=== PATIENT | female | born 1935 | race Caucasian/White ===

== ENCOUNTER 2016-07-24 17:36 | Inpatient (IN) | payer MEDICARE, BC, OTHER ==
[2016-07-24] MEDS ORDERED: ALBUTEROL HFA 8 GM INHALER INH PRN (17:59)
[2016-07-24] MEDS ORDERED: ACETAMINOPHEN/CODEINE TABLET PO PRN (17:59)
[2016-07-24 19:12] LABS: ABO GROUP AB; ANTIBODY SCREEN NEGATIVE (NEGATIVE); RH TYPE NEGATIVE
[2016-07-24 19:13] LABS: IMMED. SPIN CROSSMATCH COMPATIBLE
[2016-07-24] MEDS ORDERED: DIPHENHYDRAMINE HCL 25 MG CAPSULE PO PRN (21:58)
[2016-07-24] MEDS: ROPINIROLE HCL 1 MG TABLET PO SCH (23:43)
[2016-07-25 03:04] LABS: HEMATOCRIT 28.5 % (35.0-47.0); HEMOGLOBIN 8.2 gm/dl (11.6-16.0)
[2016-07-25] MEDS ORDERED: LEVOTHYROXINE SODIUM 25 MCG TABLET PO SCH (06:00)
[2016-07-25 06:18] LABS: HEMATOCRIT 28.3 % (35.0-47.0); HEMOGLOBIN 8.1 gm/dl (11.6-16.0); MEAN CELL VOLUME 76.5 fl (81-97); MEAN CORPUSCULAR HGB CONC 28.6 g/dl (32-36); MEAN PLATELET VOLUME 9.8 fl (7.4-10.4); PLATELET COUNT 200 K/uL (130-400); RED CELL DISTRIBUTION WIDTH 17.1 % (11.5-14.5)
[2016-07-25 06:22] LABS: MEAN CORPUSCULAR HEMOGLOBIN 21.8 pg (27-33)
[2016-07-25 06:23] LABS: ANION GAP 15.3 (7-16); BLOOD UREA NITROGEN 20 mg/dL (7-17); CARBON DIOXIDE 21.7 mmol/L (22-30); CREATININE 0.9 mg/dL (0.52-1.04); EST GLOMERULAR FILTRATION RATE > 60 ml/min; GLUCOSE,RANDOM 102 mg/dL (70-110)
[2016-07-25 06:42] LABS: HYPOCHROMIA 2+; PLATELET ESTIMATE NORMAL (NORMAL)
--- NOTE | 2016-07-25 07:27 | CT SCAN REPORT ---
EXAM: CT OF THE BRAIN WITH IV CONTRAST HISTORY: HYPERSOMNOLENT, DIZZINESS FOR THREE MONTHS. TECHNIQUE: Contiguous axial images from the cerebral convexities to the foramen magnum were obtained after the uneventful intravenous administration of 100 ml of Omnipaque 300. Comparison: Head CT 06/30/15. FINDINGS: The brain volume is normal. Normal enhancement of the dural venous sinuses with no thrombosis. Expected vascular enhancement involving the cerebral arteries. No pathologic enhancement within the brain. Mild decreased attenuation in the periventricular white matter of the cerebral hemispheres. The ventricles, basal cisterns, and sulci are within normal limits. Severe calcification of the cavernous segments of the internal carotid arteries. The osseous structures are unremarkable. IMPRESSION: 1. NO PATHOLOGIC CONTRAST ENHANCEMENT WITHIN THE BRAIN. EXPECTED VASCULAR ENHANCEMENT NOTED. 2. MILD CHRONIC SMALL VESSEL ISCHEMIC CHANGE. 3. SEVERE CALCIFICATION OF THE CAVERNOUS SEGMENTS OF THE INTERNAL CAROTID ARTERIES. JOB NUMBER: [id number] MTDD
--- NOTE | 2016-07-25 09:34 | History & Physical ---
<HALEIGH GUNDERSON - Last Filed: 07/25/16 14:20> History of Present Illness - Date of Service Date of Service for History & Physical: 07/25/16 - History of Present Illness Admitting Diagnosis: Anemia; Shortness of breath History of Present Illness: Deysi Venegas is an 81 y/o female with history of chronic anemia with lesions to lung and thyroid presenting with 3 month history of dizziness, fatigue and weakness with report of mental status changes per daughter's report. Seen at in Family Practice with stat CBC showing hgb 7.2. Does have previous history of the same 1 year ago in which she received 1 unit PRBC with successful increase of HGB and was discharged home. Consult at that time with Dr Lyons with no confirmation regarding cause of anemia. Denies epistaxis, easy bruising, hemotysis, blood in stool or black tarry stools. Travel Screening - Travel/Exposure Within Last 30 Days Have you traveled within the last 30 days?: No - Travel/Exposure Within Last Year Have you traveled outside the [place] in the last year?: No - Additonal Travel Details Have you been exposed to anyone with a communicable illness?: No - Travel Symptoms Symptom Screening: None Review of Systems Reviewed: No additional complaints except as noted below Constitutional: Reports: As per HPI. Denies: Chills, Fever, Malaise, Night sweats, Weakness, Weight change Eyes: Reports: As per HPI. Denies: Eye discharge, Eye pain, Photophobia, Vision change ENT: Reports: As per HPI. Denies: Congestion, Dental pain, Ear pain, Epistaxis , Hearing loss, Throat pain Respiratory: Reports: As per HPI. Denies: Cough, Dyspnea, Hemoptysis, Stridor, Wheezes Cardiovascular: Reports: As per HPI. Denies: Arrhythmia, Chest pain, Dyspnea on exertion, Edema, Murmurs, Orthopnea, Palpitations, Paroxysmal nocturnal dyspnea, Rheumatic Fever, Syncope Endocrine: Reports: As per HPI. Denies: Fatigue, Heat or cold intolerance, Polydipsia, Polyuria Gastrointestinal: Reports: As per HPI. Denies: Abdominal pain, Constipation, Diarrhea, Hematemesis, Hematochezia, Melena, Nausea, Vomiting Genitourinary: Reports: As per HPI. Denies: Abnormal menses, Discharge, Dyspareunia, Dysuria, Frequency, Hematuria, Incontinence, Retention, Urgency Musculoskeletal: Reports: As per HPI. Denies: Arthralgia, Back pain, Gout, Joint swelling, Myalgia, Neck pain Skin: Reports: As per HPI. Denies: Bruising, Change in color, Change in hair/ nails, Lesions, Pruritus, Rash Neurological: Reports: As per HPI. Denies: Abnormal gait, Confusion, Headache, Numbness, Paresthesias, Seizure, Tingling, Tremors, Vertigo, Weakness Psychiatric: Reports: As per HPI. Denies: Anxiety, Auditory hallucinations, Depression, Homicidal thoughts, Suicidal thoughts, Visual hallucinations Hematological/Lymphatic: Reports: As per HPI. Denies: Anemia, Blood Clots, Easy bleeding, Easy bruising, Swollen glands Past Medical History - SOCIAL HISTORY Smoking Status: Former smoker Alcohol Use: None Drug Use: None - RESPIRATORY Hx Respiratory Disorders: Yes Hx Bronchitis: Yes Hx Pneumonia: Yes - CARDIOVASCULAR Hx Cardio Disorders: Yes Hx Hypertension: Yes (No longer takes medication) Comment:: Pt states many years ago she was told that she had a murmur - NEURO Hx Neuro Disorders: Yes - GI Hx GI Disorders: Yes Hx Reflux: Yes (Takes Prevacid) Hx Hiatal Hernia: Yes Hx Irritable Bowel: Yes - Hx Genitourinary Disorders: Yes Hx Kidney Stones: Yes Hx UTI: Yes - ENDOCRINE Hx Endocrine Disorders: Yes Hx Diabetes: Yes (takes metformin) Hx Thyroid Disease: Yes (partial thyroidectmoy) - MUSCULOSKELETAL Hx Musculoskeletal Disorders: Yes Hx Back Injury: Yes - PSYCH Hx Psych Problems: Yes Hx Anxiety: Yes Hx Depression: Yes - HEMATOLOGY/ONCOLOGY Hx Hematology/Oncology Disorders: Yes Hx Cancer: Yes (breast cancer, skin cancer) Hx Blood Transfusions: Yes (1 yr ago) Family Medical History Any Significant Family History?: Yes Hx Alcohol Use: Brother/Sister Hx Anxiety: Brother/Sister Hx Dementia: Father Hx Depression: Mother Hx Heart Disease: Mother Hx Stroke: Father, Mother H&P Meds/Allergies - Allergies Allergies: Allergies Allergy/AdvReac Type Severity Reaction Status Date / Time fentanyl Allergy Severe FATIGUE Verified 07/25/16 12:55 amoxicillin [Amoxicillin] AdvReac Intermediate DIARRHEA Verified 07/25/16 12:55 morphine AdvReac Intermediate DIZZINESS Verified 07/25/16 12:55 nitrofurantoin AdvReac Intermediate DIZZINESS Verified 07/25/16 12:55 [From Macrobid] nitrofurantoin AdvReac Intermediate DIZZINESS Verified 07/25/16 12:55 macrocrystalline [From Macrobid] oxycodone HCl [From Percocet] AdvReac Intermediate DIZZINESS Verified 07/25/16 12:55 - Home Medications Home Medications Medication Instructions Recorded Confirmed Last Taken Meridian-3 Fatty Acids [Meridian-3] 1,000 mg PO QHS 06/28/15 07/24/16 03/09/16 Cholecalciferol (Vitamin D3) 5,000 unit PO WEEKLY 07/24/16 07/24/16 Unknown [Vitamin D3] Diphenhydramine HCl [Benadryl] 25 mg PO QHS 07/24/16 07/24/16 Unknown Multivitamin/Iron/Folic Acid 1 tab PO DAILY 07/24/16 07/24/16 Unknown [Centrum] - Active Medications Active Medications: Current Medications Acetaminophen/Codeine Phosphate (Tylenol #3) 1 udtab PO Q6H PRN PRN Reason: Pain - Moderate (5-7) Albuterol Sulfate (Ventolin Hfa) 2 puff INH RESP.Q4H PRN PRN Reason: Wheezing Diphenhydramine HCl (Benadryl Capsule) 50 mg PO QHS PRN PRN Reason: SLEEP Last Admin: 07/24/16 23:28 Dose: 50 mg Escitalopram Oxalate (Lexapro) 10 mg PO DAILY [facility] Levothyroxine Sodium (Synthroid) 25 mcg PO Q48H [facility] Metformin HCl (Glucophage Ir) 500 mg PO BIDWM [facility] Patient Own Med: (Rosuvastatin 20 Mg) 1 each PO QHS [facility] Ropinirole HCl (Requip) 0.25 mg PO QHS [facility] Last Admin: 07/24/16 23:43 Dose: Not Given Physical Exam - Vital Signs Vital Signs: Vital Signs - Last 24 Hrs Temp Pulse Resp BP Pulse Ox 07/25/16 09:00 80 18 07/25/16 06:00 98.3 F 81 18 149/68 97 07/24/16 20:00 98.0 F 83 20 127/60 97 07/24/16 19:16 90 12 07/24/16 17:51 90 12 135/61 95 - General General Appearance: Alert, Oriented x3, Cooperative, No acute distress Limitations: No limitations - Head Head exam: Normal inspection Head exam detail: negative: Abrasion, Contusion - Eye Eye exam: Normal appearance, PERRL Pupils: Normal accommodation - ENT ENT exam: Normal exam, Mucous membranes moist, Normal external ear exam, Normal orophraynx, TM's normal bilaterally Ear exam: Normal external inspection. negative: External canal tenderness Nasal Exam: Normal inspection. negative: Discharge, Sinus tenderness Mouth exam: Normal external inspection, Tongue normal Teeth exam: Normal inspection. negative: Dental caries Throat exam: Normal inspection. negative: Tonsillar erythema, Tonsillar exudate - Neck Neck exam: Normal inspection, Full ROM. negative: Tenderness - Respiratory Respiratory exam: Normal lung sounds bilaterally. negative: Respiratory distress - Cardiovascular Cardiovascular Exam: Regular rate, Normal rhythm, Normal heart sounds, Systolic murmur (holosystolic, does have previous history of) Peripheral Pulses: 3+: Dorsalis Pedis (R), Dorsalis Pedis (L) - GI/Abdominal GI/Abdominal exam: Soft, Normal bowel sounds. negative: Tenderness - Rectal Rectal exam: Deferred. negative: Black stool, Bloody stool - exam: Deferred - Extremities Extremities exam: Normal inspection, Full ROM, Normal capillary refill. negative: Tenderness - Back Back exam: Reports: Normal inspection, Full ROM. Denies: Muscle spasm, Rash noted, Tenderness - Neurological Neurological exam: Alert, Normal gait, Oriented X3, Reflexes normal - Psychiatric Psychiatric exam: Normal affect, Normal mood - Skin Skin exam: Dry, Intact, Normal color, Warm Results - Labs Result Diagrams: 07/25/16 02:50 07/25/16 02:50 Labs Last 24 Hours: Laboratory Results - last 24 hr 07/24/16 07/25/16 07/25/16 16:56 02:50 02:50 WBC 8.0 RBC 3.70 L Hgb 8.2 L 8.1 L Hct 28.5 L 28.3 L MCV 76.5 L MCH 21.8 L MCHC 28.6 L RDW 17.1 H Plt Count 200 MPV 9.8 Neutrophils % 61.0 Lymphocytes % 30.0 Monocytes % 8.0 Eosinophils % 1.0 Basophils % Not Reportable Platelet Estimate Normal Hypochromasia 2+ Sodium Potassium Chloride Carbon Dioxide Anion Gap BUN Creatinine Estimated GFR Random Glucose Calcium ABO Group Ab Rh Factor Negative Antibody Screen Negative 07/25/16 02:50 WBC RBC Hgb Hct MCV MCH MCHC RDW Plt Count MPV Neutrophils % Lymphocytes % Monocytes % Eosinophils % Basophils % Platelet Estimate Hypochromasia Sodium 138 Potassium 4.6 Chloride 101 Carbon Dioxide 21.7 L Anion Gap 15.3 BUN 20 H Creatinine 0.9 Estimated GFR > 60 Random Glucose 102 Calcium 9.5 ABO Group Rh Factor Antibody Screen - Imaging and Cardiology CT scan - head Status: Report reviewed (1- mild chronic small vessel ischemic changes, 2- severe calcification to cavernous sections of internal carotid arteries) Plan - Inpatient Certification Inpatient Certification: Admit to inpatient care: Based on my medical assessment, after consideration of patient's risk factors (age, co-morbidities and patient presenting symptoms and acuity), I expect that this patient will remain in the hospital greater than or equal to two midnights and that the services needed warrant inpatient care because: Patient Risk Factors: [Age, comorbidities] Estimated length of stay: [48-72 hrs] The patient may reasonably be expected to be discharged or transferred to a hospital within 96 hours after admission to [facility]. Services needed: [GI consult, Heme/Onc] Post hospital care (if known): [] I certify that my determination is in accordance with my understanding of Medicare requirements for reasonable and necessary inpatient services. 07/25/16 14:20 - Detailed Diagnosis and Plan (1) Anemia Current Visit: No Status: Acute Qualifiers: Anemia type: other cause Other causes of anemia: chronic disease, other Qualified Code(s): D63.8 - Anemia in other chronic diseases classified elsewhere Base Code: D64.9 - ANEMIA, UNSPECIFIED Comment: 07/25/16- Idiopathic chronic microcytic-hypochromoic anemia with hgb 7.2, up to 8.2 after 1 U PRBC. Concern regarding lung and thyroid lesion with recent changes in mental status. Consult with Dr. Lyons today and plan for GI consult. May need PET scan due to changes mental status, anemia chronic disease, body lesions. Await haptoglobin results and will be checking retic count. Previous studies: 1- 04/24/15- small internal hemorrhoids, 4mm polyp removal 2- 06/22/15 thyroid ultrasound- multiple subcentimeter nodules right lobe likely colloid/adenomas 3- 12/07/15- EGD w/ biopsy for antral gastritis to rule out occult celiac spuue, no new finding noted during scope. (2) Mental status change Current Visit: Yes Status: Acute Qualifiers: Altered mental status type: disorientation Qualified Code(s): R41.0 - Disorientation, unspecified Base Code: R41.82 - ALTERED MENTAL STATUS, UNSPECIFIED Comment: 07/25/16- mental status changes per daughter's report prior to visit in Family Practice 07/24/16. Head CT with contrast 07/24/16 with no acute intracranial process, + mild chronic small vessel ischemic changes, + severe calcification of cavernous secions of internal carotid arteries. Is A&O X3 and appropriate today (3) T2DM (type 2 diabetes mellitus) Current Visit: Yes Status: Chronic Qualifiers: Diabetes mellitus complication status: without complication Diabetes mellitus chcf insulin use: without exterminator use Qualified Code(s): E11.9 - Type 2 diabetes mellitus without complications Base Code: E11.9 - TYPE 2 DIABETES MELLITUS WITHOUT COMPLICATIONS Comment: 07/25/16- chronic history DM-2, does not regulary check blood sugars at home and reports well controlled with Metformin (4) Heart murmur Current Visit: Yes Status: Acute Base Code: R01.1 - CARDIAC MURMUR, UNSPECIFIED Comment: 07/25/16- holosystolic, chronic. 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) - Cardiolyte stress test completed 08/21/2015 and negative <MIRZA LR - Last Filed: 07/26/16 12:15> History of Present Illness - Date of Service Date of Service for History & Physical: 07/26/16 H&P Meds/Allergies - Active Medications Active Medications: Current Medications Acetaminophen/Codeine Phosphate (Tylenol #3) 1 udtab PO Q6H PRN PRN Reason: Pain - Moderate (5-7) Albuterol Sulfate (Ventolin Hfa) 2 puff INH RESP.Q4H PRN PRN Reason: Wheezing Diphenhydramine HCl (Benadryl Capsule) 50 mg PO QHS PRN PRN Reason: SLEEP Last Admin: 07/24/16 23:28 Dose: 50 mg Escitalopram Oxalate (Lexapro) 10 mg PO DAILY [facility] Last Admin: 07/26/16 10:56 Dose: 10 mg Levothyroxine Sodium (Synthroid) 25 mcg PO Q48H [facility] Last Admin: 07/25/16 09:58 Dose: 25 mcg Metformin HCl (Glucophage Ir) 500 mg PO BIDWM [facility] Patient Own Med: (Rosuvastatin 20 Mg) 1 each PO QHS [facility] Last Admin: 07/25/16 23:29 Dose: 1 each Ropinirole HCl (Requip) 0.25 mg PO QHS [facility] Last Admin: 07/25/16 23:29 Dose: 0.25 mg Physical Exam - Vital Signs Vital Signs: Vital Signs - Last 24 Hrs Temp Pulse Resp BP Pulse Ox 07/26/16 11:54 98.9 F 85 18 144/68 96 07/26/16 09:00 18 07/26/16 06:16 99.0 F 90 18 128/58 95 07/26/16 06:10 95 07/25/16 23:18 100.0 F H 88 16 141/63 93 L 07/25/16 12:21 98.3 F 81 18 124/56 95 Results - Labs Result Diagrams: 07/26/16 06:15 07/25/16 02:50 Labs Last 24 Hours: Laboratory Results - last 24 hr 07/25/16 07/26/16 07/26/16 14:30 06:15 06:15 WBC 7.7 RBC 4.10 Hgb 8.9 L Hct 31.3 L MCV 76.3 L MCH 21.7 L MCHC 28.4 L RDW 17.4 H Plt Count 217 MPV 9.4 Gran % 58.1 Lymphocytes % 32.1 Monocytes % 7.5 Eosinophils % 1.8 Basophils % 0.5 Retic Count 1.7 1.7 Iron 17 L TIBC 468 % Saturation 3 L Ferritin 7.28 L VTE H&P Assessment - Risk for VTE Risk for VTE: Yes Risk Level: Moderate Risk Assessment Date: 07/25/16 Risk Assessment Time: 12:14 VTE Orders Placed or Will Be Placed: No VTE Reason for No Prophylaxis: Contraindicated (anemic ) Plan - Inpatient Certification Inpatient Certification: Admit to inpatient care: Based on my medical assessment, after consideration of patient's risk factors (age, co-morbidities and patient presenting symptoms and acuity), I expect that this patient will remain in the hospital greater than or equal to two midnights and that the services needed warrant inpatient care because: Patient Risk Factors: [] Estimated length of stay: [] The patient may reasonably be expected to be discharged or transferred to a hospital within 96 hours after admission to [facility]. Services needed: [] Post hospital care (if known): [] I certify that my determination is in accordance with my understanding of Medicare requirements for reasonable and necessary inpatient services.
[2016-07-25] MEDS: PATIENT OWN MED: ROSUVASTATIN 20 MG PO SCH ×2 (09:57→23:29)
[2016-07-25] MEDS: ESCITALOPRAM 10 MG TABLET PO SCH (09:58)
[2016-07-25] MEDS ORDERED: ROPINIROLE HCL 0.25 MG PO SCH (12:15)
[2016-07-25] MEDS ORDERED: ESCITALOPRAM OXALATE 20 MG PO SCH (12:15)
[2016-07-25] MEDS ORDERED: DIPHENHYDRAMINE HCL 25 MG CAPSULE PO SCH (22:00)
[2016-07-25] MEDS ORDERED: FATTY ACIDS PO SCH (22:00)
[2016-07-25] MEDS ORDERED: OMEGA PO SCH (22:00)
[2016-07-25] MEDS: ROPINIROLE HCL 1 MG TABLET PO SCH (23:29)
[2016-07-26 06:38] LABS: BASO % 0.5 % (0-6); EOS % 1.8 % (0-6); GRAN % 58.1 % (47-80); HEMATOCRIT 31.3 % (35.0-47.0); HEMOGLOBIN 8.9 gm/dl (11.6-16.0); LYMPH % 32.1 % (16-45); MEAN CELL VOLUME 76.3 fl (81-97); MEAN CORPUSCULAR HEMOGLOBIN 21.7 pg (27-33); MEAN CORPUSCULAR HGB CONC 28.4 g/dl (32-36); MEAN PLATELET VOLUME 9.4 fl (7.4-10.4); MONO % 7.5 % (0-9); PLATELET COUNT 217 K/uL (130-400); RED CELL DISTRIBUTION WIDTH 17.4 % (11.5-14.5); RETICULOCYTE COUNT 1.7 % (0.0-2.0); WHITE BLOOD COUNT W/O DIFF 7.7 K/uL (4.2-12.2)
[2016-07-26 07:31] LABS: FERRITIN 7.28 ng/mL (11.1-264)
[2016-07-26] MEDS ORDERED: MULTIVITAMINS/MINERALS TABLET PO SCH (10:00)
[2016-07-26] MEDS ORDERED: METFORMIN 500 MG TABLET PO SCH ×2 (10:00→17:00)
[2016-07-26] MEDS: ESCITALOPRAM 10 MG TABLET PO SCH (10:56)
--- NOTE | 2016-07-26 12:19 | Discharge Summary ---
Providers Discharge Summary Date: 07/26/16 Date of admission: 07/24/16 17:36 Expected Date of Discharge: 07/26/16 Attending physician: MIRZA LR Primary care physician: MIRZA LR Consults: Consult Orders 07/24/16 17:57 Consult NOW Consulting Provider: Maira Lyons Physician Instructions: Reason For Exam: microcytic anemia Physical Exam - Vital Signs Vital Signs: Vital Signs - Last 24 Hrs Temp Pulse Resp BP Pulse Ox 07/26/16 11:54 98.9 F 85 18 144/68 96 07/26/16 09:00 18 07/26/16 06:16 99.0 F 90 18 128/58 95 07/26/16 06:10 95 07/25/16 23:18 100.0 F H 88 16 141/63 93 L 07/25/16 12:21 98.3 F 81 18 124/56 95 - General General Appearance: Alert, Oriented x3, Cooperative, No acute distress Limitations: No limitations - Head Head exam: Normal inspection Head exam detail: negative: Abrasion, Contusion - Eye Eye exam: Normal appearance, PERRL Pupils: Normal accommodation - ENT ENT exam: Normal exam, Mucous membranes moist, Normal external ear exam, Normal orophraynx, TM's normal bilaterally Ear exam: Normal external inspection. negative: External canal tenderness Nasal Exam: Normal inspection. negative: Discharge, Sinus tenderness Mouth exam: Normal external inspection, Tongue normal Teeth exam: Normal inspection. negative: Dental caries Throat exam: Normal inspection. negative: Tonsillar erythema, Tonsillar exudate - Neck Neck exam: Normal inspection, Full ROM. negative: Tenderness - Respiratory Respiratory exam: Normal lung sounds bilaterally. negative: Respiratory distress - Cardiovascular Cardiovascular Exam: Regular rate, Normal rhythm, Normal heart sounds, Systolic murmur (holosystolic, does have previous history of) Peripheral Pulses: 3+: Dorsalis Pedis (R), Dorsalis Pedis (L) - GI/Abdominal GI/Abdominal exam: Soft, Normal bowel sounds. negative: Tenderness - Rectal Rectal exam: Deferred. negative: Black stool, Bloody stool - exam: Deferred - Extremities Extremities exam: Normal inspection, Full ROM, Normal capillary refill. negative: Tenderness - Back Back exam: Reports: Normal inspection, Full ROM. Denies: Muscle spasm, Rash noted, Tenderness - Neurological Neurological exam: Alert, Normal gait, Oriented X3, Reflexes normal - Psychiatric Psychiatric exam: Normal affect, Normal mood - Skin Skin exam: Dry, Intact, Normal color, Warm Hospitalization - Hospitalization Admission Diagnosis: Anemia; Shortness of breath - Problem List/Discharge Diagnosis (1) Anemia Current Visit: No Status: Acute Discharge Diagnosis: Anemia type: other cause Other causes of anemia: chronic disease, other Qualified Code(s): D63.8 - Anemia in other chronic diseases classified elsewhere Base Code: D64.9 - ANEMIA, UNSPECIFIED Comment: 07/26/16- chronic microcytic-hypochromoic anemia with hgb 07/24 7.2, up to 8.2 yesterday and 8.9 yesterday after 1 U PRBC on 07/24. Concern regarding lung and thyroid lesion with recent changes in mental status but CT lung report from [facility] shows non-consolidating minimal opacity of CT not suspicious for mass. Consult with Dr. Lyons on 07/25 and plan to follow up with GI as outpatient. May need PET scan due to changes mental status, anemia chronic disease, body lesions. Retic is 1.7% which is low for someone who has been chronically anemic. Await haptoglobin results . Will discharge home on ferrous sulfate 325mg BID. Previous studies: 1- 04/24/15- small internal hemorrhoids, 4mm polyp removal 2- 06/22/15 thyroid ultrasound- multiple subcentimeter nodules right lobe likely colloid/adenomas 3- 12/07/15- EGD w/ biopsy for antral gastritis to rule out occult celiac spuue, no new finding noted during scope. (2) Heart murmur Current Visit: Yes Status: Acute Base Code: R01.1 - CARDIAC MURMUR, UNSPECIFIED Comment: 07/26/16- holosystolic, chronic. 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) - Cardiolyte stress test completed 08/21/2015 and negative (3) T2DM (type 2 diabetes mellitus) Current Visit: Yes Status: Chronic Discharge Diagnosis: Diabetes mellitus complication status: without complication Diabetes mellitus intermediate manager insulin use: without intermediate manager use Qualified Code(s): E11.9 - Type 2 diabetes mellitus without complications Base Code: E11.9 - TYPE 2 DIABETES MELLITUS WITHOUT COMPLICATIONS Comment: 07/26/16- chronic history DM-2, does not regulary check blood sugars at home and reports well controlled with Metformin - Hospitalization Course Disposition: Home Health Service Procedures: Imaging and X-Rays 07/24/16 17:56 HEAD W CONTRAST [CT] Stat Abnormal Labs: Abnormal Lab Results 07/25/16 07/25/16 07/25/16 Range/Units 02:50 02:50 02:50 RBC 3.70 L (3.80-5.40) M/uL Hgb 8.2 L 8.1 L (11.6-16.0) gm/dl Hct 28.5 L 28.3 L (35.0-47.0) % MCV 76.5 L (81-97) fl MCH 21.8 L (27-33) pg MCHC 28.6 L (32-36) g/dl RDW 17.1 H (11.5-14.5) % Carbon Dioxide 21.7 L (22-30) mmol/L BUN 20 H (7-17) mg/dL Iron (30-170) ug/dL % Saturation (20-50) % Ferritin (11.1-264) ng/mL 07/26/16 07/26/16 Range/Units 06:15 06:15 RBC (3.80-5.40) M/uL Hgb 8.9 L (11.6-16.0) gm/dl Hct 31.3 L (35.0-47.0) % MCV 76.3 L (81-97) fl MCH 21.7 L (27-33) pg MCHC 28.4 L (32-36) g/dl RDW 17.4 H (11.5-14.5) % Carbon Dioxide (22-30) mmol/L BUN (7-17) mg/dL Iron 17 L (30-170) ug/dL % Saturation 3 L (20-50) % Ferritin 7.28 L (11.1-264) ng/mL Condition at Discharge: (2) Stable Discharge Medications - Discharge Medications Prescriptions: Ferrous Sulfate 325 mg PO BID #60 tab Home Medications: Ambulatory Orders Horner-3 Fatty Acids [Horner-3] 1,000 mg PO QHS 06/28/15 [Last Taken 03/09/16] Cholecalciferol (Vitamin D3) [Vitamin D3] 5,000 unit PO WEEKLY 07/24/16 [Last Taken Unknown] Diphenhydramine HCl [Benadryl] 25 mg PO QHS 07/24/16 [Last Taken Unknown] Multivitamin/Iron/Folic Acid [Centrum] 1 tab PO DAILY 07/24/16 [Last Taken Unknown] Acetaminophen with Codeine [Tylenol with Codeine #3] 1 udtab PO Q6H PRN #0 tablet 07/26/16 [Last Taken Unknown] Albuterol Sulfate [Ventolin Hfa] 2 puff INH RESP.Q4H PRN #0 inhaler 07/26/16 [ Last Taken Unknown] Escitalopram Oxalate [Lexapro] 10 mg PO DAILY tab 07/26/16 [Last Taken Unknown] Ferrous Sulfate 325 mg PO BID #60 tab 07/26/16 [Last Taken Unknown] Levothyroxine Sodium [Synthroid] 25 mcg PO Q48H tab 07/26/16 [Last Taken Unknown] Discharge Plan - Discharge Instructions Activity at Discharge: Increase Activity as Tolerated Diet at Discharge: Other (high iron diet) Instructions: Iron Rich Diet (DC)
[2016-08-01] MEDS ORDERED: CHOLECALCIFEROL 5000 UNIT PO SCH (10:00)
== END 2016-07-26 14:02 | disposition home or self-care (01) | DRG 812 ==
LOC: MEDSURG 17:36
PROVIDERS: ADMIT Family Medicine; ATTEND Family Medicine
PROC: 30253N1 (ICD-10-PCS; principal; 2016-07-24)
DX: D50.8 Other iron deficiency anemias (principal); R53.83 Other fatigue; R01.1 Cardiac murmur, unspecified; R41.0 Disorientation, unspecified; E11.9 Type 2 diabetes mellitus without complications; Z79.84 Long term (current) use of oral hypoglycemic drugs; E03.9 Hypothyroidism, unspecified
CPT/HCPCS: 70460; 80048; 82728; 83010; 83550; 85014; 85018; 85025; 85027; 85044; 86850; 86900; 86901; 94620; 94760; 99223

== ENCOUNTER 2017-08-12 16:10 | Emergency (ER) | payer MEDICARE, BC ==
--- NOTE | 2017-08-12 16:21 | Emergency Department Record ---
History of Present Illness - General Chief Complaint: Back Pain/Injury Stated Complaint: BACK PAIN Time Seen by Provider: 08/12/17 16:11 Source: Patient Mode of Arrival: Ambulatory Limitations: No limitations - History of Present Illness Initial Comments: 82 yo female presents with return of her chronic left sided back pain. She has been experiencing this pain on an off for many years. She has been seen by Dr Crespo of a pain specialty clinic in [place]. She had injections this summer in the back that gave her a long period of relief. The pain returned 3 days ago. No chest pain, no cough, no shortness of breath, no abdominal pain. No radiation to the arms or legs. No falls or injuries. MD Complaint: Back pain -: Year(s) - Related Data Allergies Allergy/AdvReac Type Severity Reaction Status Date / Time fentanyl Allergy Severe FATIGUE Unverified 06/24/17 14:59 amoxicillin [Amoxicillin] AdvReac Intermediate DIARRHEA Unverified 06/24/17 14: 59 morphine AdvReac Intermediate DIZZINESS Unverified 06/24/17 14:59 nitrofurantoin AdvReac Intermediate DIZZINESS Unverified 06/24/17 14:59 [From Macrobid] nitrofurantoin AdvReac Intermediate DIZZINESS Unverified 06/24/17 14:59 macrocrystalline [From Macrobid] oxycodone HCl [From Percocet] AdvReac Intermediate DIZZINESS Unverified 14:59 Review of Systems Constitutional: Denies: Chills, Fever, Weakness Eyes: Denies: Eye discharge ENT: Denies: Congestion, Throat pain Respiratory: Denies: Cough Cardiovascular: Denies: Chest pain, Syncope Endocrine: Denies: Fatigue Gastrointestinal: Denies: Abdominal pain, Diarrhea, Nausea, Vomiting Genitourinary: Denies: Dysuria, Frequency, Hematuria, Urgency Musculoskeletal: Reports: Back pain. Denies: Arthralgia Skin: Denies: Bruising, Change in color, Rash Neurological: Denies: Headache, Numbness, Weakness Psychiatric: Denies: Anxiety Hematological/Lymphatic: Denies: Blood Clots, Easy bleeding, Easy bruising, Swollen glands Past Medical History - SOCIAL HISTORY Smoking Status: Former smoker Drug Use: None - RESPIRATORY Hx Respiratory Disorders: Yes Hx Bronchitis: Yes Hx Pneumonia: Yes - CARDIOVASCULAR Hx Cardio Disorders: Yes Hx Hypertension: Yes (No longer takes medication) Comment:: Pt states many years ago she was told that she had a murmur - NEURO Hx Neuro Disorders: Yes - GI Hx GI Disorders: Yes Hx Reflux: Yes (Takes Prevacid) Hx Hiatal Hernia: Yes Hx Irritable Bowel: Yes - Hx Genitourinary Disorders: Yes Hx Kidney Stones: Yes Hx UTI: Yes - ENDOCRINE Hx Endocrine Disorders: Yes Hx Diabetes: Yes (takes metformin) Hx Thyroid Disease: Yes (partial thyroidectmoy) - MUSCULOSKELETAL Hx Musculoskeletal Disorders: Yes Hx Back Injury: Yes - PSYCH Hx Psych Problems: Yes Hx Anxiety: Yes Hx Depression: Yes - HEMATOLOGY/ONCOLOGY Hx Hematology/Oncology Disorders: Yes Hx Cancer: Yes (breast cancer, skin cancer) Hx Blood Transfusions: Yes (1 yr ago) Family Medical History Hx Alcohol Use: Brother/Sister Hx Anxiety: Brother/Sister Hx Dementia: Father Hx Depression: Mother Hx Heart Disease: Mother Hx Stroke: Father, Mother Physical Exam - General General Appearance: Alert, Oriented x3, Cooperative, No acute distress Limitations: No limitations - Head Head exam: Atraumatic, Normal inspection - Eye Eye exam: Normal appearance. negative: Conjunctival injection, Scleral icterus - ENT ENT exam: Normal exam, Mucous membranes moist Ear exam: Normal external inspection Nasal Exam: Normal inspection Mouth exam: Normal external inspection Teeth exam: Normal inspection - Neck Neck exam: Normal inspection, Full ROM. negative: Tenderness - Respiratory Respiratory exam: Normal lung sounds bilaterally. negative: Respiratory distress - Cardiovascular Cardiovascular Exam: Regular rate, Normal rhythm, Normal heart sounds, Other ( Hr about 105,) - GI/Abdominal GI/Abdominal exam: Soft. negative: Distended, Rebound, Rigid, Tenderness - Rectal Rectal exam: Deferred - exam: Deferred - Extremities Extremities exam: Normal inspection, Full ROM, Other. negative: Joint swelling , Pedal edema, Tenderness - Back Back exam: Reports: Normal inspection, Full ROM, Paraspinal tenderness (Left mid upper thoracic). Denies: CVA tenderness (R), CVA tenderness (L), Muscle spasm - Neurological Neurological exam: Alert, Normal gait, Oriented X3, Reflexes normal. negative: Motor sensory deficit - Psychiatric Psychiatric exam: Normal affect, Normal mood - Skin Skin exam: Dry, Intact, Normal color, Warm Course - Reevaluation(s) Reevaluation #1: 08/12/17 16:25 EMR reviewed Multiple visits for same in the past with extensive work up with CT, XR, and MRI She has had normal renal function in the past She has been given toradol many times in the past Toradol ordered Disposition Disposition: Discharge Clinical Impression: Thoracic back pain Disposition: Home, Self-Care Condition: (1) Good Instructions: Thoracic Pain (ED) Additional Instructions: Follow up with your pain doctor on as scheduled Return or be seen sooner if worse or any new concerns. Forms: Patient Portal Access Quality - Quality Measures Quality Measures: N/A - Blood Pressure Screening Does Patient Have Any of the Following: Active Dx of HTN Blood Pressure Classification: Pre-Hypertensive BP Reading Systolic Measurement: 107 Diastolic Measurement: 85 Screening for High Blood Pressure: Patient Exclusion, Hx of HTN [G9744]
[2017-08-12] MEDS ORDERED: KETOROLAC 30 MG/ML VIAL IM ONE (16:23)
== END 2017-08-12 16:39 | disposition home or self-care (01) ==
LOC: ER 16:10
DX: G89.29 Other chronic pain (principal); M54.6 Pain in thoracic spine; E11.9 Type 2 diabetes mellitus without complications; I10 Essential (primary) hypertension; Z79.84 Long term (current) use of oral hypoglycemic drugs; Z87.891 Personal history of nicotine dependence
CPT/HCPCS: 99283 ×2; 96372; J1885

== ENCOUNTER 2017-08-13 14:00 | Emergency (ER) | payer MEDICARE, BC ==
--- NOTE | 2017-08-13 17:25 | Emergency Department Record ---
History of Present Illness - General Chief Complaint: Back Pain/Injury Stated Complaint: BACK PAIN Time Seen by Provider: 08/13/17 17:19 Source: Patient, RN notes reviewed - History of Present Illness Initial Comments: 3 days of back pain and she has chonic left sided thoracic back pain under her bra strap area and she is going to pain clinic in [place] and sees Dr. Crespo and getting shot there which help for long periods of time and she returns today for another dilaudid shot it worked yesterday. No chest pain no dyspnea and no abdominal pain. Patient is going to the pain clinic tomorrow. Complaint: Back pain Onset/Timin -: Days(s) Similar Symptoms Previously: Yes Severity: Moderate Severity scale (1-10): 9 Quality: Aching, Sharp Consistency: Constant, Intermittent Improves With: None Worsens With: None - Related Data Allergies Allergy/AdvReac Type Severity Reaction Status Date / Time fentanyl Allergy Severe FATIGUE Verified 08/13/17 15:18 amoxicillin [Amoxicillin] AdvReac Intermediate DIARRHEA Verified 08/13/17 15:18 morphine AdvReac Intermediate DIZZINESS Verified 08/13/17 15:18 nitrofurantoin AdvReac Intermediate DIZZINESS Verified 08/13/17 15:18 [From Macrobid] nitrofurantoin AdvReac Intermediate DIZZINESS Verified 08/13/17 15:18 macrocrystalline [From Macrobid] oxycodone HCl [From Percocet] AdvReac Intermediate DIZZINESS Verified 08/13/17 15:18 Travel Screening - Travel/Exposure Within Last 30 Days Have you traveled within the last 30 days?: No - Travel/Exposure Within Last Year Have you traveled outside the [place] in the last year?: No - Additonal Travel Details Have you been exposed to anyone with a communicable illness?: No - Travel Symptoms Symptom Screening: None Review of Systems Reviewed: No additional complaints except as noted below Constitutional: Reports: As per HPI. Denies: Chills, Fever, Malaise, Night sweats, Weakness, Weight change Eyes: Reports: As per HPI. Denies: Eye discharge, Eye pain, Photophobia, Vision change ENT: Reports: As per HPI. Denies: Congestion, Dental pain, Ear pain, Epistaxis , Hearing loss, Throat pain Respiratory: Reports: As per HPI. Denies: Cough, Dyspnea, Hemoptysis, Stridor, Wheezes Cardiovascular: Reports: As per HPI. Denies: Arrhythmia, Chest pain, Dyspnea on exertion, Edema, Murmurs, Orthopnea, Palpitations, Paroxysmal nocturnal dyspnea, Rheumatic Fever, Syncope Endocrine: Reports: As per HPI. Denies: Fatigue, Heat or cold intolerance, Polydipsia, Polyuria Gastrointestinal: Reports: As per HPI. Denies: Abdominal pain, Constipation, Diarrhea, Hematemesis, Hematochezia, Melena, Nausea, Vomiting Genitourinary: Reports: As per HPI. Denies: Abnormal menses, Discharge, Dyspareunia, Dysuria, Frequency, Hematuria, Incontinence, Retention, Urgency Musculoskeletal: Reports: As per HPI, Back pain. Denies: Arthralgia, Gout, Joint swelling, Myalgia, Neck pain Skin: Reports: As per HPI. Denies: Bruising, Change in color, Change in hair/ nails, Lesions, Pruritus, Rash Neurological: Reports: As per HPI. Denies: Abnormal gait, Confusion, Headache, Numbness, Paresthesias, Seizure, Tingling, Tremors, Vertigo, Weakness Psychiatric: Reports: As per HPI. Denies: Anxiety, Auditory hallucinations, Depression, Homicidal thoughts, Suicidal thoughts, Visual hallucinations Hematological/Lymphatic: Reports: As per HPI. Denies: Anemia, Blood Clots, Easy bleeding, Easy bruising, Swollen glands Past Medical History - SOCIAL HISTORY Smoking Status: Former smoker Alcohol Use: None Drug Use: None - RESPIRATORY Hx Respiratory Disorders: Yes Hx Bronchitis: Yes Hx Pneumonia: Yes - CARDIOVASCULAR Hx Cardio Disorders: Yes Hx Hypertension: Yes (No longer takes medication) Comment:: Pt states many years ago she was told that she had a murmur - NEURO Hx Neuro Disorders: Yes Hx Dizziness: Yes (Per patient) - GI Hx GI Disorders: Yes Hx Reflux: Yes (Takes Prevacid) Hx Hiatal Hernia: Yes Hx Irritable Bowel: Yes - Hx Genitourinary Disorders: Yes Hx Kidney Stones: Yes Hx UTI: Yes - ENDOCRINE Hx Endocrine Disorders: Yes Hx Diabetes: Yes (takes metformin) Hx Thyroid Disease: Yes (partial thyroidectmoy) - MUSCULOSKELETAL Hx Musculoskeletal Disorders: Yes Hx Back Injury: Yes - PSYCH Hx Psych Problems: Yes Hx Anxiety: Yes Hx Depression: Yes - HEMATOLOGY/ONCOLOGY Hx Hematology/Oncology Disorders: Yes Hx Cancer: Yes (breast cancer, skin cancer) Hx Blood Transfusions: Yes (1 yr ago) Family Medical History Any Significant Family History?: Yes Hx Alcohol Use: Brother/Sister Hx Anxiety: Brother/Sister Hx Dementia: Father Hx Depression: Mother Hx Heart Disease: Mother Hx Stroke: Father, Mother Physical Exam - General General Appearance: Alert, Oriented x3, Cooperative, No acute distress - Head Head exam: Normal inspection - Eye Eye exam: Normal appearance, PERRL Pupils: Normal accommodation - ENT ENT exam: Normal exam, Mucous membranes moist, Normal external ear exam, Normal orophraynx, TM's normal bilaterally Ear exam: Normal external inspection. negative: External canal tenderness Nasal Exam: Normal inspection. negative: Discharge, Sinus tenderness Mouth exam: Normal external inspection, Tongue normal Teeth exam: Normal inspection. negative: Dental caries Throat exam: Normal inspection. negative: Tonsillar erythema, Tonsillar exudate - Neck Neck exam: Normal inspection, Full ROM. negative: Tenderness - Respiratory Respiratory exam: Normal lung sounds bilaterally. negative: Respiratory distress - Cardiovascular Cardiovascular Exam: Regular rate, Normal rhythm, Normal heart sounds - GI/Abdominal GI/Abdominal exam: Soft, Normal bowel sounds. negative: Tenderness - Rectal Rectal exam: Deferred - exam: Deferred - Extremities Extremities exam: Normal inspection, Full ROM, Normal capillary refill. negative: Tenderness - Back Back exam: Reports: Normal inspection, Full ROM. Denies: Muscle spasm, Rash noted, Tenderness - Neurological Neurological exam: Alert, Normal gait, Oriented X3, Reflexes normal - Psychiatric Psychiatric exam: Normal affect, Normal mood - Skin Skin exam: Dry, Intact, Normal color, Warm Course Vital Signs 08/13/17 15:10 Temperature 98.7 F Pulse Rate 94 H Respiratory 18 Rate Pulse Ox 100 Disposition Clinical Impression: Chronic back pain greater than 3 months duration Disposition: Home, Self-Care Condition: (1) Good Instructions: Chronic Back Pain (ED) Additional Instructions: follow up with pain clinic tomorrow and your family next week Forms: Patient Portal Access Time of Disposition: 17:43 Quality - Quality Measures Quality Measures: N/A - Blood Pressure Screening Does Patient Have Any of the Following: No Systolic Measurement: ~ Screening for High Blood Pressure: < First Hypertensive BP, F/U Documented > [ G8950] First Hypertensive Follow-up Interventions: Referral to alternative/primary care provider.
[2017-08-13] MEDS ORDERED: KETOROLAC 60 MG/2 ML VIAL IM STA (17:26)
== END 2017-08-13 18:04 | disposition left against medical advice (07) ==
LOC: ER 14:00
DX: G89.29 Other chronic pain (principal); M54.6 Pain in thoracic spine; I10 Essential (primary) hypertension; Z79.84 Long term (current) use of oral hypoglycemic drugs; Z87.891 Personal history of nicotine dependence
CPT/HCPCS: 96372; 99282; 99283; J1885

== ENCOUNTER 2017-08-13 20:25 | Emergency (ER) | payer MEDICARE, BC ==
[2017-08-13] MEDS ORDERED: HYDROCODONE/APAP 7.5/325MG TABLET PO ONE (20:59)
--- NOTE | 2017-08-13 20:59 | Emergency Department Record ---
History of Present Illness - General Chief Complaint: Back Pain/Injury Stated Complaint: BACK PAIN Time Seen by Provider: 08/13/17 20:28 Source: Patient Mode of Arrival: Ambulatory Limitations: No limitations - History of Present Illness Initial Comments: 82 yo female returns to ED following discharge 3 hours ago for continued left sided thoracic back pain symptoms, reports that the Toradol that she was given did not improve her symptoms significantly. Patient reports a long history of similar symptoms intermittently that she has received injections for by her pain specialist (Dr. Crespo), reports that she has a scheduled appointment with him tomorrow. Patient denies extremity weakness or recurrent injury, and denies fevers, chills, or urinary retention symptoms. Patient has undergone numerous previous imaging studies for her symptoms as well (MRI, X-ray). MD Complaint: Back pain Onset/Timin -: Days(s) Similar Symptoms Previously: Yes Severity: Moderate Quality: Sharp, Stabbing Consistency: Constant Improves With: None Worsens With: None Context: Unknown Associated Symptoms: Denies other symptoms Treatments Prior to Arrival: NSAIDS - Related Data Allergies Allergy/AdvReac Type Severity Reaction Status Date / Time fentanyl Allergy Severe FATIGUE Verified 08/13/17 15:18 amoxicillin [Amoxicillin] AdvReac Intermediate DIARRHEA Verified 08/13/17 15:18 morphine AdvReac Intermediate DIZZINESS Verified 08/13/17 15:18 nitrofurantoin AdvReac Intermediate DIZZINESS Verified 08/13/17 15:18 [From Macrobid] nitrofurantoin AdvReac Intermediate DIZZINESS Verified 08/13/17 15:18 macrocrystalline [From Macrobid] oxycodone HCl [From Percocet] AdvReac Intermediate DIZZINESS Verified 08/13/17 15:18 Travel Screening - Travel/Exposure Within Last 30 Days Have you traveled within the last 30 days?: No - Travel/Exposure Within Last Year Have you traveled outside the [place] in the last year?: No - Additonal Travel Details Have you been exposed to anyone with a communicable illness?: No - Travel Symptoms Symptom Screening: None Review of Systems Constitutional: Denies: Chills, Fever, Malaise, Night sweats Eyes: Denies: Eye discharge, Eye pain ENT: Denies: Congestion, Ear pain, Epistaxis Respiratory: Denies: Cough, Dyspnea Cardiovascular: Denies: Chest pain, Dyspnea on exertion Endocrine: Denies: Fatigue, Heat or cold intolerance Gastrointestinal: Denies: Abdominal pain, Nausea, Vomiting Genitourinary: Denies: Incontinence, Retention Musculoskeletal: Reports: Back pain. Denies: Arthralgia, Gout, Joint swelling Skin: Denies: Bruising, Change in color Neurological: Denies: Abnormal gait, Confusion, Headache, Seizure Psychiatric: Denies: Anxiety Hematological/Lymphatic: Denies: Anemia, Blood Clots Past Medical History - SOCIAL HISTORY Smoking Status: Former smoker Alcohol Use: None Drug Use: None - RESPIRATORY Hx Respiratory Disorders: Yes Hx Bronchitis: Yes Hx Pneumonia: Yes - CARDIOVASCULAR Hx Cardio Disorders: Yes Hx Hypertension: Yes (No longer takes medication) Comment:: Pt states many years ago she was told that she had a murmur - NEURO Hx Neuro Disorders: Yes Hx Dizziness: Yes (Per patient) - GI Hx GI Disorders: Yes Hx Reflux: Yes (Takes Prevacid) Hx Hiatal Hernia: Yes Hx Irritable Bowel: Yes - Hx Genitourinary Disorders: Yes Hx Kidney Stones: Yes Hx UTI: Yes - ENDOCRINE Hx Endocrine Disorders: Yes Hx Diabetes: Yes (takes metformin) Hx Thyroid Disease: Yes (partial thyroidectmoy) - MUSCULOSKELETAL Hx Musculoskeletal Disorders: Yes Hx Back Injury: Yes - PSYCH Hx Psych Problems: Yes Hx Anxiety: Yes Hx Depression: Yes - HEMATOLOGY/ONCOLOGY Hx Hematology/Oncology Disorders: Yes Hx Cancer: Yes (breast cancer, skin cancer) Hx Blood Transfusions: Yes (1 yr ago) Family Medical History Any Significant Family History?: No Hx Alcohol Use: Brother/Sister Hx Anxiety: Brother/Sister Hx Dementia: Father Hx Depression: Mother Hx Heart Disease: Mother Hx Stroke: Father, Mother Physical Exam - General General Appearance: Alert, Oriented x3, Cooperative, Anxious Limitations: No limitations - Head Head exam: Atraumatic, Normocephalic, Normal inspection Head exam detail: negative: Abrasion, Contusion, Kapoor's sign, General tenderness, Hematoma, Laceration - Eye Eye exam: Normal appearance. negative: Conjunctival injection, Periorbital swelling, Periorbital tenderness, Scleral icterus - ENT Ear exam: negative: Auricular hematoma, Auricular trauma Nasal Exam: negative: Active bleeding, Discharge, Dried blood, Foreign body Mouth exam: negative: Drooling, Laceration, Muffled voice, Tongue elevation - Neck Neck exam: Normal inspection. negative: Meningismus, Tenderness - Respiratory Respiratory exam: Normal lung sounds bilaterally. negative: Rales, Respiratory distress, Rhonchi, Stridor - Cardiovascular Cardiovascular Exam: Regular rate, Normal rhythm, Normal heart sounds - GI/Abdominal GI/Abdominal exam: Soft. negative: Rebound, Rigid, Tenderness - Rectal Rectal exam: Deferred - exam: Deferred - Extremities Extremities exam: Normal inspection. negative: Pedal edema, Tenderness - Back Back exam: Reports: Paraspinal tenderness (Left paravertebral muscle pain at the mid-thoracic spine region. Symptoms are reproducible on examination.). Denies: CVA tenderness (R), CVA tenderness (L) - Neurological Neurological exam: Alert, Normal gait, Oriented X3 - Psychiatric Psychiatric exam: Anxious - Skin Skin exam: Normal color. negative: Abrasion Type of lesion: negative: abrasion Course Vital Signs 08/13/17 20:37 Temperature 97.9 F Pulse Rate [ 104 H Pulse Ox Probe] Respiratory 22 Rate Blood Pressure 102/51 [Left Arm] Pulse Ox 97 - Reevaluation(s) Reevaluation #1: 08/13/17 21:00 Patient was seen and examined, reports chronic intermittent thoracic back pain left with similar symptoms previously. Patient report that Toradol yesterday and earlier today did not improve her symptoms, and she is scheduled to see her pain specialist tomorrow. Patient declined: Valium, Lyrica, Tramadol, Lidoderm Patch, Morphine (allergy), or [place] for her pain symptoms. I explained to the patient that due that are really not many alternatives left after this list, patient reports that she is willing to take a [place] 7.5 mg upon returning home to get her through to her pain specialist tomorrow. Patient appears stable for discharge at this time. Disposition Disposition: Discharge Clinical Impression: Thoracic back pain Qualifiers: Chronicity: acute Back pain laterality: left Qualified Code(s): M54.6 - Pain in thoracic spine Disposition: Home, Self-Care Condition: (2) Stable Instructions: Chronic Back Pain (ED) Additional Instructions: Return to ED if your symptoms worsen or if you have any concerns. Follow-up with Dr. Crespo tomorrow morning as scheduled. Forms: Patient Portal Access Time of Disposition: 21:00 Quality - Quality Measures Quality Measures: N/A - Blood Pressure Screening Does Patient Have Any of the Following: No Blood Pressure Classification: Normal BP Reading Systolic Measurement: 102 Diastolic Measurement: 51 Screening for High Blood Pressure: < Normal BP, F/U Not Required > [G5122]
== END 2017-08-13 21:07 | disposition home or self-care (01) ==
LOC: ER 20:25
DX: G89.29 Other chronic pain (principal); M54.6 Pain in thoracic spine

== ENCOUNTER 2017-09-30 15:07 | Emergency (ER) | payer MEDICARE, BC ==
--- NOTE | 2017-09-30 15:30 | Emergency Department Record ---
History of Present Illness - General Chief Complaint: Abdominal Pain Stated Complaint: ABD CRAMPS Time Seen by Provider: 09/30/17 15:13 Source: Patient Mode of Arrival: Ambulatory Limitations: No limitations - History of Present Illness Initial Comments: 82 yo female presents with nausea, vomiting, abdominal pain and cramps for one week. The patient was treated with Clindamycin for a tooth infection starting last Friday. She developed nausea, vomiting, cramps and diarrhea with in 1-2 days. The symptoms have continued. She is unaware of prior history of diverticulosis. She has had and appendectomy. No fevers. No blood in the stools. She also suffers from chronic back pain. Diarrhea is improving but not gone. No blood in the stool. Last diarrhea was this morning. MD Complaint: Abdominal pain Onset/Timin -: Week(s) Location: Diffuse Radiation: None Severity: Moderate, Severe Severity scale (1-10): 8 Quality: Sharp Consistency: Constant Improves With: Nothing Worsens With: Nothing Associated Symptoms: Nausea - Related Data Patient : No Allergies Allergy/AdvReac Type Severity Reaction Status Date / Time fentanyl Allergy Severe FATIGUE Verified 08/13/17 15:18 amoxicillin [Amoxicillin] AdvReac Intermediate DIARRHEA Verified 08/13/17 15:18 morphine AdvReac Intermediate DIZZINESS Verified 08/13/17 15:18 nitrofurantoin AdvReac Intermediate DIZZINESS Verified 08/13/17 15:18 [From Macrobid] nitrofurantoin AdvReac Intermediate DIZZINESS Verified 08/13/17 15:18 macrocrystalline [From Macrobid] oxycodone HCl [From Percocet] AdvReac Intermediate DIZZINESS Verified 08/13/17 15:18 Travel Screening - Travel/Exposure Within Last 30 Days Have you traveled within the last 30 days?: No Review of Systems Constitutional: Denies: Chills, Fever, Malaise, Weakness Eyes: Denies: Eye discharge, Eye pain, Photophobia, Vision change ENT: Denies: Congestion, Throat pain Respiratory: Denies: Cough, Dyspnea, Hemoptysis, Stridor, Wheezes Cardiovascular: Denies: Chest pain, Palpitations, Syncope Endocrine: Denies: Fatigue, Polydipsia, Polyuria Gastrointestinal: Reports: Abdominal pain, Diarrhea, Nausea, Vomiting. Denies: Constipation, Hematemesis, Hematochezia, Melena Genitourinary: Denies: Dysuria, Urgency Musculoskeletal: Reports: Back pain. Denies: Arthralgia, Joint swelling, Myalgia Skin: Denies: Bruising, Change in color, Rash Neurological: Denies: Headache, Numbness, Weakness Psychiatric: Denies: Anxiety Hematological/Lymphatic: Denies: Easy bleeding, Easy bruising, Swollen glands Past Medical History - SOCIAL HISTORY Smoking Status: Former smoker Alcohol Use: None Drug Use: None - RESPIRATORY Hx Respiratory Disorders: Yes Hx Bronchitis: Yes Hx Pneumonia: Yes - CARDIOVASCULAR Hx Cardio Disorders: Yes Hx Hypertension: Yes (No longer takes medication) Comment:: Pt states many years ago she was told that she had a murmur - NEURO Hx Neuro Disorders: Yes Hx Dizziness: Yes (Per patient) - GI Hx GI Disorders: Yes Hx Reflux: Yes (Takes Prevacid) Hx Hiatal Hernia: Yes Hx Irritable Bowel: Yes - Hx Genitourinary Disorders: Yes Hx Kidney Stones: Yes Hx UTI: Yes - ENDOCRINE Hx Endocrine Disorders: Yes Hx Diabetes: Yes (takes metformin) Hx Thyroid Disease: Yes (partial thyroidectmoy) - MUSCULOSKELETAL Hx Musculoskeletal Disorders: Yes Hx Back Injury: Yes - PSYCH Hx Psych Problems: Yes Hx Anxiety: Yes Hx Depression: Yes - HEMATOLOGY/ONCOLOGY Hx Hematology/Oncology Disorders: Yes Hx Cancer: Yes (breast cancer, skin cancer) Hx Blood Transfusions: Yes (1 yr ago) Family Medical History Any Significant Family History?: Yes Hx Alcohol Use: Brother/Sister Hx Anxiety: Brother/Sister Hx Dementia: Father Hx Depression: Mother Hx Heart Disease: Mother Hx Stroke: Father, Mother Physical Exam - General General Appearance: Alert, Oriented x3, Cooperative, No acute distress Limitations: No limitations - Head Head exam: Normal inspection - Eye Eye exam: Normal appearance, PERRL. negative: Conjunctival injection, Scleral icterus - ENT ENT exam: Normal exam, Mucous membranes moist Ear exam: Normal external inspection Nasal Exam: Normal inspection Mouth exam: Normal external inspection Teeth exam: Normal inspection Throat exam: Normal inspection - Neck Neck exam: Normal inspection, Full ROM. negative: Tenderness - Respiratory Respiratory exam: Normal lung sounds bilaterally. negative: Accessory muscle use, Decreased breath sounds, Respiratory distress, Rhonchi, Stridor, Wheezes - Cardiovascular Cardiovascular Exam: Regular rate, Normal rhythm, Normal heart sounds - GI/Abdominal GI/Abdominal exam: Soft, Tenderness (diffusely tender to palpation, soft. ). negative: Distended - Rectal Rectal exam: Deferred - exam: Deferred - Extremities Extremities exam: Normal inspection, Full ROM, Normal capillary refill. negative: Tenderness - Back Back exam: Reports: Normal inspection, Full ROM. Denies: CVA tenderness (R), CVA tenderness (L), Muscle spasm, Rash noted, Tenderness - Neurological Neurological exam: Alert, Normal gait, Oriented X3, Reflexes normal - Psychiatric Psychiatric exam: Normal affect, Normal mood - Skin Skin exam: Dry, Intact, Normal color, Warm Course Vital Signs 09/30/17 15:17 Temperature 97.6 F Pulse Rate 87 Respiratory 20 Rate Blood Pressure 110/56 Pulse Ox 98 - Reevaluation(s) Reevaluation #1: The labs were reviewed The CBC was normal with hgb of 13.9 and WBC of 9.7 BMP with K of 3.0 Lactic Acid mildly increased at 2.3 AST 45 and ALT of [address] scan demonstrated diffuse wall thickening of the colon consistent with non specific colitis vs pseudomembranous colitis vs ischemic colitis 09/30/17 18:18 09/30/17 18:36 I SW EMR TRAINER Gunjan For Dr Roy. We discussed the colitis and splenic infarct area with the request for [place] [facility], Surgery, Vascular Surgery if needed 09/30/17 18:41 ekg 1836 nsr rate 83, Qtc 497, St normal, poor R wave, no changes from prior. Medical Decision Making - Lab Data Result diagrams: 09/30/17 15:25 09/30/17 15:25 Disposition Disposition: Transfer Clinical Impression: Vomiting and diarrhea, Hypokalemia, Splenic infarct Disposition: Acute Care Hospital Transfer [place]: [facility] [place] For Transfer: Colitis, Splenic Infarct Accepting Physician: Kirill Time Discussed w/Accepting Physician: 18:38 Condition: (2) Stable Forms: Patient Portal Access Time of Disposition: 18:29 Quality - Quality Measures Quality Measures: N/A - Blood Pressure Screening Does Patient Have Any of the Following: No Blood Pressure Classification: Normal BP Reading Systolic Measurement: 110 Diastolic Measurement: 56 Screening for High Blood Pressure: < Normal BP, F/U Not Required > [G8783]
[2017-09-30] MEDS: 0.9 % SODIUM CHLORIDE 1,000 ML BAG IV ONE (15:46)
[2017-09-30] MEDS: ONDANSETRON HCL IV 4 MG/2 ML VIAL IVP ONE (15:46)
[2017-09-30] MEDS: ACETAMINOPHEN 1,000 MG/100 ML BTL IVPB ONE (15:47)
[2017-09-30 16:15] LABS: HEMATOCRIT 39.5 % (35.0-47.0); HEMOGLOBIN 13.9 gm/dl (11.6-16.0); MEAN CELL VOLUME 90.6 fl (81-97); MEAN CORPUSCULAR HEMOGLOBIN 31.9 pg (27-33); MEAN CORPUSCULAR HGB CONC 35.2 g/dl (32-36); MEAN PLATELET VOLUME 8.8 fl (7.4-10.4); PLATELET COUNT 187 K/uL (130-400); RED BLOOD COUNT 4.36 M/uL (3.80-5.40); RED CELL DISTRIBUTION WIDTH 13.7 % (11.5-14.5); WHITE BLOOD COUNT W/O DIFF 9.7 K/uL (4.2-12.2)
[2017-09-30 16:18] LABS: BLOOD UREA NITROGEN 15 mg/dL (8-23); CREATININE 0.9 mg/dL (0.5-0.9); EST GLOMERULAR FILTRATION RATE > 60 mL/min
[2017-09-30 16:19] LABS: TOTAL PROTEIN 6.4 g/dL (6.6-8.7)
[2017-09-30 16:21] LABS: GLUCOSE,RANDOM 132 mg/dL (74-109)
[2017-09-30 16:24] LABS: ALB/GLOB RATIO 1.1 (1.1-1.8); ALBUMIN 3.3 g/dL (4.0-5.0); ALKALINE PHOSPHATASE 73 U/L (35-104); ALT/SGPT 52 U/L (<33); AST/SGOT 45 U/L (10.0-35.0); LIPASE 20 U/L (13-60)
[2017-09-30] MEDS ORDERED: 0.9 % SODIUM CHLORIDE 1,000 ML BAG IV ONE (16:25)
[2017-09-30] MEDS: SOD CHLOR 0.9% WITH KCL 40MEQ 40 MEQ/1,000 ML IV.SOLN IV ONE (17:05)
--- NOTE | 2017-10-01 09:42 | CT SCAN REPORT ---
EXAM: CT OF THE ABDOMEN AND PELVIS WITH CONTRAST HISTORY: ABDOMINAL PAIN AFTER TAKING CLINDAMYCIN. TECHNIQUE: Sequential axial images were obtained from the diaphragms through the ischiorectal fossa after intravenous administration of 100 ml of Omnipaque 300 contrast material. Sagittal and coronal reformatted images were performed. FINDINGS: The visualized lung bases appear normal. The liver appears homogeneous. The gallbladder has been surgically removed. The pancreas appears normal. There is a wedge shaped area of decreased attenuation in the spleen suspicious for infarction. The adrenal glands and kidneys appear normal. There is severe atheromatous plaque of the abdominal aorta. There is mild wall thickening of the colon with mild adjacent inflammatory change. Nonspecific colitis possibly pseudomembranous colitis cannot be excluded. The small bowel appears normal. The urinary bladder appears normal. There is postop surgical change of the lower lumbar spine. IMPRESSION: 1. MILD WALL THICKENING AND INFLAMMATORY CHANGE OF THE ENTIRE COLON SUSPICIOUS FOR COLITIS. PSEUDOMEMBRANOUS COLITIS CANNOT BE ENTIRELY EXCLUDED. 2. 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 3. WEDGE SHAPED AREA OF DECREASED ATTENUATION IN THE SPLEEN SUSPICIOUS FOR INFARCTION. JOB NUMBER: [id number] [facility]
== END 2017-09-30 19:51 | disposition short-term general hospital (02) ==
LOC: ER 15:07
DX: D73.5 Infarction of spleen (principal); E87.6 Hypokalemia; R11.2 Nausea with vomiting, unspecified; R19.7 Diarrhea, unspecified; I10 Essential (primary) hypertension; E11.9 Type 2 diabetes mellitus without complications; Z87.891 Personal history of nicotine dependence; Z79.84 Long term (current) use of oral hypoglycemic drugs
CPT/HCPCS: 74177; 80053; 83605; 83690; 85027; 93005; 93010; 96361; 96365; 96375; 99285; J2405; J7030

== ENCOUNTER 2017-10-19 11:07 | Inpatient (IN) | payer MEDICARE, BC ==
[2017-10-19] MEDS ORDERED: ONDANSETRON HCL IV 4 MG/2 ML VIAL IVP ONE (11:23)
[2017-10-19] MEDS ORDERED: ACETAMINOPHEN 1,000 MG/100 ML BTL IVPB ONE (11:23)
[2017-10-19] MEDS ORDERED: 0.9 % SODIUM CHLORIDE 1,000 ML BAG IV ONE ×2 (11:23→15:15)
--- NOTE | 2017-10-19 11:29 | Emergency Department Record ---
History of Present Illness - General Chief complaint: Nausea, Vomiting, Diarrhea Stated complaint: DIARRHEA,VOMITING Time Seen by Provider: 10/19/17 11:22 Source: Patient Mode of Arrival: Ambulatory Limitations: No limitations - History of Present Illness Initial comments: 82 yo female presents with a return of diarrhea yesterday. She was recently evaluated at [facility] and subsequently transferred to [facility] [place] due to colitis with a splenic infarct. She reports she did well with a resolution of the diarrhea after a course of Flagyl for a diagnosis of C. diff colitis. She states the diarrhea returned yesterday. She has nausea but no vomiting. She reports only a few loose stools so far. No fever. No significant pain. No vomiting or dysuria. She has follow up tomorrow with Virgie BECK. She took her last flagyl dose on Friday. complaint: Diarrhea, Nausea -: Days(s) (Onset yesterday) Description of Vomiting: Other (NO blood in the stools) Location: Diffuse Consistency: Intermittent Improves with: None Worsens with: Eating Context: Other Associated Symptoms: Loss of appetite - Related Data Allergies Allergy/AdvReac Type Severity Reaction Status Date / Time fentanyl Allergy Severe FATIGUE Verified 10/19/17 11:26 amoxicillin [Amoxicillin] AdvReac Intermediate DIARRHEA Verified 10/19/17 11:26 morphine AdvReac Intermediate DIZZINESS Verified 10/19/17 11:26 nitrofurantoin AdvReac Intermediate DIZZINESS Verified 10/19/17 11:26 [From Macrobid] nitrofurantoin AdvReac Intermediate DIZZINESS Verified 10/19/17 11:26 macrocrystalline [From Macrobid] oxycodone HCl [From Percocet] AdvReac Intermediate DIZZINESS Verified 10/19/17 11:26 Review of Systems Constitutional: Denies: Chills, Fever, Malaise, Weakness Eyes: Denies: Eye discharge ENT: Denies: Congestion, Throat pain Respiratory: Denies: Cough Cardiovascular: Denies: Chest pain, Syncope Endocrine: Denies: Fatigue Gastrointestinal: Reports: Abdominal pain, Diarrhea, Nausea. Denies: Constipation, Hematemesis, Hematochezia, Melena, Vomiting Genitourinary: Denies: Dysuria, Urgency Musculoskeletal: Denies: Arthralgia, Back pain, Neck pain Skin: Denies: Bruising, Change in color, Rash Neurological: Denies: Headache, Numbness, Weakness Psychiatric: Denies: Anxiety Hematological/Lymphatic: Denies: Blood Clots, Easy bleeding, Easy bruising, Swollen glands Past Medical History - SOCIAL HISTORY Smoking Status: Former smoker Drug Use: None - RESPIRATORY Hx Respiratory Disorders: Yes Hx Bronchitis: Yes Hx Pneumonia: Yes - CARDIOVASCULAR Hx Cardio Disorders: Yes Hx Hypertension: Yes (No longer takes medication) Comment:: Pt states many years ago she was told that she had a murmur - NEURO Hx Neuro Disorders: Yes Hx Dizziness: Yes (Per patient) - GI Hx GI Disorders: Yes Hx Reflux: Yes (Takes Prevacid) Hx Hiatal Hernia: Yes Hx Irritable Bowel: Yes - Hx Genitourinary Disorders: Yes Hx Kidney Stones: Yes Hx UTI: Yes - ENDOCRINE Hx Endocrine Disorders: Yes Hx Diabetes: Yes (takes metformin) Hx Thyroid Disease: Yes (partial thyroidectmoy) - MUSCULOSKELETAL Hx Musculoskeletal Disorders: Yes Hx Back Injury: Yes - PSYCH Hx Psych Problems: Yes Hx Anxiety: Yes Hx Depression: Yes - HEMATOLOGY/ONCOLOGY Hx Hematology/Oncology Disorders: Yes Hx Cancer: Yes (breast cancer, skin cancer) Hx Blood Transfusions: Yes (1 yr ago) Family Medical History Hx Alcohol Use: Brother/Sister Hx Anxiety: Brother/Sister Hx Dementia: Father Hx Depression: Mother Hx Heart Disease: Mother Hx Stroke: Father, Mother Physical Exam - General General Appearance: Alert, Oriented x3, Cooperative, No acute distress Limitations: No limitations - Head Head exam: Atraumatic, Normal inspection - Eye Eye exam: Normal appearance, PERRL. negative: Conjunctival injection, Scleral icterus - ENT ENT exam: Normal exam, Mucous membranes moist Ear exam: Normal external inspection Nasal Exam: Normal inspection Mouth exam: Normal external inspection - Neck Neck exam: Normal inspection - Respiratory Respiratory exam: Normal lung sounds bilaterally. negative: Respiratory distress - Cardiovascular Cardiovascular Exam: Regular rate, Normal rhythm, Normal heart sounds - GI/Abdominal GI/Abdominal exam: Soft, Normal bowel sounds. negative: Distended, Guarding, Rebound, Rigid, Tenderness - Rectal Rectal exam: Deferred - exam: Deferred - Extremities Extremities exam: Normal inspection, Full ROM, Normal capillary refill. negative: Tenderness - Back Back exam: Reports: Normal inspection, Full ROM. Denies: Muscle spasm, Rash noted, Tenderness - Neurological Neurological exam: Alert, Normal gait, Oriented X3 - Psychiatric Psychiatric exam: Normal affect, Normal mood - Skin Skin exam: Dry, Intact, Normal color, Warm Course - Reevaluation(s) Reevaluation #1: 10/19/17 11:29 Vitals reviewed. No fever. 10/19/17 12:02 The CBC was reviewed. NO acute changes. 10/19/17 12:59 The labs were reviewed. Mild increase in AG and LA. 10/19/17 13:13 Given the return of diarrhea and dehydration I recommend admission for hydration 10/19/17 13:19 I Discussed the admission with Asiya Mathews of the admission service, plan for resuming antibiotics, liquid diet, IVF's supportive care, GI consult Medical Decision Making - Lab Data Result diagrams: 10/19/17 11:42 10/19/17 11:42 Disposition Disposition: Admit Clinical Impression: Acute diarrhea, C. difficile colitis, Dehydration Disposition: Still a Patient at [facility] Decision to Admit: Admit from ER Decision to Admit Date: 10/19/17 Decision to Admit Time: 13:20 Time Discussed w/Accepting Physician: 13:20 Condition: (2) Stable Forms: Patient Portal Access Time of Disposition: 13:21 Quality - Quality Measures Quality Measures: N/A - Blood Pressure Screening Does Patient Have Any of the Following: No Blood Pressure Classification: Pre-Hypertensive BP Reading Systolic Measurement: 127 Diastolic Measurement: 70 Screening for High Blood Pressure: < Pre-Hypertensive BP, F/U Documented > [ G8950] Pre-Hypertensive Follow-up Interventions: Referral to alternative/primary care provider.
[2017-10-19 11:57] LABS: BASO % 0.4 % (0-6); GRAN % 68.4 % (47-80); HEMATOCRIT 44.1 % (35.0-47.0); HEMOGLOBIN 14.7 gm/dl (11.6-16.0); LYMPH % 18.3 % (16-45); MEAN CELL VOLUME 94.8 fl (81-97); MEAN CORPUSCULAR HEMOGLOBIN 31.6 pg (27-33); MEAN CORPUSCULAR HGB CONC 33.3 g/dl (32-36); MEAN PLATELET VOLUME 9.6 fl (7.4-10.4); MONO % 11.9 % (0-9); PLATELET COUNT 225 K/uL (130-400); RED BLOOD COUNT 4.65 M/uL (3.80-5.40); RED CELL DISTRIBUTION WIDTH 14.1 % (11.5-14.5); WHITE BLOOD COUNT W/O DIFF 7.3 K/uL (4.2-12.2)
[2017-10-19 12:28] LABS: BLOOD UREA NITROGEN 13 mg/dL (8-23); CREATININE 0.8 mg/dL (0.5-0.9); EST GLOMERULAR FILTRATION RATE > 60 mL/min
[2017-10-19 12:29] LABS: TOTAL PROTEIN 7.5 g/dL (6.6-8.7)
[2017-10-19 12:31] LABS: GLUCOSE,RANDOM 151 mg/dL (74-109)
[2017-10-19 12:33] LABS: ALT/SGPT 20 U/L (<33)
[2017-10-19 12:34] LABS: ALB/GLOB RATIO 1.4 (1.1-1.8); ALBUMIN 4.4 g/dL (4.0-5.0); ALKALINE PHOSPHATASE 52 U/L (35-104); AST/SGOT 32 U/L (10.0-35.0); LIPASE 19 U/L (13-60)
[2017-10-19 13:27] LABS: URINE APPEARANCE CLEAR; URINE BILIRUBIN NEGATIVE (NEGATIVE); URINE BLOOD NEGATIVE (NEGATIVE); URINE COLOR YELLOW; URINE GLUCOSE (UA) NEGATIVE (NEGATIVE); URINE KETONE NEGATIVE (NEGATIVE); URINE LEUKOCYTE ESTERASE TRACE (NEGATIVE); URINE NITRITE NEGATIVE (NEGATIVE); URINE PROTEIN NEGATIVE (NEGATIVE); URINE UROBILINOGEN 0.2 E.U./dL (0.20 - 1.00)
[2017-10-19 13:38] LABS: URINE BACTERIA NONE SEEN; URINE MUCUS LIGHT
[2017-10-19] MEDS ORDERED: MORPHINE SULFATE 4MG/ML PREFILLED SYRINGE IVP PRN (15:15)
[2017-10-19] MEDS ORDERED: ONDANSETRON HCL IV 4 MG/2 ML VIAL IVP PRN (15:15)
[2017-10-19] MEDS ORDERED: Non-Formulary MISC (Omeprazole [Prilosec] 20 MG) PO SCH (15:47)
[2017-10-19] MEDS ORDERED: LEVOTHYROXINE SODIUM 25 MCG TABLET PO SCH (15:47)
[2017-10-19] MEDS ORDERED: FLUOXETINE HCL 20 MG CAPSULE PO SCH (15:47)
[2017-10-19] MEDS ORDERED: ASPIRIN 81 MG CHEWABLE TABLET PO SCH (15:47)
[2017-10-19] MEDS: ACETAMINOPHEN 1,000 MG/100 ML BTL IVPB SCH ×2 (16:11→22:21)
[2017-10-19] MEDS: METRONIDAZOLE 250 MG TABLET PO SCH (16:12)
[2017-10-19] MEDS ORDERED: HYDROMORPHONE HCL 2 MG/ML VIAL IVP PRN (16:55)
[2017-10-19] MEDS: POTASSIUM CHLORIDE/D5-0.9%NACL 20 MEQ/1,000 ML BAG IV SCH ×2 (18:46→23:49)
[2017-10-19] MEDS ORDERED: DIPHENHYDRAMINE HCL 25 MG CAPSULE PO ONE (21:30)
[2017-10-19] MEDS: FERROUS SULFATE 325 MG TAB PO SCH (22:21)
[2017-10-20] MEDS: METRONIDAZOLE 250 MG TABLET PO SCH (02:50)
[2017-10-20] MEDS: ACETAMINOPHEN 1,000 MG/100 ML BTL IVPB SCH ×4 (02:51→23:46)
[2017-10-20 06:47] LABS: BLOOD UREA NITROGEN 7 mg/dL (8-23); CREATININE 0.7 mg/dL (0.5-0.9); EST GLOMERULAR FILTRATION RATE > 60 mL/min; GLUCOSE,RANDOM 129 mg/dL (74-109)
[2017-10-20] MEDS: PANTOPRAZOLE SODIUM 40 MG TABLET PO SCH (07:47)
[2017-10-20] MEDS: FLUOXETINE HCL 20 MG CAPSULE PO SCH (10:33)
[2017-10-20] MEDS: FERROUS SULFATE 325 MG TAB PO SCH ×2 (10:33→23:47)
[2017-10-20] MEDS: ATORVASTATIN 20 MG TABLET PO SCH (10:33)
[2017-10-20] MEDS: MULTIVITAMINS/MINERALS TABLET PO SCH (10:33)
[2017-10-20] MEDS: PHENAZOPYRIDINE HCL 95 MG TABLET PO SCH ×3 (11:23→23:47)
--- NOTE | 2017-10-20 11:26 | History & Physical ---
History of Present Illness - Date of Service Date of Service for History & Physical: 10/20/17 - History of Present Illness Admitting Diagnosis: C diff colitis, dehydration History of Present Illness: 82 yo female presents to ER for return of c-diff diarrhea and dehydration. PMH recent admission [facility] for C-diff- did not see GI, was sent to [facility] r/t splenic infarct at that time. Pt reports taking Clindamycin PO for tooth infection in September. Since then has had issues with diarrhea but was recently offically dx with C-Diff. Pt was being treated with Flaygl PO, stools changed from liquid to loose and was d/c'd from [facility] with out known GI consult. pt reports return of liquid stools friday, returned to ER for same. Denies vomiting but c/o chronic bladder spasms. ER Temp 97.7f, HR97, RR 18, BP 127/70. 98% RA. WBC 7.3, Hgb 14.7, Hct 44.1, Plt 225 NA 138, K 4.1, CL 95, CO2 22, anion gap 21, BUN 13, creatinine 0.8, GFR>60, glucose 151, lactic acid 3.2 (repeat 1), Ca9.8, LFTs WNL, lipase 19 UA trace leuk but high epithilial cells- negative 1500 ml NS bolus, 4mg Zofran IVP, Admission for C Diff and dehydration 10/20/17 Pt in mild distress, reports bladder spasms, states she has them at home but they are worse today. Has had liquid incontinence, assisted with transfer to toilet and had med liquid stool. Pt tolerating PO flagyl but has GI consult today [place] [place]. IVF infusing, pt tolerating CLD. POC hydration, electrolyte supplement, repeat labs in AM. UPDATE: pt vomiting after evaluation, medicated with zofran, still awaiting GI consult. PCP Miguel Alcala Travel Screening - Travel/Exposure Within Last 30 Days Have you traveled within the last 30 days?: No - Travel/Exposure Within Last Year Have you traveled outside the [place] in the last year?: No - Additonal Travel Details Have you been exposed to anyone with a communicable illness?: No - Travel Symptoms Symptom Screening: None Review of Systems Constitutional: Denies: Chills, Fever, Malaise, Weakness Eyes: Denies: Eye discharge ENT: Denies: Congestion, Throat pain Respiratory: Denies: Cough Cardiovascular: Denies: Chest pain, Syncope Endocrine: Denies: Fatigue Gastrointestinal: Reports: Abdominal pain, Diarrhea, Nausea. Denies: Constipation, Hematemesis, Hematochezia, Melena, Vomiting Genitourinary: Denies: Dysuria, Urgency Musculoskeletal: Denies: Arthralgia, Back pain, Neck pain Skin: Denies: Bruising, Change in color, Rash Neurological: Denies: Headache, Numbness, Weakness Psychiatric: Denies: Anxiety Hematological/Lymphatic: Denies: Blood Clots, Easy bleeding, Easy bruising, Swollen glands Past Medical History - SOCIAL HISTORY Smoking Status: Former smoker Drug Use: None - RESPIRATORY Hx Respiratory Disorders: Yes Hx Bronchitis: Yes Hx Pneumonia: Yes - CARDIOVASCULAR Hx Cardio Disorders: Yes Hx Hypertension: Yes (No longer takes medication) Comment:: Pt states many years ago she was told that she had a murmur - NEURO Hx Neuro Disorders: Yes Hx Dizziness: Yes (Per patient) - GI Hx GI Disorders: Yes Hx Reflux: Yes (Takes Prevacid) Hx Hiatal Hernia: Yes Hx Irritable Bowel: Yes - Hx Genitourinary Disorders: Yes Hx Kidney Stones: Yes Hx UTI: Yes - ENDOCRINE Hx Endocrine Disorders: Yes Hx Diabetes: Yes (takes metformin) Hx Thyroid Disease: Yes (partial thyroidectmoy) - MUSCULOSKELETAL Hx Musculoskeletal Disorders: Yes Hx Back Injury: Yes - PSYCH Hx Psych Problems: Yes Hx Anxiety: Yes Hx Depression: Yes - HEMATOLOGY/ONCOLOGY Hx Hematology/Oncology Disorders: Yes Hx Cancer: Yes (breast cancer, skin cancer) Hx Blood Transfusions: Yes (1 yr ago) Family Medical History Hx Alcohol Use: Brother/Sister Hx Anxiety: Brother/Sister Hx Dementia: Father Hx Depression: Mother Hx Heart Disease: Mother Hx Stroke: Father, Mother H&P Meds/Allergies - Allergies Allergies: Allergies Allergy/AdvReac Type Severity Reaction Status Date / Time fentanyl Allergy Severe FATIGUE Verified 10/19/17 11:26 amoxicillin [Amoxicillin] AdvReac Intermediate DIARRHEA Verified 10/19/17 11:26 morphine AdvReac Intermediate DIZZINESS Verified 10/19/17 11:26 nitrofurantoin AdvReac Intermediate DIZZINESS Verified 10/19/17 11:26 [From Macrobid] nitrofurantoin AdvReac Intermediate DIZZINESS Verified 10/19/17 11:26 macrocrystalline [From Macrobid] oxycodone HCl [From Percocet] AdvReac Intermediate DIZZINESS Verified 10/19/17 11:26 - Active Medications Active Medications: Current Medications Aspirin (Aspirin Chewable) 81 mg PO QD [facility] Last Admin: 10/19/17 16:14 Dose: Not Given Atorvastatin Calcium (Lipitor) 80 mg PO DAILY [facility] Last Admin: 10/20/17 10:33 Dose: 80 mg Ferrous Sulfate (Iron) 325 mg PO BID [facility] Last Admin: 10/20/17 10:33 Dose: 325 mg Fluoxetine HCl (Prozac) 20 mg PO DAILY [facility] Last Admin: 10/20/17 10:33 Dose: 20 mg Acetaminophen (Ofirmev) 1,000 mg in 100 mls @ 400 mls/hr IVPB Q6H [facility] Last Admin: 10/20/17 10:32 Dose: 400 mls/hr Potassium Chloride/Dextrose/Sod Cl () 20 meq in 1,000 mls @ 125 mls/hr IV Q8H [facility] Last Infusion: 10/20/17 02:53 Dose: 125 mls/hr Levothyroxine Sodium (Synthroid) 25 mcg PO QOD [facility] Metronidazole (Flagyl) 500 mg PO Q12H [facility] Last Admin: 10/20/17 02:50 Dose: 500 mg Multivitamins/Minerals (Centrum) 1 tab PO DAILY [facility] Last Admin: 10/20/17 10:33 Dose: 1 tab Ondansetron HCl (Zofran) 4 mg IVP Q4H PRN PRN Reason: NAUSEA Pantoprazole Sodium (Protonix) 40 mg PO DAILYAC [facility] Last Admin: 10/20/17 07:47 Dose: 40 mg Phenazopyridine HCl (Azo Urinary Pain Relief) 95 mg PO TID [facility] Physical Exam - Vital Signs Vital Signs: Vital Signs - Last 24 Hrs Temp Pulse Pulse Resp BP BP Pulse Ox 10/20/17 08:07 98 H 16 10/20/17 07:00 98.8 F 99 H 18 127/55 91 L 10/19/17 23:15 99.1 F 88 18 143/66 93 L 10/19/17 15:15 98.5 F 90 16 130/76 99 10/19/17 15:13 98.4 F 90 16 136/75 94 L 10/19/17 15:10 16 10/19/17 14:05 86 16 122/57 96 10/19/17 11:18 97.7 F 98 H 18 127/70 98 - General General Appearance: Alert, Oriented x3, Cooperative, Mild distress Limitations: No limitations - Head Head exam: Atraumatic, Normal inspection - Eye Eye exam: Normal appearance, PERRL. negative: Conjunctival injection, Scleral icterus - ENT ENT exam: Normal exam, Mucous membranes moist Ear exam: Normal external inspection Nasal Exam: Normal inspection Mouth exam: Normal external inspection - Neck Neck exam: Normal inspection - Respiratory Respiratory exam: Normal lung sounds bilaterally. negative: Respiratory distress - Cardiovascular Cardiovascular Exam: Regular rate, Normal rhythm, Normal heart sounds Peripheral Pulses: 2+: Radial (R), Radial (L), Dorsalis Pedis (R), Dorsalis Pedis (L) - GI/Abdominal GI/Abdominal exam: Soft, Normal bowel sounds. negative: Distended, Guarding, Rebound, Rigid, Tenderness - Rectal Rectal exam: Deferred - exam: Deferred - Extremities Extremities exam: Normal inspection, Full ROM, Normal capillary refill. negative: Tenderness - Back Back exam: Reports: Normal inspection, Full ROM. Denies: Muscle spasm, Rash noted, Tenderness - Neurological Neurological exam: Alert, Normal gait, Oriented X3 - Psychiatric Psychiatric exam: Normal affect, Normal mood - Skin Skin exam: Dry, Intact, Normal color, Warm Results - Labs Result Diagrams: 10/19/17 11:42 10/20/17 06:20 Labs Last 24 Hours: Laboratory Results - last 24 hr 10/19/17 10/19/17 10/19/17 11:23 11:42 11:42 WBC 7.3 RBC 4.65 Hgb 14.7 Hct 44.1 MCV 94.8 MCH 31.6 MCHC 33.3 RDW 14.1 Plt Count 225 MPV 9.6 Gran % 68.4 Lymphocytes % 18.3 Monocytes % 11.9 H Eosinophils % 1.0 Basophils % 0.4 Sodium 138 Potassium 4.1 Chloride 95 L Carbon Dioxide 22.0 Anion Gap 21.0 H BUN 13 Creatinine 0.8 Estimated GFR > 60 POC Glucose Random Glucose 151 H Lactic Acid Calcium 9.8 Total Bilirubin 0.70 AST 32 ALT 20 Alkaline Phosphatase 52 Total Protein 7.5 Albumin 4.4 Globulin 3.1 Albumin/Globulin Ratio 1.4 Lipase 19 Urine Color Urine Appearance Urine pH Ur Specific D[place] Urine Protein Urine Glucose (UA) Urine Ketones Urine Blood Urine Nitrite Urine Bilirubin Urine Urobilinogen Ur Leukocyte Esterase Urine RBC Urine WBC Ur Epithelial Cells Urine Bacteria Urine Mucus Fluid Lactate Cancelled 10/19/17 10/19/17 10/19/17 11:42 13:15 17:00 WBC RBC Hgb Hct MCV MCH MCHC RDW Plt Count MPV Gran % Lymphocytes % Monocytes % Eosinophils % Basophils % Sodium Potassium Chloride Carbon Dioxide Anion Gap BUN Creatinine Estimated GFR POC Glucose Random Glucose Lactic Acid 3.2 H 1.0 Calcium Total Bilirubin AST ALT Alkaline Phosphatase Total Protein Albumin Globulin Albumin/Globulin Ratio Lipase Urine Color Yellow Urine Appearance Clear Urine pH 6.0 Ur Specific D[place] 1.015 Urine Protein Negative Urine Glucose (UA) Negative Urine Ketones Negative Urine Blood Negative Urine Nitrite Negative Urine Bilirubin Negative Urine Urobilinogen 0.2 Ur Leukocyte Esterase Trace H Urine RBC 3 - 6 Urine WBC 6 - 10 Ur Epithelial Cells 7 - 10 Urine Bacteria None seen Urine Mucus Light Fluid Lactate 10/20/17 10/20/17 06:20 07:30 WBC RBC Hgb Hct MCV MCH MCHC RDW Plt Count MPV Gran % Lymphocytes % Monocytes % Eosinophils % Basophils % Sodium 143 Potassium 4.4 Chloride 104 Carbon Dioxide 25.0 Anion Gap 14.0 BUN 7 L Creatinine 0.7 Estimated GFR > 60 POC Glucose 142 H Random Glucose 129 H Lactic Acid Calcium 9.0 Total Bilirubin AST ALT Alkaline Phosphatase Total Protein Albumin Globulin Albumin/Globulin Ratio Lipase Urine Color Urine Appearance Urine pH Ur Specific [place] Urine Protein Urine Glucose (UA) Urine Ketones Urine Blood Urine Nitrite Urine Bilirubin Urine Urobilinogen Ur Leukocyte Esterase Urine RBC Urine WBC Ur Epithelial Cells Urine Bacteria Urine Mucus Fluid Lactate VTE H&P Assessment - Risk for VTE Risk for VTE: Yes Risk Level: High Risk Assessment Date: 10/20/17 Risk Assessment Time: 11:48 VTE Orders Placed or Will Be Placed: Yes Plan - Inpatient Certification Inpatient Certification: Admit to inpatient care: Based on my medical assessment, after consideration of patient's risk factors (age, co-morbidities and patient presenting symptoms and acuity), I expect that this patient will remain in the hospital greater than or equal to two midnights and that the services needed warrant inpatient care because: Patient Risk Factors: c-diff, dehydration, N/V Estimated length of stay: The patient may reasonably be expected to be discharged or transferred to a hospital within 96 hours after admission to [facility]. Services needed: IVF, IV medication, GI consult, electrolyte monitoring Post hospital care (if known): [] I certify that my determination is in accordance with my understanding of Medicare requirements for reasonable and necessary inpatient services. 10/20/17 11:27 - Detailed Diagnosis and Plan (1) C. difficile colitis Current Visit: Yes Status: Acute Base Code: A04.72 - ENTEROCOLITIS D/T CLOSTRIDIUM DIFFICILE, NOT SPCF RECUR Comment: 10/20/17 -return of liquid stool x 2 days- -continued tx for C Diff with Po flaygl -GI referral today (2) Dehydration Current Visit: Yes Status: Acute Base Code: E86.0 - DEHYDRATION Comment: -IVF@125, changed to D5 NS (K is 4.4, no supp needed) -repeat labs AM (3) Generalized weakness Current Visit: No Status: Acute Base Code: R53.1 - WEAKNESS Comment: -continue CLD and IVF -zofran for n/v -labs in AM (4) DVT prophylaxis Current Visit: No Status: Acute Base Code: [id number] - Comment: 10/20/17 high risk r/t age and decreased act. -no current concerns for bleed -lovenox 40mg SQ daily
[2017-10-20] MEDS: DEXTROSE 5 % AND 0.9 % NACL 1,000 ML IV PRN (12:32)
[2017-10-20] MEDS: VANCOMYCIN HCL 1 GM VIAL PO SCH ×3 (13:45→23:48)
[2017-10-21] MEDS: PANTOPRAZOLE SODIUM 40 MG TABLET PO SCH (06:08)
[2017-10-21] MEDS: ACETAMINOPHEN 1,000 MG/100 ML BTL IVPB SCH ×2 (06:08→14:06)
[2017-10-21] MEDS: VANCOMYCIN HCL 1 GM VIAL PO SCH ×3 (06:09→18:48)
[2017-10-21 07:09] LABS: HEMATOCRIT 35.4 % (35.0-47.0); HEMOGLOBIN 11.5 gm/dl (11.6-16.0); MEAN CELL VOLUME 96.2 fl (81-97); MEAN CORPUSCULAR HGB CONC 32.5 g/dl (32-36); MEAN PLATELET VOLUME 9.3 fl (7.4-10.4); PLATELET COUNT 165 K/uL (130-400); RED BLOOD COUNT 3.68 M/uL (3.80-5.40); RED CELL DISTRIBUTION WIDTH 13.6 % (11.5-14.5); WHITE BLOOD COUNT W/O DIFF 4.3 K/uL (4.2-12.2)
[2017-10-21 07:16] LABS: MEAN CORPUSCULAR HEMOGLOBIN 31.2 pg (27-33)
[2017-10-21 07:23] LABS: BLOOD UREA NITROGEN 4 mg/dL (8-23); CREATININE 0.6 mg/dL (0.5-0.9); EST GLOMERULAR FILTRATION RATE > 60 mL/min; GLUCOSE,RANDOM 114 mg/dL (74-109)
[2017-10-21 07:26] LABS: PLATELET ESTIMATE NORMAL (NORMAL)
[2017-10-21] MEDS ORDERED: ACETAMINOPHEN 500 MG TABLET PO PRN (09:24)
[2017-10-21] MEDS: ASPIRIN 81 MG CHEWABLE TABLET PO SCH (09:39)
[2017-10-21] MEDS: PHENAZOPYRIDINE HCL 95 MG TABLET PO SCH ×3 (09:41→21:43)
[2017-10-21] MEDS: ATORVASTATIN 20 MG TABLET PO SCH (09:41)
[2017-10-21] MEDS: MULTIVITAMINS/MINERALS TABLET PO SCH (09:42)
[2017-10-21] MEDS: ENOXAPARIN 40 MG/0.4 ML SYR SQ SCH (09:42)
[2017-10-21] MEDS: FERROUS SULFATE 325 MG TAB PO SCH ×2 (09:43→21:43)
[2017-10-21] MEDS: FLUOXETINE HCL 20 MG CAPSULE PO SCH (09:43)
[2017-10-21] MEDS ORDERED: LEVOTHYROXINE SODIUM 25 MCG TABLET PO SCH (10:00)
[2017-10-21 13:30] LABS: URINE APPEARANCE CLEAR; URINE BILIRUBIN NEGATIVE (NEGATIVE); URINE BLOOD NEGATIVE (NEGATIVE); URINE COLOR ORANGE; URINE KETONE NEGATIVE (NEGATIVE); URINE LEUKOCYTE ESTERASE NEGATIVE (NEGATIVE); URINE NITRITE POSITIVE (NEGATIVE); URINE PROTEIN TRACE (NEGATIVE)
[2017-10-21 13:42] LABS: URINE BACTERIA FEW; URINE EPITHELIAL CELLS 0 - 2 (FEW); URINE RBC NONE SEEN (NONE SEEN); URINE WBC NONE SEEN (0-2/hpf)
--- NOTE | 2017-10-21 13:45 | Physician Progress Note ---
Subjective - Date Date of Physician Progress Note: 10/21/17 - Subjective Subjective Comment: Pt. had temp of 101.4F last evening around 2330, tylenol was administered and her temp did return to normal. Pt. consistently c/o bladder spasms, pyridium is helping- UA in ED did show trace leuks, potentially contaminated from stool. Plan to repeat UA today. WBC this am was positive for bands at 6.0. Pt. is still not taking in much clear liquids. She denies nausea, but she states that everything she tries seems to make her dairrhea/cramping worse. She is tolerating the PO vanco. Plan to continue to reinforce fluids, will cover UTI if UA indicates infection. 1350- UA pos. for nitrates, with c/o of bladder spasms, fever last night, and bands in WBC, will treat UTI. Will try bentyl to help with symptoms of bladder spasms. Objective - Vital Signs Vital Signs: Vital Signs - Last 24 Hrs Temp Pulse Resp BP Pulse Ox 10/21/17 09:00 96 H 17 10/21/17 07:00 98.1 F 96 H 17 111/82 93 L 10/20/17 23:00 101.4 F H 100 H 18 111/60 93 L 10/20/17 21:00 93 H 18 10/20/17 15:00 98.7 F 93 H 18 141/55 92 L - General General Appearance: Alert, Oriented x3, Cooperative, Mild distress Limitations: No limitations - Head Head exam: Atraumatic, Normal inspection - Eye Eye exam: Normal appearance, PERRL. negative: Conjunctival injection, Scleral icterus - ENT ENT exam: Normal exam, Mucous membranes moist Ear exam: Normal external inspection Nasal Exam: Normal inspection Mouth exam: Normal external inspection - Neck Neck exam: Normal inspection - Respiratory Respiratory exam: Normal lung sounds bilaterally. negative: Respiratory distress - Cardiovascular Cardiovascular Exam: Regular rate, Normal rhythm, Normal heart sounds Peripheral Pulses: 2+: Radial (R), Radial (L), Dorsalis Pedis (R), Dorsalis Pedis (L) - GI/Abdominal GI/Abdominal exam: Soft, Normal bowel sounds. negative: Distended, Guarding, Rebound, Rigid, Tenderness - Rectal Rectal exam: Deferred - exam: Deferred - Extremities Extremities exam: Normal inspection, Full ROM, Normal capillary refill. negative: Tenderness - Back Back exam: Reports: Normal inspection, Full ROM. Denies: Muscle spasm, Rash noted, Tenderness - Neurological Neurological exam: Alert, Normal gait, Oriented X3 - Psychiatric Psychiatric exam: Normal affect, Normal mood - Skin Skin exam: Dry, Intact, Normal color, Warm Assessment and Plan - Assessment and Plan (1) C. difficile colitis Current Visit: Yes Status: Acute Base Code: A04.72 - ENTEROCOLITIS D/T CLOSTRIDIUM DIFFICILE, NOT SPCF RECUR Comment: 10/21/17 -return of liquid stool x 2 days- -Treating with 125mg PO Vanco tid per Dr. Alcala (GI) 10 days total. (2) UTI (urinary tract infection) Current Visit: Yes Status: Acute Base Code: N39.0 - URINARY TRACT INFECTION , SITE NOT SPECIFIED Comment: 10/21/17: Repeat UA today positive for nitrates , protein, and glucose, will treat based on UA and c/o bladder spasms. (3) Dehydration Current Visit: Yes Status: Acute Base Code: E86.0 - DEHYDRATION Comment: -Pt. d/c'd her own IV, in process of restarting IV with D5 NS ordered. -Repeat UA showed trace protein and pos. glucose and nitrates- will treat UTI, likely underlying cause of bladder spasms. -Will repeat am labs (4) DVT prophylaxis Current Visit: No Status: Acute Base Code: [id number] - Comment: 10/21/17 high risk r/t age and decreased act. -no current concerns for bleed -lovenox 40mg SQ daily (5) Full code status Current Visit: Yes Status: Acute Base Code: Z78.9 - OTHER SPECIFIED HEALTH STATUS Comment: 10/21/17: Pt. is full code status Results - Labs Result Diagrams: 10/21/17 06:15 10/21/17 06:15 Labs Last 24 Hours: Laboratory Results - last 24 hr 10/20/17 10/21/17 10/21/17 17:00 06:15 06:15 WBC 4.3 RBC 3.68 L Hgb 11.5 L Hct 35.4 MCV 96.2 MCH 31.2 MCHC 32.5 RDW 13.6 Plt Count 165 MPV 9.3 Neutrophils % 57.0 Band Neutrophils % 6.0 H Eosinophils % Not Reportable Basophils % Not Reportable Lymphocytes 27.0 Monocytes 7.0 Platelet Estimate Normal RBC Morphology Normal Eosinophil Count 3.0 Sodium 135 L Potassium 3.5 Chloride 100 Carbon Dioxide 23.0 Anion Gap 12.0 BUN 4 L Creatinine 0.6 Estimated GFR > 60 POC Glucose 117 H Random Glucose 114 H Calcium 8.5 L 10/21/17 07:30 WBC RBC Hgb Hct MCV MCH MCHC RDW Plt Count MPV Neutrophils % Band Neutrophils % Eosinophils % Basophils % Lymphocytes Monocytes Platelet Estimate RBC Morphology Eosinophil Count Sodium Potassium Chloride Carbon Dioxide Anion Gap BUN Creatinine Estimated GFR POC Glucose 128 H Random Glucose Calcium DVT/PE Assessment - Risk for VTE Risk for VTE: No Risk Level: High Risk Assessment Date: 10/20/17 Risk Assessment Time: 11:48 VTE Orders Placed or Will Be Placed: Yes - Active Medicaitons Current Medications: Current Medications Acetaminophen (Tylenol 500mg Tab) 500 mg PO Q6H PRN PRN Reason: FEVER Last Admin: 10/21/17 13:17 Dose: 500 mg Aspirin (Aspirin Chewable) 81 mg PO DAILY [facility] Last Admin: 10/21/17 09:39 Dose: 81 mg Atorvastatin Calcium (Lipitor) 80 mg PO DAILY [facility] Last Admin: 10/21/17 09:41 Dose: 80 mg Enoxaparin Sodium (Lovenox) 40 mg SQ DAILY [facility] Last Admin: 10/21/17 09:42 Dose: 40 mg Ferrous Sulfate (Iron) 325 mg PO BID [facility] Last Admin: 10/21/17 09:43 Dose: 325 mg Fluoxetine HCl (Prozac) 20 mg PO DAILY [facility] Last Admin: 10/21/17 09:43 Dose: 20 mg Dextrose/Sodium Chloride () 1,000 mls @ 125 mls/hr IV .Q8H PRN PRN Reason: LARGE VOLUME IV Last Admin: 10/20/17 12:32 Dose: 125 mls/hr Levothyroxine Sodium (Synthroid) 25 mcg PO QOD [facility] Last Admin: 10/21/17 09:39 Dose: 25 mcg Multivitamins/Minerals (Centrum) 1 tab PO DAILY [facility] Last Admin: 10/21/17 09:42 Dose: 1 tab Ondansetron HCl (Zofran) 4 mg IVP Q4H PRN PRN Reason: NAUSEA Last Admin: 10/20/17 11:23 Dose: 4 mg Pantoprazole Sodium (Protonix) 40 mg PO DAILYAC [facility] Last Admin: 10/21/17 06:08 Dose: 40 mg Phenazopyridine HCl (Azo Urinary Pain Relief) 190 mg PO TID [facility] Last Admin: 10/21/17 09:41 Dose: 190 mg Vancomycin HCl (Vanco) 125 mg PO Q6HR [facility] Stop: 10/25/17 13:31 Last Admin: 10/21/17 13:17 Dose: 125 mg AMI Plan - Labs Result Diagrams: 10/21/17 06:15 10/21/17 06:15
[2017-10-21] MEDS: POTASSIUM CHLORIDE/D5-0.9%NACL 20 MEQ/1,000 ML BAG IV SCH (14:11)
[2017-10-21] MEDS ORDERED: PATIENT OWN MED: MC PRN (16:46)
[2017-10-21] MEDS: DICYCLOMINE HCL 10 MG CAPSULE PO SCH ×2 (16:59→21:43)
[2017-10-21] MEDS: CEFDINIR 300 MG CAPSULE PO SCH (21:43)
[2017-10-22] MEDS: VANCOMYCIN HCL 1 GM VIAL PO SCH ×3 (00:07→11:38)
[2017-10-22] MEDS: DEXTROSE 5 % AND 0.9 % NACL 1,000 ML IV PRN (00:24)
[2017-10-22] MEDS: PANTOPRAZOLE SODIUM 40 MG TABLET PO SCH (06:09)
[2017-10-22 06:54] LABS: HEMATOCRIT 33.6 % (35.0-47.0); HEMOGLOBIN 10.9 gm/dl (11.6-16.0); MEAN CELL VOLUME 96.3 fl (81-97); MEAN CORPUSCULAR HEMOGLOBIN 31.2 pg (27-33); MEAN CORPUSCULAR HGB CONC 32.4 g/dl (32-36); MEAN PLATELET VOLUME 9.5 fl (7.4-10.4); PLATELET COUNT 156 K/uL (130-400); RED BLOOD COUNT 3.49 M/uL (3.80-5.40); RED CELL DISTRIBUTION WIDTH 13.5 % (11.5-14.5); WHITE BLOOD COUNT W/O DIFF 3.1 K/uL (4.2-12.2)
[2017-10-22 07:16] LABS: ALB/GLOB RATIO 1.3 (1.1-1.8); ALBUMIN 3.1 g/dL (4.0-5.0); ALKALINE PHOSPHATASE 40 U/L (35-104); ALT/SGPT 11 U/L (<33); AST/SGOT 14 U/L (10.0-35.0); BLOOD UREA NITROGEN 3 mg/dL (8-23); CREATININE 0.6 mg/dL (0.5-0.9); EST GLOMERULAR FILTRATION RATE > 60 mL/min; GLUCOSE,RANDOM 137 mg/dL (74-109); TOTAL PROTEIN 5.5 g/dL (6.6-8.7)
[2017-10-22] MEDS: FLUOXETINE HCL 20 MG CAPSULE PO SCH (09:45)
[2017-10-22] MEDS: ASPIRIN 81 MG CHEWABLE TABLET PO SCH (09:45)
[2017-10-22] MEDS: MULTIVITAMINS/MINERALS TABLET PO SCH (09:45)
[2017-10-22] MEDS: CEFDINIR 300 MG CAPSULE PO SCH (09:45)
[2017-10-22] MEDS: ATORVASTATIN 20 MG TABLET PO SCH (09:46)
[2017-10-22] MEDS: DICYCLOMINE HCL 10 MG CAPSULE PO SCH (09:46)
[2017-10-22] MEDS: FERROUS SULFATE 325 MG TAB PO SCH (09:46)
[2017-10-22] MEDS: ENOXAPARIN 40 MG/0.4 ML SYR SQ SCH (09:47)
[2017-10-22] MEDS: PHENAZOPYRIDINE HCL 95 MG TABLET PO SCH (09:47)
[2017-10-22] MEDS ORDERED: BIFIDOBACTERIUM INFANTIS 4 MG CAPSULE PO SCH (10:00)
[2017-10-22] MEDS ORDERED: POTASSIUM CHLORIDE 20 MEQ TABLET PO ONE (10:06)
--- NOTE | 2017-10-22 10:35 | Discharge Summary ---
Providers Discharge Summary Date: 10/22/17 Date of admission: 10/19/17 14:55 Expected Date of Discharge: 10/22/17 Attending physician: MAINE GARCIA Primary care physician: MAINE GARCIA Consults: Consult Orders 10/19/17 15:15 Consult NOW Consulting Provider: JAYCOB GARCIA Physician Instructions: Reason For Exam: recurrent diarrhea with C diff colitis Physical Exam - Vital Signs Vital Signs: Vital Signs - Last 24 Hrs Temp Pulse Resp BP BP Pulse Ox 10/22/17 09:00 16 10/22/17 07:49 99.5 F 92 H 16 128/68 93 L 10/22/17 06:53 98.3 F 85 16 118/73 91 L 10/21/17 23:00 99.9 F H 93 H 16 126/54 92 L 10/21/17 21:00 93 H 16 10/21/17 14:18 97.5 F L 94 H 16 96/54 94 L - General General Appearance: Alert, Oriented x3, Cooperative, No acute distress Limitations: No limitations - Head Head exam: Atraumatic, Normal inspection - Eye Eye exam: Normal appearance, PERRL. negative: Conjunctival injection, Scleral icterus - ENT ENT exam: Normal exam, Mucous membranes moist Ear exam: Normal external inspection Nasal Exam: Normal inspection Mouth exam: Normal external inspection - Neck Neck exam: Normal inspection - Respiratory Respiratory exam: Normal lung sounds bilaterally. negative: Respiratory distress - Cardiovascular Cardiovascular Exam: Regular rate, Normal rhythm, Normal heart sounds Peripheral Pulses: 2+: Radial (R), Radial (L), Dorsalis Pedis (R), Dorsalis Pedis (L) - GI/Abdominal GI/Abdominal exam: Soft, Normal bowel sounds. negative: Distended, Guarding, Rebound, Rigid, Tenderness - Rectal Rectal exam: Deferred - exam: Deferred - Extremities Extremities exam: Normal inspection, Full ROM, Normal capillary refill. negative: Tenderness - Back Back exam: Reports: Normal inspection, Full ROM. Denies: Muscle spasm, Rash noted, Tenderness - Neurological Neurological exam: Alert, Normal gait, Oriented X3 - Psychiatric Psychiatric exam: Normal affect, Normal mood - Skin Skin exam: Dry, Intact, Normal color, Warm Hospitalization - Hospitalization Admission Diagnosis: C diff colitis, dehydration - Problem List/Discharge Diagnosis (1) C. difficile colitis Current Visit: Yes Status: Acute Base Code: A04.72 - ENTEROCOLITIS D/T CLOSTRIDIUM DIFFICILE, NOT SPCF RECUR Comment: 10/22/17 -Denies any further stools overnight, has been tolerating -Treating with 125mg PO Vanco tid per Dr. Garcia (GI) 10 days total. (2) Dehydration Current Visit: Yes Status: Acute Base Code: E86.0 - DEHYDRATION Comment: -Tolerating oral liquids, denies any nausea or vomiting. IV fluids d/c -K+ 3.3 today, likely due to poor PO intake up to this point. Will replaced with 20mEq K+ PO (3) UTI (urinary tract infection) Current Visit: Yes Status: Acute Base Code: N39.0 - URINARY TRACT INFECTION , SITE NOT SPECIFIED Comment: 10/22/17: Repeat UA positive for nitrates, protein, and glucose, will treat based on UA and c/o bladder spasms. -Cefdinir 30mg BID x 5 days -Pyridium prn bladder spasms - Hospitalization Course Disposition: Home Health Service Hospital Course: 82 yo female presents to ER for return of c-diff diarrhea and dehydration. PMH recent admission [facility] for C-diff- did not see GI, was sent to [facility] r/t splenic infarct at that time. Pt reports taking Clindamycin PO for tooth infection in September. Since then has had issues with diarrhea but was recently offically dx with C-Diff. Pt was being treated with Flaygl PO, stools changed from liquid to loose and was d/c'd from [facility] with out known GI consult. pt reports return of liquid stools friday, returned to ER for same. Denies vomiting but c/o chronic bladder spasms. ER Temp 97.7f, HR97, RR 18, BP 127/70. 98% RA. WBC 7.3, Hgb 14.7, Hct 44.1, Plt 225 NA 138, K 4.1, CL 95, CO2 22, anion gap 21, BUN 13, creatinine 0.8, GFR>60, glucose 151, lactic acid 3.2 (repeat 1), Ca9.8, LFTs WNL, lipase 19 UA trace leuk but high epithilial cells- negative 1500 ml NS bolus, 4mg Zofran IVP, Admission for C Diff and dehydration 10/20/17 Pt in mild distress, reports bladder spasms, states she has them at home but they are worse today. Has had liquid incontinence, assisted with transfer to toilet and had med liquid stool. Pt tolerating PO flagyl but has GI consult today with Dr Garcia ([facility] [place]) for further evaluation. IVF infusing, pt tolerating CLD. POC hydration, electrolyte supplement, repeat labs in AM. UPDATE: pt vomiting after evaluation, medicated with zofran, still awaiting GI consult. PCP Miguel Garcia 10/22/17: Patient sitting on edge of bed this morning, states she is ready to go home. Patient is tolerating clear liquid diet, no nausea or vomiting, will plan to slowly advance to bland diet. Patient has not had any more stools throughout the night. States bladder spasms and abdominal pain have improved. Patient will follow-up with Dr. Garcia (GI) outpatient and urology outpatient for bladder spasms and repeated UTIs. Patient to have visiting nurse set-up upon discharge. Procedures: Cardiology Procedures 10/19/17 16:55 Subassembly Assembler .Continuous Abnormal Labs: Abnormal Lab Results 10/19/17 10/19/17 10/19/17 Range/Units 11:42 11:42 11:42 WBC (4.2-12.2) K/uL RBC (3.80-5.40) M/uL Hgb (11.6-16.0) gm/dl Hct (35.0-47.0) % Neutrophils % (47-80) % Band Neutrophils % (0-5) % Monocytes % 11.9 H (0-9) % Monocytes (0-9) % Sodium (136-145) mmol/L Potassium (3.4-4.5) mmol/L Chloride 95 L (98-107) mmol/L Carbon Dioxide (22-29) mmol/L Anion Gap 21.0 H (7-16) BUN (8-23) mg/dL POC Glucose (70-110) mg/dL Random Glucose 151 H (74-109) mg/dL Lactic Acid 3.2 H (0.5-2.2) mmol/L Calcium (8.8-10.2) mg/dL Total Protein (6.6-8.7) g/dL Albumin (4.0-5.0) g/dL Urine Color Urine Protein (NEGATIVE) Urine Glucose (UA) (NEGATIVE) Urine Nitrite (NEGATIVE) Ur Leukocyte Esterase (NEGATIVE) 10/19/17 10/20/17 10/20/17 Range/Units 13:15 06:20 07:30 WBC (4.2-12.2) K/uL RBC (3.80-5.40) M/uL Hgb (11.6-16.0) gm/dl Hct (35.0-47.0) % Neutrophils % (47-80) % Band Neutrophils % (0-5) % Monocytes % (0-9) % Monocytes (0-9) % Sodium (136-145) mmol/L Potassium (3.4-4.5) mmol/L Chloride (98-107) mmol/L Carbon Dioxide (22-29) mmol/L Anion Gap (7-16) BUN 7 L (8-23) mg/dL POC Glucose 142 H (70-110) mg/dL Random Glucose 129 H (74-109) mg/dL Lactic Acid (0.5-2.2) mmol/L Calcium (8.8-10.2) mg/dL Total Protein (6.6-8.7) g/dL Albumin (4.0-5.0) g/dL Urine Color Urine Protein (NEGATIVE) Urine Glucose (UA) (NEGATIVE) Urine Nitrite (NEGATIVE) Ur Leukocyte Esterase Trace H (NEGATIVE) 10/20/17 10/20/17 10/21/17 Range/Units 11:51 17:00 06:15 WBC (4.2-12.2) K/uL RBC 3.68 L (3.80-5.40) M/uL Hgb 11.5 L (11.6-16.0) gm/dl Hct (35.0-47.0) % Neutrophils % (47-80) % Band Neutrophils % 6.0 H (0-5) % Monocytes % (0-9) % Monocytes (0-9) % Sodium (136-145) mmol/L Potassium (3.4-4.5) mmol/L Chloride (98-107) mmol/L Carbon Dioxide (22-29) mmol/L Anion Gap (7-16) BUN (8-23) mg/dL POC Glucose 137 H 117 H (70-110) mg/dL Random Glucose (74-109) mg/dL Lactic Acid (0.5-2.2) mmol/L Calcium (8.8-10.2) mg/dL Total Protein (6.6-8.7) g/dL Albumin (4.0-5.0) g/dL Urine Color Urine Protein (NEGATIVE) Urine Glucose (UA) (NEGATIVE) Urine Nitrite (NEGATIVE) Ur Leukocyte Esterase (NEGATIVE) 10/21/17 10/21/17 10/21/17 Range/Units 06:15 07:30 13:20 WBC (4.2-12.2) K/uL RBC (3.80-5.40) M/uL Hgb (11.6-16.0) gm/dl Hct (35.0-47.0) % Neutrophils % (47-80) % Band Neutrophils % (0-5) % Monocytes % (0-9) % Monocytes (0-9) % Sodium 135 L (136-145) mmol/L Potassium (3.4-4.5) mmol/L Chloride (98-107) mmol/L Carbon Dioxide (22-29) mmol/L Anion Gap (7-16) BUN 4 L (8-23) mg/dL POC Glucose 128 H (70-110) mg/dL Random Glucose 114 H (74-109) mg/dL Lactic Acid (0.5-2.2) mmol/L Calcium 8.5 L (8.8-10.2) mg/dL Total Protein (6.6-8.7) g/dL Albumin (4.0-5.0) g/dL Urine Color Burleigh H Urine Protein Trace H (NEGATIVE) Urine Glucose (UA) 100 mg/dl H (NEGATIVE) Urine Nitrite Positive H (NEGATIVE) Ur Leukocyte Esterase (NEGATIVE) 10/22/17 10/22/17 Range/Units 06:15 06:15 WBC 3.1 L (4.2-12.2) K/uL RBC 3.49 L (3.80-5.40) M/uL Hgb 10.9 L (11.6-16.0) gm/dl Hct 33.6 L (35.0-47.0) % Neutrophils % 43.0 L (47-80) % Band Neutrophils % (0-5) % Monocytes % (0-9) % Monocytes 18.0 H (0-9) % Sodium (136-145) mmol/L Potassium 3.3 L (3.4-4.5) mmol/L Chloride (98-107) mmol/L Carbon Dioxide 21.0 L (22-29) mmol/L Anion Gap (7-16) BUN 3 L (8-23) mg/dL POC Glucose (70-110) mg/dL Random Glucose 137 H (74-109) mg/dL Lactic Acid (0.5-2.2) mmol/L Calcium 8.4 L (8.8-10.2) mg/dL Total Protein 5.5 L (6.6-8.7) g/dL Albumin 3.1 L (4.0-5.0) g/dL Urine Color Urine Protein (NEGATIVE) Urine Glucose (UA) (NEGATIVE) Urine Nitrite (NEGATIVE) Ur Leukocyte Esterase (NEGATIVE) Condition at Discharge: (2) Stable VTE Discharge VTE Reason For No Overlap Therapy: Not Indicated Discharge Medications - Discharge Medications Prescriptions: Bifidobacterium Infantis [Align] 4 mg PO DAILY #30 capsule Cefdinir 300 mg PO BID #8 capsule Dicyclomine HCl [Bentyl] 10 mg PO TID PRN #30 cap PRN Reason: Abdominal Pain Phenazopyridine HCl [Azo Urinary Pain Relief] 190 mg PO TID PRN #15 tablet PRN Reason: bladder spasms Vancomycin HCl [Vancomycin] 125 mg PO Q6H #29 capsule Home Medications: Ambulatory Orders Diphenhydramine HCl [Benadryl] 25 mg PO QHS 07/24/16 [Last Taken 1 Day Ago ~11/24] Multivitamin/Iron/Folic Acid [Centrum] 1 tab PO DAILY 07/24/16 [Last Taken 10/18] Bifidobacterium Infantis [Align] 4 mg PO DAILY #30 capsule 10/22/17 [Last Taken Unknown] Cefdinir 300 mg PO BID #8 capsule 10/22/17 [Last Taken Unknown] Dicyclomine HCl [Bentyl] 10 mg PO TID PRN #30 cap 10/22/17 [Last Taken Unknown] Phenazopyridine HCl [Azo Urinary Pain Relief] 190 mg PO TID PRN #15 tablet 10/22 [Last Taken Unknown] Vancomycin HCl [Vancomycin] 125 mg PO Q6H #29 capsule 10/22/17 [Last Taken Unknown] Discharge Plan - Discharge Instructions Activity at Discharge: Increase Activity as Tolerated Diet at Discharge: Other (bland diet) Additional Instructions: Take 1 dose of Cefdinir tonight, then continue taking it twice a day until medication is gone. Your last dose of Vancomycin was at 12:00 today, you will need 2 more doses today, 6 hours apart. Then continue taking as ordered until medication is gone. Follow-up with Dr. Garcia for GI Follow-up with urologist for bladder spasms and recurrent UTIs. Follow-up with PCP next week. Return to ER for vomiting, weakness, or inability to keep fluids down. Quality Measures - Quality Measures Quality Measures: Advance Directives, Documentation of Current Medications in Medical Record, Elder Maltreatment Screen and Follow-Up Plan, Screening for High Blood Pressure and F/U Documented - Current Medications Quality Measure: Measure #130: Documentation of Current Medications Documentation of Current Medications: <Current Medications Documented/Reviewed> [G8427] - Blood Pressure Screening Quality Measure: Screening for High Blood Pressure and Follow-Up Documented Does Patient Have Any of the Following: Active Dx of HTN Blood Pressure Classification: Pre-Hypertensive BP Reading Systolic Measurement: 127 Diastolic Measurement: 55 Screening for High Blood Pressure: Patient Exclusion, Hx of HTN [G9744] - Advance Directives Quality Measure: Measure #47: Care Plan Advance Directives Established: Yes Advance Directives Information Provided To Patient: No Advance Directives on File: No Living Will: Yes Power of Dry Starch Supervisor: Yes Power of Dry Starch Supervisor Name: EVELIN CUNNINGHAM Advance Care Planning: <Care Plan/Decision Maker Not Decided; Discussed & Documented> [112F] - Elder Abuse Suspicion Index Screening: Elder Abuse Suspicion Index Screening Rely on people for bathing, dressing, shopping, banking, etc: No Prevented from getting food, clothes, medication, etc: No Made to feel shamed or threatened by someone: No Forced to sign papers or use money against will: No Feel afraid, touched in ways not wanted or hurt physically: No Poor eye contact, withdrawn, malnourished, cuts or bruises: No Screening Result: Negative result EASI Reference Information: Rubio STEPHENS, Real C, Janice Washington, Mariam Newby.Development and validation of a tool to assist physicians identification of elder abuse: The Elder Abuse Suspicion Index (EASI ). Journal of Elder Abuse and Neglect, 2008; 20 (3): 276-300. - Elder Maltreatment Screen Quality Measures: Elder Maltreatment Screen and Follow-Up Plan Elder Maltreatment Screen: <Negative, No Follow-Up Plan Required> [G6716]
== END 2017-10-22 15:15 | disposition home health service (06) | DRG 372 ==
LOC: ER 11:07 → MEDSURG 14:55
PROVIDERS: ADMIT Internal Medicine; ATTEND Internal Medicine
DX: A04.72 Enterocolitis due to Clostridium difficile, not specified as recurrent (principal); N39.0 Urinary tract infection, site not specified; E86.0 Dehydration; R53.1 Weakness; E11.9 Type 2 diabetes mellitus without complications; K21.9 Gastro-esophageal reflux disease without esophagitis; K44.9 Diaphragmatic hernia without obstruction or gangrene; E03.9 Hypothyroidism, unspecified; Z85.828 Personal history of other malignant neoplasm of skin; Z85.3 Personal history of malignant neoplasm of breast; Z87.891 Personal history of nicotine dependence
CPT/HCPCS: 83605; 83690; 85025; 80053; 81001; J2405; 36416; 80048; 82310; 82948; 85027; 96365; 96374; 99223; 99233; 99239; 99285; J1650; J3480; J7030; J7042

== ENCOUNTER 2017-11-09 15:03 | Emergency (ER) | payer MEDICARE, BC ==
[2017-11-09 16:24] LABS: BASO % 0.3 % (0-6); EOS % 1.3 % (0-6); GRAN % 65.3 % (47-80); HEMATOCRIT 35.8 % (35.0-47.0); HEMOGLOBIN 11.7 gm/dl (11.6-16.0); LYMPH % 17.9 % (16-45); MEAN CORPUSCULAR HGB CONC 32.7 g/dl (32-36); MEAN PLATELET VOLUME 8.8 fl (7.4-10.4); MONO % 15.2 % (0-9); PLATELET COUNT 178 K/uL (130-400); RED BLOOD COUNT 3.77 M/uL (3.80-5.40); RED CELL DISTRIBUTION WIDTH 14.1 % (11.5-14.5); WHITE BLOOD COUNT W/O DIFF 6.3 K/uL (4.2-12.2)
[2017-11-09 16:38] LABS: BLOOD UREA NITROGEN 10 mg/dL (8-23); CREATININE 0.7 mg/dL (0.5-0.9); EST GLOMERULAR FILTRATION RATE > 60 mL/min
[2017-11-09 16:39] LABS: TOTAL PROTEIN 7.1 g/dL (6.6-8.7)
[2017-11-09 16:41] LABS: GLUCOSE,RANDOM 121 mg/dL (74-109)
[2017-11-09 16:43] LABS: ALT/SGPT 64 U/L (<33); AST/SGOT 57 U/L (10.0-35.0)
[2017-11-09 16:44] LABS: ALB/GLOB RATIO 1.4 (1.1-1.8); ALBUMIN 4.2 g/dL (4.0-5.0); ALKALINE PHOSPHATASE 57 U/L (35-104)
[2017-11-09 16:49] LABS: ROTOVIRUS NOT DETECTED (NOT DETECT)
[2017-11-09 16:57] LABS: CRYPTOSPORIDIUM PARVUM ANTIGEN DETECTED (NOT DETECT); GIARDIA LAMBLIA ANTIGEN NOT DETECTED (NOT DETECT)
[2017-11-09 17:28] LABS: MOLECULAR C DIFF TOXIN SCREEN DETECTED (NOT DETECT)
--- NOTE | 2017-11-09 17:59 | Emergency Department Record ---
History of Present Illness - General Chief Complaint: Abdominal Pain Stated Complaint: ABDOMINAL PAIN,DIARRHEA Time Seen by Provider: 11/09/17 15:26 Source: Patient Mode of Arrival: Ambulatory Limitations: No limitations - History of Present Illness Initial Comments: pt has a hx of c-diff requiring 2 hospitalizations. she recently had run out of her vancomycin and now her diarrhea has returned. she has ap also. MD Complaint: Abdominal pain Onset/Timin -: Days(s) Location: Suprapubic Radiation: None Migration to: No migration Severity: Mild Severity scale (1-10): 7 Quality: Aching, Cramping Consistency: Constant Improves With: Nothing Worsens With: Nothing Associated Symptoms: Diarrhea - Related Data Patient : No Previous Rx's Medication Instructions Recorded Bifidobacterium Infantis [Align] 4 mg PO DAILY #30 capsule 10/22/17 Cefdinir 300 mg PO BID #8 capsule 10/22/17 Phenazopyridine HCl [Azo Urinary 190 mg PO TID PRN #15 tablet 10/22/17 Pain Relief] Nitazoxanide [Alinia] 500 mg PO BID #6 tablet 11/09/17 Vancomycin HCl [Vancomycin] 125 mg PO Q6H #76 capsule 11/09/17 Allergies Allergy/AdvReac Type Severity Reaction Status Date / Time fentanyl Allergy Severe FATIGUE Verified 10/19/17 11:26 amoxicillin [Amoxicillin] AdvReac Intermediate DIARRHEA Verified 10/19/17 11:26 morphine AdvReac Intermediate DIZZINESS Verified 10/19/17 11:26 nitrofurantoin AdvReac Intermediate DIZZINESS Verified 10/19/17 11:26 [From Macrobid] nitrofurantoin AdvReac Intermediate DIZZINESS Verified 10/19/17 11:26 macrocrystalline [From Macrobid] oxycodone HCl [From Percocet] AdvReac Intermediate DIZZINESS Verified 10/19/17 11:26 Travel Screening - Travel/Exposure Within Last 30 Days Have you traveled within the last 30 days?: No - Travel/Exposure Within Last Year Have you traveled outside the [place] in the last year?: No - Additonal Travel Details Have you been exposed to anyone with a communicable illness?: No - Travel Symptoms Symptom Screening: None Review of Systems Reviewed: No additional complaints except as noted below Constitutional: Reports: As per HPI. Denies: Chills, Fever, Malaise, Night sweats, Weakness, Weight change Eyes: Reports: As per HPI. Denies: Eye discharge, Eye pain, Photophobia, Vision change ENT: Reports: As per HPI. Denies: Congestion, Dental pain, Ear pain, Epistaxis , Hearing loss, Throat pain Respiratory: Reports: As per HPI. Denies: Cough, Dyspnea, Hemoptysis, Stridor, Wheezes Cardiovascular: Reports: As per HPI. Denies: Arrhythmia, Chest pain, Dyspnea on exertion, Edema, Murmurs, Orthopnea, Palpitations, Paroxysmal nocturnal dyspnea, Rheumatic Fever, Syncope Endocrine: Reports: As per HPI. Denies: Fatigue, Heat or cold intolerance, Polydipsia, Polyuria Gastrointestinal: Reports: As per HPI, Abdominal pain, Diarrhea, Nausea. Denies : Constipation, Hematemesis, Hematochezia, Melena, Vomiting Genitourinary: Reports: As per HPI. Denies: Abnormal menses, Discharge, Dyspareunia, Dysuria, Frequency, Hematuria, Incontinence, Retention, Urgency Musculoskeletal: Reports: As per HPI. Denies: Arthralgia, Back pain, Gout, Joint swelling, Myalgia, Neck pain Skin: Reports: As per HPI. Denies: Bruising, Change in color, Change in hair/ nails, Lesions, Pruritus, Rash Neurological: Reports: As per HPI. Denies: Abnormal gait, Confusion, Headache, Numbness, Paresthesias, Seizure, Tingling, Tremors, Vertigo, Weakness Psychiatric: Reports: As per HPI. Denies: Anxiety, Auditory hallucinations, Depression, Homicidal thoughts, Suicidal thoughts, Visual hallucinations Hematological/Lymphatic: Reports: As per HPI. Denies: Anemia, Blood Clots, Easy bleeding, Easy bruising, Swollen glands Past Medical History - SOCIAL HISTORY Smoking Status: Former smoker Alcohol Use: None Drug Use: None - RESPIRATORY Hx Respiratory Disorders: Yes Hx Bronchitis: Yes Hx Pneumonia: Yes - CARDIOVASCULAR Hx Cardio Disorders: Yes Hx Hypertension: Yes (No longer takes medication) Comment:: Pt states many years ago she was told that she had a murmur - NEURO Hx Neuro Disorders: Yes Hx Dizziness: Yes (Per patient) - GI Hx GI Disorders: Yes Hx Reflux: Yes (Takes Prevacid) Hx Hiatal Hernia: Yes Hx Irritable Bowel: Yes - Hx Genitourinary Disorders: Yes Hx Kidney Stones: Yes Hx UTI: Yes - ENDOCRINE Hx Endocrine Disorders: Yes Hx Diabetes: Yes (takes metformin) Hx Thyroid Disease: Yes (partial thyroidectmoy) - MUSCULOSKELETAL Hx Musculoskeletal Disorders: Yes Hx Back Injury: Yes - PSYCH Hx Psych Problems: Yes Hx Anxiety: Yes Hx Depression: Yes - HEMATOLOGY/ONCOLOGY Hx Hematology/Oncology Disorders: Yes Hx Cancer: Yes (breast cancer, skin cancer) Hx Blood Transfusions: Yes (1 yr ago) Family Medical History Any Significant Family History?: No Hx Alcohol Use: Brother/Sister Hx Anxiety: Brother/Sister Hx Dementia: Father Hx Depression: Mother Hx Heart Disease: Mother Hx Stroke: Father, Mother Physical Exam - General General Appearance: Alert, Oriented x3, Cooperative, Mild distress - Head Head exam: Normal inspection - Eye Eye exam: Normal appearance, PERRL, EOMI Pupils: Normal accommodation - ENT ENT exam: Normal exam, Mucous membranes moist, Normal external ear exam, Normal orophraynx Ear exam: Normal external inspection. negative: External canal tenderness Nasal Exam: Normal inspection. negative: Discharge, Sinus tenderness Mouth exam: Normal external inspection, Tongue normal Teeth exam: Normal inspection. negative: Dental caries Throat exam: Normal inspection. negative: Tonsillar erythema, Tonsillar exudate - Neck Neck exam: Normal inspection, Full ROM. negative: Tenderness - Respiratory Respiratory exam: Normal lung sounds bilaterally. negative: Respiratory distress - Cardiovascular Cardiovascular Exam: Regular rate, Normal rhythm, Normal heart sounds - GI/Abdominal GI/Abdominal exam: Soft, Normal bowel sounds, Tenderness (llq) - Rectal Rectal exam: Deferred - exam: Deferred - Extremities Extremities exam: Normal inspection, Full ROM, Normal capillary refill. negative: Tenderness - Back Back exam: Reports: Normal inspection, Full ROM. Denies: Muscle spasm, Rash noted, Tenderness - Neurological Neurological exam: Alert, CN II-XII intact, Normal gait, Oriented X3 - Psychiatric Psychiatric exam: Normal affect, Normal mood - Skin Skin exam: Dry, Intact, Normal color, Warm Course Vital Signs 11/09/17 11/09/17 15:06 17:04 Temperature 98.2 F Pulse Rate 74 Pulse Rate [ 69 Pulse Ox Probe] Respiratory 16 16 Rate Blood Pressure 135/57 Blood Pressure 190/83 [Left Arm] Pulse Ox 98 96 - Reevaluation(s) Reevaluation #1: 11/09/17 18:20 pt is refusing to be admitted Reevaluation #2: 11/09/17 18:57 d/w dr martinez who will f/u with pt Medical Decision Making - Lab Data Result diagrams: 11/09/17 16:15 11/09/17 16:15 Lab Results 11/09/17 11/09/17 11/09/17 Range/Units 16:15 16:15 16:15 WBC 6.3 (4.2-12.2) K/uL RBC 3.77 L (3.80-5.40) M/uL Hgb 11.7 (11.6-16.0) gm/dl Hct 35.8 (35.0-47.0) % MCV 95.0 (81-97) fl MCH 31.0 (27-33) pg MCHC 32.7 (32-36) g/dl RDW 14.1 (11.5-14.5) % Plt Count 178 (130-400) K/uL MPV 8.8 (7.4-10.4) fl Gran % 65.3 (47-80) % Lymphocytes % 17.9 (16-45) % Monocytes % 15.2 H (0-9) % Eosinophils % 1.3 (0-6) % Basophils % 0.3 (0-6) % Sodium 140 (136-145) mmol/L Potassium 3.5 (3.4-4.5) mmol/L Chloride 97 L (98-107) mmol/L Carbon Dioxide 23.0 (22-29) mmol/L Anion Gap 20.0 H (7-16) BUN 10 (8-23) mg/dL Creatinine 0.7 (0.5-0.9) mg/dL Estimated GFR > 60 mL/min Random Glucose 121 H (74-109) mg/dL Lactic Acid 1.1 (0.5-2.2) mmol/L Calcium 9.5 (8.8-10.2) mg/dL Total Bilirubin 0.70 (0.2-1.0) mg/dL AST 57 H (10.0-35.0) U/L ALT 64 H (<33) U/L Alkaline Phosphatase 57 (35-104) U/L Total Protein 7.1 (6.6-8.7) g/dL Albumin 4.2 (4.0-5.0) g/dL Globulin 2.9 (1.4-4.8) gm/dL Albumin/Globulin Ratio 1.4 (1.1-1.8) Stool Occult Blood (NEGATIVE) Stool for White Cells (NO WBC'S) Rotavirus Antigen (NOT DETECT) C. difficile Ag & Toxin (NOT DETECT) Cryptosporid parvum Ag (NOT DETECT) Giardia lamblia Ag (NOT DETECT) 11/09/17 11/09/17 11/09/17 Range/Units 16:22 16:22 16:22 WBC (4.2-12.2) K/uL RBC (3.80-5.40) M/uL Hgb (11.6-16.0) gm/dl Hct (35.0-47.0) % MCV (81-97) fl MCH (27-33) pg MCHC (32-36) g/dl RDW (11.5-14.5) % Plt Count (130-400) K/uL MPV (7.4-10.4) fl Gran % (47-80) % Lymphocytes % (16-45) % Monocytes % (0-9) % Eosinophils % (0-6) % Basophils % (0-6) % Sodium (136-145) mmol/L Potassium (3.4-4.5) mmol/L Chloride (98-107) mmol/L Carbon Dioxide (22-29) mmol/L Anion Gap (7-16) BUN (8-23) mg/dL Creatinine (0.5-0.9) mg/dL Estimated GFR mL/min Random Glucose (74-109) mg/dL Lactic Acid (0.5-2.2) mmol/L Calcium (8.8-10.2) mg/dL Total Bilirubin (0.2-1.0) mg/dL AST (10.0-35.0) U/L ALT (<33) U/L Alkaline Phosphatase (35-104) U/L Total Protein (6.6-8.7) g/dL Albumin (4.0-5.0) g/dL Globulin (1.4-4.8) gm/dL Albumin/Globulin Ratio (1.1-1.8) Stool Occult Blood Negative (NEGATIVE) Stool for White Cells No wbc's observed (NO WBC'S) Rotavirus Antigen Not detected (NOT DETECT) C. difficile Ag & Toxin Detected H (NOT DETECT) Cryptosporid parvum Ag Detected H (NOT DETECT) Giardia lamblia Ag Not detected (NOT DETECT) Disposition Disposition: Other Clinical Impression: C. difficile colitis, Diarrhea due to cryptosporidium Disposition: Against Medical Advice Condition: (1) Good Instructions: Clostridium Difficile Infection (ED), Traveler's Diarrhea (ED) Additional Instructions: follow up with family doctor tomorrow . push fluids. may return at any time Prescriptions: Nitazoxanide [Alinia] 500 mg PO BID #6 tablet Vancomycin HCl [Vancomycin] 125 mg PO Q6H #76 capsule Forms: Patient Portal Access Quality - Quality Measures Quality Measures: N/A - Blood Pressure Screening Does Patient Have Any of the Following: No Blood Pressure Classification: Pre-Hypertensive BP Reading Systolic Measurement: 135 Diastolic Measurement: 57 Screening for High Blood Pressure: < Pre-Hypertensive BP, F/U Documented > [ G8950] Pre-Hypertensive Follow-up Interventions: Follow-up with rescreen every year.
[2017-11-09] MEDS ORDERED: 0.9 % SODIUM CHLORIDE 1,000 ML BAG IV ONE (18:08)
[2017-11-09] MEDS ORDERED: VANCOMYCIN HCL 1 GM VIAL PO SCH (19:00)
--- NOTE | 2017-11-10 10:07 | CT SCAN REPORT ---
EXAM: CT SCAN OF THE ABDOMEN AND PELVIS WITH CONTRAST HISTORY: ABDOMINAL PAIN. RECENTLY HOSPITALIZED FOR COLITIS. FINISHED ANTIBIOTICS LAST WEEK. HISTORY OF CLOSTRIDIUM DIFFICILE. TECHNIQUE: Standard CT imaging of the abdomen and pelvis was performed with oral and intravenous contrast. 100 ml of Omnipaque 300 were administered. Comparison: 09/30/17. FINDINGS: There is minor atelectasis or scarring at the lung bases. Mitral annular calcifications are present. Coronary artery calcifications are also noted. There is a small hiatal hernia. The liver parenchyma is normal. The gallbladder is surgically absent. There is no biliary ductal dilatation. The pancreas is normal. The previously noted wedge shaped area of decreased attenuation within the spleen is no longer identified. The spleen appears normal on today's study. The adrenal glands are unremarkable. There is a 3 mm nonobstructing stone within the left kidney. Tiny hypodensities within both kidneys are too small to characterize, but suggestive of cysts. There is no hydronephrosis. There are extensive atherosclerotic calcifications within the aorta which appear stable. There is no aneurysm. There is no retroperitoneal lymphadenopathy. There is equivocal wall thickening of the gastric antrum which is likely artifactual due to incomplete distention. There are no surrounding inflammatory changes. There is abnormal wall thickening of the colon. This involves the entire colon, but is greatest within the rectosigmoid regions and cecum. The majority of the colonic inflammatory changes appear less than the previous study. Wall thickening within the rectum appears slightly greater. The appearance is consistent with colitis which may be on the basis of Clostridium Difficile. Correlate with the clinical and laboratory findings. There are scattered diverticula within the sigmoid region with no evidence for acute diverticulitis. The small bowel loops are normal. There is no pneumoperitoneum or ascites. The urinary bladder is incompletely distended. The wall is thickened which is likely artifactual due to the incomplete distention. The uterus is surgically absent. The abdominal wall appears normal. Degenerative changes are present within the spine. Post surgical changes are present at the L4 through the S1 levels. There are no acute osseous abnormalities. IMPRESSION: 1. ABNORMAL WALL THICKENING OF THE COLON CONSISTENT WITH COLITIS. THE WALL THICKENING WITHIN THE RECTAL REGION APPEARS SLIGHTLY GREATER THAN THE PREVIOUS EXAMINATION. THE WALL THICKENING THROUGHOUT THE REMAINDER OF THE COLON APPEARS SLIGHTLY LESS THAN THE PRIOR STUDY. 2. SIGMOID DIVERTICULOSIS WITH NO EVIDENCE FOR ACUTE DIVERTICULITIS. 3. 3 MM NONOBSTRUCTING STONE WITHIN THE LEFT KIDNEY. 4. SMALL HIATAL HERNIA. 5. ADDITIONAL STABLE CHRONIC FINDINGS ABOVE. JOB NUMBER: [id number] MTDD
== END 2017-11-09 19:25 | disposition left against medical advice (07) ==
LOC: ER 15:03
DX: A04.71 Enterocolitis due to Clostridium difficile, recurrent (principal); E11.9 Type 2 diabetes mellitus without complications; I10 Essential (primary) hypertension; Z87.891 Personal history of nicotine dependence; Z79.84 Long term (current) use of oral hypoglycemic drugs
CPT/HCPCS: 74177; 80053; 82272; 83605; 85025; 87329; 87425; 87427; 87493; 89055

== ENCOUNTER 2017-11-09 20:25 | Inpatient (IN) | payer MEDICARE, BC ==
--- NOTE | 2017-11-09 20:50 | Emergency Department Record ---
History of Present Illness - General Chief Complaint: Recheck - Other Stated Complaint: RECHECK Time Seen by Provider: 11/09/17 20:38 Source: Patient Mode of arrival: Ambulatory Limitations: No limitations - History of Present Illness Initial Comments: 82 yo female returns to the ED with abdominal cramps and diarrhea. She has known C. diff and Cryptosporidium with colitis that was diagnosed today in the ED. She was diagnosed with colitis due to c. diff in September. Her diarrhea returned last and Friday. She has about 4-5 stools a day. The pain is cramping in waves. She has nausea. Eating makes the symptoms worse. She had improved after the original antibiotic treatment of the C. diff. She states she had about a week of controlled symptoms. MD Complaint: Wound re-check -: Days(s) Returns Today for: Other Symptoms Since Prior Visit: No new symptoms Associated Symptoms: Abdominal pain Treatments Prior to Arrival: Other - Related Data Previous Rx's Medication Instructions Recorded Bifidobacterium Infantis [Align] 4 mg PO DAILY #30 capsule 10/22/17 Cefdinir 300 mg PO BID #8 capsule 10/22/17 Phenazopyridine HCl [Azo Urinary 190 mg PO TID PRN #15 tablet 10/22/17 Pain Relief] Nitazoxanide [Alinia] 500 mg PO BID #6 tablet 11/09/17 Vancomycin HCl [Vancomycin] 125 mg PO Q6H #76 capsule 11/09/17 Allergies Allergy/AdvReac Type Severity Reaction Status Date / Time fentanyl Allergy Severe FATIGUE Verified 10/19/17 11:26 amoxicillin [Amoxicillin] AdvReac Intermediate DIARRHEA Verified 10/19/17 11:26 morphine AdvReac Intermediate DIZZINESS Verified 10/19/17 11:26 nitrofurantoin AdvReac Intermediate DIZZINESS Verified 10/19/17 11:26 [From Macrobid] nitrofurantoin AdvReac Intermediate DIZZINESS Verified 10/19/17 11:26 macrocrystalline [From Macrobid] oxycodone HCl [From Percocet] AdvReac Intermediate DIZZINESS Verified 10/19/17 11:26 Review of Systems Constitutional: Reports: Malaise, Weakness. Denies: Chills, Fever Eyes: Denies: Eye discharge, Eye pain ENT: Denies: Congestion, Throat pain Respiratory: Denies: Cough, Dyspnea Cardiovascular: Denies: Chest pain, Syncope Endocrine: Reports: Fatigue. Denies: Polydipsia, Polyuria Gastrointestinal: Reports: As per HPI, Abdominal pain, Diarrhea, Nausea Genitourinary: Denies: Dysuria, Urgency Musculoskeletal: Denies: Arthralgia, Back pain, Myalgia Skin: Denies: Bruising, Change in color, Rash Neurological: Denies: Numbness, Weakness Psychiatric: Denies: Anxiety Hematological/Lymphatic: Denies: Easy bleeding, Easy bruising Past Medical History - SOCIAL HISTORY Smoking Status: Former smoker Drug Use: None - RESPIRATORY Hx Respiratory Disorders: Yes Hx Bronchitis: Yes Hx Pneumonia: Yes - CARDIOVASCULAR Hx Cardio Disorders: Yes Hx Hypertension: Yes (No longer takes medication) Comment:: Pt states many years ago she was told that she had a murmur - NEURO Hx Neuro Disorders: Yes Hx Dizziness: Yes (Per patient) - GI Hx GI Disorders: Yes Hx Reflux: Yes (Takes Prevacid) Hx Hiatal Hernia: Yes Hx Irritable Bowel: Yes - Hx Genitourinary Disorders: Yes Hx Kidney Stones: Yes Hx UTI: Yes - ENDOCRINE Hx Endocrine Disorders: Yes Hx Diabetes: Yes (takes metformin) Hx Thyroid Disease: Yes (partial thyroidectmoy) - MUSCULOSKELETAL Hx Musculoskeletal Disorders: Yes Hx Back Injury: Yes - PSYCH Hx Psych Problems: Yes Hx Anxiety: Yes Hx Depression: Yes - HEMATOLOGY/ONCOLOGY Hx Hematology/Oncology Disorders: Yes Hx Cancer: Yes (breast cancer, skin cancer) Hx Blood Transfusions: Yes (1 yr ago) Family Medical History Hx Alcohol Use: Brother/Sister Hx Anxiety: Brother/Sister Hx Dementia: Father Hx Depression: Mother Hx Heart Disease: Mother Hx Stroke: Father, Mother Physical Exam - General General Appearance: Alert, Oriented x3, Cooperative, No acute distress Limitations: No limitations - Head Head exam: Atraumatic, Normal inspection - Eye Eye exam: Normal appearance, PERRL. negative: Conjunctival injection, Scleral icterus - ENT ENT exam: Normal exam, Mucous membranes moist Ear exam: Normal external inspection Nasal Exam: Normal inspection Mouth exam: Normal external inspection Throat exam: Normal inspection - Neck Neck exam: Normal inspection, Full ROM. negative: Tenderness - Respiratory Respiratory exam: Normal lung sounds bilaterally. negative: Respiratory distress - Cardiovascular Cardiovascular Exam: Regular rate, Normal rhythm, Normal heart sounds - GI/Abdominal GI/Abdominal exam: Soft, Tenderness (tender but soft in the LLQ, abdomen is otherwise very soft). negative: Distended, Guarding, Hypoactive bowel sounds, Rebound - Rectal Rectal exam: Deferred - exam: Deferred - Extremities Extremities exam: Normal inspection - Back Back exam: Reports: Normal inspection, Full ROM. Denies: CVA tenderness (R), CVA tenderness (L), Muscle spasm, Rash noted, Tenderness - Neurological Neurological exam: Alert, Normal gait, Oriented X3, Reflexes normal - Psychiatric Psychiatric exam: Normal affect, Normal mood - Skin Skin exam: Dry, Intact, Normal color, Warm Course Vital Signs 11/09/17 20:35 Temperature 99 F Pulse Rate [ 84 Pulse Ox Probe] Respiratory 24 Rate Blood Pressure 142/69 [Left Arm] Pulse Ox 95 - Reevaluation(s) Reevaluation #1: CT demonstrated colitis, increased from prior study in 11/09/17 20:53 Dr Rivera was informed of the patients return to the ED He will admit for treatment of the colitis, c. diff, cryptosporium 11/09/17 21:18 Disposition Disposition: Admit Clinical Impression: C. difficile colitis, Dehydration, Acute diarrhea, Diarrhea due to cryptosporidium Disposition: Still a Patient at [facility] Decision to Admit: Admit from ER Decision to Admit Date: 11/09/17 Decision to Admit Time: 20:51 Condition: (2) Stable Time of Disposition: 20:51 Quality - Quality Measures Quality Measures: N/A - Blood Pressure Screening Does Patient Have Any of the Following: No Blood Pressure Classification: Pre-Hypertensive BP Reading Systolic Measurement: 121 Diastolic Measurement: 83 Screening for High Blood Pressure: < Pre-Hypertensive BP, F/U Documented > [ [id number]] Pre-Hypertensive Follow-up Interventions: Referral to alternative/primary care provider.
[2017-11-09] MEDS ORDERED: 0.9 % SODIUM CHLORIDE 1,000 ML BAG IV ONE (20:51)
[2017-11-09] MEDS ORDERED: HYDROMORPHONE HCL 2 MG/ML VIAL IVP ONE (21:13)
[2017-11-09] MEDS ORDERED: POTASSIUM CHLORIDE/D5-0.9%NACL 20 MEQ/1,000 ML BAG IV ONE (22:16)
[2017-11-09] MEDS ORDERED: ONDANSETRON HCL IV 4 MG/2 ML VIAL IVP PRN (22:16)
[2017-11-09] MEDS: VANCOMYCIN HCL 1 GM VIAL PO SCH (23:27)
[2017-11-09] MEDS ORDERED: CALCIUM CARBONATE 500 MG TAB.CHEW PO PRN (23:45)
[2017-11-09] MEDS: DIPHENHYDRAMINE HCL 25 MG CAPSULE PO SCH (23:49)
[2017-11-09] MEDS: ACETAMINOPHEN 500 MG TABLET PO PRN (23:54)
[2017-11-10] MEDS: VANCOMYCIN HCL 1 GM VIAL PO SCH ×4 (03:37→22:21)
[2017-11-10 06:36] LABS: HEMATOCRIT 35.1 % (35.0-47.0); HEMOGLOBIN 11.5 gm/dl (11.6-16.0); MEAN CELL VOLUME 95.4 fl (81-97); MEAN CORPUSCULAR HGB CONC 32.8 g/dl (32-36); PLATELET COUNT 151 K/uL (130-400); RED BLOOD COUNT 3.68 M/uL (3.80-5.40); RED CELL DISTRIBUTION WIDTH 14.1 % (11.5-14.5); WHITE BLOOD COUNT W/O DIFF 4.1 K/uL (4.2-12.2)
[2017-11-10 06:42] LABS: MEAN CORPUSCULAR HEMOGLOBIN 31.2 pg (27-33)
[2017-11-10 07:08] LABS: BLOOD UREA NITROGEN 6 mg/dL (8-23); CREATININE 0.6 mg/dL (0.5-0.9); EST GLOMERULAR FILTRATION RATE > 60 mL/min; GLUCOSE,RANDOM 137 mg/dL (74-109)
--- NOTE | 2017-11-10 08:29 | History & Physical ---
History of Present Illness - Date of Service Date of Service for History & Physical: 11/10/17 - History of Present Illness Admitting Diagnosis: C.diff, Cryptosporidium, diarrhea, dehydration,colitis History of Present Illness: Mrs. Venegas is 82 y/o female with recent history of c dificile colitis on extended vancomycin treatment presents with persistent diarrhea. The patient has continued to have loose watery bowel movements despite being on therapy and notes not having an appetite for the past several days. She denies any abdominal pain nausea or vomiting. The patient is seen in the health clinic here at [facility] and has had home visiting nurse since discharge in October. She reports compliance with medications and has not had any changes to medications. On this adsmission the patient still tests positive for clostridium dificile and additionally cryptosporidium was found in fecal samples. The patient has been resumed on Vancomycin orally and iv fluids. The patient will be admitted for further work up and evaluation. Travel Screening - Travel/Exposure Within Last 30 Days Have you traveled within the last 30 days?: No - Travel/Exposure Within Last Year Have you traveled outside the [place] in the last year?: No - Additonal Travel Details Have you been exposed to anyone with a communicable illness?: No - Travel Symptoms Symptom Screening: Diarrhea, Stomach Pain, Lack of Appetite Review of Systems Constitutional: Reports: Malaise, Weakness. Denies: Chills, Fever Eyes: Denies: Eye discharge, Eye pain ENT: Denies: Congestion, Throat pain Respiratory: Denies: Cough, Dyspnea Cardiovascular: Denies: Chest pain, Syncope Endocrine: Reports: Fatigue. Denies: Polydipsia, Polyuria Gastrointestinal: Reports: As per HPI, Abdominal pain, Diarrhea, Nausea Genitourinary: Denies: Dysuria, Urgency Musculoskeletal: Denies: Arthralgia, Back pain, Myalgia Skin: Denies: Bruising, Change in color, Rash Neurological: Denies: Numbness, Weakness Psychiatric: Denies: Anxiety Hematological/Lymphatic: Denies: Easy bleeding, Easy bruising Past Medical History - SOCIAL HISTORY Smoking Status: Former smoker Alcohol Use: None, Occasional Drug Use: None - RESPIRATORY Hx Respiratory Disorders: Yes Hx Asthma: No Hx Bronchitis: No Hx COPD: No Hx Dyspnea: Yes Hx Pneumonia: No Hx Pulmonary Embolism: No Hx Sleep Apnea: Yes Hx Tuberculosis: No Hx of CPAP: Yes (doesn't use it) - CARDIOVASCULAR Hx Cardio Disorders: No Hx Hypertension: Yes (No longer takes medication) Comment:: Pt states many years ago she was told that she had a murmur - NEURO Hx Neuro Disorders: Yes Hx Brain Tumor: No Hx CVA: No Hx Dementia: No Hx Dizziness: Yes (Per patient) Hx Headaches: No Hx Neuropathy: No Hx Parkinson's Disease: No Hx Seizures: No Hx Speech Problem: No Hx TIA: No - GI Hx GI Disorders: Yes Hx Abdominal Pain: No Hx Celiac Disease: No Hx Crohn's Disease: No Hx Diverticulitis: No Hx GI Bleed: No Hx Reflux: Yes (Takes Prevacid) Hx Hepatitis/Jaundice: No Hx Hiatal Hernia: Yes Hx Irritable Bowel: Yes Hx Liver Disease: No Hx Nausea/Vomiting: No Hx Obstructive Bowel: Yes Hx Pancreatitis: No Hx Rectal Bleeding: No Hx Ulcer: No Hx Wt Loss/Wt Gain: No Hx of Polyps: No - Hx Genitourinary Disorders: Yes Hx Bladder Problem: Yes Hx Dialysis: No Hx Kidney Stones: Yes Hx Renal Disease: No Hx UTI: Yes - ENDOCRINE Hx Endocrine Disorders: Yes Hx Diabetes: Yes (takes metformin) Hx Thyroid Disease: Yes (partial thyroidectmoy) - MUSCULOSKELETAL Hx Musculoskeletal Disorders: Yes Hx Arthritis: Yes Hx Back Injury: Yes Hx Fibromyalgia: No Hx Gout: No Hx Musculoskeletal Disease: No Hx Osteoporosis: (unsure) - PSYCH Hx Psych Problems: Yes Hx Anxiety: No Hx Behavior Problems: No Hx Depression: Yes Hx Emotional Abuse: No Hx Sexual Abuse: No Hx Suicide Attempt: No Major Depressive Episode: No Feelings of Hopelessness: No - HEMATOLOGY/ONCOLOGY Hx Hematology/Oncology Disorders: Yes Hx Anemia: Yes Hx Blood Disorders: No Hx Bruising: No Hx Cancer: Yes (breast cancer, skin cancer) Hx Chemotherapy: No Hx Radiation Therapy: No Hx Clotting Problems: No Hx Sickle Cell Disease: No Hx Unexplained Bleeding: No Hx Blood Transfusions: Yes (1 yr ago) Hx Blood Transfusion Reaction: No Family Medical History Any Significant Family History?: Yes Hx Anxiety: Mother Hx Dementia: Father Hx Depression: Mother Hx Stroke: Mother H&P Meds/Allergies - Allergies Allergies: Allergies Allergy/AdvReac Type Severity Reaction Status Date / Time fentanyl Allergy Severe FATIGUE Verified 10/19/17 11:26 amoxicillin [Amoxicillin] AdvReac Intermediate DIARRHEA Verified 10/19/17 11:26 morphine AdvReac Intermediate DIZZINESS Verified 10/19/17 11:26 nitrofurantoin AdvReac Intermediate DIZZINESS Verified 10/19/17 11:26 [From Macrobid] nitrofurantoin AdvReac Intermediate DIZZINESS Verified 10/19/17 11:26 macrocrystalline [From Macrobid] oxycodone HCl [From Percocet] AdvReac Intermediate DIZZINESS Verified 10/19/17 11:26 - Home Medications Previous Rx's Medication Instructions Recorded Bifidobacterium Infantis [Align] 4 mg PO DAILY #30 capsule 10/22/17 Cefdinir 300 mg PO BID #8 capsule 10/22/17 Phenazopyridine HCl [Azo Urinary 190 mg PO TID PRN #15 tablet 10/22/17 Pain Relief] Nitazoxanide [Alinia] 500 mg PO BID #6 tablet 11/09/17 Vancomycin HCl [Vancomycin] 125 mg PO Q6H #76 capsule 11/09/17 - Active Medications Active Medications: Current Medications Acetaminophen (Tylenol 500mg Tab) 1,000 mg PO Q6H PRN PRN Reason: PAIN/TEMP Last Admin: 11/09/17 23:54 Dose: 1,000 mg Calcium Carbonate/Glycine (Tums) 1,000 mg PO Q4H PRN PRN Reason: Heartburn Last Admin: 11/09/17 23:50 Dose: 1,000 mg Diphenhydramine HCl (Benadryl Capsule) 50 mg PO QHS KANDY Last Admin: 11/09/17 23:49 Dose: 50 mg Hydromorphone HCl (Dilaudid) 0.5 mg IV Q6H PRN PRN Reason: Pain - General Ondansetron HCl (Zofran) 4 mg IVP Q4H PRN PRN Reason: NAUSEA Pantoprazole Sodium (Protonix Iv) 40 mg IV DAILY KANDY Vancomycin HCl (Vanco) 125 mg PO Q6H KANDY Stop: 11/14/17 22:17 Last Admin: 11/10/17 03:37 Dose: 125 mg Physical Exam - Vital Signs Vital Signs: Vital Signs - Last 24 Hrs Temp Pulse Resp BP BP Pulse Ox 11/10/17 06:00 98.5 F 80 18 140/68 95 11/09/17 22:16 98.1 F 74 20 132/68 94 L 11/09/17 21:51 72 24 121/83 93 L 11/09/17 20:35 99 F 84 24 142/69 95 - General General Appearance: Alert, Oriented x3, Cooperative, No acute distress Limitations: No limitations - Head Head exam: Atraumatic, Normal inspection - Eye Eye exam: Normal appearance, PERRL. negative: Conjunctival injection, Scleral icterus - ENT ENT exam: Normal exam, Mucous membranes moist Ear exam: Normal external inspection Nasal Exam: Normal inspection Mouth exam: Normal external inspection Throat exam: Normal inspection - Neck Neck exam: Normal inspection, Full ROM. negative: Tenderness - Respiratory Respiratory exam: Normal lung sounds bilaterally. negative: Respiratory distress - Cardiovascular Cardiovascular Exam: Regular rate, Normal rhythm, Normal heart sounds - GI/Abdominal GI/Abdominal exam: Soft, Tenderness (tender but soft in the LLQ, abdomen is otherwise very soft). negative: Distended, Guarding, Hypoactive bowel sounds, Rebound - Rectal Rectal exam: Deferred - exam: Deferred - Extremities Extremities exam: Normal inspection - Back Back exam: Reports: Normal inspection, Full ROM. Denies: CVA tenderness (R), CVA tenderness (L), Muscle spasm, Rash noted, Tenderness - Neurological Neurological exam: Alert, Normal gait, Oriented X3, Reflexes normal - Psychiatric Psychiatric exam: Normal affect, Normal mood - Skin Skin exam: Dry, Intact, Normal color, Warm Results - Labs Result Diagrams: 11/10/17 06:18 11/10/17 06:18 Labs Last 24 Hours: Laboratory Results - last 24 hr 11/10/17 11/10/17 06:18 06:18 WBC 4.1 L RBC 3.68 L Hgb 11.5 L Hct 35.1 MCV 95.4 MCH 31.2 MCHC 32.8 RDW 14.1 Plt Count 151 MPV 9.0 Neutrophils % 63.0 Band Neutrophils % 0.0 Eosinophils % Not Reportable Basophils % Not Reportable Lymphocytes 20.0 Monocytes 16.0 H Basophils 0.0 Eosinophil Count 1.0 Sodium 139 Potassium 3.6 Chloride 99 Carbon Dioxide 21.0 L Anion Gap 19.0 H BUN 6 L Creatinine 0.6 Estimated GFR > 60 Random Glucose 137 H Calcium 9.2 VTE H&P Assessment - Risk for VTE Risk for VTE: Yes Risk Level: Moderate Risk Assessment Date: 11/10/17 Risk Assessment Time: 10:01 VTE Orders Placed or Will Be Placed: Yes Plan - Inpatient Certification Inpatient Certification: Admit to inpatient care: Based on my medical assessment, after consideration of patient's risk factors (age, co-morbidities and patient presenting symptoms and acuity), I expect that this patient will remain in the hospital greater than or equal to two midnights and that the services needed warrant inpatient care because: Patient Risk Factors: c diff colitis, Estimated length of stay: 72 hours The patient may reasonably be expected to be discharged or transferred to a hospital within 96 hours after admission to [facility]. I certify that my determination is in accordance with my understanding of Medicare requirements for reasonable and necessary inpatient services. 11/10/17 08:36 - Detailed Diagnosis and Plan (1) C. difficile colitis Current Visit: Yes Status: Acute Base Code: A04.72 - ENTEROCOLITIS D/T CLOSTRIDIUM DIFFICILE, NOT SPCF RECUR Comment: 11/10/17 - pt continues to have loose bowel movements since admission. This morning also had nausea and vomiting. - resuming Vnacomycin 25gm Q8H and hydration with IVF at 80 mL/hr - Fidoxamicin 200mg Q12H would would be secondary but this drug is not on formulary at [facility]. May consider fecal transplant at [facility] if no improvement. - contact precaution on entering the room. (2) Dehydration Current Visit: Yes Status: Acute Base Code: E86.0 - DEHYDRATION Comment: 11/10/17 - IVF Nacl 0.9% @ 80mL/hr, clear liquids as tolerated. - K+ 3.6, repletion via IVF. - recheck labs in the morningand replete as needed. (3) Diarrhea due to cryptosporidium Current Visit: Yes Status: Acute Base Code: A07.2 - CRYPTOSPORIDIOSIS Comment: - stool studies positive for cryptosporidium Ag - continue IVF hydration - contact precuations. (4) DVT prophylaxis Current Visit: No Status: Acute Base Code: [id number] - Comment: 11/10/17 -lovenox 40mg SQ daily (5) T2DM (type 2 diabetes mellitus) Current Visit: No Status: Chronic Qualifiers: Diabetes mellitus senior care insulin use: without or director use Diabetes mellitus complication status: without complication Qualified Code(s): E11.9 - Type 2 diabetes mellitus without complications Base Code: E11.9 - TYPE 2 DIABETES MELLITUS WITHOUT COMPLICATIONS Comment: 11/10/17 - serum glucose 137 - pt has not been taking Metformin since she had diarrhea from c. diff. - ordering ADA diet if tolerated. - Disposition Will need to be monitored for a few days until she improves. Considering transfer if we cannot get medication in or if she requires fecal transplant.
[2017-11-10] MEDS: 0.9 % SODIUM CHLORIDE 1000ML 1,000 ML IV PRN ×2 (09:06→22:24)
[2017-11-10] MEDS: PANTOPRAZOLE SODIUM IV 40 MG VIAL IV SCH (09:06)
[2017-11-10] MEDS: ENOXAPARIN 40 MG/0.4 ML SYR SQ SCH (12:25)
[2017-11-10] MEDS: ACETAMINOPHEN 500 MG TABLET PO PRN (12:26)
[2017-11-10] MEDS: HYDROMORPHONE HCL 2 MG/ML VIAL IV PRN (14:33)
[2017-11-10] MEDS: DIPHENHYDRAMINE HCL 25 MG CAPSULE PO SCH ×2 (22:22→22:33)
[2017-11-11] MEDS: VANCOMYCIN HCL 1 GM VIAL PO SCH ×4 (04:34→22:43)
[2017-11-11 06:59] LABS: BLOOD UREA NITROGEN 5 mg/dL (8-23); CREATININE 0.6 mg/dL (0.5-0.9); EST GLOMERULAR FILTRATION RATE > 60 mL/min; GLUCOSE,RANDOM 98 mg/dL (74-109)
[2017-11-11] MEDS ORDERED: POTASSIUM CHL 20MEQ IN 1L NS 20 MEQ in 0.9 % SODIUM CHLORIDE 1000ML 1 BAG IV SCH ×2 (08:45)
[2017-11-11] MEDS: ENOXAPARIN 40 MG/0.4 ML SYR SQ SCH (10:28)
[2017-11-11] MEDS: PANTOPRAZOLE SODIUM IV 40 MG VIAL IV SCH (10:28)
[2017-11-11] MEDS: POTASSIUM CHL 20MEQ IN 1L NS 20 MEQ/1,000 ML BAG IV SCH ×2 (10:29→18:24)
[2017-11-11] MEDS: HYDROMORPHONE HCL 2 MG/ML VIAL IV PRN (13:27)
--- NOTE | 2017-11-11 15:55 | Physician Progress Note ---
Subjective - Date Date of Physician Progress Note: 11/11/17 - Subjective Subjective Comment: The patient is still having several episodes of diarrhea. Objective - Vital Signs Vital Signs: Vital Signs - Last 24 Hrs Temp Pulse Resp BP Pulse Ox 11/11/17 06:00 97.8 F 81 18 148/79 95 11/10/17 20:00 99.9 F H 86 18 128/66 94 L - General General Appearance: Alert, Oriented x3, Cooperative, No acute distress Limitations: No limitations - Head Head exam: Atraumatic, Normal inspection - Eye Eye exam: Normal appearance, PERRL. negative: Conjunctival injection, Scleral icterus - ENT ENT exam: Normal exam, Mucous membranes moist Ear exam: Normal external inspection Nasal Exam: Normal inspection Mouth exam: Normal external inspection Throat exam: Normal inspection - Neck Neck exam: Normal inspection, Full ROM. negative: Tenderness - Respiratory Respiratory exam: Normal lung sounds bilaterally. negative: Respiratory distress - Cardiovascular Cardiovascular Exam: Regular rate, Normal rhythm, Normal heart sounds - GI/Abdominal GI/Abdominal exam: Soft, Tenderness (tender but soft in the LLQ, abdomen is otherwise very soft). negative: Distended, Guarding, Hypoactive bowel sounds, Rebound - Rectal Rectal exam: Deferred - exam: Deferred - Extremities Extremities exam: Normal inspection - Back Back exam: Reports: Normal inspection, Full ROM. Denies: CVA tenderness (R), CVA tenderness (L), Muscle spasm, Rash noted, Tenderness - Neurological Neurological exam: Alert, Normal gait, Oriented X3, Reflexes normal - Psychiatric Psychiatric exam: Normal affect, Normal mood - Skin Skin exam: Dry, Intact, Normal color, Warm Assessment and Plan - Assessment and Plan (1) C. difficile colitis Current Visit: Yes Status: Acute Base Code: A04.72 - ENTEROCOLITIS D/T CLOSTRIDIUM DIFFICILE, NOT SPCF RECUR Comment: 11/11/17 - pt continues to have loose bowel movements since admission. This morning also had nausea and vomiting. - resuming Vnacomycin 25gm Q8H and hydration with IVF at 80 mL/hr - Fidoxamicin 200mg Q12H would would be secondary but this drug is not on formulary at [facility]. May consider fecal transplant at [facility] if no improvement. - contact precaution on entering the room. (2) Dehydration Current Visit: Yes Status: Acute Base Code: E86.0 - DEHYDRATION Comment: 11/11/17 - IVF Nacl 0.9% @ 80mL/hr, clear liquids as tolerated. - K+ 3.6 --> 3.1 repletion via IVF. - recheck labs in the morning and replete as needed. (3) Diarrhea due to cryptosporidium Current Visit: Yes Status: Acute Base Code: A07.2 - CRYPTOSPORIDIOSIS Comment: - stool studies positive for cryptosporidium Ag - continue IVF hydration - contact precuations. (4) T2DM (type 2 diabetes mellitus) Current Visit: No Status: Chronic Qualifiers: Diabetes mellitus group home insulin use: without terminal gauger supervisor use Diabetes mellitus complication status: without complication Qualified Code(s): E11.9 - Type 2 diabetes mellitus without complications Base Code: E11.9 - TYPE 2 DIABETES MELLITUS WITHOUT COMPLICATIONS Comment: 11/11/17 - pt has not been taking Metformin since she had diarrhea from c. diff. - ordering ADA diet if tolerated. (5) DVT prophylaxis Current Visit: No Status: Acute Base Code: [id number] - Comment: 11/11/17 -lovenox 40mg SQ daily (6) Full code status Current Visit: No Status: Acute Base Code: Z78.9 - OTHER SPECIFIED HEALTH STATUS Comment: 10/21/17: Pt. is full code status - Disposition Disposition: Considering transfer if we cannot get medication in or if she requires fecal transplant. Results - Labs Result Diagrams: 11/10/17 06:18 11/11/17 06:29 Labs Last 24 Hours: Laboratory Results - last 24 hr 11/11/17 06:29 Sodium 140 Potassium 3.1 L Chloride 104 Carbon Dioxide 24.0 Anion Gap 12.0 BUN 5 L Creatinine 0.6 Estimated GFR > 60 Random Glucose 98 Calcium 8.6 L DVT/PE Assessment - Risk for VTE Risk for VTE: No Risk Level: Moderate Risk Assessment Date: 11/10/17 Risk Assessment Time: 10:01 VTE Orders Placed or Will Be Placed: Yes - Active Medicaitons Current Medications: Current Medications Acetaminophen (Tylenol 500mg Tab) 1,000 mg PO Q6H PRN PRN Reason: PAIN/TEMP Last Admin: 11/10/17 12:26 Dose: 1,000 mg Calcium Carbonate/Glycine (Tums) 1,000 mg PO Q4H PRN PRN Reason: Heartburn Last Admin: 11/09/17 23:50 Dose: 1,000 mg Diphenhydramine HCl (Benadryl Capsule) 50 mg PO QHS [facility] Last Admin: 11/10/17 22:33 Dose: 50 mg Enoxaparin Sodium (Lovenox) 40 mg SQ DAILY [facility] Last Admin: 11/11/17 10:28 Dose: 40 mg Hydromorphone HCl (Dilaudid) 0.5 mg IV Q6H PRN PRN Reason: Pain - General Last Admin: 11/11/17 13:27 Dose: 0.5 mg Sodium Chloride () 1,000 mls @ 83 mls/hr IV .Q12H3M PRN PRN Reason: LARGE VOLUME IV Last Infusion: 11/11/17 11:32 Dose: Infused Potassium Chloride/Sodium Chloride ( Potassium Chl 20meq/) 20 meq in 1,000 mls @ 125 mls/hr IV Q8H [facility] Last Admin: 11/11/17 10:29 Dose: 125 mls/hr Ondansetron HCl (Zofran) 4 mg IVP Q4H PRN PRN Reason: NAUSEA Pantoprazole Sodium (Protonix Iv) 40 mg IV DAILY [facility] Last Admin: 11/11/17 10:28 Dose: 40 mg Vancomycin HCl (Vanco) 125 mg PO Q6H KANDY Stop: 11/14/17 22:17 Last Admin: 11/11/17 10:42 Dose: 125 mg AMI Plan - Labs Result Diagrams: 11/10/17 06:18 11/11/17 06:29
[2017-11-11] MEDS ORDERED: POTASSIUM CHLORIDE 20 MEQ/15ML CUP PO ONE (19:08)
[2017-11-11] MEDS: DIPHENHYDRAMINE HCL 25 MG CAPSULE PO SCH (22:42)
[2017-11-11] MEDS ORDERED: POTASSIUM CHLORIDE 20 MEQ TABLET PO SCH (23:00)
[2017-11-12] MEDS: POTASSIUM CHL 20MEQ IN 1L NS 20 MEQ/1,000 ML BAG IV SCH (02:31)
[2017-11-12] MEDS: VANCOMYCIN HCL 1 GM VIAL PO SCH ×2 (04:30→11:49)
[2017-11-12 06:52] LABS: HEMATOCRIT 34.1 % (35.0-47.0); HEMOGLOBIN 10.8 gm/dl (11.6-16.0); MEAN CELL VOLUME 96.9 fl (81-97); MEAN CORPUSCULAR HGB CONC 31.7 g/dl (32-36); MEAN PLATELET VOLUME 8.9 fl (7.4-10.4); PLATELET COUNT 161 K/uL (130-400); RED BLOOD COUNT 3.52 M/uL (3.80-5.40); RED CELL DISTRIBUTION WIDTH 14.6 % (11.5-14.5); WHITE BLOOD COUNT W/O DIFF 3.9 K/uL (4.2-12.2)
[2017-11-12 06:53] LABS: MEAN CORPUSCULAR HEMOGLOBIN 30.6 pg (27-33)
[2017-11-12 09:51] LABS: BLOOD UREA NITROGEN 5 mg/dL (8-23); CREATININE 0.6 mg/dL (0.5-0.9); EST GLOMERULAR FILTRATION RATE > 60 mL/min; GLUCOSE,RANDOM 99 mg/dL (74-109)
[2017-11-12] MEDS: PANTOPRAZOLE SODIUM IV 40 MG VIAL IV SCH (10:14)
[2017-11-12] MEDS: ENOXAPARIN 40 MG/0.4 ML SYR SQ SCH (10:14)
[2017-11-12] MEDS: HYDROMORPHONE HCL 2 MG/ML VIAL IV PRN (11:43)
--- NOTE | 2017-11-12 14:10 | Discharge Summary ---
Providers Discharge Summary Date: 11/12/17 Date of admission: 11/09/17 21:52 Attending physician: MAINE GARCIA Physical Exam - Vital Signs Vital Signs: Vital Signs - Last 24 Hrs Temp Pulse Resp BP Pulse Ox 11/12/17 08:00 98.1 F 80 16 137/72 94 L 11/11/17 20:00 98.6 F 79 18 117/62 99 11/11/17 16:47 98.2 F 75 18 114/71 91 L - General General Appearance: Alert, Oriented x3, Cooperative, No acute distress Limitations: No limitations - Head Head exam: Atraumatic, Normal inspection - Eye Eye exam: Normal appearance, PERRL. negative: Conjunctival injection, Scleral icterus - ENT ENT exam: Normal exam, Mucous membranes moist Ear exam: Normal external inspection Nasal Exam: Normal inspection Mouth exam: Normal external inspection Throat exam: Normal inspection - Neck Neck exam: Normal inspection, Full ROM. negative: Tenderness - Respiratory Respiratory exam: Normal lung sounds bilaterally. negative: Respiratory distress - Cardiovascular Cardiovascular Exam: Regular rate, Normal rhythm, Normal heart sounds Peripheral Pulses: 3+: Radial (R), Radial (L), Dorsalis Pedis (R), Dorsalis Pedis (L) - GI/Abdominal GI/Abdominal exam: Soft, Tenderness (tender but soft in the LLQ, abdomen is otherwise very soft). negative: Distended, Guarding, Hypoactive bowel sounds, Rebound - Rectal Rectal exam: Deferred - exam: Deferred - Extremities Extremities exam: Normal inspection - Back Back exam: Reports: Normal inspection, Full ROM. Denies: CVA tenderness (R), CVA tenderness (L), Muscle spasm, Rash noted, Tenderness - Neurological Neurological exam: Alert, Normal gait, Oriented X3, Reflexes normal - Psychiatric Psychiatric exam: Normal affect, Normal mood - Skin Skin exam: Dry, Intact, Normal color, Warm Hospitalization - Hospitalization Admission Diagnosis: C.diff, Cryptosporidium, diarrhea, dehydration,colitis - Problem List/Discharge Diagnosis (1) C. difficile colitis Current Visit: Yes Status: Acute Base Code: A04.72 - ENTEROCOLITIS D/T CLOSTRIDIUM DIFFICILE, NOT SPCF RECUR Comment: 11/11/17 - pt continues to have loose bowel movements since admission. This morning also had nausea and vomiting. - resuming Vnacomycin 25gm Q8H and hydration with IVF at 80 mL/hr - Fidoxamicin 200mg Q12H would would be secondary but this drug is not on formulary at [facility]. May consider fecal transplant at [facility] if no improvement. - contact precaution on entering the room. (2) Dehydration Current Visit: Yes Status: Acute Base Code: E86.0 - DEHYDRATION Comment: 11/11/17 - IVF Nacl 0.9% @ 80mL/hr, clear liquids as tolerated. - K+ 3.6 --> 3.1 repletion via IVF. - recheck labs in the morning and replete as needed. (3) Diarrhea due to cryptosporidium Current Visit: Yes Status: Acute Base Code: A07.2 - CRYPTOSPORIDIOSIS Comment: 11/11/17 - stool studies positive for cryptosporidium Ag - continue IVF hydration - contact precuations. (4) T2DM (type 2 diabetes mellitus) Current Visit: No Status: Chronic Discharge Diagnosis: Diabetes mellitus fci insulin use: without fci use Diabetes mellitus complication status: without complication Qualified Code(s): E11.9 - Type 2 diabetes mellitus without complications Base Code: E11.9 - TYPE 2 DIABETES MELLITUS WITHOUT COMPLICATIONS Comment: 11/11/17 - pt has not been taking Metformin since she had diarrhea from c. diff. - ordering ADA diet if tolerated. (5) DVT prophylaxis Current Visit: No Status: Acute Base Code: [id number] - Comment: 11/11/17 -lovenox 40mg SQ daily (6) Full code status Current Visit: No Status: Acute Base Code: Z78.9 - OTHER SPECIFIED HEALTH STATUS Comment: 11/11/16 - FULL CODE - Disposition Considering transfer if we cannot get medication in or if she requires fecal transplant. - Hospitalization Course Hospital Course: Mrs. Venegas is 82 y/o female with recent history of c dificile colitis on extended vancomycin treatment presents with persistent diarrhea. The patient has continued to have loose watery bowel movements despite being on therapy and notes not having an appetite for the past several days. She denies any abdominal pain nausea or vomiting. The patient is seen in the health clinic here at [facility] and has had home visiting nurse since discharge in October. She reports compliance with medications and has not had any changes to medications. On this adsmission the patient still tests positive for clostridium dificile and additionally cryptosporidium was found in fecal samples. The patient has been resumed on Vancomycin orally and iv fluids. The patient will be admitted for further work up and evaluation. 11/11-11/12: The patient initially showed no signs of improvement and was not able to tolerate any diet. She was maintained on Vancomycin 125mg Q6H and diet advanced to clear liquids. She continued to have loose bowel movements over the first 24 hours and there was consideration to transfer to [facility] for Fidoxamicin or fecal transplant if there was no resolution. The patient did show improvement after 48 hours and was able to advance diet and there has been a slowing down of her diarrhea. Abnormal Labs: Abnormal Lab Results 11/10/17 11/10/17 11/11/17 Range/Units 06:18 06:18 06:29 WBC 4.1 L (4.2-12.2) K/uL RBC 3.68 L (3.80-5.40) M/uL Hgb 11.5 L (11.6-16.0) gm/dl Hct (35.0-47.0) % MCHC (32-36) g/dl RDW (11.5-14.5) % Neutrophils % (47-80) % Monocytes 16.0 H (0-9) % Potassium 3.1 L (3.4-4.5) mmol/L Chloride (98-107) mmol/L Carbon Dioxide 21.0 L (22-29) mmol/L Anion Gap 19.0 H (7-16) BUN 6 L 5 L (8-23) mg/dL Random Glucose 137 H (74-109) mg/dL Calcium 8.6 L (8.8-10.2) mg/dL 11/12/17 11/12/17 Range/Units 06:20 06:20 WBC 3.9 L (4.2-12.2) K/uL RBC 3.52 L (3.80-5.40) M/uL Hgb 10.8 L (11.6-16.0) gm/dl Hct 34.1 L (35.0-47.0) % MCHC 31.7 L (32-36) g/dl RDW 14.6 H (11.5-14.5) % Neutrophils % 43.0 L (47-80) % Monocytes 16.0 H (0-9) % Potassium 4.8 H (3.4-4.5) mmol/L Chloride 109 H (98-107) mmol/L Carbon Dioxide 21.0 L (22-29) mmol/L Anion Gap (7-16) BUN 5 L (8-23) mg/dL Random Glucose (74-109) mg/dL Calcium 8.5 L (8.8-10.2) mg/dL Condition at Discharge: (2) Stable VTE Discharge VTE Reason For No Overlap Therapy: Not Indicated AMI Discharge Plan AMI Reason For No ASA at DC: Not Indicated Discharge Medications - Discharge Medications Prescriptions: Hydrocodone/Acetaminophen [L[place]roft 5-325 Tablet] 1 each PO Q8H PRN #14 tablet PRN Reason: Abdominal Pain Vancomycin HCl [Vancomycin] 125 mg PO Q6H 8 Days #32 capsule Home Medications: Ambulatory Orders Multivitamin/Iron/Folic Acid [Centrum] 1 tab PO DAILY 07/24/16 [Last Taken 11/08] Bifidobacterium Infantis [Align] 4 mg PO DAILY #30 capsule 10/22/17 [Last Taken 11/08/17] Hydrocodone/Acetaminophen [L[place]roft 5-325 Tablet] 1 each PO Q8H PRN #14 tablet 11/24 [Last Taken Unknown] Vancomycin HCl [Vancomycin] 125 mg PO Q6H 8 Days #32 capsule 11/12/17 [Last Taken Unknown] Discharge Plan - Discharge Instructions Activity at Discharge: Increase Activity as Tolerated Diet at Discharge: Advance to Usual Diet Additional Instructions: Continue Vancomycin every 6 hours for 8 more days. Follow up with Zaria Canas NP at [facility] within 1 week. Hand washing and sanitation encouraged. Return to ED if symptoms worsen. Quality Measures - Quality Measures Quality Measures: Advance Directives, Documentation of Current Medications in Medical Record, Elder Maltreatment Screen and Follow-Up Plan, Screening for High Blood Pressure and F/U Documented - Current Medications Quality Measure: Measure #130: Documentation of Current Medications Documentation of Current Medications: <Current Medications Documented/Reviewed> [G6071] - Blood Pressure Screening Quality Measure: Screening for High Blood Pressure and Follow-Up Documented Does Patient Have Any of the Following: No Blood Pressure Classification: Pre-Hypertensive BP Reading Systolic Measurement: 149 Diastolic Measurement: 83 Screening for High Blood Pressure: < Pre-Hypertensive BP, F/U Documented > [ G8950] Pre-Hypertensive Follow-up Interventions: Follow-up with rescreen every year., Lifestyle modifications. Lifestyle Modification: Weight Reduction, Dietary Approaches to Stop Hypertension (DASH) Eating Plan - Advance Directives Quality Measure: Measure #47: Care Plan Advance Directives Established: Yes Advance Directives Information Provided To Patient: No Advance Directives on File: No (States at home and pt. daughter Cathie Cunningham has Advance Directive.) Living Will: Yes Power of Candy Feeder: Yes Power of Candy Feeder Name: CATHIE CUNNINGHAM Advance Care Planning: <Care Plan/Decision Maker Not Decided; Discussed & Documented> [1124F] - Elder Abuse Suspicion Index Screening: Elder Abuse Suspicion Index Screening Rely on people for bathing, dressing, shopping, banking, etc: No Prevented from getting food, clothes, medication, etc: No Made to feel shamed or threatened by someone: No Forced to sign papers or use money against will: No Feel afraid, touched in ways not wanted or hurt physically: No Poor eye contact, withdrawn, malnourished, cuts or bruises: No Screening Result: Negative result EASI Reference Information: Rubio STEPHENS, Real C, Janice D, Mariam Newby.Development and validation of a tool to assist physicians identification of elder abuse: The Elder Abuse Suspicion Index (EASI ). Journal of Elder Abuse and Neglect, 2008; 20 (3): 276-300. - Elder Maltreatment Screen Quality Measures: Elder Maltreatment Screen and Follow-Up Plan Elder Maltreatment Screen: <Negative, No Follow-Up Plan Required> [G5850]
== END 2017-11-12 15:30 | disposition home or self-care (01) | DRG 373 ==
LOC: ER 20:25 → MEDSURG 21:52
PROVIDERS: ADMIT Internal Medicine; ATTEND Internal Medicine
DX: A04.72 Enterocolitis due to Clostridium difficile, not specified as recurrent (principal); A07.2 Cryptosporidiosis; E86.0 Dehydration; I10 Essential (primary) hypertension; K21.9 Gastro-esophageal reflux disease without esophagitis; K44.9 Diaphragmatic hernia without obstruction or gangrene; E11.9 Type 2 diabetes mellitus without complications; Z79.84 Long term (current) use of oral hypoglycemic drugs; K58.9 Irritable bowel syndrome, unspecified; Z87.442 Personal history of urinary calculi; Z85.3 Personal history of malignant neoplasm of breast; Z85.828 Personal history of other malignant neoplasm of skin; Z87.891 Personal history of nicotine dependence
CPT/HCPCS: 74177; 80048; 80053; 82272; 83605; 85025; 85027; 87329; 87425; 87427; 87493; 89055; 96374; 99223; 99233; 99239; 99284; 99285; C9113; J1650; J3480; J7030

== ENCOUNTER 2017-12-13 17:58 | Inpatient (IN) | payer MEDICARE, BC ==
[2017-12-13] MEDS ORDERED: HYOSCYAMINE SULFATE ODT 0.125 MG TAB.SUBL SL ONE (18:21)
[2017-12-13] MEDS ORDERED: ONDANSETRON HCL IV 4 MG/2 ML VIAL IVP ONE (18:21)
--- NOTE | 2017-12-13 18:28 | Emergency Department Record ---
History of Present Illness - General Chief complaint: Nausea, Vomiting, Diarrhea Stated complaint: C DIF Time Seen by Provider: 12/13/17 18:14 Source: Patient Mode of Arrival: Wheelchair Limitations: No limitations - History of Present Illness Initial comments: 82 yo female presents to ED for evaluation of nausea, loose stools, and abdominal cramping for the past 3 days. Patient denies fevers/chills, but reports recent treatment for c. diff in late October/early November with similar symptoms. Patient denies nay recent antibiotics since finishing her antibiotics for her c. diff. Patient denies urinary symptoms. MD complaint: Abdominal pain, Diarrhea Onset/Timin -: Days(s) Description of Vomiting: Foul-smelling, Watery Description of Diarrhea: Mucous, Water Location: LLQ Severity: Moderate Quality: Cramping Consistency: Constant Improves with: None Worsens with: None - Related Data Previous Rx's Medication Instructions Recorded Bifidobacterium Infantis [Align] 4 mg PO DAILY #30 capsule 10/22/17 Hydrocodone/Acetaminophen [Nokomis 1 each PO Q8H PRN #14 tablet 11/12/17 5-325 Tablet] Allergies Allergy/AdvReac Type Severity Reaction Status Date / Time fentanyl Allergy Severe FATIGUE Unverified 11/20/17 09:46 amoxicillin [Amoxicillin] AdvReac Intermediate DIARRHEA Unverified 11/20/17 09: 46 morphine AdvReac Intermediate DIZZINESS Unverified 11/20/17 09:46 nitrofurantoin AdvReac Intermediate DIZZINESS Unverified 11/20/17 09:46 [From Macrobid] nitrofurantoin AdvReac Intermediate DIZZINESS Unverified 11/20/17 09:46 macrocrystalline [From Macrobid] oxycodone HCl [From Percocet] AdvReac Intermediate DIZZINESS Unverified 09:46 Travel Screening - Travel/Exposure Within Last 30 Days Have you traveled within the last 30 days?: Yes Location Detail:: [place] - Travel/Exposure Within Last Year Have you traveled outside the [place] in the last year?: No - Additonal Travel Details Have you been exposed to anyone with a communicable illness?: No - Travel Symptoms Symptom Screening: Weakness, Diarrhea, Chills Review of Systems Constitutional: Denies: Chills, Fever, Malaise, Night sweats Eyes: Denies: Eye discharge, Eye pain ENT: Denies: Congestion, Ear pain, Epistaxis Respiratory: Denies: Cough, Dyspnea Cardiovascular: Denies: Chest pain, Dyspnea on exertion Endocrine: Denies: Fatigue, Heat or cold intolerance Gastrointestinal: Reports: Abdominal pain, Diarrhea. Denies: Nausea, Vomiting Genitourinary: Denies: Incontinence, Retention Musculoskeletal: Denies: Arthralgia, Back pain Skin: Denies: Bruising, Change in color Neurological: Denies: Abnormal gait, Confusion, Headache Psychiatric: Denies: Anxiety Hematological/Lymphatic: Denies: Anemia, Blood Clots Past Medical History - SOCIAL HISTORY Smoking Status: Current every day smoker Alcohol Use: None Drug Use: None - RESPIRATORY Hx Respiratory Disorders: Yes Hx Asthma: No Hx Bronchitis: No Hx COPD: No Hx Dyspnea: Yes Hx Pneumonia: No Hx Pulmonary Embolism: No Hx Sleep Apnea: Yes Hx Tuberculosis: No Hx of CPAP: Yes (doesn't use it) - CARDIOVASCULAR Hx Cardio Disorders: No Hx Hypertension: Yes (No longer takes medication) Comment:: Pt states many years ago she was told that she had a murmur - NEURO Hx Neuro Disorders: Yes Hx Brain Tumor: No Hx CVA: No Hx Dementia: No Hx Dizziness: Yes (Per patient) Hx Headaches: No Hx Neuropathy: No Hx Parkinson's Disease: No Hx Seizures: No Hx Speech Problem: No Hx TIA: No - GI Hx GI Disorders: Yes Hx Abdominal Pain: No Hx Celiac Disease: No Hx Crohn's Disease: No Hx Diverticulitis: No Hx GI Bleed: No Hx Reflux: Yes (Takes Prevacid) Hx Hepatitis/Jaundice: No Hx Hiatal Hernia: Yes Hx Irritable Bowel: Yes Hx Liver Disease: No Hx Nausea/Vomiting: No Hx Obstructive Bowel: Yes Hx Pancreatitis: No Hx Rectal Bleeding: No Hx Ulcer: No Hx Wt Loss/Wt Gain: No Hx of Polyps: No - Hx Genitourinary Disorders: Yes Hx Bladder Problem: Yes Hx Dialysis: No Hx Kidney Stones: Yes Hx Renal Disease: No Hx UTI: Yes - ENDOCRINE Hx Endocrine Disorders: Yes Hx Diabetes: Yes (takes metformin) Hx Thyroid Disease: Yes (partial thyroidectmoy) - MUSCULOSKELETAL Hx Musculoskeletal Disorders: Yes Hx Arthritis: Yes Hx Back Injury: Yes Hx Fibromyalgia: No Hx Gout: No Hx Musculoskeletal Disease: No Hx Osteoporosis: (unsure) - PSYCH Hx Psych Problems: Yes Hx Anxiety: No Hx Behavior Problems: No Hx Depression: Yes Hx Emotional Abuse: No Hx Sexual Abuse: No Hx Suicide Attempt: No - HEMATOLOGY/ONCOLOGY Hx Hematology/Oncology Disorders: Yes Hx Anemia: Yes Hx Blood Disorders: No Hx Bruising: No Hx Cancer: Yes (breast cancer, skin cancer) Hx Chemotherapy: No Hx Radiation Therapy: No Hx Clotting Problems: No Hx Sickle Cell Disease: No Hx Unexplained Bleeding: No Hx Blood Transfusions: Yes (1 yr ago) Hx Blood Transfusion Reaction: No Family Medical History Any Significant Family History?: Yes Hx Anxiety: Mother Hx Dementia: Father Hx Depression: Mother Hx Stroke: Mother Physical Exam - General General Appearance: Alert, Oriented x3, Cooperative, Moderate distress Limitations: No limitations - Head Head exam: Atraumatic, Normocephalic, Normal inspection Head exam detail: negative: Abrasion, Contusion, Kapoor's sign, General tenderness, Hematoma, Laceration - Eye Eye exam: Normal appearance. negative: Conjunctival injection, Periorbital swelling, Periorbital tenderness, Scleral icterus - ENT Ear exam: negative: Auricular hematoma, Auricular trauma Nasal Exam: negative: Active bleeding, Discharge, Dried blood Mouth exam: negative: Drooling, Laceration, Tongue elevation - Neck Neck exam: Normal inspection. negative: Meningismus, Tenderness - Respiratory Respiratory exam: Normal lung sounds bilaterally. negative: Respiratory distress, Rhonchi, Stridor, Wheezes - Cardiovascular Cardiovascular Exam: Regular rate, Normal rhythm, Normal heart sounds - GI/Abdominal GI/Abdominal exam: Soft, Tenderness (Diffuse TTP on examination, no rebound or guareding present). negative: Rebound, Rigid - Rectal Rectal exam: Deferred - exam: Deferred - Extremities Extremities exam: Normal inspection. negative: Pedal edema, Tenderness - Back Back exam: Denies: CVA tenderness (R), CVA tenderness (L) - Neurological Neurological exam: Alert, Normal gait, Oriented X3 - Psychiatric Psychiatric exam: Normal affect, Normal mood - Skin Skin exam: Normal color. negative: Abrasion Type of lesion: negative: abrasion Course Vital Signs 12/13/17 18:11 Temperature 97.7 F Pulse Rate 105 H Respiratory 17 Rate Blood Pressure 125/69 Pulse Ox 97 - Reevaluation(s) Reevaluation #1: 12/13/17 20:03 CT imaging of the abdomen and pelvis 11/09/17: Abnormal wall thickening of the colon c/w colitis. Sigmoid diverticulosis without evidence for diverticulitis. Previous records were reviewed (discharge summary 11/12/17) Patient was discharged home following 3-day admission on oral Vancomycin and Nokomis for her symptoms. Laboratory studies were reviewed: Cl 91 CO2 21 AG 20 AST 52, ALT 55. Labs are otherwise grossly unremarkable for an acute process. Patient has been unable to provide stool sample as of yet to confirm C. Diff toxin. Stonetent was updated on all results, and appears to be resting comfortably. Will await stool sample for disposition. 12/13/17 21:13 Reevaluation #2: 12/13/17 21:48 Stool sample obtained and sent to lab for c. diff toxin. Reevaluation #3: 12/13/17 23:24 C. Diff is positive, will initiate treatment with Vancomycin and admit for further evaluation. Reevaluation #4: 12/13/17 23:29 C. Diff has resulted as positive. Will admit for dehydration and initiate treatment with Vancomycin orally. Patient and her family are in agreement with the plan of care as discussed. Medical Decision Making - Lab Data Result diagrams: 12/13/17 18:55 12/13/17 18:55 Disposition Disposition: Admit Clinical Impression: C. difficile colitis, Vomiting and diarrhea Disposition: Still a Patient at [facility] Decision to Admit: Admit from ER Decision to Admit Date: 12/13/17 Decision to Admit Time: 23:25 Condition: (2) Stable Forms: Patient Portal Access Time of Disposition: 23:25 Quality - Quality Measures Quality Measures: N/A - Blood Pressure Screening Does Patient Have Any of the Following: No Blood Pressure Classification: Pre-Hypertensive BP Reading Systolic Measurement: 125 Diastolic Measurement: 69 Screening for High Blood Pressure: < Pre-Hypertensive BP, F/U Documented > [ G8950] Pre-Hypertensive Follow-up Interventions: Referral to alternative/primary care provider.
[2017-12-13] MEDS ORDERED: 0.9 % SODIUM CHLORIDE 1000ML 1,000 ML IV SCH ×2 (18:30→21:15)
[2017-12-13 19:39] LABS: BASO % 0.1 % (0-6); EOS % 0.1 % (0-6); GRAN % 75.4 % (47-80); HEMATOCRIT 38.6 % (35.0-47.0); LYMPH % 10.5 % (16-45); MEAN CELL VOLUME 93.2 fl (81-97); MEAN CORPUSCULAR HEMOGLOBIN 31.4 pg (27-33); MEAN CORPUSCULAR HGB CONC 33.7 g/dl (32-36); MEAN PLATELET VOLUME 9.8 fl (7.4-10.4); MONO % 13.9 % (0-9); PLATELET COUNT 169 K/uL (130-400); RED BLOOD COUNT 4.14 M/uL (3.80-5.40); RED CELL DISTRIBUTION WIDTH 14.9 % (11.5-14.5); WHITE BLOOD COUNT W/O DIFF 8.1 K/uL (4.2-12.2)
[2017-12-13 19:51] LABS: BILIRUBIN,TOTAL 0.8 mg/dL (0.2-1.0)
[2017-12-13 19:52] LABS: TOTAL PROTEIN 7.5 g/dL (6.6-8.7)
[2017-12-13 19:57] LABS: ALB/GLOB RATIO 1.4 (1.1-1.8); ALBUMIN 4.4 g/dL (4.0-5.0)
[2017-12-13] MEDS ORDERED: VANCOMYCIN HCL 1 GM VIAL PO SCH (23:30)
[2017-12-13] MEDS ORDERED: VANCOMYCIN HCL 1 GM VIAL PO ONE (23:55)
[2017-12-14] MEDS ORDERED: ONDANSETRON HCL IV 4 MG/2 ML VIAL IVP PRN (00:28)
[2017-12-14] MEDS ORDERED: 0.9 % SODIUM CHLORIDE 1000ML 1,000 ML IV PRN (00:28)
[2017-12-14] MEDS ORDERED: ASPIRIN 81 MG CHEWABLE TABLET PO SCH (00:28)
[2017-12-14] MEDS ORDERED: CITALOPRAM 20 MG TABLET PO SCH (00:28)
[2017-12-14] MEDS ORDERED: HYOSCYAMINE SULFATE ODT 0.125 MG TAB.SUBL SL ONE (00:28)
[2017-12-14] MEDS ORDERED: VANCOMYCIN HCL 1 GM VIAL PO SCH (00:28)
[2017-12-14] MEDS: PANTOPRAZOLE SODIUM 40 MG TABLET PO SCH ×2 (01:19→06:17)
[2017-12-14] MEDS: LEVOTHYROXINE SODIUM 25 MCG TABLET PO SCH (06:17)
[2017-12-14] MEDS: VANCOMYCIN HCL 1 GM VIAL PO SCH ×3 (06:17→18:22)
[2017-12-14 08:42] LABS: HEMOGLOBIN 10.1 gm/dl (11.6-16.0); MEAN CORPUSCULAR HEMOGLOBIN 30.6 pg (27-33); MEAN CORPUSCULAR HGB CONC 31.6 g/dl (32-36); MEAN PLATELET VOLUME 8.7 fl (7.4-10.4); PLATELET COUNT 146 K/uL (130-400); RED CELL DISTRIBUTION WIDTH 14.7 % (11.5-14.5); WHITE BLOOD COUNT W/O DIFF 4.4 K/uL (4.2-12.2)
[2017-12-14 09:01] LABS: BLOOD UREA NITROGEN 14 mg/dL (8-23); CREATININE 0.7 mg/dL (0.5-0.9); EST GLOMERULAR FILTRATION RATE > 60 mL/min; GLUCOSE,RANDOM 99 mg/dL (74-109)
[2017-12-14] MEDS ORDERED: HYOSCYAMINE SULFATE ODT 0.125 MG TAB.SUBL SL PRN (09:30)
--- NOTE | 2017-12-14 11:35 | History & Physical ---
History of Present Illness - Date of Service Date of Service for History & Physical: 12/14/17 - History of Present Illness Admitting Diagnosis: C. Diff colitis. Dehydration History of Present Illness: 82 year old female presented to ED for evaluation of nausea, loose stools, and abdominal cramping for the past 3 days. Patient denied fever or chills or any urinary symptoms. She has had recent treatments for c diff in October 2017 and November 2017. She has been treated with PO flagyl and extended vancomycin treatment for recent c-diff infections. She has had home visiting nurse intermittently since this began in October. On this adsmission the patient still tests positive for clostridium dificile. The patient has been resumed on Vancomycin orally and iv fluids. The patient will be admitted for further work up and evaluation. H recent admission [facility] for C-diff- did not see GI, was sent to [facility] r/ t splenic infarct at that time. ED Course: VS: temp 97.7, HR 105, RR 17, BP 125/69, pulse ox 97% CT reviewed from 11/09/17: Abnormal wall thickening of colon c/w colitis, sigmoid diverticulosis without evidence for diverticulitis. Labs: Cl 91, CO2 21, AG 20, AST 52, ALT 55, WBC 8.1, Hgb 13 Stool sample positive for c-diff IV hydration initiated 12/14/17: Pt in mild distress, reports abdominal and bladder spasms, states she has them at home but they are worse today. Has had frequent liquid stools since admission. Pt tolerating PO vanco. IVF infusing, PO potassium replacement, pt tolerating CLD. POC hydration, electrolyte supplement, repeat labs in AM. PCP Miguel Alcala Travel Screening - Travel/Exposure Within Last 30 Days Have you traveled within the last 30 days?: Yes Location Detail:: [place] - Travel/Exposure Within Last Year Have you traveled outside the [place] in the last year?: No Location Detail:: [place] - Additonal Travel Details Have you been exposed to anyone with a communicable illness?: No - Travel Symptoms Symptom Screening: Weakness, Diarrhea, Chills Review of Systems Constitutional: Denies: Chills, Fever, Malaise, Night sweats Eyes: Denies: Eye discharge, Eye pain ENT: Denies: Congestion, Ear pain, Epistaxis Respiratory: Denies: Cough, Dyspnea Cardiovascular: Denies: Chest pain, Dyspnea on exertion Endocrine: Denies: Fatigue, Heat or cold intolerance Gastrointestinal: Reports: Abdominal pain, Diarrhea. Denies: Nausea, Vomiting Genitourinary: Denies: Incontinence, Retention Musculoskeletal: Denies: Arthralgia, Back pain Skin: Denies: Bruising, Change in color Neurological: Denies: Abnormal gait, Confusion, Headache Psychiatric: Denies: Anxiety Hematological/Lymphatic: Denies: Anemia, Blood Clots Past Medical History - SOCIAL HISTORY Smoking Status: Current every day smoker Alcohol Use: None Drug Use: None - RESPIRATORY Hx Respiratory Disorders: Yes Hx Asthma: No Hx Bronchitis: No Hx COPD: No Hx Dyspnea: Yes Hx Pneumonia: No Hx Pulmonary Embolism: No Hx Sleep Apnea: Yes Hx Tuberculosis: No Hx of CPAP: Yes (doesn't use it) - CARDIOVASCULAR Hx Cardio Disorders: No Hx Hypertension: Yes (No longer takes medication) Comment:: Pt states many years ago she was told that she had a murmur - NEURO Hx Neuro Disorders: Yes Hx Brain Tumor: No Hx CVA: No Hx Dementia: No Hx Dizziness: Yes (Per patient) Hx Headaches: No Hx Neuropathy: No Hx Parkinson's Disease: No Hx Seizures: No Hx Speech Problem: No Hx TIA: No - GI Hx GI Disorders: Yes Hx Abdominal Pain: No Hx Celiac Disease: No Hx Crohn's Disease: No Hx Diverticulitis: No Hx GI Bleed: No Hx Reflux: Yes (Takes Prevacid) Hx Hepatitis/Jaundice: No Hx Hiatal Hernia: Yes Hx Irritable Bowel: Yes Hx Liver Disease: No Hx Nausea/Vomiting: No Hx Obstructive Bowel: Yes Hx Pancreatitis: No Hx Rectal Bleeding: No Hx Ulcer: No Hx Wt Loss/Wt Gain: No Hx of Polyps: No - Hx Genitourinary Disorders: Yes Hx Bladder Problem: Yes Hx Dialysis: No Hx Kidney Stones: Yes Hx Renal Disease: No Hx UTI: Yes - ENDOCRINE Hx Endocrine Disorders: Yes Hx Diabetes: Yes (takes metformin) Hx Thyroid Disease: Yes (partial thyroidectmoy) - MUSCULOSKELETAL Hx Musculoskeletal Disorders: Yes Hx Arthritis: Yes Hx Back Injury: Yes Hx Fibromyalgia: No Hx Gout: No Hx Musculoskeletal Disease: No Hx Osteoporosis: (unsure) - PSYCH Hx Psych Problems: Yes Hx Anxiety: No Hx Behavior Problems: No Hx Depression: Yes Hx Emotional Abuse: No Hx Sexual Abuse: No Hx Suicide Attempt: No - HEMATOLOGY/ONCOLOGY Hx Hematology/Oncology Disorders: Yes Hx Anemia: Yes Hx Blood Disorders: No Hx Bruising: No Hx Cancer: Yes (breast cancer, skin cancer) Hx Chemotherapy: No Hx Radiation Therapy: No Hx Clotting Problems: No Hx Sickle Cell Disease: No Hx Unexplained Bleeding: No Hx Blood Transfusions: Yes (1 yr ago) Hx Blood Transfusion Reaction: No Family Medical History Any Significant Family History?: Yes Hx Anxiety: Mother Hx Dementia: Father Hx Depression: Mother Hx Stroke: Mother H&P Meds/Allergies - Allergies Allergies: Allergies Allergy/AdvReac Type Severity Reaction Status Date / Time fentanyl Allergy Severe FATIGUE Verified 12/14/17 00:58 amoxicillin [Amoxicillin] AdvReac Intermediate DIARRHEA Verified 12/14/17 00:58 morphine AdvReac Intermediate DIZZINESS Verified 12/14/17 00:58 nitrofurantoin AdvReac Intermediate DIZZINESS Verified 12/14/17 00:58 [From Macrobid] nitrofurantoin AdvReac Intermediate DIZZINESS Verified 12/14/17 00:58 macrocrystalline [From Macrobid] oxycodone HCl [From Percocet] AdvReac Intermediate DIZZINESS Verified 12/14/17 00:58 - Home Medications Previous Rx's Medication Instructions Recorded Bifidobacterium Infantis [Align] 4 mg PO DAILY #30 capsule 10/22/17 Hydrocodone/Acetaminophen [[place] 1 each PO Q8H PRN #14 tablet 11/12/17 5-325 Tablet] - Active Medications Active Medications: Current Medications Aspirin (Aspirin Chewable) 81 mg PO DAILY [facility] Atorvastatin Calcium (Lipitor) 80 mg PO QHS [facility] Citalopram Hydrobromide (Celexa) 20 mg PO DAILY [facility] Enoxaparin Sodium (Lovenox) 40 mg SQ DAILY [facility] Ferrous Sulfate (Iron) 325 mg PO BID [facility] Hyoscyamine (Levsin Odt) 0.25 mg SL Q4H PRN PRN Reason: ABDOMINAL PAIN Sodium Chloride () 1,000 mls @ 100 mls/hr IV .Q10H PRN PRN Reason: LARGE VOLUME IV Last Admin: 12/14/17 06:15 Dose: 100 mls/hr Levothyroxine Sodium (Synthroid) 25 mcg PO Q48H [facility] Last Admin: 12/14/17 06:17 Dose: 25 mcg Ondansetron HCl (Zofran) 4 mg IVP Q4H PRN PRN Reason: NAUSEA Pantoprazole Sodium (Protonix) 40 mg PO DAILYAC [facility] Last Admin: 12/14/17 06:17 Dose: 40 mg Potassium Chloride (Klor-Con) 20 meq PO BID [facility] Vancomycin HCl (Vanco) 125 mg PO Q6H [facility] Stop: 12/19/17 06:01 Last Admin: 12/14/17 06:17 Dose: 125 mg Physical Exam - Vital Signs Vital Signs: Vital Signs - Last 24 Hrs Temp Pulse Pulse Resp BP BP BP 12/14/17 08:00 97.2 F L 84 18 94/36 12/14/17 00:25 99.2 F 93 H 17 120/57 12/14/17 00:18 96 H 20 12/13/17 23:50 96 H 22 108/55 12/13/17 20:50 114 H 20 103/47 12/13/17 18:11 97.7 F 105 H 17 125/69 Pulse Ox 12/14/17 08:00 94 L 12/14/17 00:25 96 12/14/17 00:18 99 12/13/17 23:50 86 L 12/13/17 20:50 88 L 12/13/17 18:11 97 - General General Appearance: Alert, Oriented x3, Cooperative, Mild distress Limitations: No limitations - Head Head exam: Atraumatic, Normocephalic, Normal inspection Head exam detail: negative: Abrasion, Contusion, Kapoor's sign, General tenderness, Hematoma, Laceration - Eye Eye exam: Normal appearance. negative: Conjunctival injection, Periorbital swelling, Periorbital tenderness, Scleral icterus - ENT Ear exam: negative: Auricular hematoma, Auricular trauma Nasal Exam: negative: Active bleeding, Discharge, Dried blood Mouth exam: negative: Drooling, Laceration, Tongue elevation - Neck Neck exam: Normal inspection. negative: Meningismus, Tenderness - Respiratory Respiratory exam: Normal lung sounds bilaterally. negative: Respiratory distress, Rhonchi, Stridor, Wheezes - Cardiovascular Cardiovascular Exam: Regular rate, Normal rhythm, Normal heart sounds - GI/Abdominal GI/Abdominal exam: Soft, Guarding, Hyperactive bowel sounds, Tenderness ( Diffuse TTP on examination, no rebound or guareding present). negative: Rebound , Rigid - Rectal Rectal exam: Deferred - exam: Deferred - Extremities Extremities exam: Normal inspection. negative: Pedal edema, Tenderness - Back Back exam: Denies: CVA tenderness (R), CVA tenderness (L) - Neurological Neurological exam: Alert, Normal gait, Oriented X3 - Psychiatric Psychiatric exam: Normal affect, Normal mood - Skin Skin exam: Normal color. negative: Abrasion Type of lesion: negative: abrasion Results - Labs Result Diagrams: 12/14/17 08:38 12/14/17 08:38 Labs Last 24 Hours: Laboratory Results - last 24 hr 12/13/17 12/13/17 12/13/17 18:55 18:55 21:41 WBC 8.1 RBC 4.14 Hgb 13.0 Hct 38.6 MCV 93.2 MCH 31.4 MCHC 33.7 RDW 14.9 H Plt Count 169 MPV 9.8 Gran % 75.4 Neutrophils % Band Neutrophils % Lymphocytes % 10.5 L Monocytes % 13.9 H Eosinophils % 0.1 Basophils % 0.1 Lymphocytes Monocytes Eosinophil Count Sodium 132 L Potassium 3.5 Chloride 91 L Carbon Dioxide 21.0 L Anion Gap 20.0 H BUN 20 Creatinine 1.0 H Estimated GFR 57 Random Glucose 141 H Calcium 9.6 Total Bilirubin 0.80 AST 52 H ALT 55 H Alkaline Phosphatase 62 Total Protein 7.5 Albumin 4.4 Globulin 3.1 Albumin/Globulin Ratio 1.4 Lipase 11 L C. difficile Ag & Toxin Detected H 12/14/17 12/14/17 08:38 08:38 WBC 4.4 RBC 3.30 L Hgb 10.1 L Hct 32.0 L MCV 97.0 MCH 30.6 MCHC 31.6 L RDW 14.7 H Plt Count 146 MPV 8.7 Gran % Neutrophils % 50.0 Band Neutrophils % 8.0 H Lymphocytes % Monocytes % Eosinophils % Not Reportable Basophils % Not Reportable Lymphocytes 24.0 Monocytes 17.0 H Eosinophil Count 1.0 Sodium 138 Potassium 3.1 L Chloride 104 Carbon Dioxide 21.0 L Anion Gap 13.0 BUN 14 Creatinine 0.7 Estimated GFR > 60 Random Glucose 99 Calcium 8.4 L Total Bilirubin AST ALT Alkaline Phosphatase Total Protein Albumin Globulin Albumin/Globulin Ratio Lipase C. difficile Ag & Toxin VTE H&P Assessment - Risk for VTE Risk for VTE: Yes Risk Level: Moderate Risk Assessment Date: 12/14/17 Risk Assessment Time: 11:45 VTE Orders Placed or Will Be Placed: Yes Plan - Detailed Diagnosis and Plan (1) C. difficile colitis Current Visit: Yes Status: Acute Base Code: A04.72 - ENTEROCOLITIS D/T CLOSTRIDIUM DIFFICILE, NOT SPCF RECUR Comment: 12/14/17- stool sample positive for c-diff. 3rd recurrence, has been treated with PO flagyl and PO vanco in the past. - pt continues to have loose bowel movements since admission with intermittent nausea - resuming Vnacomycin 25gm Q8H and hydration with IVF at 80 mL/hr - May consider fecal transplant at [facility] if no improvement. - contact precaution on entering the room. (2) DVT prophylaxis Current Visit: No Status: Acute Base Code: [id number] - Comment: 12/14/17: moderate risk due to age, hospilatization, and decreased mobility -lovenox 40mg SQ daily (3) Hypokalemia Current Visit: No Status: Acute Base Code: E87.6 - HYPOKALEMIA Comment: 12/14/17: K+ 3.1 -PO K+ replacement ordered with BID dosing (4) Dehydration Current Visit: No Status: Acute Base Code: E86.0 - DEHYDRATION Comment: 12/14/17 - IVF Nacl 0.9% @ 80mL/hr, clear liquids as tolerated. - K+ 3.1, K+ replacement ordered. - recheck labs in the morning and replete as needed. (5) Full code status Current Visit: No Status: Acute Base Code: Z78.9 - OTHER SPECIFIED HEALTH STATUS Comment: 12/14/17 - FULL CODE
--- NOTE | 2017-12-14 11:51 | Inpatient Certification ---
Inpatient Certification Admit to inpatient care: Based on my medical assessment, after consideration of patient's risk factors (age, co-morbidities and patient presenting symptoms and acuity), I expect that this patient will remain in the hospital greater than or equal to two midnights and that the services needed warrant inpatient care because: Patient Risk Factors: [age, dehydration, recurrent c-diff infections, electrolyte imbalance] Estimated length of stay: [72-96 hours] The patient may reasonably be expected to be discharged or transferred to a hospital within 96 hours after admission to [facility]. Services needed: [IV hydration, electrolyte replacement, antibiotic therapy] Post hospital care (if known): [] I certify that my determination is in accordance with my understanding of Medicare requirements for reasonable and necessary inpatient services. 12/14/17 11:50
[2017-12-14] MEDS: POTASSIUM CHLORIDE 20 MEQ TABLET PO SCH ×2 (11:57→21:35)
[2017-12-14] MEDS: ENOXAPARIN 40 MG/0.4 ML SYR SQ SCH (11:57)
[2017-12-14] MEDS: ASPIRIN 81 MG CHEWABLE TABLET PO SCH (11:58)
[2017-12-14] MEDS: BIFIDOBACTERIUM INFANTIS 4 MG CAPSULE PO SCH (11:58)
[2017-12-14] MEDS: FERROUS SULFATE 325 MG TAB PO SCH ×2 (11:58→21:35)
[2017-12-14] MEDS: CITALOPRAM 20 MG TABLET PO SCH (11:59)
[2017-12-14] MEDS: 0.9 % SODIUM CHLORIDE 1000ML 1,000 ML IV PRN (18:06)
[2017-12-14] MEDS: ATORVASTATIN 20 MG TABLET PO SCH (21:35)
[2017-12-14] MEDS: TEMAZEPAM 15 MG CAPSULE PO PRN (21:35)
[2017-12-14] MEDS: NICOTINE14 MG/24 HOUR PATCH TD SCH (21:35)
[2017-12-15] MEDS: VANCOMYCIN HCL 1 GM VIAL PO SCH ×3 (00:16→11:59)
[2017-12-15] MEDS: 0.9 % SODIUM CHLORIDE 1000ML 1,000 ML IV PRN (05:38)
[2017-12-15] MEDS: PANTOPRAZOLE SODIUM 40 MG TABLET PO SCH (06:00)
[2017-12-15 06:35] LABS: HEMATOCRIT 32.4 % (35.0-47.0); MEAN CELL VOLUME 98.5 fl (81-97); MEAN CORPUSCULAR HGB CONC 30.9 g/dl (32-36); MEAN PLATELET VOLUME 8.9 fl (7.4-10.4); PLATELET COUNT 130 K/uL (130-400); RED BLOOD COUNT 3.29 M/uL (3.80-5.40); RED CELL DISTRIBUTION WIDTH 14.6 % (11.5-14.5); WHITE BLOOD COUNT W/O DIFF 3.8 K/uL (4.2-12.2)
[2017-12-15 06:54] LABS: MEAN CORPUSCULAR HEMOGLOBIN 30.3 pg (27-33)
[2017-12-15 07:05] LABS: BLOOD UREA NITROGEN 12 mg/dL (8-23); CREATININE 0.6 mg/dL (0.5-0.9); EST GLOMERULAR FILTRATION RATE > 60 mL/min; GLUCOSE,RANDOM 103 mg/dL (74-109)
[2017-12-15 07:14] LABS: PLATELET ESTIMATE NORMAL (NORMAL)
[2017-12-15] MEDS: ENOXAPARIN 40 MG/0.4 ML SYR SQ SCH (09:04)
[2017-12-15] MEDS: BIFIDOBACTERIUM INFANTIS 4 MG CAPSULE PO SCH (09:04)
[2017-12-15] MEDS: POTASSIUM CHLORIDE 20 MEQ TABLET PO SCH (09:05)
[2017-12-15] MEDS: CITALOPRAM 20 MG TABLET PO SCH (09:05)
[2017-12-15] MEDS: FERROUS SULFATE 325 MG TAB PO SCH ×2 (09:05→21:56)
[2017-12-15] MEDS: ASPIRIN 81 MG CHEWABLE TABLET PO SCH (09:05)
[2017-12-15] MEDS ORDERED: IPRATROPIUM/ALBUTEROL (0.5MG/3MG) NEB INH ONE (10:59)
[2017-12-15] MEDS ORDERED: IPRATROPIUM/ALBUTEROL (0.5MG/3MG) NEB INH PRN (11:08)
--- NOTE | 2017-12-15 11:59 | Physician Progress Note ---
Subjective - Date Date of Physician Progress Note: 12/15/17 - Subjective Subjective Comment: 12/15/17: Patient resting comfortably in bed, tolerating full liquid diet well, will advance to soft diet. Patient started on Vanco 125mg PO q6h, IV fluids @ 80ml/hr and PO potassium. Patient reports having only 1 stool throughout the night. GI was consulted, Dr. Alcala saw patient this morning. Would like patient to start Dificid 200mg PO BID x 10 days, [facility] will be getting this medication from [facility] later today. Will continue Vanco until then. If Dificid ineffective, patient should be considered for fecal transplant. Patient began having episodes of shortness of breath and low pulse ox after minimal exertion today. Patient given albuterol nmt for upper respiratory wheezes, mild improvement in symptoms. Fluids stopped as patient is taking in adequate PO intake, d-dimer ordered, results pending. If elevated will consider CTA to rule out PE due to tachypnea, tachycardia, and recent hospitalizations. Patient has had visiting nursing come to the home twice per week since last admission. Have contacted their agency, states they have identified patient as "high risk" and they are calling the patient to check in with her on days they are not out to the house. Their last visit to the home was last Friday. Patient also reports weakness and a shuffling gait for the past several months. PT/OT eval ordered. Objective - Vital Signs Vital Signs: Vital Signs - Last 24 Hrs Temp Pulse Pulse Pulse Resp BP BP 12/15/17 10:48 110 H 28 H 12/15/17 10:41 99.0 F 103/57 12/15/17 08:25 85 91 H 20 12/15/17 07:15 91 H 24 12/14/17 20:00 99.0 F 87 16 105/50 12/14/17 16:00 98 F 86 18 83/39 12/14/17 12:00 98 F 85 16 84/53 BP Pulse Ox 12/15/17 10:48 91 L 12/15/17 10:41 12/15/17 08:25 12/15/17 07:15 103/57 97 12/14/17 20:00 92 L 12/14/17 16:00 91 L 12/14/17 12:00 90 L - General General Appearance: Alert, Oriented x3, Cooperative, Mild distress Limitations: No limitations - Head Head exam: Atraumatic, Normocephalic, Normal inspection Head exam detail: negative: Abrasion, Contusion, Kapoor's sign, General tenderness, Hematoma, Laceration - Eye Eye exam: Normal appearance. negative: Conjunctival injection, Periorbital swelling, Periorbital tenderness, Scleral icterus - ENT Ear exam: negative: Auricular hematoma, Auricular trauma Nasal Exam: negative: Active bleeding, Discharge, Dried blood Mouth exam: negative: Drooling, Laceration, Tongue elevation - Neck Neck exam: Normal inspection. negative: Meningismus, Tenderness - Respiratory Respiratory exam: Wheezes (upper airway expiratory wheezes). negative: Respiratory distress, Rhonchi, Stridor - Cardiovascular Cardiovascular Exam: Regular rate, Normal rhythm, Normal heart sounds - GI/Abdominal GI/Abdominal exam: Soft, Diminished bowel sounds. negative: Rebound, Rigid - Rectal Rectal exam: Deferred - exam: Deferred - Extremities Extremities exam: Normal inspection. negative: Pedal edema, Tenderness - Back Back exam: Denies: CVA tenderness (R), CVA tenderness (L) - Neurological Neurological exam: Alert, Normal gait, Oriented X3 - Psychiatric Psychiatric exam: Anxious, Normal mood - Skin Skin exam: Normal color. negative: Abrasion Type of lesion: negative: abrasion Assessment and Plan - Assessment and Plan (1) C. difficile colitis Current Visit: Yes Status: Acute Base Code: A04.72 - ENTEROCOLITIS D/T CLOSTRIDIUM DIFFICILE, NOT SPCF RECUR Comment: 12/15/17- stool sample positive for c-diff. 3rd recurrence, has been treated with PO flagyl and PO vanco in the past. - pt has had 1 bowel movement in the past 24 hours, denies nausea or abdominal pain - resuming Vnacomycin 125mg PO Q8H, will switch to Dificid 200mg PO BID when available -Tolerating PO fluid intake -GI consult, Dr. Alcala - [facility] if no improvement. - contact precaution on entering the room. (2) DVT prophylaxis Current Visit: No Status: Acute Base Code: [id number] - Comment: 12/15/17: moderate risk due to age, hospilatization, and decreased mobility -lovenox 40mg SQ daily (3) Hypokalemia Current Visit: No Status: Acute Base Code: E87.6 - HYPOKALEMIA Comment: 12/14/17: K+ 3.5 today -PO K+ replacement ordered daily (4) Dehydration Current Visit: No Status: Acute Base Code: E86.0 - DEHYDRATION Comment: 12/15/17 - IVF Nacl 0.9% @ 80mL/hr stopped, tolerating PO liquids well - recheck labs in the morning and replace electrolytes as needed. (5) Full code status Current Visit: No Status: Acute Base Code: Z78.9 - OTHER SPECIFIED HEALTH STATUS Comment: 12/15/17 - FULL CODE Results - Labs Result Diagrams: 12/15/17 06:28 12/15/17 06:28 Labs Last 24 Hours: Laboratory Results - last 24 hr 12/15/17 12/15/17 06:28 06:28 WBC 3.8 L RBC 3.29 L Hgb 10.0 L Hct 32.4 L MCV 98.5 H MCH 30.3 MCHC 30.9 L RDW 14.6 H Plt Count 130 MPV 8.9 Neutrophils % 58.0 Band Neutrophils % 1.0 Eosinophils % Not Reportable Basophils % Not Reportable Lymphocytes 30.0 Monocytes 10.0 H Platelet Estimate Normal RBC Morphology Normal Eosinophil Count 1.0 Sodium 139 Potassium 3.5 Chloride 106 Carbon Dioxide 21.0 L Anion Gap 12.0 BUN 12 Creatinine 0.6 Estimated GFR > 60 Random Glucose 103 Calcium 8.1 L DVT/PE Assessment - Risk for VTE Risk for VTE: No Risk Level: Moderate Risk Assessment Date: 12/14/17 Risk Assessment Time: 11:45 VTE Orders Placed or Will Be Placed: Yes - Active Medicaitons Current Medications: Current Medications Albuterol/Ipratropium (Duoneb) 3 ml INH RESP.Q4H PRN PRN Reason: WHEEZING Aspirin (Aspirin Chewable) 81 mg PO DAILY [facility] Last Admin: 12/15/17 09:05 Dose: 81 mg Atorvastatin Calcium (Lipitor) 80 mg PO QHS [facility] Last Admin: 12/14/17 21:35 Dose: 80 mg Citalopram Hydrobromide (Celexa) 20 mg PO DAILY [facility] Last Admin: 12/15/17 09:05 Dose: 20 mg Enoxaparin Sodium (Lovenox) 40 mg SQ DAILY [facility] Last Admin: 07/09/18 09:04 Dose: 40 mg Ferrous Sulfate (Iron) 325 mg PO BID [facility] Last Admin: 12/15/17 09:05 Dose: 325 mg Levothyroxine Sodium (Synthroid) 25 mcg PO Q48H [facility] Last Admin: 12/14/17 06:17 Dose: 25 mcg Miscellaneous (Remove Patch) 1 each TD Q24H [facility] Nicotine (Nicotine 14mg) 1 patch TD Q24H [facility] Last Admin: 12/14/17 21:35 Dose: 1 patch Ondansetron HCl (Zofran) 4 mg IVP Q4H PRN PRN Reason: NAUSEA Pantoprazole Sodium (Protonix) 40 mg PO DAILYAC [facility] Last Admin: 12/15/17 06:00 Dose: 40 mg Potassium Chloride (Klor-Con) 20 meq PO BID [facility] Last Admin: 12/15/17 09:05 Dose: 20 meq Temazepam (Restoril) 15 mg PO QHS PRN PRN Reason: INSOMNIA Last Admin: 12/14/17 21:35 Dose: 15 mg Vancomycin HCl (Vanco) 125 mg PO Q6H [facility] Stop: 12/19/17 06:01 Last Admin: 12/15/17 05:38 Dose: 125 mg AMI Plan - Labs Result Diagrams: 12/15/17 06:28 12/15/17 06:28
--- NOTE | 2017-12-15 12:40 | Medical Records Consult ---
DATE OF CONSULTATION: 12/15/2017 REASON FOR CONSULTATION: Clostridium difficile colitis. HISTORY OF PRESENT ILLNESS: The patient is a pleasant 82-year-old female seen in consultation at this time for evaluation of C difficile colitis. She first developed C difficile colitis after receiving antibiotic following a dental issue in September and was initially treated with Flagyl and subsequently with vancomycin and a vancomycin taper. She has frequent scant stools with some urgency with her last stool analysis yesterday demonstrating C difficile remains. She has, as mentioned, been treated with extended vancomycin treatment with taper. She has generalized abdominal pain and some mild distention which is somewhat improved today. She had a previous colonoscopy in 2014 demonstrating a small adenoma. No other changes were noted at that time. Additional medical problems include sleep apnea, hypertension, and hypothyroidism. She has been known in the past also to have a hiatal hernia. FAMILY HISTORY: Significant for depression and anxiety disorder in patient's mother. Mother also had a stroke. Additional medical issues include diabetes which is [id number]. ALLERGIES: AMOXICILLIN, MORPHINE which causes dizziness, NITROFURANTOIN, OXYCODONE also causes dizziness. HOME MEDICATIONS: 1. [place] as needed. 2. Align. 3. Vancomycin. 4. Iron supplement. 5. Hyoscyamine as needed. 6. Thyroid supplement. 7. Zofran as needed. 8. Protonix 40 mg daily. 9. Potassium chloride. 10. The above-mentioned vancomycin 125 mg 4 times daily. REVIEW OF SYSTEMS: Noted on the medical record and reviewed. She does admit to a history of kidney stones and previous urinary tract infections. She also has a history of irritable bowel syndrome and acid reflux. The remainder of the review of systems is fairly unremarkable. PHYSICAL EXAMINATION: VITAL SIGNS: The patient is afebrile. Vital signs are stable. NECK: Supple. HEART: Regular. LUNGS: Clear. ABDOMEN: Slightly distended and tender to palpation diffusely. There is no rebound, rigidity, or guarding. EXTREMITIES: Free from edema. NEUROMUSCULAR: Examination seems to be grossly unremarkable. LABORATORY DATA: Upon admission on 12/13/2017 revealed a white blood cell count 8.1, hemoglobin 13, hematocrit 38.6, platelet count 169,000. Sodium 132, potassium 3.5, BUN 20, creatinine 1. Recheck CBC today reveals white blood cell count 4.4, hemoglobin 10.1, hematocrit 32.0, platelet count 146,000. Stool for C difficile was positive yesterday. IMPRESSION: The patient has suffered with Clostridium difficile infection which despite treatment with Flagyl, vancomycin, and vancomycin taper has failed to eradicate the infection. This all started following an antibiotic being used for dental issue in September. RECOMMENDATIONS: At this point, the patient would be a candidate for fecal transplant which can be arranged in [place] or in [place]. As this may take some time to be arranged, I will start the patient on Dificid 200 mg twice daily for the next 10 days to see if this eradicates the infection. If not, fecal transplant can be arranged. Thank you for allowing me to participate in the care of this patient. CC: MD KALPANA Peters
[2017-12-15] MEDS: FIDAXOMICIN 200MG TABLET PO SCH ×2 (12:55→21:56)
[2017-12-15] MEDS ORDERED: FUROSEMIDE IV 20MG/2ML VIAL IVP ONE (13:45)
--- NOTE | 2017-12-15 13:52 | Occupational Therapy Tx Note ---
Occupational Therapy Tx Note - Treatment Note Occupational Therapy Treatment Note: Detail (OT order received, eval on hold until further testing completed later today. Thank you.)
[2017-12-15] MEDS ORDERED: ACETAMINOPHEN 325 MG TAB PO PRN (14:40)
[2017-12-15] MEDS: NICOTINE14 MG/24 HOUR PATCH TD SCH ×2 (14:55→22:45)
[2017-12-15] MEDS: REMOVE PATCH 1 EACH MISC TD SCH ×2 (14:56→22:45)
--- NOTE | 2017-12-15 15:52 | Physical Therapy Tx Note ---
Physical Therapy Tx Note - Treatment Note Physical Therapy Tx Note: Detail (Unable to complete PT eval today secondary to patient was in radiology for testing. Will complete evaluation tomorrow.)
[2017-12-15] MEDS: ATORVASTATIN 20 MG TABLET PO SCH (21:54)
[2017-12-15] MEDS: TEMAZEPAM 15 MG CAPSULE PO PRN (22:01)
[2017-12-16] MEDS: LEVOTHYROXINE SODIUM 25 MCG TABLET PO SCH (06:28)
[2017-12-16] MEDS: PANTOPRAZOLE SODIUM 40 MG TABLET PO SCH (06:28)
[2017-12-16 06:32] LABS: BASO % 0.5 % (0-6); EOS % 2.1 % (0-6); GRAN % 55.8 % (47-80); HEMATOCRIT 32.4 % (35.0-47.0); HEMOGLOBIN 10.3 gm/dl (11.6-16.0); LYMPH % 27.9 % (16-45); MEAN CELL VOLUME 95.9 fl (81-97); MEAN CORPUSCULAR HGB CONC 31.8 g/dl (32-36); MEAN PLATELET VOLUME 8.7 fl (7.4-10.4); MONO % 13.7 % (0-9); PLATELET COUNT 152 K/uL (130-400); RED BLOOD COUNT 3.38 M/uL (3.80-5.40); WHITE BLOOD COUNT W/O DIFF 4.2 K/uL (4.2-12.2)
[2017-12-16 06:33] LABS: MEAN CORPUSCULAR HEMOGLOBIN 30.4 pg (27-33)
[2017-12-16 06:47] LABS: BLOOD UREA NITROGEN 7 mg/dL (8-23); CREATININE 0.7 mg/dL (0.5-0.9); EST GLOMERULAR FILTRATION RATE > 60 mL/min; GLUCOSE,RANDOM 107 mg/dL (74-109)
--- NOTE | 2017-12-16 07:56 | CT ANGIOGRAM REPORT ---
EXAM: CT ANGIOGRAM OF THE CHEST HISTORY: DECREASED OXYGEN SATURATIONS. ELEVATED D-DIMER. QUESTION PULMONARY EMBOLISM. TECHNIQUE: Standard CT angiogram technique with administration of intravenous contrast was obtained. Coronal and sagittal post processed multiplanar reconstructions were obtained. The amount and type of intravenous contrast is listed in the medical record. Encounter: Initial. FINDINGS: The mediastinum displays adenopathy. This has increased compared with the previous study. There is a precarinal lymph node measuring upwards of 2.1 x 1.3 cm in size. There is an increased subcarinal lymph node measuring upwards of 2.1 x 1.6 cm in size. Hilar adenopathy is seen. There is a left hilar lymph node measuring upwards of 2.1 x 1.4 cm in size. There is a right hilar lymph node measuring upwards of 2.7 x 1.8 cm in size. The aorta is without evidence of aneurysm. No evidence of thoracic aortic dissection. 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 This is in the region of the infrarenal abdominal aorta. There is atherosclerotic disease of the visualized portions of the renal arteries. The pulmonary arteries display a subtle area of poor contrast within the right middle lobe on image 244. Subtle pulmonary embolism is not excluded. The remaining pulmonary arteries appear grossly clear. There is a small amount of pericardial thickening or minimal effusion. The lungs are abnormal. Bilateral effusions with underlying areas of compressive atelectasis or infiltrates are identified. Prominent interstitial thickening is seen. There is bronchial thickening identified. This may represent CHF and edema. Underlying bronchial inflammation/infectious process is not completely excluded. The left upper lobe nodular density is not as well seen on today's study. No suspicious lung nodules or lung mass lesions are identified. The upper abdomen is without significant interval change. Mild thickening of the left adrenal gland is again noted. The axillary regions, chest wall, and visualized portions of the thyroid gland appear intact. The spinal column displays degenerative disease without compression fractures. IMPRESSION: 1. SUBTLE AREA OF POSSIBLE FILLING DEFECT WITHIN ONE OF THE RIGHT MIDDLE LOBE PULMONARY ARTERIES. THIS COULD REPRESENT ARTIFACT. A SMALL NONOCCLUSIVE PULMONARY EMBOLISM IS NOT COMPLETELY EXCLUDED. NO OTHER PULMONARY EMBOLISM IS IDENTIFIED. 2. NO EVIDENCE OF AORTIC ANEURYSM OR DISSECTION WITHIN THE THORACIC SPINE. 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 THERE IS A STABLE DISSECTION IN THE VISUALIZED PORTION OF THE PROXIMAL ABDOMINAL AORTA. 3. PROMINENT INTERSTITIAL THICKENING OF THE LUNGS WITH BILATERAL EFFUSIONS WITH BRONCHIAL THICKENING. THIS COULD REPRESENT CHF WITH EDEMA. PLEASE CORRELATE CLINICALLY. UNDERLYING BRONCHIAL INFLAMMATION OR INFECTION IS NOT EXCLUDED. 4. AREAS OF PLAQUE FORMATION ARE SEEN THROUGHOUT THE AORTA. THESE APPEAR SOMEWHAT SIMILAR COMPARED WITH THE 2016 STUDY PROXIMALLY. IN THE MORE DISTAL DESCENDING THORACIC AORTA THERE IS INCREASED PLAQUE. POSSIBLE SMALL PLAQUE ULCERATIONS ARE LIKELY PRESENT. 5. THERE IS INCREASING MEDIASTINAL LYMPHADENOPATHY. I SUSPECT THIS IS DUE TO THE UNDERLYING LUNG INFLAMMATION. MEDIASTINAL ADENOPATHY SECONDARY TO MALIGNANCY IS NOT COMPLETELY EXCLUDED. 6. OTHER CHRONIC CHANGES ABOVE. NO OTHER ACUTE PROCESS IDENTIFIED. 7. CANNOT EXCLUDE SMALL PULMONARY EMBOLISM IN THE RIGHT MIDDLE LOBE, THIS IS SUBTLE AND COULD REPRESENT ARTIFACT, HOWEVER. THE REMAINING PULMONARY ARTERIES ARE CLEAR. PROMINENT EFFUSIONS. PROMINENT INTERSTITIAL MARKINGS MAY REPRESENT PULMONARY EDEMA. BRONCHIAL THICKENING ALSO SEEN COULD REPRESENT INFLAMMATORY OR INFECTIOUS PROCESS. NO EVIDENCE OF THORACIC AORTIC ANEURYSM. SEVERE ATHEROSCLEROTIC DISEASE. SEVERE CORONARY ARTERY DISEASE. INCREASING MEDIASTINAL AND HILAR ADENOPATHY. PLEASE SEE COMPLETE REPORT FOR FURTHER DETAILS. JOB NUMBER: [id number] [facility]
[2017-12-16] MEDS ORDERED: POTASSIUM CHLORIDE 20 MEQ TABLET PO SCH (10:00)
[2017-12-16] MEDS: ENOXAPARIN 40 MG/0.4 ML SYR SQ SCH (10:23)
[2017-12-16] MEDS: ASPIRIN 81 MG CHEWABLE TABLET PO SCH (10:24)
[2017-12-16] MEDS: CITALOPRAM 20 MG TABLET PO SCH (10:24)
[2017-12-16] MEDS: FERROUS SULFATE 325 MG TAB PO SCH (10:24)
[2017-12-16] MEDS: FIDAXOMICIN 200MG TABLET PO SCH (10:24)
[2017-12-16] MEDS: BIFIDOBACTERIUM INFANTIS 4 MG CAPSULE PO SCH (10:24)
--- NOTE | 2017-12-16 10:29 | Rehab Evaluation ---
Patient Information - Patient Information Diagnosis: dehydration, c-diff Ordered Treatment: PT Evaluate and Treat Status: Initial Evaluation Past Medical/Surgical Hx: PAST MEDICAL/SURGICAL HISTORY Past Surgical History back surgery, ovarian cyst, hyst, adhesions and bowel obstruction, appy, breast lumpectomy x 2, csection x2, left thyroidectomy t&A, bilat cataract, gallbladder, radical mastectomy, abdominal adhesions and tubal ligation, hysterectomy, right ankle sx PMH - Respiratory Hx Respiratory Disorders Yes Hx Asthma No Hx Bronchitis No Hx Chronic Obstructive No Pulmonary Disease (COPD) Hx Dyspnea Yes Hx Pneumonia No Hx Pulmonary Embolism No Hx Sleep Apnea Yes Hx Tuberculosis No Hx of CPAP Yes: doesn't use it PMH - Cardiovascular Hx Cardiovascular Disorders No Hx Hypertension Yes: No longer takes medication Hx Transient Ischemic Attacks No (TIA) Comment: Pt states many years ago she was told that she had a murmur PMH - Neuro Hx Neurological Disorders Yes Hx Brain Tumor No Hx Cerebrovascular Accident No Hx Dementia No Hx Dizziness Yes: Per patient Hx Headaches No Hx Neuropathy No Hx Parkinson's Disease No Hx Seizures No Hx Speech Problem No Hx Syncope No Hx Transient Ischemic Attacks No (TIA) PMH - GI Hx Gastrointestinal Disorders Yes Hx Abdominal Pain No Hx Celiac Disease No Hx Crohn's Disease No Hx Diverticulitis No Hx Gastrointestinal Bleed No Hx Gastroesophageal Reflux Yes: Takes Prevacid Hx Hepatitis/Jaundice No Hx Hiatal Hernia Yes Hx Irritable Bowel Yes Hx Liver Disease No Hx Nausea/Vomiting No Hx Obstructive Bowel Yes Hx Pancreatitis No Hx Rectal Bleeding No Hx Ulcer No Hx Weight Loss/Weight Gain No PMH - Hx Genitourinary Disorders Yes Hx Bladder Problem Yes Hx Dialysis No Hx Kidney Stones Yes Hx Renal Disease No Hx Urinary Tract Infection Yes Comment: hyst PMH - Endocrine Hx Endocrine Disorders Yes Hx Diabetes Yes: takes metformin Hx Thyroid Disease Yes: partial thyroidectmoy PMH - Musculoskeletal Hx Musculoskeletal Disorders Yes Hx Arthritis Yes Hx Back Injury Yes Hx Fibromyalgia No Hx Gout No Hx Musculoskeletal Disease No Hx Osteoporosis unsure Comment: Patient has chronic back pain problems PMH - Psych Hx Psychiatric Problems Yes Hx Anxiety No Hx Behavior Problems No Hx Depression Yes Hx Emotional Abuse No Hx Sexual Abuse No Hx Suicide Attempt No PMH - Hematology/Oncology Hx Hematology/Oncology Yes Disorders Hx Anemia Yes Hx Blood Disorders No Hx Bruising No Hx Cancer Yes: breast cancer, skin cancer Hx Chemotherapy No Hx Radiation Therapy No Hx Clotting Problems No Hx Sickle Cell Disease No Hx Unexplained Bleeding No Hx Blood Transfusion Reaction No Comment: iron infussion-11/24/2015 x1 Premorbid Status: Detail (The patient prior to hospitalization was independent with ambulation without device and independent with all welcome wagon hostess and ADL 's.) Social History: Detail (The patient lives alone in a one story house with 3 steps at the enteramce and one handrail. The patient's bathroom is equipped with a tub/shower combination with a seat and a hand held shower head. The patient's bathroom also has a standard toilet with no grab bars. The patient does not have any other equipment besides a tub seat. The patient was receiving home PT about a month ago.) Precautions: Gaffney, Fall, Other (contact isolation due to c-diff.) - Time With Patient Total Time Spent With Patient (Min): 30 Treatment Procedures: Detail (Initial Evaluation) Subjective Information - Subjective Information Per Patient (The patient reports she feels good today and has no complaints of pain.) Objective Data - Mental Status Patient Orientation: Oriented x3 - Visual Perception Appears within normal limits for therapeutic activities - ROM Within normal limits (The patient's LE AROM is WNL.) - Strength/Tone Within normal limits (The patient's LE strength is generally 4+to 5/5 except for R hip flexors 4/5 and L toe and ankle dorsiflexors 4/5/) - Bed Mobility Independent (The patient was independent with supine to and from sit transfer.) - Transfers Independent (Independent sit to and from stand transfer.) - Balance Balance Sitting: Good Balance Standing: Good (The patient is in the low risk for fall category which is 25/28 using the Tinetti assessment tool.) - Sensation Deficit (The patient has diminished sensation to both feet to pressure from toes to ankles both anterior and posterior surface.) - Gait Detail (The patient ambulated independently 22 feet without assistive device with a normal steady gait pattern.) Therapy Assessment - Therapy Assessment Detail (The patient was independent with all bed mobility, transfers and ambulation. The patient's balance was currently in the low risk for fall category and she presented with minimal LE weakness. Feel the patient does not require ongoing PT services at this time.) Problem List - Problem List Physical Therapy Problem List: Detail (No PT problems at this time. The patient is independent with all mobility and ambulation.) Goals - Goals Physical Therapy Goals: No PT goals at this time. Prognosis - Prognosis Good Plan - Plan Physical Therapy Plan: Patient has no PT needs at this time. Patient is discharged for PT.
--- NOTE | 2017-12-16 10:33 | Rehab Evaluation ---
Patient Information - Patient Information Diagnosis: Cdiff colitis & dehydration Ordered Treatment: OT Evaluate and Treat Status: Initial Evaluation Surgery: No Past Medical/Surgical Hx: PAST MEDICAL/SURGICAL HISTORY Past Surgical History back surgery, ovarian cyst, hyst, adhesions and bowel obstruction, appy, breast lumpectomy x 2, csection x2, left thyroidectomy t&A, bilat cataract, gallbladder, radical mastectomy, abdominal adhesions and tubal ligation, hysterectomy, right ankle sx PMH - Respiratory Hx Respiratory Disorders Yes Hx Asthma No Hx Bronchitis No Hx Chronic Obstructive No Pulmonary Disease (COPD) Hx Dyspnea Yes Hx Pneumonia No Hx Pulmonary Embolism No Hx Sleep Apnea Yes Hx Tuberculosis No Hx of CPAP Yes: doesn't use it PMH - Cardiovascular Hx Cardiovascular Disorders No Hx Hypertension Yes: No longer takes medication Hx Transient Ischemic Attacks No (TIA) Comment: Pt states many years ago she was told that she had a murmur PMH - Neuro Hx Neurological Disorders Yes Hx Brain Tumor No Hx Cerebrovascular Accident No Hx Dementia No Hx Dizziness Yes: Per patient Hx Headaches No Hx Neuropathy No Hx Parkinson's Disease No Hx Seizures No Hx Speech Problem No Hx Syncope No Hx Transient Ischemic Attacks No (TIA) PMH - GI Hx Gastrointestinal Disorders Yes Hx Abdominal Pain No Hx Celiac Disease No Hx Crohn's Disease No Hx Diverticulitis No Hx Gastrointestinal Bleed No Hx Gastroesophageal Reflux Yes: Takes Prevacid Hx Hepatitis/Jaundice No Hx Hiatal Hernia Yes Hx Irritable Bowel Yes Hx Liver Disease No Hx Nausea/Vomiting No Hx Obstructive Bowel Yes Hx Pancreatitis No Hx Rectal Bleeding No Hx Ulcer No Hx Weight Loss/Weight Gain No PMH - Hx Genitourinary Disorders Yes Hx Bladder Problem Yes Hx Dialysis No Hx Kidney Stones Yes Hx Renal Disease No Hx Urinary Tract Infection Yes Comment: hyst PMH - Endocrine Hx Endocrine Disorders Yes Hx Diabetes Yes: takes metformin Hx Thyroid Disease Yes: partial thyroidectmoy PMH - Musculoskeletal Hx Musculoskeletal Disorders Yes Hx Arthritis Yes Hx Back Injury Yes Hx Fibromyalgia No Hx Gout No Hx Musculoskeletal Disease No Hx Osteoporosis unsure Comment: Patient has chronic back pain problems PMH - Psych Hx Psychiatric Problems Yes Hx Anxiety No Hx Behavior Problems No Hx Depression Yes Hx Emotional Abuse No Hx Sexual Abuse No Hx Suicide Attempt No PMH - Hematology/Oncology Hx Hematology/Oncology Yes Disorders Hx Anemia Yes Hx Blood Disorders No Hx Bruising No Hx Cancer Yes: breast cancer, skin cancer Hx Chemotherapy No Hx Radiation Therapy No Hx Clotting Problems No Hx Sickle Cell Disease No Hx Unexplained Bleeding No Hx Blood Transfusion Reaction No Comment: iron infussion-11/24/2015 x1 Premorbid Status: Detail (Pt. reported Ind. with all I/ADL's, including mobility , self-care, driving, and grocery shopping.) Social History: Detail (Pt. lives alone in a single story house with 3 steps to enter (1 railing). Bathroom has a tub/shower combo with shower chair and HH shower head; standard toilet seat; no grab bars present. Pt. stated toilet seat is low but doesn't have any difficulty with t/f.) Precautions: Other (contact precautions for cdiff.) - Time With Patient Total Time Spent With Patient (Min): 20 Treatment Procedures: Detail (OT Eval Low. Session was concluded with pt. seated EOB and call light within reach. Cardiac staff arrived to perform echo testing.) Subjective Information - Subjective Information Per Patient (R hand dominant. Reported she has not fallen at home.) Objective Data - Mental Status Patient Orientation: Oriented x3 - Visual Perception Appears within normal limits for therapeutic activities - ROM Within normal limits (BUE shd WNL. Lacking slight motion in wrist ext & supination but WFL.) - Strength/Tone Within normal limits (RUE shd flex, abd, biceps 5/5. LUE shd flex, abd, biceps 4 +/5. BUE triceps 4/5. BUE forearm sup/pro & wrist flex, ext 4-/5.) - Coordination Appears within normal limits for therapeutic activities - Bed Mobility Independent - Transfers Independent (sit<>stand from seated EOB with no assistive device.) - Balance Balance Sitting: Good Balance Standing: Good - Sensation Intact (BUE light touch intact fingertips. Pt. reported numbness in BLE.) - ADL's/IADL's Detail (Pt. demo. ability to don/doff sock Ind. Pt. is mobile and has good balance. Pt. reported no concerns about returning to daily activities "after getting strength back up".) Therapy Assessment - Therapy Assessment Detail (In-pt. OT services not required at this time. Pt. may benefit from in- home OT eval to assess environmental needs for maximized safety and Ind., but demo. functional strength and Ind. with LB dressing at this time.) Prognosis - Prognosis Good Plan - Plan Occupational Therapy Plan: D/C from in-pt. OT. Pt. plans to d/c home today.
--- NOTE | 2017-12-16 10:57 | Discharge Summary ---
Providers Discharge Summary Date: 12/16/17 Date of admission: 12/14/17 11:49 Attending physician: MAINE RIVERA Primary care physician: MAINE RIVERA Consults: Consult Orders 12/14/17 16:54 Consult NOW Consulting Provider: JAYCOB GARCIA Physician Instructions: Reason For Exam: 3rd recurrance of c-diff Physical Exam - Vital Signs Vital Signs: Vital Signs - Last 24 Hrs Temp Pulse Pulse Pulse Resp BP Pulse Ox 12/16/17 09:16 88 16 92 L 12/16/17 07:52 96 H 96 H 18 12/16/17 07:41 98.4 F 96 H 18 98/46 95 12/15/17 21:00 83 24 12/15/17 20:00 99.1 F 82 16 137/70 96 12/15/17 18:34 24 99 12/15/17 16:00 99.5 F 83 18 90/53 97 12/15/17 12:00 100.5 F H 97 H 18 115/46 98 - General General Appearance: Alert, Oriented x3, Cooperative, Mild distress Limitations: No limitations - Head Head exam: Atraumatic, Normocephalic, Normal inspection Head exam detail: negative: Abrasion, Contusion, Kapoor's sign, General tenderness, Hematoma, Laceration - Eye Eye exam: Normal appearance. negative: Conjunctival injection, Periorbital swelling, Periorbital tenderness, Scleral icterus - ENT Ear exam: negative: Auricular hematoma, Auricular trauma Nasal Exam: negative: Active bleeding, Discharge, Dried blood Mouth exam: negative: Drooling, Laceration, Tongue elevation - Neck Neck exam: Normal inspection. negative: Meningismus, Tenderness - Respiratory Respiratory exam: Wheezes (upper airway expiratory wheezes). negative: Respiratory distress, Rhonchi, Stridor - Cardiovascular Cardiovascular Exam: Regular rate, Normal rhythm, Normal heart sounds Peripheral Pulses: 3+: Radial (R), Radial (L), Dorsalis Pedis (R), Dorsalis Pedis (L) - GI/Abdominal GI/Abdominal exam: Soft, Diminished bowel sounds. negative: Rebound, Rigid - Rectal Rectal exam: Deferred - exam: Deferred - Extremities Extremities exam: Normal inspection. negative: Pedal edema, Tenderness - Back Back exam: Denies: CVA tenderness (R), CVA tenderness (L) - Neurological Neurological exam: Alert, Normal gait, Oriented X3 - Psychiatric Psychiatric exam: Anxious, Normal mood - Skin Skin exam: Normal color. negative: Abrasion Type of lesion: negative: abrasion Hospitalization - Hospitalization Admission Diagnosis: C. Diff colitis. Dehydration - Hospitalization Course Hospital Course: 82 year old female presented to ED for evaluation of nausea, loose stools, and abdominal cramping for the past 3 days. Patient denied fever or chills or any urinary symptoms. She has had recent treatments for c diff in October 2017 and November 2017. She has been treated with PO flagyl and extended vancomycin treatment for recent c-diff infections. She has had home visiting nurse intermittently since this began in October. On this adsmission the patient still tests positive for clostridium dificile. The patient has been resumed on Vancomycin orally and iv fluids. The patient will be admitted for further work up and evaluation. PMH recent admission [facility] for C-diff- did not see GI, was sent to [facility] r/ t splenic infarct at that time. ED Course: VS: temp 97.7, HR 105, RR 17, BP 125/69, pulse ox 97% CT reviewed from 11/09/17: Abnormal wall thickening of colon c/w colitis, sigmoid diverticulosis without evidence for diverticulitis. Labs: Cl 91, CO2 21, AG 20, AST 52, ALT 55, WBC 8.1, Hgb 13 Stool sample positive for c-diff IV hydration initiated 12/14/17: Pt in mild distress, reports abdominal and bladder spasms, states she has them at home but they are worse today. Has had frequent liquid stools since admission. Pt tolerating PO vanco. IVF infusing, PO potassium replacement, pt tolerating CLD. POC hydration, electrolyte supplement, repeat labs in AM. 12/16/17: The patient is doing well on examination this morning. She says that she had one loose bowel movement last night but she says that she feels much better. She is eager to go home and wants to know when she will be discharged. Labs reviewed and are within normal limits and vitals are stable. PCP Miguel Garcia Procedures: Imaging and X-Rays 12/15/17 12:49 CHEST CTA w contrast [CTA] Stat Cardiology Procedures 12/15/17 13:07 Editor Book .Continuous 07/09/18 13:45 Echo W/CF & Cardiac Doppler NOW Abnormal Labs: Abnormal Lab Results 12/13/17 12/13/17 12/13/17 Range/Units 18:55 18:55 21:41 WBC (4.2-12.2) K/uL RBC (3.80-5.40) M/uL Hgb (11.6-16.0) gm/dl Hct (35.0-47.0) % MCV (81-97) fl MCHC (32-36) g/dl RDW 14.9 H (11.5-14.5) % Band Neutrophils % (0-5) % Lymphocytes % 10.5 L (16-45) % Monocytes % 13.9 H (0-9) % Monocytes (0-9) % D-Dimer (0-0.59) mg/L FEU Sodium 132 L (136-145) mmol/L Potassium (3.4-4.5) mmol/L Chloride 91 L (98-107) mmol/L Carbon Dioxide 21.0 L (22-29) mmol/L Anion Gap 20.0 H (7-16) BUN (8-23) mg/dL Creatinine 1.0 H (0.5-0.9) mg/dL Random Glucose 141 H (74-109) mg/dL Calcium (8.8-10.2) mg/dL AST 52 H (10.0-35.0) U/L ALT 55 H (<33) U/L NT-Pro-B Natriuret Pep (<450) pg/mL Lipase 11 L (13-60) U/L C. difficile Ag & Toxin Detected H (NOT DETECT) 12/14/17 12/14/17 12/15/17 Range/Units 08:38 08:38 06:28 WBC 3.8 L (4.2-12.2) K/uL RBC 3.30 L 3.29 L (3.80-5.40) M/uL Hgb 10.1 L 10.0 L (11.6-16.0) gm/dl Hct 32.0 L 32.4 L (35.0-47.0) % MCV 98.5 H (81-97) fl MCHC 31.6 L 30.9 L (32-36) g/dl RDW 14.7 H 14.6 H (11.5-14.5) % Band Neutrophils % 8.0 H (0-5) % Lymphocytes % (16-45) % Monocytes % (0-9) % Monocytes 17.0 H 10.0 H (0-9) % D-Dimer (0-0.59) mg/L FEU Sodium (136-145) mmol/L Potassium 3.1 L (3.4-4.5) mmol/L Chloride (98-107) mmol/L Carbon Dioxide 21.0 L (22-29) mmol/L Anion Gap (7-16) BUN (8-23) mg/dL Creatinine (0.5-0.9) mg/dL Random Glucose (74-109) mg/dL Calcium 8.4 L (8.8-10.2) mg/dL AST (10.0-35.0) U/L ALT (<33) U/L NT-Pro-B Natriuret Pep (<450) pg/mL Lipase (13-60) U/L C. difficile Ag & Toxin (NOT DETECT) 12/15/17 12/15/17 12/15/17 Range/Units 06:28 12:07 12:07 WBC (4.2-12.2) K/uL RBC (3.80-5.40) M/uL Hgb (11.6-16.0) gm/dl Hct (35.0-47.0) % MCV (81-97) fl MCHC (32-36) g/dl RDW (11.5-14.5) % Band Neutrophils % (0-5) % Lymphocytes % (16-45) % Monocytes % (0-9) % Monocytes (0-9) % D-Dimer 0.84 H (0-0.59) mg/L FEU Sodium (136-145) mmol/L Potassium (3.4-4.5) mmol/L Chloride (98-107) mmol/L Carbon Dioxide 21.0 L (22-29) mmol/L Anion Gap (7-16) BUN (8-23) mg/dL Creatinine (0.5-0.9) mg/dL Random Glucose (74-109) mg/dL Calcium 8.1 L (8.8-10.2) mg/dL AST (10.0-35.0) U/L ALT (<33) U/L NT-Pro-B Natriuret Pep 4829.00 H (<450) pg/mL Lipase (13-60) U/L C. difficile Ag & Toxin (NOT DETECT) 12/16/17 12/16/17 Range/Units 06:24 06:24 WBC (4.2-12.2) K/uL RBC 3.38 L (3.80-5.40) M/uL Hgb 10.3 L (11.6-16.0) gm/dl Hct 32.4 L (35.0-47.0) % MCV (81-97) fl MCHC 31.8 L (32-36) g/dl RDW (11.5-14.5) % Band Neutrophils % (0-5) % Lymphocytes % (16-45) % Monocytes % 13.7 H (0-9) % Monocytes (0-9) % D-Dimer (0-0.59) mg/L FEU Sodium (136-145) mmol/L Potassium (3.4-4.5) mmol/L Chloride (98-107) mmol/L Carbon Dioxide (22-29) mmol/L Anion Gap (7-16) BUN 7 L (8-23) mg/dL Creatinine (0.5-0.9) mg/dL Random Glucose (74-109) mg/dL Calcium 8.5 L (8.8-10.2) mg/dL AST (10.0-35.0) U/L ALT (<33) U/L NT-Pro-B Natriuret Pep (<450) pg/mL Lipase (13-60) U/L C. difficile Ag & Toxin (NOT DETECT) Condition at Discharge: (2) Stable Discharge Medications - Discharge Medications Prescriptions: Fidaxomicin 200Mg Tablet [Dificid] 200 mg PO BID 9 Days #18 tablet Home Medications: Ambulatory Orders Multivitamin/Iron/Folic Acid [Centrum] 1 tab PO DAILY 07/24/16 [Last Taken 12/11] Bifidobacterium Infantis [Align] 4 mg PO DAILY #30 capsule 10/22/17 [Last Taken 11/08/17] Hydrocodone/Acetaminophen [[place] 5-325 Tablet] 1 each PO Q8H PRN #14 tablet 06/ 06/18 [Last Taken Unknown] Fidaxomicin 200Mg Tablet [Dificid] 200 mg PO BID 9 Days #18 tablet 12/16/17 [ Last Taken Unknown] Discharge Plan - Discharge Instructions Diet at Discharge: Advance to Usual Diet Additional Instructions: Please advance your diet as tolerated. Completed the antibiotics that have been ordered for an additional 9 days. Dificid 200mg twice daily. Appointment with Dr. Rivera 12/26 at 9:20AM Quality Measures - Quality Measures Quality Measures: Advance Directives, Documentation of Current Medications in Medical Record, Elder Maltreatment Screen and Follow-Up Plan, Screening for High Blood Pressure and F/U Documented - Current Medications Quality Measure: Measure #130: Documentation of Current Medications Documentation of Current Medications: <Current Medications Documented/Reviewed> [G8465] - Blood Pressure Screening Quality Measure: Screening for High Blood Pressure and Follow-Up Documented Does Patient Have Any of the Following: No Blood Pressure Classification: Normal BP Reading Systolic Measurement: 103 Diastolic Measurement: 57 Screening for High Blood Pressure: < Normal BP, F/U Not Required > [G8758] - Advance Directives Quality Measure: Measure #47: Care Plan Advance Directives Established: Yes Advance Directives Information Provided To Patient: No Advance Directives on File: No Living Will: Yes Power of Crop Farm Helper: Yes Power of Crop Farm Helper Name: EVELIN CUNNINGHAM Advance Care Planning: <Care Plan/Decision Maker Not Decided; Discussed & Documented> [2945F] - Elder Abuse Suspicion Index Screening: Elder Abuse Suspicion Index Screening Rely on people for bathing, dressing, shopping, banking, etc: No Prevented from getting food, clothes, medication, etc: No Made to feel shamed or threatened by someone: No Forced to sign papers or use money against will: No Feel afraid, touched in ways not wanted or hurt physically: No Poor eye contact, withdrawn, malnourished, cuts or bruises: No Screening Result: Negative result EASI Reference Information: Rubio STEPHENS, Real C, Janice D, Mariam Newby.Development and validation of a tool to assist physicians identification of elder abuse: The Elder Abuse Suspicion Index (EASI ). Journal of Elder Abuse and Neglect, 2008; 20 (3): 276-300. - Elder Maltreatment Screen Quality Measures: Elder Maltreatment Screen and Follow-Up Plan Elder Maltreatment Screen: <Negative, No Follow-Up Plan Required> [G8734]
== END 2017-12-16 14:52 | disposition home or self-care (01) | DRG 373 ==
LOC: ER 17:58 → MEDSURG 12-14 00:01 → OBSVTOIN 12-14 11:49
PROVIDERS: ADMIT Internal Medicine; ATTEND Internal Medicine
DX: A04.71 Enterocolitis due to Clostridium difficile, recurrent (principal); E86.0 Dehydration; R06.00 Dyspnea, unspecified; E87.6 Hypokalemia; E11.9 Type 2 diabetes mellitus without complications; Z79.84 Long term (current) use of oral hypoglycemic drugs; E03.9 Hypothyroidism, unspecified; D64.9 Anemia, unspecified; M19.90 Unspecified osteoarthritis, unspecified site; K21.9 Gastro-esophageal reflux disease without esophagitis; K44.9 Diaphragmatic hernia without obstruction or gangrene; F17.210 Nicotine dependence, cigarettes, uncomplicated; Z85.820 Personal history of malignant melanoma of skin; Z85.3 Personal history of malignant neoplasm of breast; Z87.442 Personal history of urinary calculi
CPT/HCPCS: 83690; 85025; 80048; 80053; 87493; 85027; J1980; J2405; J3370 ×2; 71275; 83880; 85379; 93306; 94640; 94760; 96360; 96361; 96374; 99223; 99233; 99239; 99285; J1650; J1940; J7030

== ENCOUNTER 2018-01-05 16:07 | Emergency (ER) | payer MEDICARE, BC ==
--- NOTE | 2018-01-05 16:46 | Emergency Department Record ---
History of Present Illness - General Chief Complaint: Abdominal Pain Stated Complaint: ABD PAIN/DIARRHEA Time Seen by Provider: 01/05/18 16:38 Source: Patient, RN notes reviewed Mode of Arrival: Ambulatory - History of Present Illness Initial Comments: diarrhea started yesterday and times two yesterday and thee bouts today and she recently was in the hospital for C diff and still taking antibiotics for c diff twice a day. It was difficult getting her antibiotic for c diff and she recently got it started 2 days ago. Onset/Timin -: Days(s) Radiation: None Migration to: No migration Severity scale (1-10): 10 Quality: Aching Consistency: Constant Improves With: Nothing Worsens With: Nothing - Related Data Previous Rx's Medication Instructions Recorded Bifidobacterium Infantis [Align] 4 mg PO DAILY #30 capsule 10/22/17 Fidaxomicin 200Mg Tablet [Dificid] 200 mg PO BID #14 tablet 01/05/18 Allergies Allergy/AdvReac Type Severity Reaction Status Date / Time fentanyl Allergy Severe FATIGUE Verified 12/14/17 00:58 amoxicillin [Amoxicillin] AdvReac Intermediate DIARRHEA Verified 12/14/17 00:58 morphine AdvReac Intermediate DIZZINESS Verified 12/14/17 00:58 nitrofurantoin AdvReac Intermediate DIZZINESS Verified 12/14/17 00:58 [From Macrobid] nitrofurantoin AdvReac Intermediate DIZZINESS Verified 12/14/17 00:58 macrocrystalline [From Macrobid] oxycodone HCl [From Percocet] AdvReac Intermediate DIZZINESS Verified 12/14/17 00:58 Travel Screening - Travel/Exposure Within Last 30 Days Have you traveled within the last 30 days?: No - Travel/Exposure Within Last Year Have you traveled outside the [place] in the last year?: No - Additonal Travel Details Have you been exposed to anyone with a communicable illness?: No - Travel Symptoms Symptom Screening: None Review of Systems Reviewed: No additional complaints except as noted below Constitutional: Reports: As per HPI. Denies: Chills, Fever, Malaise, Night sweats, Weakness, Weight change Eyes: Reports: As per HPI. Denies: Eye discharge, Eye pain, Photophobia, Vision change ENT: Reports: As per HPI. Denies: Congestion, Dental pain, Ear pain, Epistaxis , Hearing loss, Throat pain Respiratory: Reports: As per HPI. Denies: Cough, Dyspnea, Hemoptysis, Stridor, Wheezes Cardiovascular: Reports: As per HPI. Denies: Arrhythmia, Chest pain, Dyspnea on exertion, Edema, Murmurs, Orthopnea, Palpitations, Paroxysmal nocturnal dyspnea, Rheumatic Fever, Syncope Endocrine: Reports: As per HPI. Denies: Fatigue, Heat or cold intolerance, Polydipsia, Polyuria Gastrointestinal: Reports: As per HPI, Diarrhea. Denies: Abdominal pain, Constipation, Hematemesis, Hematochezia, Melena, Nausea, Vomiting Genitourinary: Reports: As per HPI. Denies: Abnormal menses, Discharge, Dyspareunia, Dysuria, Frequency, Hematuria, Incontinence, Retention, Urgency Musculoskeletal: Reports: As per HPI, Back pain. Denies: Arthralgia, Gout, Joint swelling, Myalgia, Neck pain Skin: Reports: As per HPI. Denies: Bruising, Change in color, Change in hair/ nails, Lesions, Pruritus, Rash Neurological: Reports: As per HPI. Denies: Abnormal gait, Confusion, Headache, Numbness, Paresthesias, Seizure, Tingling, Tremors, Vertigo, Weakness Psychiatric: Reports: As per HPI. Denies: Anxiety, Auditory hallucinations, Depression, Homicidal thoughts, Suicidal thoughts, Visual hallucinations Hematological/Lymphatic: Reports: As per HPI. Denies: Anemia, Blood Clots, Easy bleeding, Easy bruising, Swollen glands Past Medical History - SOCIAL HISTORY Smoking Status: Current every day smoker Alcohol Use: None Drug Use: None - RESPIRATORY Hx Respiratory Disorders: Yes Hx Asthma: No Hx Bronchitis: No Hx COPD: No Hx Dyspnea: Yes Hx Pneumonia: No Hx Pulmonary Embolism: No Hx Sleep Apnea: Yes Hx Tuberculosis: No - CARDIOVASCULAR Hx Cardio Disorders: No Hx Hypertension: Yes (No longer takes medication) Comment:: Pt states many years ago she was told that she had a murmur - NEURO Hx Neuro Disorders: Yes Hx Brain Tumor: No Hx CVA: No Hx Dementia: No Hx Dizziness: Yes (Per patient) Hx Headaches: No Hx Neuropathy: No Hx Parkinson's Disease: No Hx Seizures: No Hx Speech Problem: No Hx TIA: No - GI Hx GI Disorders: Yes Hx Abdominal Pain: No Hx Celiac Disease: No Hx Crohn's Disease: No Hx Diverticulitis: No Hx GI Bleed: No Hx Reflux: Yes (Takes Prevacid) Hx Hepatitis/Jaundice: No Hx Hiatal Hernia: Yes Hx Irritable Bowel: Yes Hx Liver Disease: No Hx Nausea/Vomiting: No Hx Obstructive Bowel: Yes Hx Pancreatitis: No Hx Rectal Bleeding: No Hx Ulcer: No Hx Wt Loss/Wt Gain: No - Hx Genitourinary Disorders: Yes Hx Bladder Problem: Yes Hx Dialysis: No Hx Kidney Stones: Yes Hx Renal Disease: No Hx UTI: Yes - ENDOCRINE Hx Endocrine Disorders: Yes Hx Diabetes: Yes (takes metformin) Hx Thyroid Disease: Yes (partial thyroidectmoy) - MUSCULOSKELETAL Hx Musculoskeletal Disorders: Yes Hx Arthritis: Yes Hx Back Injury: Yes Hx Fibromyalgia: No Hx Gout: No Hx Musculoskeletal Disease: No Hx Osteoporosis: (unsure) - PSYCH Hx Psych Problems: Yes Hx Anxiety: No Hx Behavior Problems: No Hx Depression: Yes Hx Emotional Abuse: No Hx Sexual Abuse: No Hx Suicide Attempt: No - HEMATOLOGY/ONCOLOGY Hx Hematology/Oncology Disorders: Yes Hx Anemia: Yes Hx Blood Disorders: No Hx Bruising: No Hx Cancer: Yes (breast cancer, skin cancer) Hx Chemotherapy: No Hx Radiation Therapy: No Hx Clotting Problems: No Hx Sickle Cell Disease: No Hx Unexplained Bleeding: No Hx Blood Transfusions: Yes (1 yr ago) Hx Blood Transfusion Reaction: No Family Medical History Any Significant Family History?: No Hx Anxiety: Mother Hx Dementia: Father Hx Depression: Mother Hx Stroke: Mother Physical Exam - General General Appearance: Alert, Oriented x3, Cooperative, No acute distress - Head Head exam: Normal inspection - Eye Eye exam: Normal appearance, PERRL Pupils: Normal accommodation - ENT ENT exam: Normal exam, Mucous membranes moist, Normal external ear exam, Normal orophraynx, TM's normal bilaterally Ear exam: Normal external inspection. negative: External canal tenderness Nasal Exam: Normal inspection. negative: Discharge, Sinus tenderness Mouth exam: Normal external inspection, Tongue normal Teeth exam: Normal inspection. negative: Dental caries Throat exam: Normal inspection. negative: Tonsillar erythema, Tonsillar exudate - Neck Neck exam: Normal inspection, Full ROM. negative: Tenderness - Respiratory Respiratory exam: Normal lung sounds bilaterally. negative: Respiratory distress - Cardiovascular Cardiovascular Exam: Regular rate, Normal rhythm, Normal heart sounds - GI/Abdominal GI/Abdominal exam: Soft, Normal bowel sounds. negative: Tenderness - Rectal Rectal exam: Deferred - exam: Deferred - Extremities Extremities exam: Normal inspection, Full ROM, Normal capillary refill. negative: Tenderness - Back Back exam: Reports: Normal inspection, Full ROM, Tenderness (left thoracic back pain T8). Denies: Muscle spasm, Rash noted - Neurological Neurological exam: Alert, Normal gait, Oriented X3, Reflexes normal - Psychiatric Psychiatric exam: Normal affect, Normal mood - Skin Skin exam: Dry, Intact, Normal color, Warm Course Vital Signs 01/05/18 16:28 Temperature 97.6 F Pulse Rate 89 Respiratory 20 Rate Blood Pressure 91/45 Pulse Ox 96 - Reevaluation(s) Reevaluation #1: patient demanded something for her left thoracic back pain. When offerred norco she refused it .Dilaudid ordered 01/05/18 16:56 Reevaluation #2: c dif positive 01/05/18 18:08 Medical Decision Making - Lab Data Result diagrams: 01/05/18 17:10 01/05/18 17:10 Disposition Clinical Impression: C. difficile diarrhea Diarrhea Qualifiers: Diarrhea type: unspecified type Qualified Code(s): R19.7 - Diarrhea, unspecified Back pain Qualifiers: Back pain location: thoracic back pain Chronicity: acute Back pain laterality: left Qualified Code(s): M54.6 - Pain in thoracic spine Disposition: Home, Self-Care Condition: (1) Good Instructions: Clostridium Difficile Infection (ED) Additional Instructions: follow up with family Practice clinic in 3 days continue medication for c diff twice a day Prescriptions: Fidaxomicin 200Mg Tablet [Dificid] 200 mg PO BID #14 tablet Forms: Patient Portal Access Time of Disposition: 18:10 Quality - Quality Measures Quality Measures: N/A - Blood Pressure Screening Does Patient Have Any of the Following: No Blood Pressure Classification: Normal BP Reading Systolic Measurement: 91 Diastolic Measurement: 45 Screening for High Blood Pressure: < Normal BP, F/U Not Required > [G8783]
[2018-01-05 17:25] LABS: BASO % 0.3 % (0-6); EOS % 1.3 % (0-6); HEMATOCRIT 40.9 % (35.0-47.0); LYMPH % 20.3 % (16-45); MEAN CELL VOLUME 94.2 fl (81-97); MEAN CORPUSCULAR HGB CONC 31.8 g/dl (32-36); MEAN PLATELET VOLUME 8.7 fl (7.4-10.4); MONO % 11.1 % (0-9); PLATELET COUNT 195 K/uL (130-400); RED BLOOD COUNT 4.34 M/uL (3.80-5.40); RED CELL DISTRIBUTION WIDTH 14.7 % (11.5-14.5); WHITE BLOOD COUNT W/O DIFF 7.6 K/uL (4.2-12.2)
[2018-01-05] MEDS: HYDROCODONE/APAP 7.5/325MG TABLET PO ONE (17:25)
[2018-01-05 17:31] LABS: BLOOD UREA NITROGEN 21 mg/dL (8-23); EST GLOMERULAR FILTRATION RATE 57 mL/min
[2018-01-05 17:32] LABS: TOTAL PROTEIN 7.6 g/dL (6.6-8.7)
[2018-01-05 17:34] LABS: GLUCOSE,RANDOM 129 mg/dL (74-109)
[2018-01-05 17:36] LABS: ALT/SGPT 30 U/L (<33)
[2018-01-05 17:37] LABS: ALBUMIN 4.6 g/dL (4.0-5.0); ALKALINE PHOSPHATASE 51 U/L (35-104); AST/SGOT 44 U/L (10.0-35.0); BILIRUBIN,DIRECT < 0.2 mg/dL (0-0.3); LIPASE 29 U/L (13-60)
[2018-01-05] MEDS: 0.9 % SODIUM CHLORIDE 1000ML 1,000 ML IV PRN (17:39)
[2018-01-05] MEDS: HYDROMORPHONE HCL 2 MG/ML VIAL IM ONE (17:39)
== END 2018-01-05 18:37 | disposition home or self-care (01) ==
LOC: ER 16:07
DX: A04.72 Enterocolitis due to Clostridium difficile, not specified as recurrent (principal); R19.7 Diarrhea, unspecified; M54.6 Pain in thoracic spine; E03.9 Hypothyroidism, unspecified; E11.9 Type 2 diabetes mellitus without complications; Z79.84 Long term (current) use of oral hypoglycemic drugs
CPT/HCPCS: 99283 ×2; 96372; 83690; 85025; 80076; 80048; 87427; 87493; J1170

== ENCOUNTER 2018-01-23 13:26 | Emergency (ER) | payer MEDICARE, BC ==
--- NOTE | 2018-01-23 13:59 | Emergency Department Record ---
History of Present Illness - General Chief Complaint: Abdominal Pain Stated Complaint: C-DIF Time Seen by Provider: 01/23/18 13:28 Source: Patient, RN notes reviewed Mode of Arrival: Wheelchair - History of Present Illness Initial Comments: abdominal and back pain and stopped her dificid about 5 days ago and yesterday she developed diarrhea times three and today she had 8 loose bm's today and vomiting times 5 today and drinking water and nauseated and last episode of vomiting at 12:30 pm today. Daughter states five episodes of c dif. . Patient has chronic thoracic back pain. Treated at [facility] and [facility]. Onset/Timin -: Days(s) Location: Diffuse Radiation: Back Severity scale (1-10): 10 Quality: Cramping Consistency: Constant Improves With: Nothing Worsens With: Nothing - Related Data Previous Rx's Medication Instructions Recorded Fidaxomicin 200Mg Tablet [Dificid] 200 mg PO BID #10 tablet 01/23/18 Allergies Allergy/AdvReac Type Severity Reaction Status Date / Time fentanyl Allergy Severe FATIGUE Verified 01/23/18 13:48 amoxicillin [Amoxicillin] AdvReac Intermediate DIARRHEA Verified 01/23/18 13:48 morphine AdvReac Intermediate DIZZINESS Verified 01/23/18 13:48 nitrofurantoin AdvReac Intermediate DIZZINESS Verified 01/23/18 13:48 [From Macrobid] nitrofurantoin AdvReac Intermediate DIZZINESS Verified 01/23/18 13:48 macrocrystalline [From Macrobid] oxycodone HCl [From Percocet] AdvReac Intermediate DIZZINESS Verified 01/23/18 13:48 Travel Screening - Travel/Exposure Within Last 30 Days Have you traveled within the last 30 days?: No - Travel/Exposure Within Last Year Have you traveled outside the [place] in the last year?: No - Additonal Travel Details Have you been exposed to anyone with a communicable illness?: No Review of Systems Reviewed: No additional complaints except as noted below Constitutional: Reports: As per HPI. Denies: Chills, Fever, Malaise, Night sweats, Weakness, Weight change Eyes: Reports: As per HPI. Denies: Eye discharge, Eye pain, Photophobia, Vision change ENT: Reports: As per HPI. Denies: Congestion, Dental pain, Ear pain, Epistaxis , Hearing loss, Throat pain Respiratory: Reports: As per HPI. Denies: Cough, Dyspnea, Hemoptysis, Stridor, Wheezes Cardiovascular: Reports: As per HPI. Denies: Arrhythmia, Chest pain, Dyspnea on exertion, Edema, Murmurs, Orthopnea, Palpitations, Paroxysmal nocturnal dyspnea, Rheumatic Fever, Syncope Endocrine: Reports: As per HPI. Denies: Fatigue, Heat or cold intolerance, Polydipsia, Polyuria Gastrointestinal: Reports: As per HPI. Denies: Abdominal pain, Constipation, Diarrhea, Hematemesis, Hematochezia, Melena, Nausea, Vomiting Genitourinary: Reports: As per HPI. Denies: Abnormal menses, Discharge, Dyspareunia, Dysuria, Frequency, Hematuria, Incontinence, Retention, Urgency Musculoskeletal: Reports: As per HPI. Denies: Arthralgia, Back pain, Gout, Joint swelling, Myalgia, Neck pain Skin: Reports: As per HPI. Denies: Bruising, Change in color, Change in hair/ nails, Lesions, Pruritus, Rash Neurological: Reports: As per HPI. Denies: Abnormal gait, Confusion, Headache, Numbness, Paresthesias, Seizure, Tingling, Tremors, Vertigo, Weakness Psychiatric: Reports: As per HPI. Denies: Anxiety, Auditory hallucinations, Depression, Homicidal thoughts, Suicidal thoughts, Visual hallucinations Hematological/Lymphatic: Reports: As per HPI. Denies: Anemia, Blood Clots, Easy bleeding, Easy bruising, Swollen glands Past Medical History - SOCIAL HISTORY Smoking Status: Current every day smoker Alcohol Use: None Drug Use: None - RESPIRATORY Hx Respiratory Disorders: Yes Hx Asthma: No Hx Bronchitis: No Hx COPD: No Hx Dyspnea: Yes Hx Pneumonia: No Hx Pulmonary Embolism: No Hx Sleep Apnea: Yes Hx Tuberculosis: No - CARDIOVASCULAR Hx Cardio Disorders: No Hx Hypertension: Yes (No longer takes medication) Comment:: Pt states many years ago she was told that she had a murmur - NEURO Hx Neuro Disorders: Yes Hx Brain Tumor: No Hx CVA: No Hx Dementia: No Hx Dizziness: Yes (Per patient) Hx Headaches: No Hx Neuropathy: No Hx Parkinson's Disease: No Hx Seizures: No Hx Speech Problem: No Hx TIA: No - GI Hx GI Disorders: Yes Hx Abdominal Pain: No Hx Celiac Disease: No Hx Crohn's Disease: No Hx Diverticulitis: No Hx GI Bleed: No Hx Reflux: Yes (Takes Prevacid) Hx Hepatitis/Jaundice: No Hx Hiatal Hernia: Yes Hx Irritable Bowel: Yes Hx Liver Disease: No Hx Nausea/Vomiting: No Hx Obstructive Bowel: Yes Hx Pancreatitis: No Hx Rectal Bleeding: No Hx Ulcer: No Hx Wt Loss/Wt Gain: No - Hx Genitourinary Disorders: Yes Hx Bladder Problem: Yes Hx Dialysis: No Hx Kidney Stones: Yes Hx Renal Disease: No Hx UTI: Yes - ENDOCRINE Hx Endocrine Disorders: Yes Hx Diabetes: Yes (takes metformin) Hx Thyroid Disease: Yes (partial thyroidectmoy) - MUSCULOSKELETAL Hx Musculoskeletal Disorders: Yes Hx Arthritis: Yes Hx Back Injury: Yes Hx Fibromyalgia: No Hx Gout: No Hx Musculoskeletal Disease: No Hx Osteoporosis: (unsure) - PSYCH Hx Psych Problems: Yes Hx Anxiety: No Hx Behavior Problems: No Hx Depression: Yes Hx Emotional Abuse: No Hx Sexual Abuse: No Hx Suicide Attempt: No - HEMATOLOGY/ONCOLOGY Hx Hematology/Oncology Disorders: Yes Hx Anemia: Yes Hx Blood Disorders: No Hx Bruising: No Hx Cancer: Yes (breast cancer, skin cancer) Hx Chemotherapy: No Hx Radiation Therapy: No Hx Clotting Problems: No Hx Sickle Cell Disease: No Hx Unexplained Bleeding: No Hx Blood Transfusions: Yes (1 yr ago) Hx Blood Transfusion Reaction: No Family Medical History Any Significant Family History?: No Hx Anxiety: Mother Hx Dementia: Father Hx Depression: Mother Hx Stroke: Mother Physical Exam - General General Appearance: Alert, Oriented x3, Cooperative, No acute distress - Head Head exam: Normal inspection - Eye Eye exam: Normal appearance, PERRL Pupils: Normal accommodation - ENT ENT exam: Normal exam, Mucous membranes moist, Normal external ear exam, Normal orophraynx, TM's normal bilaterally Ear exam: Normal external inspection. negative: External canal tenderness Nasal Exam: Normal inspection. negative: Discharge, Sinus tenderness Mouth exam: Normal external inspection, Tongue normal Teeth exam: Normal inspection. negative: Dental caries Throat exam: Normal inspection. negative: Tonsillar erythema, Tonsillar exudate - Neck Neck exam: Normal inspection, Full ROM. negative: Tenderness - Respiratory Respiratory exam: Normal lung sounds bilaterally. negative: Respiratory distress - Cardiovascular Cardiovascular Exam: Regular rate, Normal rhythm, Normal heart sounds - GI/Abdominal GI/Abdominal exam: Soft, Normal bowel sounds. negative: Tenderness - Rectal Rectal exam: Deferred - exam: Deferred - Extremities Extremities exam: Normal inspection, Full ROM, Normal capillary refill. negative: Tenderness - Back Back exam: Reports: Normal inspection, Full ROM. Denies: Muscle spasm, Rash noted, Tenderness - Neurological Neurological exam: Alert, Normal gait, Oriented X3, Reflexes normal - Psychiatric Psychiatric exam: Normal affect, Normal mood - Skin Skin exam: Dry, Intact, Normal color, Warm Course Vital Signs 01/23/18 13:37 Temperature 98.5 F Pulse Rate 99 H Respiratory 20 Rate Blood Pressure 168/75 Pulse Ox 99 - Reevaluation(s) Reevaluation #1: discussed case with daughter zbigniew and if not improving with difiicid she needs to go to [facility] to get plugged in with GI where they can do a fecal transplant 01/23/18 15:11 Medical Decision Making - Lab Data Result diagrams: 01/23/18 14:05 01/23/18 14:05 Disposition Clinical Impression: C. difficile diarrhea Diarrhea Qualifiers: Diarrhea type: infectious Qualified Code(s): A09 - Infectious gastroenteritis and colitis, unspecified Back pain Qualifiers: Back pain location: thoracic back pain Chronicity: chronic Back pain laterality : left Qualified Code(s): M54.6 - Pain in thoracic spine Disposition: Home, Self-Care Condition: (2) Stable Instructions: Clostridium Difficile Infection (ED), Acute Diarrhea (ED) Additional Instructions: follow up with Dr. Rivera in 4 days Prescriptions: Fidaxomicin 200Mg Tablet [Dificid] 200 mg PO BID #10 tablet Forms: Patient Portal Access Time of Disposition: 15:23 Quality - Quality Measures Quality Measures: N/A - Blood Pressure Screening Does Patient Have Any of the Following: No Blood Pressure Classification: Hypertensive Reading Systolic Measurement: 168 Diastolic Measurement: 75 Screening for High Blood Pressure: < Pre-Hypertensive BP, F/U Documented > [ [id number]] Pre-Hypertensive Follow-up Interventions: Referral to alternative/primary care provider.
[2018-01-23] MEDS ORDERED: ONDANSETRON HCL IV 4 MG/2 ML VIAL IV ONE (14:08)
[2018-01-23] MEDS ORDERED: 0.9 % SODIUM CHLORIDE 1,000 ML BAG IV ONE (14:08)
[2018-01-23] MEDS ORDERED: ORPHENADRINE CITRATE 60MG/2ML VIAL IM ONE (14:10)
[2018-01-23 14:20] LABS: HEMATOCRIT 43.2 % (35.0-47.0); MEAN CELL VOLUME 92.3 fl (81-97); MEAN CORPUSCULAR HEMOGLOBIN 29.9 pg (27-33); MEAN CORPUSCULAR HGB CONC 32.4 g/dl (32-36); MEAN PLATELET VOLUME 9.4 fl (7.4-10.4); PLATELET COUNT 178 K/uL (130-400); RED BLOOD COUNT 4.68 M/uL (3.80-5.40); RED CELL DISTRIBUTION WIDTH 14.1 % (11.5-14.5); WHITE BLOOD COUNT W/O DIFF 10.4 K/uL (4.2-12.2)
[2018-01-23 14:26] LABS: BLOOD UREA NITROGEN 15 mg/dL (8-23)
[2018-01-23 14:27] LABS: CREATININE 0.6 mg/dL (0.5-0.9); EST GLOMERULAR FILTRATION RATE > 60 mL/min; TOTAL PROTEIN 7.8 g/dL (6.6-8.7)
[2018-01-23 14:29] LABS: GLUCOSE,RANDOM 189 mg/dL (74-109)
[2018-01-23 14:32] LABS: ALBUMIN 4.8 g/dL (4.0-5.0); ALKALINE PHOSPHATASE 67 U/L (35-104); ALT/SGPT 47 U/L (<33); AST/SGOT 45 U/L (10.0-35.0); BILIRUBIN,DIRECT 0.2 mg/dL (0-0.3)
[2018-01-23 14:38] LABS: PLATELET ESTIMATE NORMAL (NORMAL)
== END 2018-01-23 16:11 | disposition home or self-care (01) ==
LOC: ER 13:26
DX: A04.71 Enterocolitis due to Clostridium difficile, recurrent (principal); R11.2 Nausea with vomiting, unspecified; M54.6 Pain in thoracic spine; G89.29 Other chronic pain; E11.9 Type 2 diabetes mellitus without complications; I10 Essential (primary) hypertension; Z79.84 Long term (current) use of oral hypoglycemic drugs; F17.210 Nicotine dependence, cigarettes, uncomplicated
CPT/HCPCS: 99284 ×2; 96374; 96372; 96361; 80076; 80048; 82272; 85027; J2405; J2360; J7030

== ENCOUNTER 2018-03-02 21:06 | Emergency (ER) | payer MEDICARE, BC ==
[2018-03-02] MEDS ORDERED: KETOROLAC 30 MG/ML VIAL IM ONE (21:57)
--- NOTE | 2018-03-02 22:00 | Emergency Department Record ---
History of Present Illness - General Chief Complaint: Back Pain/Injury Stated Complaint: BACK PAIN Time Seen by Provider: 03/02/18 21:55 Source: Patient Mode of Arrival: Ambulatory Limitations: No limitations - History of Present Illness Initial Comments: 82 yo female presents with left sided back pain in the thoracic area. This is a recurrent issue over many years. The current pain has been ongoing for 4 days. No chest pain, abdominal pain, rash, radiation of pain. No current diarrhea. Most recent GFR was normal. MD Complaint: Back pain Onset/Timin -: Week(s) Similar Symptoms Previously: Yes Place: Home Severity: Severe Severity scale (1-10): 10 Quality: Aching Consistency: Constant, Getting worse Improves With: Medication Worsens With: Movement Context: Other Associated Symptoms: Denies other symptoms Treatments Prior to Arrival: Prescription analgesics - Related Data Home Medications Medication Instructions Recorded Confirmed Last Taken Acetaminophen with Codeine 1 each PO Q6H PRN 03/02/18 03/02/18 Unknown [Tylenol with Codeine #3 Tablet] Previous Rx's Medication Instructions Recorded Fidaxomicin 200Mg Tablet [Dificid] 200 mg PO BID #10 tablet 01/23/18 Allergies Allergy/AdvReac Type Severity Reaction Status Date / Time fentanyl Allergy Severe FATIGUE Unverified 01/27/18 11:46 amoxicillin [Amoxicillin] AdvReac Intermediate DIARRHEA Unverified 01/27/18 11: 46 morphine AdvReac Intermediate DIZZINESS Unverified 01/27/18 11:46 nitrofurantoin AdvReac Intermediate DIZZINESS Unverified 01/27/18 11:46 [From Macrobid] nitrofurantoin AdvReac Intermediate DIZZINESS Unverified 01/27/18 11:46 macrocrystalline [From Macrobid] oxycodone HCl [From Percocet] AdvReac Intermediate DIZZINESS Unverified 11:46 Travel Screening - Travel/Exposure Within Last 30 Days Have you traveled within the last 30 days?: No Review of Systems Constitutional: Denies: Chills, Fever, Malaise, Weakness Eyes: Denies: Eye discharge ENT: Denies: Congestion, Throat pain Respiratory: Denies: Cough, Dyspnea Cardiovascular: Denies: Chest pain, Palpitations, Syncope Endocrine: Denies: Fatigue Gastrointestinal: Denies: Abdominal pain, Diarrhea, Nausea, Vomiting Genitourinary: Denies: Dysuria, Urgency Musculoskeletal: Reports: As per HPI, Back pain Skin: Denies: Bruising, Change in color, Rash Neurological: Denies: Headache Psychiatric: Denies: Anxiety Hematological/Lymphatic: Denies: Blood Clots, Easy bleeding, Easy bruising Past Medical History - SOCIAL HISTORY Smoking Status: Current every day smoker - RESPIRATORY Hx Respiratory Disorders: Yes Hx Asthma: No Hx Bronchitis: No Hx COPD: No Hx Dyspnea: Yes Hx Pneumonia: No Hx Pulmonary Embolism: No Hx Sleep Apnea: Yes Hx Tuberculosis: No - CARDIOVASCULAR Hx Cardio Disorders: No Hx Hypertension: Yes (No longer takes medication) Comment:: Pt states many years ago she was told that she had a murmur - NEURO Hx Neuro Disorders: Yes Hx Brain Tumor: No Hx CVA: No Hx Dementia: No Hx Dizziness: Yes (Per patient) Hx Headaches: No Hx Neuropathy: No Hx Parkinson's Disease: No Hx Seizures: No Hx Speech Problem: No Hx TIA: No - GI Hx GI Disorders: Yes Hx Abdominal Pain: No Hx Celiac Disease: No Hx Crohn's Disease: No Hx Diverticulitis: No Hx GI Bleed: No Hx Reflux: Yes (Takes Prevacid) Hx Hepatitis/Jaundice: No Hx Hiatal Hernia: Yes Hx Irritable Bowel: Yes Hx Liver Disease: No Hx Nausea/Vomiting: No Hx Obstructive Bowel: Yes Hx Pancreatitis: No Hx Rectal Bleeding: No Hx Ulcer: No Hx Wt Loss/Wt Gain: No - Hx Genitourinary Disorders: Yes Hx Bladder Problem: Yes Hx Dialysis: No Hx Kidney Stones: Yes Hx Renal Disease: No Hx UTI: Yes - ENDOCRINE Hx Endocrine Disorders: Yes Hx Diabetes: Yes (takes metformin) Hx Thyroid Disease: Yes (partial thyroidectmoy) - MUSCULOSKELETAL Hx Musculoskeletal Disorders: Yes Hx Arthritis: Yes Hx Back Injury: Yes Hx Fibromyalgia: No Hx Gout: No Hx Musculoskeletal Disease: No Hx Osteoporosis: (unsure) - PSYCH Hx Psych Problems: Yes Hx Anxiety: No Hx Behavior Problems: No Hx Depression: Yes Hx Emotional Abuse: No Hx Sexual Abuse: No Hx Suicide Attempt: No - HEMATOLOGY/ONCOLOGY Hx Hematology/Oncology Disorders: Yes Hx Anemia: Yes Hx Blood Disorders: No Hx Bruising: No Hx Cancer: Yes (breast cancer, skin cancer) Hx Chemotherapy: No Hx Radiation Therapy: No Hx Clotting Problems: No Hx Sickle Cell Disease: No Hx Unexplained Bleeding: No Hx Blood Transfusions: Yes (1 yr ago) Hx Blood Transfusion Reaction: No Family Medical History Any Significant Family History?: Yes Hx Anxiety: Mother Hx Dementia: Father Hx Depression: Mother Hx Stroke: Mother Physical Exam - General General Appearance: Alert, Oriented x3, Cooperative, No acute distress Limitations: No limitations - Head Head exam: Normal inspection - Eye Eye exam: Normal appearance. negative: Conjunctival injection - ENT ENT exam: Normal exam Ear exam: Normal external inspection Nasal Exam: Normal inspection Mouth exam: Normal external inspection - Neck Neck exam: Normal inspection - Respiratory Respiratory exam: Normal lung sounds bilaterally. negative: Respiratory distress - Cardiovascular Cardiovascular Exam: Regular rate, Normal rhythm, Normal heart sounds - GI/Abdominal GI/Abdominal exam: Soft. negative: Tenderness - Rectal Rectal exam: Deferred - exam: Deferred - Extremities Extremities exam: Normal inspection - Back Back exam: Reports: Normal inspection, Paraspinal tenderness (left mid thoracic) , Tenderness. Denies: CVA tenderness (R), CVA tenderness (L), Full ROM, Muscle spasm, Rash noted, Vertebral tenderness - Neurological Neurological exam: Alert, Normal gait, Oriented X3. negative: Abnormal gait, Motor sensory deficit - Psychiatric Psychiatric exam: Normal affect, Normal mood - Skin Skin exam: Dry, Intact, Normal color, Warm Course Vital Signs 03/02/18 21:19 Temperature 98.6 F Pulse Rate [ 102 H Pulse Ox Probe] Respiratory 24 Rate Blood Pressure 144/91 [Left Arm] Pulse Ox 96 Disposition Disposition: Discharge Clinical Impression: Thoracic back pain Disposition: Home, Self-Care Condition: (1) Good Instructions: Thoracic Pain (ED) Additional Instructions: Call your doctor tomorrow for close follow up of the recurrent back pain Return if worse, fever, rash or new concerns Forms: Patient Portal Access Time of Disposition: 21:59 Quality - Quality Measures Quality Measures: N/A - Blood Pressure Screening Does Patient Have Any of the Following: Active Dx of HTN Blood Pressure Classification: Hypertensive Reading Systolic Measurement: 144 Diastolic Measurement: 91 Screening for High Blood Pressure: Patient Exclusion, Hx of HTN [G9744]
[2018-03-02] MEDS ORDERED: ORPHENADRINE CITRATE 60MG/2ML VIAL IM ONE (22:02)
== END 2018-03-02 22:10 | disposition home or self-care (01) ==
LOC: ER 21:06
DX: G89.29 Other chronic pain (principal); M54.6 Pain in thoracic spine; I10 Essential (primary) hypertension; F17.210 Nicotine dependence, cigarettes, uncomplicated
CPT/HCPCS: 99283 ×2; 96372; J1885; J2360

== ENCOUNTER 2018-04-14 14:07 | Emergency (ER) | payer MEDICARE, BC ==
[2018-04-14] MEDS ORDERED: KETOROLAC 30 MG/ML VIAL IM ONE (14:42)
--- NOTE | 2018-04-14 14:42 | Emergency Department Record ---
History of Present Illness - General Chief Complaint: Back Pain/Injury Stated Complaint: MIDDLE BACK PAIN Time Seen by Provider: 04/14/18 14:09 Source: Patient Mode of Arrival: Ambulatory Limitations: No limitations - History of Present Illness Initial Comments: Pt with one week of mid back pain without fall, trauma, or injury. No cough or CP. This is chroinic in nature and "nothing is new". "I have been in pain for a week". Pt states she has a family doctor at this facility she sees. Had Xrays last week that were normal per patient. MD Complaint: Back pain Onset/Timin -: Week(s) Radiation: None Severity: Severe Severity scale (1-10): 10 Quality: Sharp Consistency: Constant Improves With: None Worsens With: None Context: Unknown, Other Associated Symptoms: Denies other symptoms - Related Data Previous Rx's Medication Instructions Recorded Fidaxomicin 200Mg Tablet [Dificid] 200 mg PO BID #10 tablet 01/23/18 Allergies Allergy/AdvReac Type Severity Reaction Status Date / Time fentanyl Allergy Severe FATIGUE Unverified 04/02/18 14:10 amoxicillin [Amoxicillin] AdvReac Intermediate DIARRHEA Unverified 04/02/18 14: 10 morphine AdvReac Intermediate DIZZINESS Unverified 04/02/18 14:10 nitrofurantoin AdvReac Intermediate DIZZINESS Unverified 04/02/18 14:10 [From Macrobid] nitrofurantoin AdvReac Intermediate DIZZINESS Unverified 04/02/18 14:10 macrocrystalline [From Macrobid] oxycodone HCl [From Percocet] AdvReac Intermediate DIZZINESS Unverified 14:10 Travel Screening - Travel/Exposure Within Last 30 Days Have you traveled within the last 30 days?: No Review of Systems Constitutional: Denies: Chills, Fever Eyes: Denies: Eye discharge, Photophobia ENT: Denies: Congestion, Epistaxis Respiratory: Denies: Cough, Dyspnea Cardiovascular: Denies: Arrhythmia, Chest pain Endocrine: Denies: Fatigue, Polydipsia Gastrointestinal: Denies: Abdominal pain, Vomiting Musculoskeletal: Reports: As per HPI Skin: Denies: Bruising Neurological: Denies: Abnormal gait, Headache, Numbness, Weakness Psychiatric: Denies: Anxiety, Suicidal thoughts Hematological/Lymphatic: Denies: Anemia Past Medical History - SOCIAL HISTORY Smoking Status: Current every day smoker - RESPIRATORY Hx Respiratory Disorders: Yes Hx Asthma: No Hx Bronchitis: No Hx COPD: No Hx Dyspnea: Yes Hx Pneumonia: No Hx Pulmonary Embolism: No Hx Sleep Apnea: Yes Hx Tuberculosis: No - CARDIOVASCULAR Hx Cardio Disorders: No Hx Hypertension: Yes (No longer takes medication) Comment:: Pt states many years ago she was told that she had a murmur - NEURO Hx Neuro Disorders: Yes Hx Brain Tumor: No Hx CVA: No Hx Dementia: No Hx Dizziness: Yes (Per patient) Hx Headaches: No Hx Neuropathy: No Hx Parkinson's Disease: No Hx Seizures: No Hx Speech Problem: No Hx TIA: No - GI Hx GI Disorders: Yes Hx Abdominal Pain: No Hx Celiac Disease: No Hx Crohn's Disease: No Hx Diverticulitis: No Hx GI Bleed: No Hx Reflux: Yes (Takes Prevacid) Hx Hepatitis/Jaundice: No Hx Hiatal Hernia: Yes Hx Irritable Bowel: Yes Hx Liver Disease: No Hx Nausea/Vomiting: No Hx Obstructive Bowel: Yes Hx Pancreatitis: No Hx Rectal Bleeding: No Hx Ulcer: No Hx Wt Loss/Wt Gain: No - Hx Genitourinary Disorders: Yes Hx Bladder Problem: Yes Hx Dialysis: No Hx Kidney Stones: Yes Hx Renal Disease: No Hx UTI: Yes - ENDOCRINE Hx Endocrine Disorders: Yes Hx Diabetes: Yes (takes metformin) Hx Thyroid Disease: Yes (partial thyroidectmoy) - MUSCULOSKELETAL Hx Musculoskeletal Disorders: Yes Hx Arthritis: Yes Hx Back Injury: Yes Hx Fibromyalgia: No Hx Gout: No Hx Musculoskeletal Disease: No Hx Osteoporosis: (unsure) - PSYCH Hx Psych Problems: Yes Hx Anxiety: No Hx Behavior Problems: No Hx Depression: Yes Hx Emotional Abuse: No Hx Sexual Abuse: No Hx Suicide Attempt: No - HEMATOLOGY/ONCOLOGY Hx Hematology/Oncology Disorders: Yes Hx Anemia: Yes Hx Blood Disorders: No Hx Bruising: No Hx Cancer: Yes (breast cancer, skin cancer) Hx Chemotherapy: No Hx Radiation Therapy: No Hx Clotting Problems: No Hx Sickle Cell Disease: No Hx Unexplained Bleeding: No Hx Blood Transfusions: Yes (1 yr ago) Hx Blood Transfusion Reaction: No Family Medical History Any Significant Family History?: Yes Hx Anxiety: Mother Hx Dementia: Father Hx Depression: Mother Hx Stroke: Mother Physical Exam - General General Appearance: Alert, Oriented x3, Cooperative, No acute distress - Head Head exam: Atraumatic - Eye Eye exam: Normal appearance, PERRL - ENT ENT exam: Normal exam - Neck Neck exam: Normal inspection. negative: Tenderness - Respiratory Respiratory exam: Normal lung sounds bilaterally. negative: Respiratory distress - Cardiovascular Cardiovascular Exam: Regular rate, Normal rhythm - GI/Abdominal GI/Abdominal exam: Soft. negative: Tenderness - Rectal Rectal exam: Deferred - exam: Deferred - Extremities Extremities exam: Normal inspection. negative: Tenderness - Back Back exam: Reports: Normal inspection, Paraspinal tenderness (Thoracic at T6 left. No skin lesions. ) - Neurological Neurological exam: Alert, Normal gait, Oriented X3 - Psychiatric Psychiatric exam: Normal affect - Skin Skin exam: Normal color. negative: Rash Course Vital Signs 04/14/18 14:15 Temperature 98.2 F Pulse Rate [ 55 L Pulse Ox Probe] Respiratory 20 Rate Blood Pressure 89/60 [Right Arm] Pulse Ox 99 - Reevaluation(s) Reevaluation #1: 04/14/18 14:46 Pt case discussed with PMD Dr. Rivera. He is in office and available to see her. Pt states "he never gives me a shot". I had a conversation regarding the chronis, non acutre nature of her back pains. There is no recent injury or fall , no change from prior. Pt looking for a "pain shot". Names several meds by name that she would like. We have discussed the need for her PMD to manage her chronic pain. She agrees with our plan for Toradol IM and outpt follow up. Medical Decision Making - Data Complexity MDM Data: Review and Summary of Old Record Discussed Disposition Disposition: Discharge Clinical Impression: Thoracic back pain Disposition: Home, Self-Care Condition: (1) Good Instructions: Low Back Strain (ED) Additional Instructions: See your family doctor Forms: Patient Portal Access Quality - Quality Measures Quality Measures: N/A - Blood Pressure Screening Does Patient Have Any of the Following: No Blood Pressure Classification: Normal BP Reading Systolic Measurement: 89 Diastolic Measurement: 60 Screening for High Blood Pressure: < Normal BP, F/U Not Required > [G8783]
== END 2018-04-14 15:00 | disposition home or self-care (01) ==
LOC: ER 14:07
DX: G89.29 Other chronic pain (principal); M54.6 Pain in thoracic spine; I10 Essential (primary) hypertension; F17.210 Nicotine dependence, cigarettes, uncomplicated
CPT/HCPCS: 99283 ×2; 96372; J1885

== ENCOUNTER 2019-02-02 11:22 | Emergency (ER) | payer MEDICARE, BC ==
--- NOTE | 2019-02-02 11:47 | Emergency Department Record ---
History of Present Illness - General Chief Complaint: Back Pain/Injury Stated Complaint: BACK PAIN Time Seen by Provider: 02/02/19 11:46 Source: Patient - History of Present Illness Initial Comments: Patient has an acute exacerbation of her chronic thoracic back pain. She denies injury. This is the same pain she has had for years and has been worked up for in the past. She has an appointment with the pain clinic today at 1pm. Complaint: Back pain Onset/Timin -: Days(s) Quality: Aching Consistency: Constant - Related Data Allergies Allergy/AdvReac Type Severity Reaction Status Date / Time fentanyl Allergy Severe FATIGUE Unverified 12/02/18 15:51 amoxicillin [Amoxicillin] AdvReac Intermediate DIARRHEA Unverified 12/02/18 15:51 morphine AdvReac Intermediate DIZZINESS Unverified 12/02/18 15:51 nitrofurantoin AdvReac Intermediate DIZZINESS Unverified 12/02/18 15:51 [From Macrobid] nitrofurantoin AdvReac Intermediate DIZZINESS Unverified 12/02/18 15:51 macrocrystalline [From Macrobid] oxycodone HCl [From Percocet] AdvReac Intermediate DIZZINESS Unverified 12/02/18 15:51 Travel Screening - Travel/Exposure Within Last 30 Days Have you traveled within the last 30 days?: No - Travel/Exposure Within Last Year Have you traveled outside the [place] in the last year?: No - Additonal Travel Details Have you been exposed to anyone with a communicable illness?: No Review of Systems Reviewed: No additional complaints except as noted below Constitutional: Reports: As per HPI. Denies: Chills, Fever, Malaise, Night sweats, Weakness, Weight change Eyes: Reports: As per HPI. Denies: Eye discharge, Eye pain, Photophobia, Vision change ENT: Reports: As per HPI. Denies: Congestion, Dental pain, Ear pain, Epistaxis, Hearing loss, Throat pain Respiratory: Reports: As per HPI. Denies: Cough, Dyspnea, Hemoptysis, Stridor, Wheezes Cardiovascular: Reports: As per HPI. Denies: Arrhythmia, Chest pain, Dyspnea on exertion, Edema, Murmurs, Orthopnea, Palpitations, Paroxysmal nocturnal dyspnea, Rheumatic Fever, Syncope Endocrine: Reports: As per HPI. Denies: Fatigue, Heat or cold intolerance, Polydipsia, Polyuria Gastrointestinal: Reports: As per HPI. Denies: Abdominal pain, Constipation, Diarrhea, Hematemesis, Hematochezia, Melena, Nausea, Vomiting Genitourinary: Reports: As per HPI. Denies: Abnormal menses, Discharge, Dyspareunia, Dysuria, Frequency, Hematuria, Incontinence, Retention, Urgency Musculoskeletal: Reports: As per HPI. Denies: Arthralgia, Back pain, Gout, Joint swelling, Myalgia, Neck pain Skin: Reports: As per HPI. Denies: Bruising, Change in color, Change in hair/nails, Lesions, Pruritus, Rash Neurological: Reports: As per HPI. Denies: Abnormal gait, Confusion, Headache, Numbness, Paresthesias, Seizure, Tingling, Tremors, Vertigo, Weakness Psychiatric: Reports: As per HPI. Denies: Anxiety, Auditory hallucinations, Depression, Homicidal thoughts, Suicidal thoughts, Visual hallucinations Hematological/Lymphatic: Reports: As per HPI. Denies: Anemia, Blood Clots, Easy bleeding, Easy bruising, Swollen glands Past Medical History - SOCIAL HISTORY Smoking Status: Current every day smoker - RESPIRATORY Hx Respiratory Disorders: Yes Hx Asthma: No Hx Bronchitis: No Hx COPD: No Hx Dyspnea: Yes Hx Pneumonia: No Hx Pulmonary Embolism: No Hx Sleep Apnea: Yes Hx Tuberculosis: No - CARDIOVASCULAR Hx Cardio Disorders: No Hx Hypertension: Yes (No longer takes medication) Comment:: Pt states many years ago she was told that she had a murmur - NEURO Hx Neuro Disorders: Yes Hx Brain Tumor: No Hx CVA: No Hx Dementia: No Hx Dizziness: Yes (Per patient) Hx Headaches: No Hx Neuropathy: No Hx Parkinson's Disease: No Hx Seizures: No Hx Speech Problem: No Hx TIA: No - GI Hx GI Disorders: Yes Hx Abdominal Pain: No Hx Celiac Disease: No Hx Crohn's Disease: No Hx Diverticulitis: No Hx GI Bleed: No Hx Reflux: Yes (Takes Prevacid) Hx Hepatitis/Jaundice: No Hx Hiatal Hernia: Yes Hx Irritable Bowel: Yes Hx Liver Disease: No Hx Nausea/Vomiting: No Hx Obstructive Bowel: Yes Hx Pancreatitis: No Hx Rectal Bleeding: No Hx Ulcer: No Hx Wt Loss/Wt Gain: No - Hx Genitourinary Disorders: Yes Hx Bladder Problem: Yes Hx Dialysis: No Hx Kidney Stones: Yes Hx Renal Disease: No Hx UTI: Yes - ENDOCRINE Hx Endocrine Disorders: Yes Hx Diabetes: Yes (takes metformin) Hx Thyroid Disease: Yes (partial thyroidectmoy) - MUSCULOSKELETAL Hx Musculoskeletal Disorders: Yes Hx Arthritis: Yes Hx Back Injury: Yes Hx Fibromyalgia: No Hx Gout: No Hx Musculoskeletal Disease: No Hx Osteoporosis: (unsure) - PSYCH Hx Psych Problems: Yes Hx Anxiety: No Hx Behavior Problems: No Hx Depression: Yes Hx Emotional Abuse: No Hx Sexual Abuse: No Hx Suicide Attempt: No - HEMATOLOGY/ONCOLOGY Hx Hematology/Oncology Disorders: Yes Hx Anemia: Yes Hx Blood Disorders: No Hx Bruising: No Hx Cancer: Yes (breast cancer, skin cancer) Hx Chemotherapy: No Hx Radiation Therapy: No Hx Clotting Problems: No Hx Sickle Cell Disease: No Hx Unexplained Bleeding: No Hx Blood Transfusions: Yes (1 yr ago) Hx Blood Transfusion Reaction: No Family Medical History Any Significant Family History?: No Hx Anxiety: Mother Hx Dementia: Father Hx Depression: Mother Hx Stroke: Mother Physical Exam - General General Appearance: Alert, Oriented x3, Cooperative, Moderate distress - Head Head exam: Normal inspection - Eye Eye exam: Normal appearance, PERRL, EOMI. negative: Conjunctival injection, Nystagmus Pupils: Normal accommodation - ENT ENT exam: Normal exam, Mucous membranes moist, Normal external ear exam, Normal orophraynx Ear exam: Normal external inspection. negative: External canal tenderness Nasal Exam: Normal inspection. negative: Discharge, Sinus tenderness Mouth exam: Normal external inspection, Tongue normal Teeth exam: Normal inspection. negative: Dental caries Throat exam: Normal inspection. negative: Tonsillar erythema, Tonsillar exudate - Neck Neck exam: Normal inspection, Full ROM. negative: Lymphadenopathy, Meningismus, Tenderness - Respiratory Respiratory exam: Normal lung sounds bilaterally. negative: Respiratory distress - Cardiovascular Cardiovascular Exam: Regular rate, Normal rhythm, Normal heart sounds - GI/Abdominal GI/Abdominal exam: Soft, Normal bowel sounds. negative: Tenderness - Rectal Rectal exam: Deferred - exam: Deferred - Extremities Extremities exam: Normal inspection, Full ROM, Normal capillary refill. negative: Tenderness - Back Back exam: Reports: Normal inspection, Full ROM, Paraspinal tenderness (left thoracic tenderness over 9-10- ribs, approximately.). Denies: Muscle spasm, Rash noted, Tenderness - Neurological Neurological exam: Alert, Normal gait, Oriented X3, Reflexes normal - Psychiatric Psychiatric exam: Normal affect, Normal mood - Skin Skin exam: Dry, Intact, Normal color, Warm Course Vital Signs 02/02/19 11:24 Temperature 98.2 F Pulse Rate 96 H Respiratory 16 Rate Blood Pressure 89/47 Pulse Ox 99 Medical Decision Making - Management Options MDM Management: Additional Work-up Planned (e.g. ADM/Transfer/OP Study) (Go to pain clinic apointment from here without fail.) Disposition Disposition: Discharge Clinical Impression: Chronic thoracic back pain Qualifiers: Back pain laterality: left Qualified Code(s): M54.6 - Pain in thoracic spine; G89.29 - Other chronic pain Disposition: Home, Self-Care Condition: (1) Good Instructions: Chronic Back Pain (ED) Additional Instructions: Continue present medications. Go to your Pain Clinic appointment from here as previously arranged. Quality - Quality Measures Quality Measures: N/A - Blood Pressure Screening Does Patient Have Any of the Following: No Blood Pressure Classification: Normal BP Reading Systolic Measurement: 89 Diastolic Measurement: 47 Screening for High Blood Pressure: < Normal BP, F/U Not Required > [G8783]
[2019-02-02] MEDS ORDERED: ORPHENADRINE CITRATE 60MG/2ML VIAL IM ONE (11:58)
[2019-02-02] MEDS ORDERED: KETOROLAC 30 MG/ML VIAL IM ONE (11:58)
== END 2019-02-02 12:21 | disposition home or self-care (01) ==
LOC: ER 11:22
DX: M54.6 Pain in thoracic spine (principal); E11.9 Type 2 diabetes mellitus without complications; G89.29 Other chronic pain; Z87.891 Personal history of nicotine dependence
CPT/HCPCS: 96372; 99282; 99283; 99284; J1885; J2360

== ENCOUNTER 2019-02-02 15:52 | Emergency (ER) | payer MEDICARE, BC ==
--- NOTE | 2019-02-02 16:12 | Emergency Department Record ---
History of Present Illness - General Chief Complaint: Back Pain/Injury Stated Complaint: BACK PAIN Time Seen by Provider: 02/02/19 16:05 Source: Patient - History of Present Illness Initial Comments: Patient is here again stating "You didn't make my pain go away. I want something more for my pain." Onset/Timin -: Days(s) Similar Symptoms Previously: Yes Place: Home Radiation: None Severity: Moderate Severity scale (1-10): 8 Quality: Aching Consistency: Constant, Intermittent Improves With: None Worsens With: Other Context: Unknown - Related Data Allergies Allergy/AdvReac Type Severity Reaction Status Date / Time fentanyl Allergy Severe FATIGUE Verified 02/02/19 16:01 amoxicillin [Amoxicillin] AdvReac Intermediate DIARRHEA Verified 02/02/19 16:01 morphine AdvReac Intermediate DIZZINESS Verified 02/02/19 16:01 nitrofurantoin AdvReac Intermediate DIZZINESS Verified 02/02/19 16:01 [From Macrobid] nitrofurantoin AdvReac Intermediate DIZZINESS Verified 02/02/19 16:01 macrocrystalline [From Macrobid] oxycodone HCl [From Percocet] AdvReac Intermediate DIZZINESS Verified 02/02/19 16:01 Travel Screening - Travel/Exposure Within Last 30 Days Have you traveled within the last 30 days?: No - Travel/Exposure Within Last Year Have you traveled outside the [place] in the last year?: No - Additonal Travel Details Have you been exposed to anyone with a communicable illness?: No - Travel Symptoms Symptom Screening: None Review of Systems Reviewed: No additional complaints except as noted below Constitutional: Reports: As per HPI. Denies: Chills, Fever, Malaise, Night swea ts, Weakness, Weight change Eyes: Reports: As per HPI. Denies: Eye discharge, Eye pain, Photophobia, Vision change ENT: Reports: As per HPI. Denies: Congestion, Dental pain, Ear pain, Epistaxis, Hearing loss, Throat pain Respiratory: Reports: As per HPI. Denies: Cough, Dyspnea, Hemoptysis, Stridor, Wheezes Cardiovascular: Reports: As per HPI. Denies: Arrhythmia, Chest pain, Dyspnea on exertion, Edema, Murmurs, Orthopnea, Palpitations, Paroxysmal nocturnal dyspnea, Rheumatic Fever, Syncope Endocrine: Reports: As per HPI. Denies: Fatigue, Heat or cold intolerance, Polydipsia, Polyuria Gastrointestinal: Reports: As per HPI. Denies: Abdominal pain, Constipation, Diarrhea, Hematemesis, Hematochezia, Melena, Nausea, Vomiting Genitourinary: Reports: As per HPI. Denies: Abnormal menses, Discharge, Dyspareunia, Dysuria, Frequency, Hematuria, Incontinence, Retention, Urgency Musculoskeletal: Reports: As per HPI. Denies: Arthralgia, Back pain, Gout, Joint swelling, Myalgia, Neck pain Skin: Reports: As per HPI. Denies: Bruising, Change in color, Change in hair/nails, Lesions, Pruritus, Rash Neurological: Reports: As per HPI. Denies: Abnormal gait, Confusion, Headache, Numbness, Paresthesias, Seizure, Tingling, Tremors, Vertigo, Weakness Psychiatric: Reports: As per HPI. Denies: Anxiety, Auditory hallucinations, Depression, Homicidal thoughts, Suicidal thoughts, Visual hallucinations Hematological/Lymphatic: Reports: As per HPI. Denies: Anemia, Blood Clots, Easy bleeding, Easy bruising, Swollen glands Past Medical History - SOCIAL HISTORY Smoking Status: Former smoker Alcohol Use: None Drug Use: None - RESPIRATORY Hx Respiratory Disorders: Yes Hx Asthma: No Hx Bronchitis: No Hx COPD: No Hx Dyspnea: Yes Hx Pneumonia: No Hx Pulmonary Embolism: No Hx Sleep Apnea: Yes Hx Tuberculosis: No - CARDIOVASCULAR Hx Cardio Disorders: No Hx Hypertension: Yes (No longer takes medication) Comment:: Pt states many years ago she was told that she had a murmur - NEURO Hx Neuro Disorders: Yes Hx Brain Tumor: No Hx CVA: No Hx Dementia: No Hx Dizziness: Yes (Per patient) Hx Headaches: No Hx Neuropathy: No Hx Parkinson's Disease: No Hx Seizures: No Hx Speech Problem: No Hx TIA: No - GI Hx GI Disorders: Yes Hx Abdominal Pain: No Hx Celiac Disease: No Hx Crohn's Disease: No Hx Diverticulitis: No Hx GI Bleed: No Hx Reflux: Yes (Takes Prevacid) Hx Hepatitis/Jaundice: No Hx Hiatal Hernia: Yes Hx Irritable Bowel: Yes Hx Liver Disease: No Hx Nausea/Vomiting: No Hx Obstructive Bowel: Yes Hx Pancreatitis: No Hx Rectal Bleeding: No Hx Ulcer: No Hx Wt Loss/Wt Gain: No - Hx Genitourinary Disorders: Yes Hx Bladder Problem: Yes Hx Dialysis: No Hx Kidney Stones: Yes Hx Renal Disease: No Hx UTI: Yes - ENDOCRINE Hx Endocrine Disorders: Yes Hx Diabetes: Yes (takes metformin) Hx Thyroid Disease: Yes (partial thyroidectmoy) - MUSCULOSKELETAL Hx Musculoskeletal Disorders: Yes Hx Arthritis: Yes Hx Back Injury: Yes Hx Fibromyalgia: No Hx Gout: No Hx Musculoskeletal Disease: No Hx Osteoporosis: (unsure) - PSYCH Hx Psych Problems: Yes Hx Anxiety: No Hx Behavior Problems: No Hx Depression: Yes Hx Emotional Abuse: No Hx Sexual Abuse: No Hx Suicide Attempt: No - HEMATOLOGY/ONCOLOGY Hx Hematology/Oncology Disorders: Yes Hx Anemia: Yes Hx Blood Disorders: No Hx Bruising: No Hx Cancer: Yes (breast cancer, skin cancer) Hx Chemotherapy: No Hx Radiation Therapy: No Hx Clotting Problems: No Hx Sickle Cell Disease: No Hx Unexplained Bleeding: No Hx Blood Transfusions: Yes (1 yr ago) Hx Blood Transfusion Reaction: No Family Medical History Any Significant Family History?: Yes Hx Anxiety: Mother Hx Dementia: Father Hx Depression: Mother Hx Stroke: Mother Physical Exam - General General Appearance: Alert, Oriented x3, Cooperative, No acute distress - Head Head exam: Normal inspection - Eye Eye exam: Normal appearance, PERRL, EOMI. negative: Conjunctival injection, Nystagmus Pupils: Normal accommodation - ENT ENT exam: Normal exam, Mucous membranes moist, Normal external ear exam, Normal orophraynx, TM's normal bilaterally Ear exam: Normal external inspection. negative: External canal tenderness Nasal Exam: Normal inspection. negative: Discharge, Sinus tenderness Mouth exam: Normal external inspection, Tongue normal Teeth exam: Normal inspection. negative: Dental caries Throat exam: Normal inspection. negative: Tonsillar erythema, Tonsillar exudate - Neck Neck exam: Normal inspection, Full ROM. negative: Tenderness - Respiratory Respiratory exam: Normal lung sounds bilaterally. negative: Respiratory distress - Cardiovascular Cardiovascular Exam: Regular rate, Normal rhythm, Normal heart sounds - GI/Abdominal GI/Abdominal exam: Soft, Normal bowel sounds. negative: Tenderness - Rectal Rectal exam: Deferred - exam: Deferred - Extremities Extremities exam: Normal inspection, Full ROM, Normal capillary refill. negative: Tenderness - Back Back exam: Reports: Normal inspection, Full ROM, Paraspinal tenderness (thoracic paraspinal tenderness and chronic pain as previously documented earlier today.). Denies: CVA tenderness (R), CVA tenderness (L), Muscle spasm, Rash noted, Tenderness - Neurological Neurological exam: Alert, CN II-XII intact, Normal gait, Oriented X3, Reflexes normal. negative: Motor sensory deficit - Psychiatric Psychiatric exam: Normal affect, Normal mood - Skin Skin exam: Dry, Intact, Normal color, Warm Course Vital Signs 02/02/19 15:59 Temperature 97.7 F Respiratory 20 Rate Blood Pressure 130/106 [Left Arm] Pulse Ox 99 - Reevaluation(s) Reevaluation #1: Patient was offered a non-narcotic pill for her pain. She walked out of the department. Explaned to her that her PCP or her pain clinic are to manage her chronic pain. 02/02/19 16:13 02/02/19 16:14 Medical Decision Making - Management Options MDM Management: No Additional Work-up Planned Disposition Disposition: Discharge Clinical Impression: Eloped from emergency department Chronic thoracic back pain Qualifiers: Back pain laterality: left Qualified Code(s): M54.6 - Pain in thoracic spine; G89.29 - Other chronic pain Quality - Quality Measures Quality Measures: N/A - Blood Pressure Screening Does Patient Have Any of the Following: No Blood Pressure Classification: Hypertensive Reading Systolic Measurement: 130 Diastolic Measurement: 106 Screening for High Blood Pressure: < Normal BP, F/U Not Required > [G8783]
== END 2019-02-02 16:12 | disposition left against medical advice (07) ==
LOC: ER 15:52
DX: M54.6 Pain in thoracic spine (principal); Z87.891 Personal history of nicotine dependence; E11.9 Type 2 diabetes mellitus without complications; Z53.21 Procedure and treatment not carried out due to patient leaving prior to being seen by health care provider; G89.29 Other chronic pain

== ENCOUNTER 2019-02-27 15:02 | Emergency (ER) | payer MEDICARE, BC ==
[2019-02-27] MEDS ORDERED: KETOROLAC 30 MG/ML VIAL IM ONE (15:30)
--- NOTE | 2019-02-27 16:07 | Emergency Department Record ---
History of Present Illness - General Chief Complaint: Back Pain/Injury Stated Complaint: BACK PAIN/BETWEEN SHOULDER BLADES Time Seen by Provider: 02/27/19 15:15 Source: Patient Mode of Arrival: Ambulatory Limitations: No limitations - History of Present Illness Initial Comments: pt is here for her chronic back pain. she has been on buprenorphine patch from a pain clinic. she has had no radiologic studies in a year. her pain is the worst low thoracic, upper lumbar area MD Complaint: Back pain -: Days(s) Similar Symptoms Previously: Yes Place: Home Severity scale (1-10): 10 Quality: Aching, Sharp Consistency: Constant, Intermittent Improves With: None Worsens With: Deep breaths/cough, Movement Associated Symptoms: Denies other symptoms - Related Data Allergies Allergy/AdvReac Type Severity Reaction Status Date / Time fentanyl Allergy Severe FATIGUE Verified 02/02/19 16:01 amoxicillin [Amoxicillin] AdvReac Intermediate DIARRHEA Verified 02/02/19 16:01 morphine AdvReac Intermediate DIZZINESS Verified 02/02/19 16:01 nitrofurantoin AdvReac Intermediate DIZZINESS Verified 02/02/19 16:01 [From Macrobid] nitrofurantoin AdvReac Intermediate DIZZINESS Verified 02/02/19 16:01 macrocrystalline [From Macrobid] oxycodone HCl [From Percocet] AdvReac Intermediate DIZZINESS Verified 02/02/19 16:01 Travel Screening - Travel/Exposure Within Last 30 Days Have you traveled within the last 30 days?: No - Travel/Exposure Within Last Year Have you traveled outside the [place] in the last year?: No - Additonal Travel Details Have you been exposed to anyone with a communicable illness?: No - Travel Symptoms Symptom Screening: None Review of Systems Reviewed: No additional complaints except as noted below Constitutional: Reports: As per HPI. Denies: Chills, Fever, Malaise, Night sweats, Weakness, Weight change Eyes: Reports: As per HPI. Denies: Eye discharge, Eye pain, Photophobia, Vision change ENT: Reports: As per HPI. Denies: Congestion, Dental pain, Ear pain, Epistaxis, Hearing loss, Throat pain Respiratory: Reports: As per HPI. Denies: Cough, Dyspnea, Hemoptysis, Stridor, Wheezes Cardiovascular: Reports: As per HPI. Denies: Arrhythmia, Chest pain, Dyspnea on exertion, Edema, Murmurs, Orthopnea, Palpitations, Paroxysmal nocturnal dyspnea, Rheumatic Fever, Syncope Endocrine: Reports: As per HPI. Denies: Fatigue, Heat or cold intolerance, Polydipsia, Polyuria Gastrointestinal: Reports: As per HPI. Denies: Abdominal pain, Constipation, Diarrhea, Hematemesis, Hematochezia, Melena, Nausea, Vomiting Genitourinary: Reports: As per HPI. Denies: Abnormal menses, Discharge, Dyspareunia, Dysuria, Frequency, Hematuria, Incontinence, Retention, Urgency Musculoskeletal: Reports: As per HPI. Denies: Arthralgia, Back pain, Gout, Joint swelling, Myalgia, Neck pain Skin: Reports: As per HPI. Denies: Bruising, Change in color, Change in hair/nails, Lesions, Pruritus, Rash Neurological: Reports: As per HPI. Denies: Abnormal gait, Confusion, Headache, Numbness, Paresthesias, Seizure, Tingling, Tremors, Vertigo, Weakness Psychiatric: Reports: As per HPI. Denies: Anxiety, Auditory hallucinations, Depression, Homicidal thoughts, Suicidal thoughts, Visual hallucinations Hematological/Lymphatic: Reports: As per HPI. Denies: Anemia, Blood Clots, Easy bleeding, Easy bruising, Swollen glands Past Medical History - SOCIAL HISTORY Smoking Status: Former smoker Alcohol Use: None Drug Use: None - RESPIRATORY Hx Respiratory Disorders: Yes Hx Asthma: No Hx Bronchitis: No Hx COPD: No Hx Dyspnea: Yes Hx Pneumonia: No Hx Pulmonary Embolism: No Hx Sleep Apnea: Yes Hx Tuberculosis: No - CARDIOVASCULAR Hx Cardio Disorders: No Hx Hypertension: Yes (No longer takes medication) Comment:: Pt states many years ago she was told that she had a murmur - NEURO Hx Neuro Disorders: Yes Hx Brain Tumor: No Hx CVA: No Hx Dementia: No Hx Dizziness: Yes (Per patient) Hx Headaches: No Hx Neuropathy: No Hx Parkinson's Disease: No Hx Seizures: No Hx Speech Problem: No Hx TIA: No - GI Hx GI Disorders: Yes Hx Abdominal Pain: No Hx Celiac Disease: No Hx Crohn's Disease: No Hx Diverticulitis: No Hx GI Bleed: No Hx Reflux: Yes (Takes Prevacid) Hx Hepatitis/Jaundice: No Hx Hiatal Hernia: Yes Hx Irritable Bowel: Yes Hx Liver Disease: No Hx Nausea/Vomiting: No Hx Obstructive Bowel: Yes Hx Pancreatitis: No Hx Rectal Bleeding: No Hx Ulcer: No Hx Wt Loss/Wt Gain: No - Hx Genitourinary Disorders: Yes Hx Bladder Problem: Yes Hx Dialysis: No Hx Kidney Stones: Yes Hx Renal Disease: No Hx UTI: Yes - ENDOCRINE Hx Endocrine Disorders: Yes Hx Diabetes: Yes (takes metformin) Hx Thyroid Disease: Yes (partial thyroidectmoy) - MUSCULOSKELETAL Hx Musculoskeletal Disorders: Yes Hx Arthritis: Yes Hx Back Injury: Yes Hx Fibromyalgia: No Hx Gout: No Hx Musculoskeletal Disease: No Hx Osteoporosis: (unsure) - PSYCH Hx Psych Problems: Yes Hx Anxiety: No Hx Behavior Problems: No Hx Depression: Yes Hx Emotional Abuse: No Hx Sexual Abuse: No Hx Suicide Attempt: No - HEMATOLOGY/ONCOLOGY Hx Hematology/Oncology Disorders: Yes Hx Anemia: Yes Hx Blood Disorders: No Hx Bruising: No Hx Cancer: Yes (breast cancer, skin cancer) Hx Chemotherapy: No Hx Radiation Therapy: No Hx Clotting Problems: No Hx Sickle Cell Disease: No Hx Unexplained Bleeding: No Hx Blood Transfusions: Yes (1 yr ago) Hx Blood Transfusion Reaction: No Family Medical History Any Significant Family History?: Yes Hx Anxiety: Mother Hx Dementia: Father Hx Depression: Mother Hx Stroke: Mother Physical Exam - General General Appearance: Alert, Oriented x3, Cooperative, Mild distress - Head Head exam: Normal inspection - Eye Eye exam: Normal appearance, PERRL, EOMI Pupils: Normal accommodation - ENT ENT exam: Normal exam, Mucous membranes moist, Normal external ear exam, Normal orophraynx Ear exam: Normal external inspection. negative: External canal tenderness Nasal Exam: Normal inspection. negative: Discharge, Sinus tenderness Mouth exam: Normal external inspection, Tongue normal Teeth exam: Normal inspection. negative: Dental caries Throat exam: Normal inspection. negative: Tonsillar erythema, Tonsillar exudate - Neck Neck exam: Normal inspection, Full ROM. negative: Tenderness - Respiratory Respiratory exam: Normal lung sounds bilaterally. negative: Respiratory distress - Cardiovascular Cardiovascular Exam: Regular rate, Normal rhythm, Normal heart sounds - GI/Abdominal GI/Abdominal exam: Soft, Normal bowel sounds. negative: Tenderness - Rectal Rectal exam: Deferred - exam: Deferred - Extremities Extremities exam: Normal inspection, Full ROM, Normal capillary refill. negative: Tenderness - Back Back exam: Reports: Full ROM, Muscle spasm, Tenderness. Denies: Rash noted - Neurological Neurological exam: Alert, Normal gait, Oriented X3, Reflexes normal - Psychiatric Psychiatric exam: Normal affect, Normal mood - Skin Skin exam: Dry, Intact, Normal color, Warm Course Vital Signs 02/27/19 15:05 Temperature 98.1 F Pulse Rate 79 Respiratory 18 Rate Blood Pressure 98/78 Pulse Ox 97 Disposition Disposition: Discharge Clinical Impression: Chronic back pain greater than 3 months duration Disposition: Home, Self-Care Condition: (1) Good Instructions: Chronic Back Pain (ED) Additional Instructions: follow up with family doctor and pain clinic. return sooner if worse Quality - Quality Measures Quality Measures: N/A - Blood Pressure Screening Does Patient Have Any of the Following: No Blood Pressure Classification: Normal BP Reading Systolic Measurement: 98 Diastolic Measurement: 78 Screening for High Blood Pressure: < Normal BP, F/U Not Required > [G8783]
--- NOTE | 2019-03-01 21:22 | RADIOLOGY REPORT ---
EXAM: LUMBAR SPINE / AP LAT HISTORY: PAIN. COMPARISON: CT 11/09/17. TECHNIQUE: Frontal and lateral. FINDINGS: Five [id number] lumbar-type vertebral bodies. Bones appear diffusely osteopenic. Vertebral body height and alignment appears maintained. Postsurgical changes of interbody fusion again span the L4-5, L5-S1 levels. Multilevel degenerative changes of disc disease present with disc space narrowing greatest at the L2-3 level, increased since the prior examination. There is degenerative spurring of the thoracic spine also. Pedicles appear intact, as visualized. There is atherosclerosis of the abdominal aorta. Surgical clips of the right upper quadrant. IMPRESSION: MULTILEVEL DEGENERATIVE AND POSTSURGICAL CHANGES, ABOVE. THE NEED FOR FOLLOW- UP MRI SHOULD BE DETERMINED CLINICALLY. ER notified by voice clip. JOB NUMBER: [id number] MTDD
--- NOTE | 2019-03-01 21:27 | RADIOLOGY REPORT ---
EXAM: THORACIC SPINE HISTORY: PAIN. COMPARISON: 04/03/18. TECHNIQUE: Frontal, lateral, swimmer's. FINDINGS: A mild S-shaped curvature of the thoracic spine continues in similar fashion. Bones appear diffusely osteopenic. Vertebral body height and alignment appear otherwise maintained. Multilevel endplate spurring continues in similar fashion. Disc space heights appear maintained. Cervicothoracic junction is obscured but appears normal in alignment. Degenerative changes of the cervical spine also suggested. No adjacent rib fracture visualized. There is atherosclerosis. Annular calcifications of the heart. IMPRESSION: NO ACUTE CHANGE EVIDENT RADIOGRAPHICALLY. DETAILS ABOVE. THE NEED FOR ADDITIONAL IMAGING SHOULD BE DETERMINED CLINICALLY. The ER physician notified by voice clip. JOB NUMBER: [id number] MTDD
== END 2019-02-27 16:23 | disposition home or self-care (01) ==
LOC: ER 15:02
DX: G89.29 Other chronic pain (principal); M54.6 Pain in thoracic spine; M54.5 Low back pain
CPT/HCPCS: 72072; 72100; 96372; 99284; J1885

== ENCOUNTER 2019-04-06 14:29 | Emergency (ER) | payer MEDICARE, BC ==
[2019-04-06] MEDS ORDERED: 0.9 % SODIUM CHLORIDE 1,000 ML BAG IV ONE (14:38)
--- NOTE | 2019-04-06 14:43 | Emergency Department Record ---
History of Present Illness - General Chief Complaint: Hypotension Stated Complaint: LOW BLOOD PRESSURE Time Seen by Provider: 04/06/19 14:37 Source: Patient Mode of Arrival: Ambulatory Limitations: No limitations - History of Present Illness Initial Comments: 83 yo female presents from her family doctor's office, Dr Bojorquez. In the office her blood pressure was in the 70's. Per Dr Bojorquez the and the patient her normal blood pressure is around 90 systolic. She has had several months of lightheadedness and instability. She has been worked up with MRI. The patient denies and headaches, nausea, or vomiting. No diarrhea. She is eating and drinking. No falls recently. No shortness of breath or chest pain. No syncope. MD Complaint: Other (Low blood pressure) -: Minutes(s) Description: Lightheadedness History of Same: Yes History of Trauma: No Severity: Moderate Improves With: Other Worsens With: Position Associated Symptoms: Ataxia (chronic), Malaise, Weakness - Thornton Coma Scale Eye Response: (4) Open spontaneously Motor Response: (6) Obeys commands Verbal Response: (5) Oriented Jeanie Total: 15 - Related Data Previous Rx's Medication Instructions Recorded Ascorbic Acid/Ascorbate Sodium 1,000 mg PO DAILY #100 tab.chew 04/07/19 [Vit C-Cari Hips 500 mg Chew Tb] Ferrous Sulfate 325 mg PO DAILY #100 tab 04/07/19 Allergies Allergy/AdvReac Type Severity Reaction Status Date / Time fentanyl Allergy Severe FATIGUE Verified 04/07/19 14:30 amoxicillin [Amoxicillin] AdvReac Intermediate DIARRHEA Verified 04/07/19 14:30 morphine AdvReac Intermediate DIZZINESS Verified 04/07/19 14:30 nitrofurantoin AdvReac Intermediate DIZZINESS Verified 04/07/19 14:30 [From Macrobid] nitrofurantoin AdvReac Intermediate DIZZINESS Verified 04/07/19 14:30 macrocrystalline [From Macrobid] oxycodone HCl [From Percocet] AdvReac Intermediate DIZZINESS Verified 04/07/19 14:30 Review of Systems Constitutional: Reports: Malaise. Denies: Chills, Fever, Weakness Eyes: Denies: Eye discharge, Eye pain, Photophobia, Vision change ENT: Denies: Congestion, Throat pain Respiratory: Denies: Cough, Dyspnea, Hemoptysis, Stridor, Wheezes Cardiovascular: Denies: Chest pain, Dyspnea on exertion, Edema Endocrine: Denies: Fatigue, Polydipsia, Polyuria Gastrointestinal: Denies: Abdominal pain, Diarrhea, Nausea, Vomiting Genitourinary: Denies: Dysuria, Frequency, Hematuria, Urgency Musculoskeletal: Denies: Arthralgia, Back pain, Myalgia, Neck pain Skin: Denies: Bruising, Change in color Neurological: Reports: Vertigo, Weakness. Denies: Headache, Numbness Psychiatric: Denies: Anxiety Hematological/Lymphatic: Denies: Easy bleeding, Easy bruising Past Medical History - SOCIAL HISTORY Smoking Status: Former smoker Drug Use: None - RESPIRATORY Hx Respiratory Disorders: Yes Hx Asthma: No Hx Bronchitis: No Hx COPD: No Hx Dyspnea: Yes Hx Pneumonia: No Hx Pulmonary Embolism: No Hx Sleep Apnea: Yes Hx Tuberculosis: No - CARDIOVASCULAR Hx Cardio Disorders: No Hx Hypertension: Yes (No longer takes medication) Comment:: Pt states many years ago she was told that she had a murmur - NEURO Hx Neuro Disorders: Yes Hx Brain Tumor: No Hx CVA: No Hx Dementia: No Hx Dizziness: Yes (Per patient) Hx Headaches: No Hx Neuropathy: No Hx Parkinson's Disease: No Hx Seizures: No Hx Speech Problem: No Hx TIA: No - GI Hx GI Disorders: Yes Hx Abdominal Pain: No Hx Celiac Disease: No Hx Crohn's Disease: No Hx Diverticulitis: No Hx GI Bleed: No Hx Reflux: Yes (Takes Prevacid) Hx Hepatitis/Jaundice: No Hx Hiatal Hernia: Yes Hx Irritable Bowel: Yes Hx Liver Disease: No Hx Nausea/Vomiting: No Hx Obstructive Bowel: Yes Hx Pancreatitis: No Hx Rectal Bleeding: No Hx Ulcer: No Hx Wt Loss/Wt Gain: No - Hx Genitourinary Disorders: Yes Hx Bladder Problem: Yes Hx Dialysis: No Hx Kidney Stones: Yes Hx Renal Disease: No Hx UTI: Yes - ENDOCRINE Hx Endocrine Disorders: Yes Hx Diabetes: Yes (takes metformin) Hx Thyroid Disease: Yes (partial thyroidectmoy) - MUSCULOSKELETAL Hx Musculoskeletal Disorders: Yes Hx Arthritis: Yes Hx Back Injury: Yes Hx Fibromyalgia: No Hx Gout: No Hx Musculoskeletal Disease: No Hx Osteoporosis: (unsure) - PSYCH Hx Psych Problems: Yes Hx Anxiety: No Hx Behavior Problems: No Hx Depression: Yes Hx Emotional Abuse: No Hx Sexual Abuse: No Hx Suicide Attempt: No - HEMATOLOGY/ONCOLOGY Hx Hematology/Oncology Disorders: Yes Hx Anemia: Yes Hx Blood Disorders: No Hx Bruising: No Hx Cancer: Yes (breast cancer, skin cancer) Hx Chemotherapy: No Hx Radiation Therapy: No Hx Clotting Problems: No Hx Sickle Cell Disease: No Hx Unexplained Bleeding: No Hx Blood Transfusions: Yes (1 yr ago) Hx Blood Transfusion Reaction: No Family Medical History Hx Anxiety: Mother Hx Dementia: Father Hx Depression: Mother Hx Stroke: Mother Physical Exam - General General Appearance: Alert, Oriented x3, Cooperative, No acute distress Limitations: No limitations - Head Head exam: Atraumatic, Normal inspection - Eye Eye exam: Normal appearance, PERRL, EOMI. negative: Conjunctival injection, Scleral icterus - ENT ENT exam: Normal exam, Normal orophraynx. negative: Mucous membranes moist Ear exam: Normal external inspection Nasal Exam: Normal inspection Mouth exam: Normal external inspection - Neck Neck exam: Normal inspection - Respiratory Respiratory exam: Normal lung sounds bilaterally. negative: Respiratory distress, Rhonchi, Stridor, Wheezes - Cardiovascular Cardiovascular Exam: Regular rate, Normal rhythm, Normal heart sounds Peripheral Pulses: 2+: Radial (R), Radial (L) - GI/Abdominal GI/Abdominal exam: Soft. negative: Tenderness - Rectal Rectal exam: Deferred - exam: Deferred - Extremities Extremities exam: Normal inspection. negative: Pedal edema, Tenderness - Back Back exam: Denies: CVA tenderness (R), CVA tenderness (L) - Neurological Neurological exam: Abnormal gait (mild instability with balance with ambulation. Per the patient this has be the case for several months and she is at baseline), Alert, Oriented X3. negative: Altered, Motor sensory deficit, Normal gait - Psychiatric Psychiatric exam: Normal affect, Normal mood. 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 RN asked her to remain in the ED to at least speak with me again. She refused. She left without knowing results, no discharge papers, or time to discuss a treatment plan. The labs were reviewed. Mild anemia and low platelets of 66, otherwise no acute changes I discussed this with Dr Bojorquez's registered medical transcriptionist who will inform Dr Reno Jo did sign the AMA form prior to leaving but unwilling to discuss this with me Medical Decision Making - Lab Data Result diagrams: 04/06/19 14:50 04/06/19 14:50 Disposition Disposition: Discharge Clinical Impression: Hypotension, Generalized weakness Disposition: Against Medical Advice Condition: (2) Stable Forms: Patient Portal Access Time of Disposition: 16:03 Quality - Quality Measures Quality Measures: N/A - Blood Pressure Screening Does Patient Have Any of the Following: No Blood Pressure Classification: Normal BP Reading Systolic Measurement: 87 Diastolic Measurement: 55 Screening for High Blood Pressure: < Normal BP, F/U Not Required > [G8783]
[2019-04-06 15:07] LABS: ABSOLUTE NEUTROPHIL COUNT 4.65; HEMATOCRIT 37.4 % (35.0-47.0); HEMOGLOBIN 10.7 gm/dl (11.6-16.0); MEAN CELL VOLUME 78.6 fl (81-97); MEAN CORPUSCULAR HGB CONC 28.6 g/dl (32-36); MEAN PLATELET VOLUME 9.8 fl (7.4-10.4); RED BLOOD COUNT 4.76 M/uL (3.80-5.40); RED CELL DISTRIBUTION WIDTH 15.7 % (11.5-14.5)
[2019-04-06 15:12] LABS: BLOOD UREA NITROGEN 12 mg/dL (8-23); CREATININE 0.6 mg/dL (0.5-0.9); EST GLOMERULAR FILTRATION RATE > 60 mL/min
[2019-04-06 15:13] LABS: MEAN CORPUSCULAR HEMOGLOBIN 22.4 pg (27-33); TOTAL PROTEIN 7.5 g/dL (6.6-8.7)
[2019-04-06 15:15] LABS: GLUCOSE,RANDOM 114 mg/dL (74-109)
[2019-04-06 15:17] LABS: ALB/GLOB RATIO 1.8 (1.1-1.8); ALBUMIN 4.8 g/dL (4.0-5.0); ALKALINE PHOSPHATASE 59 U/L (35-104); ALT/SGPT 12 U/L (<33); AST/SGOT 30 U/L (10.0-35.0)
[2019-04-06 15:24] LABS: HYPOCHROMIA 1+; PLATELET COUNT 66 K/uL (130-400); PLATELET ESTIMATE NORMAL (NORMAL)
[2019-04-06 15:28] LABS: THYROID STIMULATING HORMONE 0.88 uIU/mL (0.270-4.20)
== END 2019-04-06 15:50 | disposition left against medical advice (07) ==
LOC: ER 14:29
DX: I95.9 Hypotension, unspecified (principal); R53.1 Weakness; D64.9 Anemia, unspecified; R27.0 Ataxia, unspecified; D69.6 Thrombocytopenia, unspecified; R53.81 Other malaise; I10 Essential (primary) hypertension; Z87.891 Personal history of nicotine dependence; E11.9 Type 2 diabetes mellitus without complications; Z79.84 Long term (current) use of oral hypoglycemic drugs
CPT/HCPCS: 80053; 84443; 85027; 93005; 93010; 99284

== ENCOUNTER 2019-04-07 14:17 | Emergency (ER) | payer MEDICARE, BC ==
--- NOTE | 2019-04-07 14:51 | Emergency Department Record ---
History of Present Illness - General Chief Complaint: Recheck - Other Stated Complaint: RECHECK/FLUIDS Time Seen by Provider: 04/07/19 14:24 Source: Patient, RN notes reviewed - History of Present Illness Initial Comments: sent to the ED because of low BP and possible dehydration and she was told she had a silence stroke but the big concern is dehydration and need for fluids. Patient said she is drinking gatoraide and water to hydrate her body. Patient has chronic low back pain and she says she is jittery and she doesn't have her buprenorphine 7.5mcg/hour pain patch on for 24 hours because of low BP. Currently she denies back pain. Daughter Tracie present with the patient. She said pain patch just increased to 7.5 from 5.0 which may be to strong for her. Patient denies blood in her stool. Onset/Timin -: Month(s) Initial Visit For: Other Returns Today for: Other Symptoms Since Prior Visit: No new symptoms - Related Data Previous Rx's Medication Instructions Recorded Ascorbic Acid/Ascorbate Sodium 1,000 mg PO DAILY #100 tab.chew 04/07/19 [Vit C-Cari Hips 500 mg Chew Tb] Ferrous Sulfate 325 mg PO DAILY #100 tab 04/07/19 Allergies Allergy/AdvReac Type Severity Reaction Status Date / Time fentanyl Allergy Severe FATIGUE Verified 04/07/19 14:30 amoxicillin [Amoxicillin] AdvReac Intermediate DIARRHEA Verified 04/07/19 14:30 morphine AdvReac Intermediate DIZZINESS Verified 04/07/19 14:30 nitrofurantoin AdvReac Intermediate DIZZINESS Verified 04/07/19 14:30 [From Macrobid] nitrofurantoin AdvReac Intermediate DIZZINESS Verified 04/07/19 14:30 macrocrystalline [From Macrobid] oxycodone HCl [From Percocet] AdvReac Intermediate DIZZINESS Verified 04/07/19 14:30 Travel Screening - Travel/Exposure Within Last 30 Days Have you traveled within the last 30 days?: No - Travel/Exposure Within Last Year Have you traveled outside the [place] in the last year?: No - Additonal Travel Details Have you been exposed to anyone with a communicable illness?: No - Travel Symptoms Symptom Screening: None Review of Systems Reviewed: No additional complaints except as noted below Constitutional: Reports: As per HPI. Denies: Chills, Fever, Malaise, Night sweats, Weakness, Weight change Eyes: Reports: As per HPI. Denies: Eye discharge, Eye pain, Photophobia, Vision change ENT: Reports: As per HPI. Denies: Congestion, Dental pain, Ear pain, Epistaxis, Hearing loss, Throat pain Respiratory: Reports: As per HPI. Denies: Cough, Dyspnea, Hemoptysis, Stridor, Wheezes Cardiovascular: Reports: As per HPI. Denies: Arrhythmia, Chest pain, Dyspnea on exertion, Edema, Murmurs, Orthopnea, Palpitations, Paroxysmal nocturnal dyspnea, Rheumatic Fever, Syncope Endocrine: Reports: As per HPI. Denies: Fatigue, Heat or cold intolerance, Polydipsia, Polyuria Gastrointestinal: Reports: As per HPI. Denies: Abdominal pain, Constipation, Diarrhea, Hematemesis, Hematochezia, Melena, Nausea, Vomiting Genitourinary: Reports: As per HPI. Denies: Abnormal menses, Discharge, Dyspareunia, Dysuria, Frequency, Hematuria, Incontinence, Retention, Urgency Musculoskeletal: Reports: As per HPI. Denies: Arthralgia, Back pain, Gout, Joint swelling, Myalgia, Neck pain Skin: Reports: As per HPI. Denies: Bruising, Change in color, Change in hair/nails, Lesions, Pruritus, Rash Neurological: Reports: As per HPI. Denies: Abnormal gait, Confusion, Headache, Numbness, Paresthesias, Seizure, Tingling, Tremors, Vertigo, Weakness Psychiatric: Reports: As per HPI. Denies: Anxiety, Auditory hallucinations, Depression, Homicidal thoughts, Suicidal thoughts, Visual hallucinations Hematological/Lymphatic: Reports: As per HPI. Denies: Anemia, Blood Clots, Easy bleeding, Easy bruising, Swollen glands Past Medical History - SOCIAL HISTORY Smoking Status: Former smoker Alcohol Use: None Drug Use: None - RESPIRATORY Hx Respiratory Disorders: Yes Hx Asthma: No Hx Bronchitis: No Hx COPD: No Hx Dyspnea: Yes Hx Pneumonia: No Hx Pulmonary Embolism: No Hx Sleep Apnea: Yes Hx Tuberculosis: No - CARDIOVASCULAR Hx Cardio Disorders: No Hx Hypertension: Yes (No longer takes medication) Comment:: Pt states many years ago she was told that she had a murmur - NEURO Hx Neuro Disorders: Yes Hx Brain Tumor: No Hx CVA: No Hx Dementia: No Hx Dizziness: Yes (Per patient) Hx Headaches: No Hx Neuropathy: No Hx Parkinson's Disease: No Hx Seizures: No Hx Speech Problem: No Hx TIA: No - GI Hx GI Disorders: Yes Hx Abdominal Pain: No Hx Celiac Disease: No Hx Crohn's Disease: No Hx Diverticulitis: No Hx GI Bleed: No Hx Reflux: Yes (Takes Prevacid) Hx Hepatitis/Jaundice: No Hx Hiatal Hernia: Yes Hx Irritable Bowel: Yes Hx Liver Disease: No Hx Nausea/Vomiting: No Hx Obstructive Bowel: Yes Hx Pancreatitis: No Hx Rectal Bleeding: No Hx Ulcer: No Hx Wt Loss/Wt Gain: No - Hx Genitourinary Disorders: Yes Hx Bladder Problem: Yes Hx Dialysis: No Hx Kidney Stones: Yes Hx Renal Disease: No Hx UTI: Yes - ENDOCRINE Hx Endocrine Disorders: Yes Hx Diabetes: Yes (takes metformin) Hx Thyroid Disease: Yes (partial thyroidectmoy) - MUSCULOSKELETAL Hx Musculoskeletal Disorders: Yes Hx Arthritis: Yes Hx Back Injury: Yes Hx Fibromyalgia: No Hx Gout: No Hx Musculoskeletal Disease: No Hx Osteoporosis: (unsure) - PSYCH Hx Psych Problems: Yes Hx Anxiety: No Hx Behavior Problems: No Hx Depression: Yes Hx Emotional Abuse: No Hx Sexual Abuse: No Hx Suicide Attempt: No - HEMATOLOGY/ONCOLOGY Hx Hematology/Oncology Disorders: Yes Hx Anemia: Yes Hx Blood Disorders: No Hx Bruising: No Hx Cancer: Yes (breast cancer, skin cancer) Hx Chemotherapy: No Hx Radiation Therapy: No Hx Clotting Problems: No Hx Sickle Cell Disease: No Hx Unexplained Bleeding: No Hx Blood Transfusions: Yes (1 yr ago) Hx Blood Transfusion Reaction: No Family Medical History Any Significant Family History?: Yes Hx Anxiety: Mother Hx Dementia: Father Hx Depression: Mother Hx Stroke: Mother Physical Exam - General General Appearance: Alert, Oriented x3, Cooperative, No acute distress - Head Head exam: Normal inspection - Eye Eye exam: Normal appearance, PERRL Pupils: Normal accommodation - ENT ENT exam: Normal exam, Mucous membranes moist, Normal external ear exam, Normal orophraynx, TM's normal bilaterally Ear exam: Normal external inspection. negative: External canal tenderness Nasal Exam: Normal inspection. negative: Discharge, Sinus tenderness Mouth exam: Normal external inspection, Tongue normal Teeth exam: Normal inspection. negative: Dental caries Throat exam: Normal inspection. negative: Tonsillar erythema, Tonsillar exudate - Neck Neck exam: Normal inspection, Full ROM. negative: Tenderness - Respiratory Respiratory exam: Normal lung sounds bilaterally. negative: Respiratory dis tress - Cardiovascular Cardiovascular Exam: Regular rate, Normal rhythm, Normal heart sounds - GI/Abdominal GI/Abdominal exam: Soft, Normal bowel sounds. negative: Tenderness - Rectal Rectal exam: Deferred - exam: Deferred - Extremities Extremities exam: Normal inspection, Full ROM, Normal capillary refill. negative: Tenderness - Back Back exam: Reports: Normal inspection, Full ROM. Denies: Muscle spasm, Rash noted, Tenderness - Neurological Neurological exam: Alert, Normal gait, Oriented X3, Reflexes normal - Psychiatric Psychiatric exam: Normal affect, Normal mood - Skin Skin exam: Dry, Intact, Normal color, Warm Course Vital Signs 04/07/19 14:32 Temperature 98.7 F Pulse Rate 92 H Respiratory 20 Rate Blood Pressure 109/90 Pulse Ox 99 - Reevaluation(s) Reevaluation #1: patient is doing better and reading a book. 04/07/19 16:56 04/07/19 16:56 unable to draw blood and will hydrate and draw her blood Reevaluation #2: recommended patient state ror further evaluation like her Dr toscano and pateint refused to stay and will give her a dose of oral potassium and advised her to eat one banana a day 04/07/19 17:53 04/07/19 17:55 Also giving her iron once a day Reevaluation #3: patient walking without difficulties 04/07/19 17:56 Medical Decision Making - Lab Data Result diagrams: 04/07/19 17:00 04/07/19 17:00 Disposition Clinical Impression: Dehydration, Hypokalemia Iron (Fe) deficiency anemia Qualifiers: Iron deficiency anemia type: inadequate dietary iron intake Qualified Code(s): D50.8 - Other iron deficiency anemias Disposition: Home, Self-Care Condition: (1) Good Instructions: Dehydration (ED), Anemia (ED) Additional Instructions: follow up with Dr Bojorquez in 2 to 7 days return if worse decrease pain patches to 5mcg/hour take iron ferrous sulfate 325 mg daily vit c 1000 mg daily eat a banana a day Prescriptions: Ferrous Sulfate 325 mg PO DAILY #100 tab Ascorbic Acid/Ascorbate Sodium [Vit C-Cari Hips 500 mg Chew Tb] 1,000 mg PO DAILY #100 tab.chew Forms: Patient Portal Access Time of Disposition: 18:02 Quality - Quality Measures Quality Measures: N/A - Blood Pressure Screening Does Patient Have Any of the Following: No Blood Pressure Classification: Hypertensive Reading Systolic Measurement: 109 Diastolic Measurement: 90 Screening for High Blood Pressure: < Pre-Hypertensive BP, F/U Documented > [G8950] Pre-Hypertensive Follow-up Interventions: Referral to alternative/primary care provider.
[2019-04-07] MEDS ORDERED: 0.9 % SODIUM CHLORIDE 1,000 ML BAG IV ONE (14:58)
[2019-04-07 17:06] LABS: ABSOLUTE NEUTROPHIL COUNT 3.83; BASO % 0.5 % (0-6); EOS % 0.8 % (0-6); GRAN % 63.6 % (47-80); HEMATOCRIT 30.5 % (35.0-47.0); HEMOGLOBIN 9.1 gm/dl (11.6-16.0); LYMPH % 26.6 % (16-45); MEAN CELL VOLUME 78.8 fl (81-97); MEAN CORPUSCULAR HEMOGLOBIN 23.5 pg (27-33); MEAN PLATELET VOLUME 9.4 fl (7.4-10.4); MONO % 8.5 % (0-9); PLATELET COUNT 154 K/uL (130-400); RED BLOOD COUNT 3.87 M/uL (3.80-5.40); RED CELL DISTRIBUTION WIDTH 15.5 % (11.5-14.5)
[2019-04-07 17:11] LABS: MEAN CORPUSCULAR HGB CONC 29.8 g/dl (32-36)
[2019-04-07 17:16] LABS: BLOOD UREA NITROGEN 10 mg/dL (8-23); CREATININE 0.6 mg/dL (0.5-0.9); EST GLOMERULAR FILTRATION RATE > 60 mL/min; TOTAL PROTEIN 6.2 g/dL (6.6-8.7)
[2019-04-07 17:17] LABS: LIPASE 15 U/L (13-60)
[2019-04-07 17:18] LABS: GLUCOSE,RANDOM 74 mg/dL (74-109)
[2019-04-07 17:21] LABS: ALB/GLOB RATIO 1.6 (1.1-1.8); ALBUMIN 3.8 g/dL (4.0-5.0); ALKALINE PHOSPHATASE 49 U/L (35-104); ALT/SGPT 15 U/L (<33); AST/SGOT 26 U/L (10.0-35.0)
[2019-04-07] MEDS ORDERED: POTASSIUM CHLORIDE 20 MEQ/15ML CUP PO ONE (17:43)
[2019-04-07] MEDS ORDERED: POTASSIUM CHLORIDE 20 MEQ TABLET PO ONE (17:45)
[2019-04-07 18:07] LABS: % SATURATION 3 % (20-50)
[2019-04-07] MEDS ORDERED: POTASSIUM CHLORIDE 20 MEQ TABLET PO SCH (22:00)
== END 2019-04-07 18:16 | disposition home or self-care (01) ==
LOC: ER 14:17
DX: E86.0 Dehydration (principal); E87.6 Hypokalemia; D50.8 Other iron deficiency anemias
CPT/HCPCS: 80053; 83550; 83690; 85025; 99284; J7030

== ENCOUNTER 2019-04-14 14:42 | Emergency (ER) | payer MEDICARE, BC ==
--- NOTE | 2019-04-14 15:10 | Emergency Department Record ---
History of Present Illness - General Chief Complaint: Hypotension Stated Complaint: LOW BLOOD PRESSURE Time Seen by Provider: 04/14/19 14:52 Source: Patient, RN notes reviewed Mode of Arrival: Ambulatory - History of Present Illness Initial Comments: right arm BP is 99/62 the left arm BP is 109/93. Patient not having symptoms and the visiting nurse came to the house and called Dr Gutierrez office and the patient was sent to the ED and she doesn't have any chest pain or dysnpea. No abdominal pain -: Unknown Timing: Unsure, Now resolved History of Same: No History of Trauma: No Improves With: Nothing Worsens With: Nothing Associated Symptoms: Denies other symptoms - Related Data Previous Rx's Medication Instructions Recorded Ascorbic Acid/Ascorbate Sodium 1,000 mg PO DAILY #100 tab.chew 04/07/19 [Vit C-Cari Hips 500 mg Chew Tb] Ferrous Sulfate 325 mg PO DAILY #100 tab 04/07/19 Allergies Allergy/AdvReac Type Severity Reaction Status Date / Time fentanyl Allergy Severe FATIGUE Verified 04/07/19 14:30 amoxicillin [Amoxicillin] AdvReac Intermediate DIARRHEA Verified 04/07/19 14:30 morphine AdvReac Intermediate DIZZINESS Verified 04/07/19 14:30 nitrofurantoin AdvReac Intermediate DIZZINESS Verified 04/07/19 14:30 [From Macrobid] nitrofurantoin AdvReac Intermediate DIZZINESS Verified 04/07/19 14:30 macrocrystalline [From Macrobid] oxycodone HCl [From Percocet] AdvReac Intermediate DIZZINESS Verified 04/07/19 14:30 Travel Screening - Travel/Exposure Within Last 30 Days Have you traveled within the last 30 days?: No Review of Systems Reviewed: No additional complaints except as noted below Constitutional: Reports: As per HPI. Denies: Chills, Fever, Malaise, Night sweats, Weakness, Weight change Eyes: Reports: As per HPI. Denies: Eye discharge, Eye pain, Photophobia, Vision change ENT: Reports: As per HPI. Denies: Congestion, Dental pain, Ear pain, Epistaxis, Hearing loss, Throat pain Respiratory: Reports: As per HPI. Denies: Cough, Dyspnea, Hemoptysis, Stridor, Wheezes Cardiovascular: Reports: As per HPI. Denies: Arrhythmia, Chest pain, Dyspnea on exertion, Edema, Murmurs, Orthopnea, Palpitations, Paroxysmal nocturnal dyspnea, Rheumatic Fever, Syncope Endocrine: Reports: As per HPI. Denies: Fatigue, Heat or cold intolerance, Polydipsia, Polyuria Gastrointestinal: Reports: As per HPI. Denies: Abdominal pain, Constipation, Diarrhea, Hematemesis, Hematochezia, Melena, Nausea, Vomiting Genitourinary: Reports: As per HPI. Denies: Abnormal menses, Discharge, Dyspareunia, Dysuria, Frequency, Hematuria, Incontinence, Retention, Urgency Musculoskeletal: Reports: As per HPI. Denies: Arthralgia, Back pain, Gout, Joint swelling, Myalgia, Neck pain Skin: Reports: As per HPI. Denies: Bruising, Change in color, Change in hair/nails, Lesions, Pruritus, Rash Neurological: Reports: As per HPI. Denies: Abnormal gait, Confusion, Headache, Numbness, Paresthesias, Seizure, Tingling, Tremors, Vertigo, Weakness Psychiatric: Reports: As per HPI. Denies: Anxiety, Auditory hallucinations, Depression, Homicidal thoughts, Suicidal thoughts, Visual hallucinations Hematological/Lymphatic: Reports: As per HPI. Denies: Anemia, Blood Clots, Easy bleeding, Easy bruising, Swollen glands Past Medical History - SOCIAL HISTORY Smoking Status: Former smoker - RESPIRATORY Hx Respiratory Disorders: Yes Hx Asthma: No Hx Bronchitis: No Hx COPD: No Hx Dyspnea: Yes Hx Pneumonia: No Hx Pulmonary Embolism: No Hx Sleep Apnea: Yes Hx Tuberculosis: No - CARDIOVASCULAR Hx Cardio Disorders: No Hx Hypertension: Yes (No longer takes medication) Comment:: Pt states many years ago she was told that she had a murmur - NEURO Hx Neuro Disorders: Yes Hx Brain Tumor: No Hx CVA: No Hx Dementia: No Hx Dizziness: Yes (Per patient) Hx Headaches: No Hx Neuropathy: No Hx Parkinson's Disease: No Hx Seizures: No Hx Speech Problem: No Hx TIA: No - GI Hx GI Disorders: Yes Hx Abdominal Pain: No Hx Celiac Disease: No Hx Crohn's Disease: No Hx Diverticulitis: No Hx GI Bleed: No Hx Reflux: Yes (Takes Prevacid) Hx Hepatitis/Jaundice: No Hx Hiatal Hernia: Yes Hx Irritable Bowel: Yes Hx Liver Disease: No Hx Nausea/Vomiting: No Hx Obstructive Bowel: Yes Hx Pancreatitis: No Hx Rectal Bleeding: No Hx Ulcer: No Hx Wt Loss/Wt Gain: No - Hx Genitourinary Disorders: Yes Hx Bladder Problem: Yes Hx Dialysis: No Hx Kidney Stones: Yes Hx Renal Disease: No Hx UTI: Yes - ENDOCRINE Hx Endocrine Disorders: Yes Hx Diabetes: Yes (takes metformin) Hx Thyroid Disease: Yes (partial thyroidectmoy) - MUSCULOSKELETAL Hx Musculoskeletal Disorders: Yes Hx Arthritis: Yes Hx Back Injury: Yes Hx Fibromyalgia: No Hx Gout: No Hx Musculoskeletal Disease: No Hx Osteoporosis: (unsure) - PSYCH Hx Psych Problems: Yes Hx Anxiety: No Hx Behavior Problems: No Hx Depression: Yes Hx Emotional Abuse: No Hx Sexual Abuse: No Hx Suicide Attempt: No - HEMATOLOGY/ONCOLOGY Hx Hematology/Oncology Disorders: Yes Hx Anemia: Yes Hx Blood Disorders: No Hx Bruising: No Hx Cancer: Yes (breast cancer, skin cancer) Hx Chemotherapy: No Hx Radiation Therapy: No Hx Clotting Problems: No Hx Sickle Cell Disease: No Hx Unexplained Bleeding: No Hx Blood Transfusions: Yes (1 yr ago) Hx Blood Transfusion Reaction: No Family Medical History Any Significant Family History?: Yes Hx Anxiety: Mother Hx Dementia: Father Hx Depression: Mother Hx Stroke: Mother Physical Exam - General General Appearance: Alert, Oriented x3, Cooperative, No acute distress - Head Head exam: Normal inspection - Eye Eye exam: Normal appearance, PERRL Pupils: Normal accommodation - ENT ENT exam: Normal exam, Mucous membranes moist, Normal external ear exam, Normal orophraynx, TM's normal bilaterally Ear exam: Normal external inspection. negative: External canal tenderness Nasal Exam: Normal inspection. negative: Discharge, Sinus tenderness Mouth exam: Normal external inspection, Tongue normal Teeth exam: Normal inspection. negative: Dental caries Throat exam: Normal inspection. negative: Tonsillar erythema, Tonsillar exudate - Neck Neck exam: Normal inspection, Full ROM. negative: Tenderness - Respiratory Respiratory exam: Normal lung sounds bilaterally. negative: Respiratory distress - Cardiovascular Cardiovascular Exam: Regular rate, Normal rhythm, Normal heart sounds - GI/Abdominal GI/Abdominal exam: Soft, Normal bowel sounds. negative: Tenderness - Rectal Rectal exam: Deferred - exam: Deferred - Extremities Extremities exam: Normal inspection, Full ROM, Normal capillary refill. negative: Tenderness - Back Back exam: Reports: Normal inspection, Full ROM. Denies: Muscle spasm, Rash noted, Tenderness - Neurological Neurological exam: Alert, Normal gait, Oriented X3, Reflexes normal - Psychiatric Psychiatric exam: Normal affect, Normal mood - Skin Skin exam: Dry, Intact, Normal color, Warm Course Vital Signs 04/14/19 15:00 Pulse Rate 98 H Respiratory 18 Rate Blood Pressure 109/93 Pulse Ox 94 L Disposition Clinical Impression: History of hypotension, Dehydration Disposition: Home, Self-Care Condition: (1) Good Instructions: Dehydration (ED) Additional Instructions: follow up with Dr Bojorquez in one week drink more fluids Forms: Patient Portal Access Time of Disposition: 15:18 Quality - Quality Measures Quality Measures: N/A - Blood Pressure Screening Does Patient Have Any of the Following: No Blood Pressure Classification: Hypertensive Reading Systolic Measurement: 109 Diastolic Measurement: 93 Screening for High Blood Pressure: < Pre-Hypertensive BP, F/U Documented > [G8950] Pre-Hypertensive Follow-up Interventions: Referral to alternative/primary care provider.
== END 2019-04-14 15:31 | disposition home or self-care (01) ==
LOC: ER 14:42
DX: I95.9 Hypotension, unspecified (principal); E86.0 Dehydration; Z87.891 Personal history of nicotine dependence; E11.9 Type 2 diabetes mellitus without complications; Z79.84 Long term (current) use of oral hypoglycemic drugs
CPT/HCPCS: 99282

== ENCOUNTER 2019-04-16 17:13 | Observation (INO) | payer MEDICARE, BC ==
[2019-04-16 18:08] LABS: ABSOLUTE NEUTROPHIL COUNT 7.82; BASO % 0.4 % (0-6); EOS % 0.8 % (0-6); GRAN % 73.5 % (47-80); HEMATOCRIT 36.3 % (35.0-47.0); HEMOGLOBIN 10.4 gm/dl (11.6-16.0); LYMPH % 18.2 % (16-45); MEAN CELL VOLUME 79.6 fl (81-97); MEAN CORPUSCULAR HEMOGLOBIN 22.8 pg (27-33); MEAN PLATELET VOLUME 9.4 fl (7.4-10.4); MONO % 7.1 % (0-9); PLATELET COUNT 203 K/uL (130-400); RED BLOOD COUNT 4.56 M/uL (3.80-5.40); WHITE BLOOD COUNT W/O DIFF 10.6 K/uL (4.2-12.2)
[2019-04-16 18:14] LABS: MEAN CORPUSCULAR HGB CONC 28.7 g/dl (32-36); RED CELL DISTRIBUTION WIDTH 20.1 % (11.5-14.5)
--- NOTE | 2019-04-16 18:17 | Emergency Department Record ---
History of Present Illness - General Chief Complaint: General Stated Complaint: INFUSION Time Seen by Provider: 04/16/19 17:17 Source: Patient Mode of arrival: Ambulatory Limitations: No limitations - History of Present Illness Initial Comments: pt was sent in because of a low potassium and feeling weak and dizzy Complaint: Abnormal lab -: Days(s) Initial Visit For: Other Returns Today for: Called because of abnormal lab/test Symptoms Since Prior Visit: Other Associated Symptoms: Malaise - Related Data Previous Rx's Medication Instructions Recorded Ascorbic Acid/Ascorbate Sodium 1,000 mg PO DAILY #100 tab.chew 04/07/19 [Vit C-Cari Hips 500 mg Chew Tb] Ferrous Sulfate 325 mg PO DAILY #100 tab 04/07/19 Allergies Allergy/AdvReac Type Severity Reaction Status Date / Time fentanyl Allergy Severe FATIGUE Verified 04/07/19 14:30 amoxicillin [Amoxicillin] AdvReac Intermediate DIARRHEA Verified 04/07/19 14:30 morphine AdvReac Intermediate DIZZINESS Verified 04/07/19 14:30 nitrofurantoin AdvReac Intermediate DIZZINESS Verified 04/07/19 14:30 [From Macrobid] nitrofurantoin AdvReac Intermediate DIZZINESS Verified 04/07/19 14:30 macrocrystalline [From Macrobid] oxycodone HCl [From Percocet] AdvReac Intermediate DIZZINESS Verified 04/07/19 14:30 Travel Screening - Travel/Exposure Within Last 30 Days Have you traveled within the last 30 days?: No Review of Systems Reviewed: No additional complaints except as noted below Constitutional: Reports: As per HPI, Malaise, Weakness. Denies: Chills, Fever, Night sweats, Weight change Eyes: Reports: As per HPI. Denies: Eye discharge, Eye pain, Photophobia, Vision change ENT: Reports: As per HPI. Denies: Congestion, Dental pain, Ear pain, Epistaxis, Hearing loss, Throat pain Respiratory: Reports: As per HPI. Denies: Cough, Dyspnea, Hemoptysis, Stridor, Wheezes Cardiovascular: Reports: As per HPI. Denies: Arrhythmia, Chest pain, Dyspnea on exertion, Edema, Murmurs, Orthopnea, Palpitations, Paroxysmal nocturnal dyspnea, Rheumatic Fever, Syncope Endocrine: Reports: As per HPI. Denies: Fatigue, Heat or cold intolerance, Polydipsia, Polyuria Gastrointestinal: Reports: As per HPI. Denies: Abdominal pain, Constipation, Diarrhea, Hematemesis, Hematochezia, Melena, Nausea, Vomiting Genitourinary: Reports: As per HPI. Denies: Abnormal menses, Discharge, Dyspareunia, Dysuria, Frequency, Hematuria, Incontinence, Retention, Urgency Musculoskeletal: Reports: As per HPI. Denies: Arthralgia, Back pain, Gout, Joint swelling, Myalgia, Neck pain Skin: Reports: As per HPI. Denies: Bruising, Change in color, Change in hair/nails, Lesions, Pruritus, Rash Neurological: Reports: As per HPI. Denies: Abnormal gait, Confusion, Headache, Numbness, Paresthesias, Seizure, Tingling, Tremors, Vertigo, Weakness Psychiatric: Reports: As per HPI. Denies: Anxiety, Auditory hallucinations, Depression, Homicidal thoughts, Suicidal thoughts, Visual hallucinations Hematological/Lymphatic: Reports: As per HPI. Denies: Anemia, Blood Clots, Easy bleeding, Easy bruising, Swollen glands Past Medical History - SOCIAL HISTORY Smoking Status: Former smoker - RESPIRATORY Hx Respiratory Disorders: Yes Hx Asthma: No Hx Bronchitis: No Hx COPD: No Hx Dyspnea: Yes Hx Pneumonia: No Hx Pulmonary Embolism: No Hx Sleep Apnea: Yes Hx Tuberculosis: No - CARDIOVASCULAR Hx Cardio Disorders: No Hx Hypertension: Yes (No longer takes medication) Comment:: Pt states many years ago she was told that she had a murmur - NEURO Hx Neuro Disorders: Yes Hx Brain Tumor: No Hx CVA: No Hx Dementia: No Hx Dizziness: Yes (Per patient) Hx Headaches: No Hx Neuropathy: No Hx Parkinson's Disease: No Hx Seizures: No Hx Speech Problem: No Hx TIA: No - GI Hx GI Disorders: Yes Hx Abdominal Pain: No Hx Celiac Disease: No Hx Crohn's Disease: No Hx Diverticulitis: No Hx GI Bleed: No Hx Reflux: Yes (Takes Prevacid) Hx Hepatitis/Jaundice: No Hx Hiatal Hernia: Yes Hx Irritable Bowel: Yes Hx Liver Disease: No Hx Nausea/Vomiting: No Hx Obstructive Bowel: Yes Hx Pancreatitis: No Hx Rectal Bleeding: No Hx Ulcer: No Hx Wt Loss/Wt Gain: No - Hx Genitourinary Disorders: Yes Hx Bladder Problem: Yes Hx Dialysis: No Hx Kidney Stones: Yes Hx Renal Disease: No Hx UTI: Yes - ENDOCRINE Hx Endocrine Disorders: Yes Hx Diabetes: Yes (takes metformin) Hx Thyroid Disease: Yes (partial thyroidectmoy) - MUSCULOSKELETAL Hx Musculoskeletal Disorders: Yes Hx Arthritis: Yes Hx Back Injury: Yes Hx Fibromyalgia: No Hx Gout: No Hx Musculoskeletal Disease: No Hx Osteoporosis: (unsure) - PSYCH Hx Psych Problems: Yes Hx Anxiety: No Hx Behavior Problems: No Hx Depression: Yes Hx Emotional Abuse: No Hx Sexual Abuse: No Hx Suicide Attempt: No - HEMATOLOGY/ONCOLOGY Hx Hematology/Oncology Disorders: Yes Hx Anemia: Yes Hx Blood Disorders: No Hx Bruising: No Hx Cancer: Yes (breast cancer, skin cancer) Hx Chemotherapy: No Hx Radiation Therapy: No Hx Clotting Problems: No Hx Sickle Cell Disease: No Hx Unexplained Bleeding: No Hx Blood Transfusions: Yes (1 yr ago) Hx Blood Transfusion Reaction: No Family Medical History Any Significant Family History?: No Hx Anxiety: Mother Hx Dementia: Father Hx Depression: Mother Hx Stroke: Mother Physical Exam - General General Appearance: Alert, Oriented x3, Cooperative, No acute distress - Head Head exam: Normal inspection - Eye Eye exam: Normal appearance, PERRL, EOMI Pupils: Normal accommodation - ENT ENT exam: Normal exam, Mucous membranes moist, Normal external ear exam, Normal orophraynx Ear exam: Normal external inspection. negative: External canal tenderness Nasal Exam: Normal inspection. negative: Discharge, Sinus tenderness Mouth exam: Normal external inspection, Tongue normal Teeth exam: Normal inspection. negative: Dental caries Throat exam: Normal inspection. negative: Tonsillar erythema, Tonsillar exudate - Neck Neck exam: Normal inspection, Full ROM. negative: Tenderness - Respiratory Respiratory exam: Normal lung sounds bilaterally. negative: Respiratory distress - Cardiovascular Cardiovascular Exam: Regular rate, Normal rhythm, Normal heart sounds - GI/Abdominal GI/Abdominal exam: Soft, Normal bowel sounds. negative: Tenderness - Rectal Rectal exam: Deferred - exam: Deferred - Extremities Extremities exam: Normal inspection, Full ROM, Normal capillary refill. negative: Tenderness - Back Back exam: Reports: Normal inspection, Full ROM. Denies: Muscle spasm, Rash noted, Tenderness - Neurological Neurological exam: Alert, CN II-XII intact, Normal gait, Oriented X3 - Psychiatric Psychiatric exam: Normal affect, Normal mood - Skin Skin exam: Dry, Intact, Normal color, Warm Course Vital Signs 04/16/19 17:33 Temperature 98.3 F Pulse Rate 89 Respiratory 20 Rate Blood Pressure 131/67 Pulse Ox 99 Medical Decision Making - Lab Data Result diagrams: 04/16/19 17:25 04/16/19 17:25 Lab Results 04/16/19 Range/Units 17:25 WBC 10.6 (4.2-12.2) K/uL RBC 4.56 (3.80-5.40) M/uL Hgb 10.4 L (11.6-16.0) gm/dl Hct 36.3 (35.0-47.0) % MCV 79.6 L (81-97) fl MCH 22.8 L (27-33) pg MCHC 28.7 L (32-36) g/dl RDW 20.1 H (11.5-14.5) % Plt Count 203 (130-400) K/uL MPV 9.4 (7.4-10.4) fl Gran % 73.5 (47-80) % Lymphocytes % 18.2 (16-45) % Monocytes % 7.1 (0-9) % Eosinophils % 0.8 (0-6) % Basophils % 0.4 (0-6) % Absolute Neutrophils 7.82 Disposition Disposition: Admit Clinical Impression: Hypokalemia Disposition: Still a Patient at [facility] Decision to Admit: Admit from ER Decision to Admit Date: 04/16/19 Decision to Admit Time: 18:46 Forms: Patient Portal Access Quality - Quality Measures Quality Measures: N/A - Blood Pressure Screening Does Patient Have Any of the Following: No Blood Pressure Classification: Pre-Hypertensive BP Reading Systolic Measurement: 131 Diastolic Measurement: 67 Screening for High Blood Pressure: < Pre-Hypertensive BP, F/U Documented > [G8950] Pre-Hypertensive Follow-up Interventions: Follow-up with rescreen every year.
[2019-04-16 18:22] LABS: BLOOD UREA NITROGEN 11 mg/dL (8-23); CREATININE 0.7 mg/dL (0.5-0.9); EST GLOMERULAR FILTRATION RATE > 60 mL/min
[2019-04-16 18:25] LABS: GLUCOSE,RANDOM 111 mg/dL (74-109)
[2019-04-16] MEDS ORDERED: POTASSIUM CHLORIDE 20 MEQ TABLET PO ONE (18:40)
[2019-04-16] MEDS ORDERED: SOD CHLOR 0.9% WITH KCL 40MEQ 40 MEQ/1,000 ML IV.SOLN IV ONE (18:41)
[2019-04-16] MEDS ORDERED: EZETIMIBE 10 MG TABLET PO SCH (20:32)
[2019-04-16] MEDS ORDERED: BUPRENORPHINE 7.5 MCG TD SCH (20:32)
[2019-04-16] MEDS ORDERED: ACETAMINOPHEN 325 MG TAB PO PRN (20:32)
[2019-04-16] MEDS ORDERED: FLUDROCORTISONE ACETATE 0.1 MG TABLET PO SCH (20:32)
[2019-04-16] MEDS ORDERED: MELATONIN PO SCH (22:00)
[2019-04-16] MEDS ORDERED: PYRIDOXINE HCL PO SCH (22:00)
[2019-04-16] MEDS ORDERED: MELATONIN 5 MG TABLET PO ONE (22:00)
[2019-04-17] MEDS ORDERED: FLU VAC QS 2019-20 (INPT, 6MO+) 60MCG/0.5ML IM ONE (02:49)
[2019-04-17] MEDS ORDERED: IPRATROPIUM/ALBUTEROL (0.5MG/3MG) NEB INH ONE (04:56)
[2019-04-17 04:59] LABS: BLOOD UREA NITROGEN 9 mg/dL (8-23); CREATININE 0.6 mg/dL (0.5-0.9); EST GLOMERULAR FILTRATION RATE > 60 mL/min; GLUCOSE,RANDOM 124 mg/dL (74-109)
--- NOTE | 2019-04-17 05:00 | RADIOLOGY REPORT ---
EXAMINATION: Single View Chest EXAM DATE: 04/17/2019 4:51 AM TECHNIQUE: Single view chest INDICATION: acute shortness of breath COMPARISON: None. ENCOUNTER: Not applicable FINDINGS: The heart, mediastinum, and pulmonary vasculature are normal. No lung consolidation or pleural effu sions are present. No pneumothorax is present. IMPRESSION: No acute cardiopulmonary disease is present. Dictated by: Symone Nunez MD on 04/17/2019 4:56 AM. .
[2019-04-17 05:09] LABS: HEMOGLOBIN 10.3 gm/dl (11.6-16.0); MEAN CELL VOLUME 79.8 fl (81-97); MEAN CORPUSCULAR HEMOGLOBIN 22.8 pg (27-33); MEAN CORPUSCULAR HGB CONC 28.6 g/dl (32-36); MEAN PLATELET VOLUME 9.2 fl (7.4-10.4); PLATELET COUNT 204 K/uL (130-400); RED BLOOD COUNT 4.51 M/uL (3.80-5.40); RED CELL DISTRIBUTION WIDTH 20.7 % (11.5-14.5); WHITE BLOOD COUNT W/O DIFF 8.1 K/uL (4.2-12.2)
[2019-04-17 05:23] LABS: ANISOCYTOSIS 1+; HYPOCHROMIA 2+; OVALOCYTES 1+
--- NOTE | 2019-04-17 06:44 | History & Physical ---
History of Present Illness - Date of Service Date of Service for History & Physical: 04/17/19 - History of Present Illness Admitting Diagnosis: hypokalemia History of Present Illness: 83 y/o female was sent to ED by PCP because of a low potassium and feeling weak and dizzy. She denies any recent gastrointestinal illness or poor appetite. Does not take diuretics. PAST MEDICAL/SURGICAL HISTORY Past Surgical History back surgery, ovarian cyst, hyst, adhesions and bowel obstruction, appy, breast lumpectomy x 2, csection x2, left thyroidectomy t&A, bilat cataract, gallbladder, radical mastectomy, abdominal adhesions and tubal ligation, hysterectomy, right ankle sx PMH - Respiratory Hx Respiratory Disorders Yes Hx Asthma No Hx Bronchitis No Hx Chronic Obstructive No Pulmonary Disease (COPD) Hx Dyspnea Yes Hx Pneumonia No Hx Pulmonary Embolism No Hx Sleep Apnea Yes Hx Tuberculosis No Hx of CPAP Yes: doesn't use it PMH - Cardiovascular Hx Cardiovascular Disorders No Hx Hypertension Yes: No longer takes medication Hx Transient Ischemic Attacks No (TIA) Comment: Pt states many years ago she was told that she had a murmur PMH - Neuro Hx Neurological Disorders Yes Hx Brain Tumor No Hx Cerebrovascular Accident No Hx Dementia No Hx Dizziness Yes: Per patient Hx Headaches No Hx Neuropathy No Hx Parkinson's Disease No Hx Seizures No Hx Speech Problem No Hx Syncope No Hx Transient Ischemic Attacks No (TIA) PMH - GI Hx Gastrointestinal Disorders Yes Hx Abdominal Pain No Hx Celiac Disease No Hx Crohn's Disease No Hx Diverticulitis No Hx Gastrointestinal Bleed No Hx Gastroesophageal Reflux Yes: Takes Prevacid Hx Hepatitis/Jaundice No Hx Hiatal Hernia Yes Hx Irritable Bowel Yes Hx Liver Disease No Hx Nausea/Vomiting No Hx Obstructive Bowel Yes Hx Pancreatitis No Hx Rectal Bleeding No Hx Ulcer No Hx Weight Loss/Weight Gain No PMH - Hx Genitourinary Disorders Yes Patient No Hx Bladder Problem Yes Hx Dialysis No Hx Kidney Stones Yes Hx Renal Disease No Hx Urinary Tract Infection Yes Comment: hyst PMH - Endocrine Hx Endocrine Disorders Yes Hx Diabetes Yes: takes metformin Hx Thyroid Disease Yes: partial thyroidectmoy PMH - Musculoskeletal Hx Musculoskeletal Disorders Yes Hx Arthritis Yes Hx Back Injury Yes Hx Fibromyalgia No Hx Gout No Hx Musculoskeletal Disease No Hx Osteoporosis unsure Comment: Patient has chronic back pain problems PMH - Psych Hx Psychiatric Problems Yes Hx Anxiety No Hx Behavior Problems No Hx Depression Yes Hx Emotional Abuse No Hx Sexual Abuse No Hx Suicide Attempt No PMH - Hematology/Oncology Hx Hematology/Oncology Yes Disorders Hx Anemia Yes- iron deficient Hx Blood Disorders No Hx Bruising No Hx Cancer Yes: breast cancer, skin cancer Hx Chemotherapy No Hx Radiation Therapy No Hx Clotting Problems No Hx Sickle Cell Disease No Hx Unexplained Bleeding No Hx Blood Transfusion Reaction No Comment: iron infusion-11/24/2015 x1 While in Ed [facility], afebrile. Hgb 10.4, Potassium 2.6. She was given oral supplemen t of potassium 40mEq and started on NS with potassium 40 mEq and transferred to the floor for electrolyte replacement. 04/17/19 0930- Was contacted by nursing 0330 this am with report of sudden onset ANTONIETA, hypoxia, nausea, diaphoresis while ambulating to the bathroom at about 0300. RR 32%, pulse 91, SPO2 85% RA. Up until this time had been stable with no complaint except the dizziness and weakness she presented with. At that time EKG, troponin. D-Dimer, BNP was done. EKG with no acute changes from yesterday, troponin <0.010, BNP 1630, D-Dimer 0.9. A CTA was ordered for her but unable to obtain IV access adequate for contrast. An attempt was made to instill IV contrast through a small bore IV in the antecubitus but was unsuccessful. Ultrasound for venous dopplers unavailable. After episode she remained stable, no further symptoms, tele NSR with [id number], no hemoptysis, no calf swelling. Due to nature of event, consistent symptomology with pulmonary embolism, elevated d- dimer, and unavailability of services discussed case with Dr Bernal at [facility] who did accept for transfer to V/Q scan. PCP Dr Bojorquez Cardiology: [facility] Travel Screening - Travel/Exposure Within Last 30 Days Have you traveled within the last 30 days?: No - Travel/Exposure Within Last Year Have you traveled outside the [place] in the last year?: No - Additonal Travel Details Have you been exposed to anyone with a communicable illness?: No - Travel Symptoms Symptom Screening: None Review of Systems Constitutional: Reports: As per HPI, Malaise, Weakness. Denies: Chills, Fever, Night sweats, Weight change Eyes: Reports: As per HPI. Denies: Eye discharge, Eye pain, Photophobia, Vision change ENT: Reports: As per HPI. Denies: Congestion, Dental pain, Ear pain, Epistaxis, Hearing loss, Throat pain Respiratory: Reports: As per HPI. Denies: Cough, Dyspnea, Hemoptysis, Stridor, Wheezes Cardiovascular: Reports: As per HPI. Denies: Arrhythmia, Chest pain, Dyspnea on exertion, Edema, Murmurs, Orthopnea, Palpitations, Paroxysmal nocturnal dyspnea, Rheumatic Fever, Syncope Endocrine: Reports: As per HPI. Denies: Fatigue, Heat or cold intolerance, Polydipsia, Polyuria Gastrointestinal: Reports: As per HPI. Denies: Abdominal pain, Constipation, Diarrhea, Hematemesis, Hematochezia, Melena, Nausea, Vomiting Genitourinary: Reports: As per HPI. Denies: Abnormal menses, Discharge, Dyspareunia, Dysuria, Frequency, Hematuria, Incontinence, Retention, Urgency Musculoskeletal: Reports: As per HPI. Denies: Arthralgia, Back pain, Gout, Joint swelling, Myalgia, Neck pain Skin: Reports: As per HPI. Denies: Bruising, Change in color, Change in hair/nails, Lesions, Pruritus, Rash Neurological: Reports: As per HPI. Denies: Abnormal gait, Confusion, Headache, Numbness, Paresthesias, Seizure, Tingling, Tremors, Vertigo, Weakness Psychiatric: Reports: As per HPI. Denies: Anxiety, Auditory hallucinations, Depression, Homicidal thoughts, Suicidal thoughts, Visual hallucinations Hematological/Lymphatic: Reports: As per HPI. Denies: Anemia, Blood Clots, Easy bleeding, Easy bruising, Swollen glands Past Medical History - SOCIAL HISTORY Smoking Status: Former smoker Alcohol Use: None Drug Use: None - RESPIRATORY Hx Respiratory Disorders: Yes Hx Asthma: No Hx Bronchitis: No Hx COPD: No Hx Dyspnea: Yes Hx Pneumonia: No Hx Pulmonary Embolism: No Hx Sleep Apnea: Yes Hx Tuberculosis: No - CARDIOVASCULAR Hx Cardio Disorders: No Hx Hypertension: Yes (No longer takes medication) Comment:: Pt states many years ago she was told that she had a murmur - NEURO Hx Neuro Disorders: Yes Hx Brain Tumor: No Hx CVA: No Hx Dementia: No Hx Dizziness: Yes (Per patient) Hx Headaches: No Hx Neuropathy: No Hx Parkinson's Disease: No Hx Seizures: No Hx Speech Problem: No Hx TIA: No - GI Hx GI Disorders: Yes Hx Abdominal Pain: No Hx Celiac Disease: No Hx Crohn's Disease: No Hx Diverticulitis: No Hx GI Bleed: No Hx Reflux: Yes (Takes Prevacid) Hx Hepatitis/Jaundice: No Hx Hiatal Hernia: Yes Hx Irritable Bowel: Yes Hx Liver Disease: No Hx Nausea/Vomiting: No Hx Obstructive Bowel: Yes Hx Pancreatitis: No Hx Rectal Bleeding: No Hx Ulcer: No Hx Wt Loss/Wt Gain: No - Hx Genitourinary Disorders: Yes Hx Bladder Problem: Yes Hx Dialysis: No Hx Kidney Stones: Yes Hx Renal Disease: No Hx UTI: Yes - ENDOCRINE Hx Endocrine Disorders: Yes Hx Diabetes: Yes (takes metformin) Hx Thyroid Disease: Yes (partial thyroidectmoy) - MUSCULOSKELETAL Hx Musculoskeletal Disorders: Yes Hx Arthritis: Yes Hx Back Injury: Yes Hx Fibromyalgia: No Hx Gout: No Hx Musculoskeletal Disease: No Hx Osteoporosis: (unsure) - PSYCH Hx Psych Problems: Yes Hx Anxiety: No Hx Behavior Problems: No Hx Depression: Yes Hx Emotional Abuse: No Hx Sexual Abuse: No Hx Suicide Attempt: No - HEMATOLOGY/ONCOLOGY Hx Hematology/Oncology Disorders: Yes Hx Anemia: Yes Hx Blood Disorders: No Hx Bruising: No Hx Cancer: Yes (breast cancer, skin cancer) Hx Chemotherapy: No Hx Radiation Therapy: No Hx Clotting Problems: No Hx Sickle Cell Disease: No Hx Unexplained Bleeding: No Hx Blood Transfusions: Yes (1 yr ago) Hx Blood Transfusion Reaction: No Family Medical History Any Significant Family History?: No Hx Anxiety: Mother Hx Dementia: Father Hx Depression: Mother Hx Stroke: Mother H&P Meds/Allergies - Allergies Allergies: Allergies Allergy/AdvReac Type Severity Reaction Status Date / Time fentanyl Allergy Severe FATIGUE Verified 04/07/19 14:30 amoxicillin [Amoxicillin] AdvReac Intermediate DIARRHEA Verified 04/07/19 14:30 morphine AdvReac Intermediate DIZZINESS Verified 04/07/19 14:30 nitrofurantoin AdvReac Intermediate DIZZINESS Verified 04/07/19 14:30 [From Macrobid] nitrofurantoin AdvReac Intermediate DIZZINESS Verified 04/07/19 14:30 macrocrystalline [From Macrobid] oxycodone HCl [From Percocet] AdvReac Intermediate DIZZINESS Verified 04/07/19 14:30 - Home Medications Previous Rx's Medication Instructions Recorded Ascorbic Acid/Ascorbate Sodium 1,000 mg PO DAILY #100 tab.chew 04/07/19 [Vit C-Cari Hips 500 mg Chew Tb] Ferrous Sulfate 325 mg PO DAILY #100 tab 04/07/19 - Active Medications Active Medications: Current Medications Acetaminophen (Tylenol 325mg) 650 mg PO Q6H PRN PRN Reason: PAIN - MILD(1-4)/FEVER Ezetimibe (Zetia) 10 mg PO QD [facility] Last Admin: 04/16/19 21:07 Dose: Not Given Documented by: Ferrous Sulfate (Iron) 325 mg PO DAILY [facility] Fludrocortisone Acetate (Florinef) 0.2 mg PO QD [facility] Last Admin: 04/16/19 21:07 Dose: Not Given Documented by: Fluoxetine HCl (Prozac) 40 mg PO DAILY [facility] Non-Formulary Medication (Buprenorphine [Butrans]) 7.5 mcg.hr TD QWEEK [facility] Non-Formulary Medication (Melatonin/Pyridoxine Hcl (B6) [Melatonin 5 Mg Tablet]) 1 each PO QHS [facility] Pantoprazole Sodium (Protonix) 40 mg PO BIDAC [facility] Physical Exam - Vital Signs Vital Signs: Vital Signs - Last 24 Hrs Temp Pulse Pulse Pulse Resp BP BP 04/17/19 06:00 97.7 F 77 16 123/66 04/17/19 05:35 04/17/19 04:40 88 32 H 04/17/19 02:32 98.1 F 91 H 16 122/65 04/16/19 22:32 97.7 F 81 16 123/67 04/16/19 20:23 98.8 F 87 18 119/49 04/16/19 19:52 83 20 135/61 04/16/19 17:33 98.3 F 89 20 131/67 Pulse Ox 04/17/19 06:00 98 04/17/19 05:35 97 04/17/19 04:40 04/17/19 02:32 93 L 04/16/19 22:32 99 04/16/19 20:23 96 04/16/19 19:52 96 04/16/19 17:33 99 - General General Appearance: Alert, Oriented x3, Cooperative, No acute distress Limitations: No limitations - Head Head exam: Normal inspection - Eye Eye exam: Normal appearance, PERRL, EOMI Pupils: Normal accommodation - ENT ENT exam: Normal exam, Mucous membranes moist, Normal external ear exam, Normal orophraynx Ear exam: Normal external inspection. negative: External canal tenderness Nasal Exam: Normal inspection. negative: Discharge, Sinus tenderness Mouth exam: Normal external inspection, Tongue normal Teeth exam: Normal inspection. negative: Dental caries Throat exam: Normal inspection. negative: Tonsillar erythema, Tonsillar exudate - Neck Neck exam: Normal inspection, Full ROM. negative: Tenderness - Respiratory Respiratory exam: Other (crackles bilat bases). negative: Respiratory distress - Cardiovascular Cardiovascular Exam: Regular rate, Normal rhythm, Normal heart sounds Peripheral Pulses: 2+: Radial (R), Radial (L), Dorsalis Pedis (R), Dorsalis Pedis (L) - GI/Abdominal GI/Abdominal exam: Soft, Normal bowel sounds. negative: Tenderness - Rectal Rectal exam: Deferred - exam: Deferred - Extremities Extremities exam: Normal inspection, Full ROM, Normal capillary refill. negative: Pedal edema, Tenderness - Back Back exam: Reports: Normal inspection, Full ROM. Denies: Muscle spasm, Rash noted, Tenderness - Neurological Neurological exam: Alert, CN II-XII intact, Normal gait, Oriented X3 - Psychiatric Psychiatric exam: Normal affect, Normal mood - Skin Skin exam: Dry, Intact, Normal color, Warm Results - Labs Result Diagrams: 04/17/19 04:40 04/17/19 04:40 Labs Last 24 Hours: Laboratory Results - last 24 hr 04/16/19 04/16/19 04/17/19 17:25 17:25 04:40 WBC 10.6 RBC 4.56 Hgb 10.4 L Hct 36.3 MCV 79.6 L MCH 22.8 L MCHC 28.7 L RDW 20.1 H Plt Count 203 MPV 9.4 Gran % 73.5 Neutrophils % Lymphocytes % 18.2 Monocytes % 7.1 Eosinophils % 0.8 Basophils % 0.4 Absolute Neutrophils 7.82 Lymphocytes Monocytes Basophils Hypochromasia Anisocytosis Ovalocytes Eosinophil Count D-Dimer Sodium 141 139 Potassium 2.6 L* 3.2 L Chloride 96 L 100 Carbon Dioxide 28.0 24.0 Anion Gap 17.0 H 15.0 BUN 11 9 Creatinine 0.7 0.6 Estimated GFR > 60 > 60 Random Glucose 111 H 124 H Calcium 9.8 9.0 Troponin T NT-Pro-B Natriuret Pep 04/17/19 04/17/19 04/17/19 04:40 04:40 04:40 WBC 8.1 RBC 4.51 Hgb 10.3 L Hct 36.0 MCV 79.8 L MCH 22.8 L MCHC 28.6 L RDW 20.7 H Plt Count 204 MPV 9.2 Gran % Neutrophils % 68.0 Lymphocytes % Monocytes % Eosinophils % Not Reportable Basophils % Not Reportable Absolute Neutrophils TNP Lymphocytes 22.0 Monocytes 8.0 Basophils 1.0 Hypochromasia 2+ Anisocytosis 1+ Ovalocytes 1+ Eosinophil Count 1.0 D-Dimer 0.95 H Sodium Potassium Chloride Carbon Dioxide Anion Gap BUN Creatinine Estimated GFR Random Glucose Calcium Troponin T < 0.010 NT-Pro-B Natriuret Pep 04/17/19 04:40 WBC RBC Hgb Hct MCV MCH MCHC RDW Plt Count MPV Gran % Neutrophils % Lymphocytes % Monocytes % Eosinophils % Basophils % Absolute Neutrophils Lymphocytes Monocytes Basophils Hypochromasia Anisocytosis Ovalocytes Eosinophil Count D-Dimer Sodium Potassium Chloride Carbon Dioxide Anion Gap BUN Creatinine Estimated GFR Random Glucose Calcium Troponin T NT-Pro-B Natriuret Pep 1630.00 H VTE H&P Assessment - Risk for VTE Risk for VTE: Yes Risk Level: High Risk Assessment Date: 04/17/19 Risk Assessment Time: 07:00 VTE Orders Placed or Will Be Placed: Yes Plan - Detailed Diagnosis and Plan (1) Hypoxia Current Visit: Yes Status: Acute Base Code: R09.02 - HYPOXEMIA Comment: 04/17/19 - Acute onset 0300 this am - Troponin <0.010, EKG no acute changes, d-dimer 0.9 - Unable to complete CTA, unable to get IV access with 20G IV - Transfer to [facility] for VQ scan Last echocardiogram 12/07/17- EF 65%, grade 1 systolic dysfunction, severe left atrial enlargement, moderate mitral valve stenosis, muld tricuspid regurgitation, pulmonary pressure normal (2) Hypokalemia Current Visit: Yes Status: Acute Base Code: E87.6 - HYPOKALEMIA Comment: 04/17/19 - NO identified etiology, no GI loss, no diuretics prior to admission - Potassium in ED 2.6-->3.2 after 40mEq PO and NS with 40mEq in 1L (3) DVT prophylaxis Current Visit: No Status: Acute Base Code: [id number] - Comment: 04/17/19: moderate risk due to age, hospilatization, and decreased mobility Awaiting CTA results and coag panel prior to initiating anticoagulant type. Will be transferring to [facility] (4) Full code status Current Visit: No Status: Acute Base Code: Z78.9 - OTHER SPECIFIED HEALTH STATUS Comment: 04/17/19
[2019-04-17] MEDS ORDERED: PANTOPRAZOLE SODIUM 40 MG TABLET PO SCH (07:00)
[2019-04-17 07:27] LABS: % SATURATION 8 % (20-50)
[2019-04-17 07:46] LABS: PARTIAL THROMBOPLASTIN TIME 25.3 SECONDS (24.5-39.1); PROTHROMBIN TIME (PATIENT) 10.5 SECONDS (9.5-12.1)
[2019-04-17] MEDS ORDERED: FLUOXETINE HCL 20 MG CAPSULE PO SCH (10:00)
[2019-04-17] MEDS ORDERED: POTASSIUM CHLORIDE 20 MEQ TABLET PO SCH ×2 (10:00)
[2019-04-17] MEDS ORDERED: FERROUS SULFATE 325 MG TAB PO SCH (10:00)
[2019-04-17] MEDS ORDERED: FUROSEMIDE 20 MG TABLET PO SCH (10:00)
--- NOTE | 2019-04-17 11:14 | Discharge Summary ---
Providers Discharge Summary Date: 04/17/19 Date of admission: 04/16/19 20:25 Attending physician: MAINE GARCIA Primary care physician: NOLAN BOJORQUEZ M.D. Physical Exam - Vital Signs Vital Signs: Vital Signs - Last 24 Hrs Temp Pulse Pulse Pulse Resp BP BP 04/17/19 07:45 98.1 F 87 17 156/73 04/17/19 06:00 97.7 F 77 16 123/66 04/17/19 05:35 04/17/19 04:40 88 32 H 04/17/19 02:32 98.1 F 91 H 16 122/65 04/16/19 22:32 97.7 F 81 16 123/67 04/16/19 20:23 98.8 F 87 18 119/49 04/16/19 19:52 83 20 135/61 04/16/19 17:33 98.3 F 89 20 131/67 Pulse Ox 04/17/19 07:45 97 04/17/19 06:00 98 04/17/19 05:35 97 04/17/19 04:40 04/17/19 02:32 93 L 04/16/19 22:32 99 04/16/19 20:23 96 04/16/19 19:52 96 04/16/19 17:33 99 - General General Appearance: Alert, Oriented x3, Cooperative, No acute distress Limitations: No limitations - Head Head exam: Normal inspection - Eye Eye exam: Normal appearance, PERRL, EOMI Pupils: Normal accommodation - ENT ENT exam: Normal exam, Mucous membranes moist, Normal external ear exam, Normal orophraynx Ear exam: Normal external inspection. negative: External canal tenderness Nasal Exam: Normal inspection. negative: Discharge, Sinus tenderness Mouth exam: Normal external inspection, Tongue normal Teeth exam: Normal inspection. negative: Dental caries Throat exam: Normal inspection. negative: Tonsillar erythema, Tonsillar exudate - Neck Neck exam: Normal inspection, Full ROM. negative: Tenderness - Respiratory Respiratory exam: Other (crackles bilat bases). negative: Respiratory distress - Cardiovascular Cardiovascular Exam: Regular rate, Normal rhythm, Normal heart sounds Peripheral Pulses: 2+: Radial (R), Radial (L), Dorsalis Pedis (R), Dorsalis Pedis (L) - GI/Abdominal GI/Abdominal exam: Soft, Normal bowel sounds. negative: Tenderness - Rectal Rectal exam: Deferred - exam: Deferred - Extremities Extremities exam: Normal inspection, Full ROM, Normal capillary refill. negative: Pedal edema, Tenderness - Back Back exam: Reports: Normal inspection, Full ROM. Denies: Muscle spasm, Rash noted, Tenderness - Neurological Neurological exam: Alert, CN II-XII intact, Normal gait, Oriented X3 - Psychiatric Psychiatric exam: Normal affect, Normal mood - Skin Skin exam: Dry, Intact, Normal color, Warm Hospitalization - Hospitalization Admission Diagnosis: hypokalemia - Problem List/Discharge Diagnosis (1) Hypoxia Current Visit: Yes Status: Acute Base Code: R09.02 - HYPOXEMIA Comment: 04/17/19 - Acute onset 0300 this am - Troponin <0.010, EKG no acute changes, d-dimer 0.9 - Unable to complete CTA, unable to get IV access with 20G IV - [place] [facility] [place] Last echocardiogram 12/07/17- EF 65%, grade 1 systolic dysfunction, severe left atrial enlargement, moderate mitral valve stenosis, muld tricuspid regurgitation, pulmonary pressure normal (2) Hypokalemia Current Visit: Yes Status: Acute Base Code: E87.6 - HYPOKALEMIA Comment: 04/17/19 - NO identified etiology, no GI loss, no diuretics prior to admission - Potassium in ED 2.6-->3.2 after 40mEq PO and NS with 40mEq in 1L (3) DVT prophylaxis Current Visit: No Status: Acute Base Code: [id number] - Comment: 04/17/19: moderate risk due to age, hospilatization, and decreased mobility Awaiting CTA results and coag panel prior to initiating anticoagulant type. Will be transferring [place] [facility] (4) Full code status Current Visit: No Status: Acute Base Code: Z78.9 - OTHER SPECIFIED HEALTH STATUS Comment: 04/17/19 - Hospitalization Course Disposition: Acute Care Hospital Transfer Hospital Course: 83 y/o female was sent to ED by PCP because of a low potassium and feeling weak and dizzy. She denies any recent gastrointestinal illness or poor appetite. Does not take diuretics. PAST MEDICAL/SURGICAL HISTORY Past Surgical History back surgery, ovarian cyst, hyst, adhesions and bowel obstruction, appy, breast lumpectomy x 2, csection x2, left thyroidectomy t&A, bilat cataract, gallbladder, radical mastectomy, abdominal adhesions and tubal ligation, hysterectomy, right ankle sx PMH - Respiratory Hx Respiratory Disorders Yes Hx Asthma No Hx Bronchitis No Hx Chronic Obstructive No Pulmonary Disease (COPD) Hx Dyspnea Yes Hx Pneumonia No Hx Pulmonary Embolism No Hx Sleep Apnea Yes Hx Tuberculosis No Hx of CPAP Yes: doesn't use it PMH - Cardiovascular Hx Cardiovascular Disorders No Hx Hypertension Yes: No longer takes medication Hx Transient Ischemic Attacks No (TIA) Comment: Pt states many years ago she was told that she had a murmur PMH - Neuro Hx Neurological Disorders Yes Hx Brain Tumor No Hx Cerebrovascular Accident No Hx Dementia No Hx Dizziness Yes: Per patient Hx Headaches No Hx Neuropathy No Hx Parkinson's Disease No Hx Seizures No Hx Speech Problem No Hx Syncope No Hx Transient Ischemic Attacks No (TIA) PMH - GI Hx Gastrointestinal Disorders Yes Hx Abdominal Pain No Hx Celiac Disease No Hx Crohn's Disease No Hx Diverticulitis No Hx Gastrointestinal Bleed No Hx Gastroesophageal Reflux Yes: Takes Prevacid Hx Hepatitis/Jaundice No Hx Hiatal Hernia Yes Hx Irritable Bowel Yes Hx Liver Disease No Hx Nausea/Vomiting No Hx Obstructive Bowel Yes Hx Pancreatitis No Hx Rectal Bleeding No Hx Ulcer No Hx Weight Loss/Weight Gain No PMH - Hx Genitourinary Disorders Yes Patient No Hx Bladder Problem Yes Hx Dialysis No Hx Kidney Stones Yes Hx Renal Disease No Hx Urinary Tract Infection Yes Comment: hyst PMH - Endocrine Hx Endocrine Disorders Yes Hx Diabetes Yes: takes metformin Hx Thyroid Disease Yes: partial thyroidectmoy PMH - Musculoskeletal Hx Musculoskeletal Disorders Yes Hx Arthritis Yes Hx Back Injury Yes Hx Fibromyalgia No Hx Gout No Hx Musculoskeletal Disease No Hx Osteoporosis unsure Comment: Patient has chronic back pain problems PMH - Psych Hx Psychiatric Problems Yes Hx Anxiety No Hx Behavior Problems No Hx Depression Yes Hx Emotional Abuse No Hx Sexual Abuse No Hx Suicide Attempt No PMH - Hematology/Oncology Hx Hematology/Oncology Yes Disorders Hx Anemia Yes- iron deficient Hx Blood Disorders No Hx Bruising No Hx Cancer Yes: breast cancer, skin cancer Hx Chemotherapy No Hx Radiation Therapy No Hx Clotting Problems No Hx Sickle Cell Disease No Hx Unexplained Bleeding No Hx Blood Transfusion Reaction No Comment: iron infusion-11/24/2015 x1 While in ED VSS, afebrile. Hgb 10.4, Potassium 2.6. She was given oral supplement of potassium 40mEq and started on NS with potassium 40 mEq and transferred to the floor for electrolyte replacement. 04/17/19 0930- Was contacted by nursing 0330 this am with report of sudden onset ANTONIETA, hypoxia, nausea, diaphoresis while ambulating to the bathroom at about 0300. RR 32%, pulse 91, SPO2 85% RA. Up until this time had been stable with no complaint except the dizziness and weakness she presented with. At that time EKG, troponin. D-Dimer, BNP was done. EKG with no acute changes from yesterday, troponin <0.010, BNP 1630, D-Dimer 0.9. A CTA was ordered for her but unable to obtain IV access adequate for contrast. An attempt was made to instill IV contrast through a small bore IV in the antecubitus but was unsuccessful. Ultrasound for venous dopplers unavailable. After episode she remained stable, no further symptoms, tele NSR with [id number], no hemoptysis, no calf swelling. Due to nature of event, consistent symptomology with pulmonary embolism, elevated d- dimer, and unavailability of services discussed case with Dr Bernal [place] [facility] [place] transfer to V/Q scan. PCP Dr Bojorquez Cardiology: [facility] Procedures: Imaging and X-Rays 04/17/19 04:19 CHEST 1 VIEW [RAD] Stat Cardiology Procedures 04/16/19 17:58 EKG NOW 04/17/19 04:56 EKG NOW Abnormal Labs: Abnormal Lab Results 04/16/19 04/16/19 04/17/19 Range/Units 17:25 17:25 04:40 Hgb 10.4 L (11.6-16.0) gm/dl MCV 79.6 L (81-97) fl MCH 22.8 L (27-33) pg MCHC 28.7 L (32-36) g/dl RDW 20.1 H (11.5-14.5) % D-Dimer (0-0.59) mg/L FEU Potassium 2.6 L* 3.2 L (3.4-4.5) mmol/L Chloride 96 L (98-107) mmol/L Anion Gap 17.0 H (7-16) Random Glucose 111 H 124 H (74-109) mg/dL Iron (37-145) ug/dL TIBC (105-326) ug/dL % Saturation (20-50) % NT-Pro-B Natriuret Pep (<450) pg/mL 04/17/19 04/17/19 04/17/19 Range/Units 04:40 04:40 04:40 Hgb 10.3 L (11.6-16.0) gm/dl MCV 79.8 L (81-97) fl MCH 22.8 L (27-33) pg MCHC 28.6 L (32-36) g/dl RDW 20.7 H (11.5-14.5) % D-Dimer 0.95 H (0-0.59) mg/L FEU Potassium (3.4-4.5) mmol/L Chloride (98-107) mmol/L Anion Gap (7-16) Random Glucose (74-109) mg/dL Iron (37-145) ug/dL TIBC (105-326) ug/dL % Saturation (20-50) % NT-Pro-B Natriuret Pep 1630.00 H (<450) pg/mL 04/17/19 Range/Units 04:40 Hgb (11.6-16.0) gm/dl MCV (81-97) fl MCH (27-33) pg MCHC (32-36) g/dl RDW (11.5-14.5) % D-Dimer (0-0.59) mg/L FEU Potassium (3.4-4.5) mmol/L Chloride (98-107) mmol/L Anion Gap (7-16) Random Glucose (74-109) mg/dL Iron 27 L (37-145) ug/dL TIBC 327 H (105-326) ug/dL % Saturation 8 L (20-50) % NT-Pro-B Natriuret Pep (<450) pg/mL Discharge Medications - Discharge Medications Home Medications: Ambulatory Orders Multivitamin/Iron/Folic Acid [Centrum] 1 tab PO DAILY 07/24/16 [Last Taken 04/07/19] Melatonin/Pyridoxine HCl (B6) [Melatonin 5 Mg Tablet] 1 each PO QHS tab 10/28/18 [Last Taken 04/07/19] Buprenorphine [Butrans] 7.5 mcg.hr TD QWEEK patch 04/06/19 [Last Taken 04/07/19] Ascorbic Acid/Ascorbate Sodium [Vit C-Cari Hips 500 mg Chew Tb] 1,000 mg PO DAILY #100 tab.chew 04/07/19 [Last Taken Unknown] Ferrous Sulfate 325 mg PO DAILY #100 tab 04/07/19 [Last Taken Unknown] Discharge Plan - Discharge Instructions Diet at Discharge: Advance to Usual Diet Quality Measures - Quality Measures Quality Measures: Advance Directives, Documentation of Current Medications in Medical Record, Elder Maltreatment Screen and Follow-Up Plan, Screening for High Blood Pressure and F/U Documented - Current Medications Quality Measure: Measure #130: Documentation of Current Medications Documentation of Current Medications: <Current Medications Documented/Reviewed> [[id number]] - Blood Pressure Screening Quality Measure: Screening for High Blood Pressure and Follow-Up Documented Does Patient Have Any of the Following: Active Dx of HTN Blood Pressure Classification: Pre-Hypertensive BP Reading Systolic Measurement: 131 Diastolic Measurement: 67 Screening for High Blood Pressure: Patient Exclusion, Hx of HTN [[id number]] - Advance Directives Quality Measure: Measure #47: Care Plan Advance Directives Established: Yes Advance Directives Information Provided To Patient: No Advance Directives on File: No Living Will: Yes Power of Digital Watch Assembler: Yes Power of Digital Watch Assembler Name: EVELIN CUNNINGHAM Advance Care Planning: <Care Plan/Decision Maker Documented; Discussed & Documented> [[id number]] - Elder Abuse Suspicion Index Screening: Elder Abuse Suspicion Index Screening Rely on people for bathing, dressing, shopping, banking, etc: No Prevented from getting food, clothes, medication, etc: No Made to feel shamed or threatened by someone: No Forced to sign papers or use money against will: No Feel afraid, touched in ways not wanted or hurt physically: No Poor eye contact, withdrawn, malnourished, cuts or bruises: No Screening Result: Negative result EASI Reference Information: Rubio STEPHENS, Real C, Janice D, Mariam Newby.Development and validation of a tool to assist physicians identification of elder abuse: The Elder Abuse Suspicion Index (EASI ). Journal of Elder Abuse and Neglect, 2008; 20 (3): 276-300. - Elder Maltreatment Screen Quality Measures: Elder Maltreatment Screen and Follow-Up Plan Elder Maltreatment Screen: <Negative, No Follow-Up Plan Required> [[id number]]
== END 2019-04-17 12:00 | disposition short-term general hospital (02) ==
LOC: ER 17:13 → MEDSURG 20:25
PROVIDERS: ADMIT Internal Medicine; ATTEND Internal Medicine
DX: E87.6 Hypokalemia (principal); R09.02 Hypoxemia; R42 Dizziness and giddiness; E55.9 Vitamin D deficiency, unspecified; I10 Essential (primary) hypertension; R06.00 Dyspnea, unspecified; K21.9 Gastro-esophageal reflux disease without esophagitis; E11.9 Type 2 diabetes mellitus without complications; Z23 Encounter for immunization; Z87.891 Personal history of nicotine dependence; G47.33 Obstructive sleep apnea (adult) (pediatric); M19.90 Unspecified osteoarthritis, unspecified site; E89.0 Postprocedural hypothyroidism
CPT/HCPCS: 71045; 80048; 80053; 81003; 82306; 82550; 82728; 83550; 83880; 84439; 84443; 84484; 85025; 85027; 85379; 85610; 85730; 93005; 93010; 94640; 94760; 96365; 96366; 99220; 99285